=== PATIENT | female | born 1955 | race Caucasian/White ===

== ENCOUNTER → 2018-07-26 10:21 | Outpatient (CLI) | payer BC, SELFPAY ==
--- NOTE | 2018-07-26 10:30 | RAD_ITS ---
STUDY: X-RAY - ABDOMEN/PELVIS REASON FOR EXAM: Female, 63 years old. Left-sided renal stones. TECHNIQUE: Single AP view of the abdomen / pelvis. COMPARISON: CT scan 11/25/2015. FINDINGS: Normal visualized lung bases. 9 mm calcification overlying the lower pole of the left kidney consistent with renal stone. There is an unremarkable bowel gas pattern. There is no demonstrated free abdominal air. The visualized liver, spleen and kidneys are grossly normal in size and morphology. Normal soft tissue structures. Normal visualized osseous structures. RAD/Abdomen Single View IMPRESSION: 9 mm left lower pole renal stone. No other significant findings. Electronically Signed: Emory Johnson MD at 22:09 EST , Service support ,
== END ==
PROVIDERS: Family Provider Family Medicine; PCP Family Medicine; Referring Provider Urology; Visit Provider Urology
DX: N20.0 Calculus of kidney (principal)
CPT/HCPCS: 74018

== ENCOUNTER 2018-08-19 08:04 | Day surgery (SDC) | payer BC, SELFPAY ==
[2018-08-19] VITALS (8 sets, daily range): BP systolic 102–153; BP diastolic 69–87; PULSE 73–85; RESP 16; TEMP 36.2–36.9; O2SAT 93–98; BMI 30.8
[2018-08-19] MEDS: Ciprofloxacin 400 MG/200 ML BAG 200 MG IV (08:52)
--- NOTE | 2018-08-19 10:32 | PCM.DC.URO ---
Discharge Diet: No Restrictions Discharge Activity: Return to Normal Activity, May not drive while taking narcotic pain medications. Call your doctor if you observe: Fever of 101 or Higher, Shortness of breath, Calf discomfort, Uncontrolled pain Allergies/Adverse Reactions: Allergies clindamycin Allergy (Verified 08/13/18 10:15) Rash Penicillins Allergy (Verified 08/13/18 10:15) Rash Sulfa (Sulfonamide Antibiotics) Allergy (Verified 08/13/18 10:15) Rash Medications to take at Discharge Acebutolol HCl [Sectral] 200 mg PO DAILY 07/26/15 Albuterol Sulfate [Proventil Hfa] 90 mcg IH 4X/DAY 07/26/15 Fluticasone/Salmeterol [Advair 250/50 Mcg Diskus] 1 puff INHALATION BID 07/26/15 Loratadine [Claritin] 10 mg PO DAILY 07/26/15 Montelukast [Singulair] 10 mg PO DAILY 07/26/15 Diclofenac Sodium [Pennsaid] 2 gm TP DAILY PRN 08/13/18 Primary Care Physician: Puneet Santos MD [Primary Care Provider] - Test Results: Test results from this visit will be discussed in further detail at your follow-up appointment, if applicable. Please Follow Up With: Angelica Mosher MD When: 3 weeks with [facility] Proposed Discharge Date: 08/19/18
--- NOTE | 2018-08-19 10:35 | DCINST_ITS ---
Discharge Diet: No Restrictions Discharge Activity: Return to Normal Activity, May not drive while taking narcotic pain medications. Call your doctor if you observe: Fever of 101 or Higher, Shortness of breath, Calf discomfort, Uncontrolled pain Allergies/Adverse Reactions: Allergies clindamycin Allergy (Verified 08/13/18 10:15) Rash Penicillins Allergy (Verified 08/13/18 10:15) Rash Sulfa (Sulfonamide Antibiotics) Allergy (Verified 08/13/18 10:15) Rash Medications to take at Discharge Acebutolol HCl [Sectral] 200 mg PO DAILY 07/26/15 Albuterol Sulfate [Proventil Hfa] 90 mcg IH 4X/DAY 07/26/15 Fluticasone/Salmeterol [Advair 250/50 Mcg Diskus] 1 puff INHALATION BID 07/26/15 Loratadine [Claritin] 10 mg PO DAILY 07/26/15 Montelukast [Singulair] 10 mg PO DAILY 07/26/15 Diclofenac Sodium [Pennsaid] 2 gm TP DAILY PRN 08/13/18 Primary Care Physician: Puneet Santos MD [Primary Care Provider] - Test Results: Test results from this visit will be discussed in further detail at your follow- up appointment, if applicable. Please Follow Up With: Angelica Mosher MD When: 3 weeks with [facility] Proposed Discharge Date: 08/19/18
--- NOTE | 2018-08-19 11:04 | PCM.IMDPSTOP ---
Immediate Post-Op Note Date of Procedure: 08/19/18 Primary Surgeon/Physician: Angelica Mosher MD hydroelectric systems technician: Angelica Mosher Pre-Operative Diagnosis: left renal calculus Post-Operative Diagnosis: same Surgery/Procedure Performed:: left renal extracorporeal shockwave lithotripsy Description of Surgical Findings:: left lower pole renal stone about 1cm in stone burden, 2000 shocks and no longer seen. Estimated Blood Loss: 1cc Specimen's removed: none Type of Anesthesia:: General - Admit VTE Documentation VTE Present on Admission: Yes VTE Mechan Device Prophylaxis: SCD's VTE Pharm Prophylaxis ordered?: No Reason prophylaxis not ordered:: Treatment Not Indicated
--- NOTE | 2018-08-19 11:06 | PCM.OPRPT ---
Problem List (1) Renal calculus, left Status: Acute Report of Operation Date of Procedure: 08/19/18 Pre-Operative Diagnosis: left renal calculus Post-Operative Diagnosis: same Surgery/Procedure Performed:: left renal extracorporeal shockwave lithotripsy Description of Surgical Findings:: left lower pole renal stone about 1cm in stone burden, 2000 shocks and no longer seen. human capital consultant: Angelica Mosher Type of Anesthesia:: General Specimen's removed: none Estimated Blood Loss (mL): 1cc Description of Procedure: The patient is a 63-year-old female who has had multiple issues with kidney stones in the past. Her last several KUBs reveal a 1 cm left lower pole stone. After discussing all the risks benefits and alternatives, she agreed to proceed with shockwave lithotripsy under general anesthesia. Patient was taken to the operating room and placed on the operating room table. Anesthesia monitored the head, neck, airway, IV access, vital signs throughout the case. Once anesthesia was appropriately administered the patient was aligned with a lithotripter using fluoroscopy. The stone was easily identified using fluoroscopic visualization. 2000 shocks were applied to the stone. It was fragmented to the point of nonvisualization and the decision was made to stop the procedure. The case was terminated and the patient was awakened and taken to the recovery room in good condition. There were no complications. Grafts/Implants Used: none - Complications none - Admit VTE Documentation VTE Present on Admission: Yes VTE Mechan Device Prophylaxis: SCD's VTE Pharm Prophylaxis ordered?: No Reason prophylaxis not ordered:: Treatment Not Indicated
--- NOTE | 2018-08-19 11:09 | OP.PCM_ITS ---
Problem List (1) Renal calculus, left Status: Acute Report of Operation Date of Procedure: 08/19/18 Pre-Operative Diagnosis: left renal calculus Post-Operative Diagnosis: same Surgery/Procedure Performed:: left renal extracorporeal shockwave lithotripsy Description of Surgical Findings:: left lower pole renal stone about 1cm in stone burden, 2000 shocks and no longer seen. clam shucking machine tender: Angelica Mosher Type of Anesthesia:: General Specimen's removed: none Estimated Blood Loss (mL): 1cc Description of Procedure: The patient is a 63-year-old female who has had multiple issues with kidney stones in the past. Her last several KUBs reveal a 1 cm left lower pole stone. After discussing all the risks benefits and alternatives, she agreed to proceed with shockwave lithotripsy under general anesthesia. Patient was taken to the operating room and placed on the operating room table. Anesthesia monitored the head, neck, airway, IV access, vital signs throughout the case. Once anesthesia was appropriately administered the patient was aligned with a lithotripter using fluoroscopy. The stone was easily identified using fluoroscopic visualization. 2000 shocks were applied to the stone. It was fragmented to the point of nonvisualization and the decision was made to stop the procedure. The case was terminated and the patient was awakened and taken to the recovery room in good condition. There were no complications. Grafts/Implants Used: none - Complications none - Admit VTE Documentation VTE Present on Admission: Yes VTE Mechan Device Prophylaxis: SCD's VTE Pharm Prophylaxis ordered?: No Reason prophylaxis not ordered:: Treatment Not Indicated
--- OUTSIDE RECORDS SUMMARY | 2018-10-14 07:56 | XMS RPT_ITS ---
:1955 Author Organization OHIP Care Team Providers Name Role Phone CORRINA MARCOS Attending Unavailable CORRINA MARCOS Referring Unavailable DIANA SEBASTIAN Referring Unavailable CORRINA MARCOS Attending Unavailable DIANA SEBASTIAN Referring Unavailable Angelica Mosher Attending Unavailable Angelica Mosher Referring Unavailable Diana Sebastian Primary Care Unavailable Angelica Mosher Attending Unavailable Angelica Mosher Referring Unavailable Diana Sebastian Primary Care Unavailable PROBLEMS PROBLEMS DATE TYPE CONDITION / CODE ATTENDING STATUS SOURCE 08/19/2018 Unknown N20.0 - Calculus Angelica Mosher Active [facility] N20.0(ICD-10) Hospital Repository 02/04/2018 Active Encounter for NA Active [facility] screening for [facility] malignant Repository neoplasm of colon / Z12.11(ICD-10) PROCEDURES PROCEDURES No Procedure Records FoundRESULTS RESULTS OPERATIVE REPORT Observed: 08/19/2018 Status: F Source: [place] 11:09 AM [facility] REPOSITORY [facility] Medical Records Department [address] [place] [address] Operative Report 08/19/18 1106 MR#: [id number] Acct: [id number] Name: EVELIO MEYERS Rep #: [id number] : 1955 63 From: Angelica oMsher MD PCP: Diana Sebastian MD Status: REG [facility] Location: [place] [address] Problem List (1) Renal calculus, left Status: Acute Report of Operation Date of Procedure: 08/19/18 Pre-Operative Diagnosis: left renal calculus Post-Operative Diagnosis: same Surgery/Procedure Performed:: left renal extracorporeal shockwave lithotripsy Description of Surgical Findings:: left lower pole renal stone about 1cm in stone burden, 2000 shocks and no longer seen. export clerk: Angelica Mosher Type of Anesthesia:: General Specimen's removed: none Estimated Blood Loss (mL): 1cc Description of Procedure: The patient is a 63-year-old female who has had multiple issues with kidney stones in the past. Her last several KUBs reveal a 1 cm left lower pole stone. After discussing all the risks benefits and alternatives, she agreed to proceed with shockwave lithotripsy under general anesthesia. Patient was taken to the operating room and placed on the operating room table. Anesthesia monitored the head, neck, airway, IV access, vital signs throughout the case. Once anesthesia was appropriately administered the patient was aligned with a lithotripter using fluoroscopy. The stone was easily identified using fluoroscopic visualization. 2000 shocks were applied to the stone. It was fragmented to the point of nonvisualization and the decision was made to stop the procedure. The case was terminated and the patient was awakened and taken to the recovery room in good condition. There were no complications. Grafts/Implants Used: none - Complications none - Admit VTE Documentation VTE Present on Admission: Yes VTE Mechan Device Prophylaxis: SCD's VTE Pharm Prophylaxis ordered?: No Reason prophylaxis not ordered:: Treatment Not Indicated 08/19/18 1109 <Electronically signed by Angelica Mosher MD> Date Angelica Mosher MD CC: Angelica Mosher MD; Diana Sebastian MD Signed DISCHARGE INSTRUCTION Observed: 08/19/2018 Status: F Source: [place] 10:35 AM [facility] REPOSITORY [facility] Medical Records Department [address] [place] [address] Instructions for Home/Discharge Instructions 08/19/18 1032 MR#: [id number] Acct: [id number] Name: EVELIO MEYERS Rep #: [id number] : 1955 63 From: Angelica Mosher MD PCP: Diana Sebastian MD Status: REG PRC Discharge Diet: No Restrictions Discharge Activity: Return to Normal Activity, May not drive while taking narcotic pain medications. Call your doctor if you observe: Fever of 101 or Higher, Shortness of breath, Calf discomfort, Uncontrolled pain Allergies/Adverse Reactions: Allergies clindamycin Allergy (Verified 08/13/18 10:15) Rash Penicillins Allergy (Verified 08/13/18 10:15) Rash Sulfa (Sulfonamide Antibiotics) Allergy (Verified 08/13/18 10:15) Rash Medications to take at Discharge Acebutolol HCl [Sectral] 200 mg PO DAILY 07/26/15 Albuterol Sulfate [Proventil Hfa] 90 mcg IH 4X/DAY 07/26/15 Fluticasone/Salmeterol [Advair 250/50 Mcg Diskus] 1 puff INHALATION BID 07/26/15 Loratadine [Claritin] 10 mg PO DAILY 07/26/15 Montelukast [Singulair] 10 mg PO DAILY 07/26/15 Diclofenac Sodium [Pennsaid] 2 gm TP DAILY PRN 08/13/18 Primary Care Physician: Diana Sebastian MD [Primary Care Provider] - Test Results: Test results from this visit will be discussed in further detail at your follow-up appointment, if applicable. Please Follow Up With: Angelica Mosher MD When: 3 weeks with KUB Proposed Discharge Date: 08/19/18 08/19/18 1035 <Electronically signed by Angelica Mosher MD> Date Angelica Mosher MD CC: Diana Sebastian MD ABDOMEN SINGLE VIEW Observed: 07/26/2018 Status: F Source: [place] 10:30 AM [facility] REPOSITORY [facility] Imaging Services [address] [place] [id number] Abdomen Single View MR#: [id number] Acct: [id number] Name: EVELIO MEYERS Rep #: [id number] : 1955 F 63 From: Emory Johnson MD PCP: Diana Sebastian MD Status: REG CLI Study: Abdomen Single View Date of Exam: 07/26/18 Exam# [id number] Ordering Dr: Angelica Mosher MD STUDY: X-RAY - ABDOMEN/PELVIS REASON FOR EXAM: Female, 63 years old. Left-sided renal stones. TECHNIQUE: Single AP view of the abdomen / pelvis. COMPARISON: CT scan 11/25/2015. FINDINGS: Normal visualized lung bases. 9 mm calcification overlying the lower pole of the left kidney consistent with renal stone. There is an unremarkable bowel gas pattern. There is no demonstrated free abdominal air. The visualized liver, spleen and kidneys are grossly normal in size and morphology. Normal soft tissue structures. Normal visualized osseous structures. RAD/Abdomen Single View IMPRESSION: 9 mm left lower pole renal stone. No other significant findings. Electronically Signed: Emory Johnson MD at 22:09 EST , Service support , CC: Angelica Mosher MD; Diana Sebastian MD Laborer Pole Crew: Signed EMELI Observed: 07/06/2018 Status: COMPLETED Source: [place] 12:00 AM [facility] REPOSITORY Telephone (RENE) EVELIO MEYERS ([id number]) 1955 F Date Time Provider Department 07/06/18 CORRINA MARCOS During your visit today, we recorded the following information about you: Alejandra Barrett Ma 07/06/2018 12:01 PM Signed Patient called in with questions about using Pennsaid. She received the medication in the mail and has been using as directed (1 pump BID), she was not getting much relief with just one pump. She read the pamphlet that came with the medication and in their directions, it states 2 pumps BID. She reached out to pharmacist and they advised with an area as large as the knee, she should be using 2 pumps BID, but to notify the physician's office and make sure this is ok Also, asking if she can take ibuprofen while using this medication? Tylenol does nothing for her and she gets headaches frequently. Belgica Valverde PA-C 07/06/2018 1:54 PM Signed 2 pumps BID is fine. Yes, she can take ibuprofen for headaches. Alejandra Barrett Ma 07/06/2018 2:30 PM Signed Patient has been notified of message from Belgica and she verbalized understanding. Allergies As of Date: 07/06/2018 Noted Allergy Reaction AMOXICILLIN 05/03/2008 Comments: hives CLINDAMYCIN 01/11/2018 2 - Rash PENICILLINS 05/03/2008 Comments: jeremy SULFA (SULFONAMIDE ANTIBIOTICS) 05/03/2008 Date Reviewed: 06/28/2018 Reviewed by: Corrina Marcos - Fully Assessed Reason for Visit: Medication Question [4028] Prescriptions as of 07/06/2018 Sig: DICLOFENAC 20 MG/GRAM/ACTUATI* Apply 1 Pump to affected area* ACEBUTOLOL 200 MG CAPSULE Take 1 capsule by mouth twice* MILK THISTLE 175 MG TABLET Take 1 tablet by mouth once d* CHOLECALCIFEROL (VITAMIN D3) * Take 1 tablet by mouth twice * FLAXSEED OIL 1,000 MG CAPSULE Take 1 capsule by mouth once * FLUTICASONE 250 MCG-SALMETERO* Inhale 1 Puff as instructed t* ALBUTEROL SULFATE HFA 90 MCG/* Inhale 2 Puffs as instructed * MONTELUKAST 10 MG TABLET Take 1 tablet by mouth daily * LORATADINE 10 MG TABLET Take 1 tablet by mouth once d* CALCIUM CARBONATE 500 MG CALC* Take 1 tablet by mouth twice * OMEGA-3 FATTY ACIDS 1,000 MG * Take 2 capsules by mouth twic* CINNAMON BARK 500 MG CAPSULE Take 1 capsule by mouth twice* GARLIC 1,000 MG CAPSULE Take 1 capsule by mouth once * COENZYME Q10 200 MG CAPSULE Take 1 capsule by mouth once * Problem List As Of Date 07/06/2018 Noted Resolved Moderate persistent asthma without complication*INVALID FOR* MVP (mitral valve prolapse) [I34.1] INVALID FOR* Kidney stone [N20.0] INVALID FOR* Prediabetes [R73.03] INVALID FOR* Encounter Status:Closed by ALEJANDRA BARRETT MA on 07/06/18 EMELI Observed: 07/01/2018 Status: COMPLETED Source: [place] 12:00 AM [facility] REPOSITORY Telephone (ORTHWS) EVELIO MEYERS ([id number]) 1955 F Date Time Provider Department 07/01/18 CORRINA MARCOS During your visit today, we recorded the following information about you: Alejandra Barrett Ma 07/01/2018 2:26 PM Signed Patient called in stating she was started on etodolac on Thursday. She is not able to tolerate the medication after 2 days. She is asking if medication can be changed? Wanted me to remind you, meloxicam does not hold her pain and that is why you changed the medication on Thursday. Confirmed [facility] in [place] as pharmacy. Belgica Valverde PA-C 07/01/2018 4:11 PM Signed Patient is having GI upset after taking the etodolac, advised her to discontinue the medication. We discussed having her try a topical antiinflammatory, Pennsaid called into pharmacy. She was getting some relief from meloxicam but it stopped helping pen[facility]entiary through the day. Will consider pairing the meloxicam with the pennsaid if needed. Allergies As of Date: 07/01/2018 Noted Allergy Reaction AMOXICILLIN 05/03/2008 Comments: hives CLINDAMYCIN 01/11/2018 2 - Rash PENICILLINS 05/03/2008 Comments: hives SULFA (SULFONAMIDE ANTIBIOTICS) 05/03/2008 Date Reviewed: 06/28/2018 Reviewed by: Corrina Marcos - Fully Assessed Reason for Visit: Medication Problem [65] Order(s):diclofenac sodium (PENNSAID) 20 mg/gram /actuation(2 %) sopmApply 1 Pump to affected area twice daily.Disp: 1 BottleRfl: 2 Prescriptions as of 07/01/2018 Sig: DICLOFENAC 20 MG/GRAM/ACTUATI* Apply 1 Pump to affected area* ACEBUTOLOL 200 MG CAPSULE Take 1 capsule by mouth twice* MILK THISTLE 175 MG TABLET Take 1 tablet by mouth once d* CHOLECALCIFEROL (VITAMIN D3) * Take 1 tablet by mouth twice * FLAXSEED OIL 1,000 MG CAPSULE Take 1 capsule by mouth once * FLUTICASONE 250 MCG-SALMETERO* Inhale 1 Puff as instructed t* ALBUTEROL SULFATE HFA 90 MCG/* Inhale 2 Puffs as instructed * MONTELUKAST 10 MG TABLET Take 1 tablet by mouth daily * LORATADINE 10 MG TABLET Take 1 tablet by mouth once d* CALCIUM CARBONATE 500 MG CALC* Take 1 tablet by mouth twice * OMEGA-3 FATTY ACIDS 1,000 MG * Take 2 capsules by mouth twic* CINNAMON BARK 500 MG CAPSULE Take 1 capsule by mouth twice* GARLIC 1,000 MG CAPSULE Take 1 capsule by mouth once * COENZYME Q10 200 MG CAPSULE Take 1 capsule by mouth once * Problem List As Of Date 07/01/2018 Noted Resolved Moderate persistent asthma without complication*INVALID FOR* MVP (mitral valve prolapse) [I34.1] INVALID FOR* Kidney stone [N20.0] INVALID FOR* Prediabetes [R73.03] INVALID FOR* Prescriptions ordered this encounter Disp Refills Start End DICLOFENAC 20 MG/GRAM/ACTUATION (2 %* 1 Driss* 2 07/01/2018 Route: TOPICAL Sig: Apply 1 Pump to affected area twice daily. Medications Discontinued During This Encounter etodolac (LODINE) 300 mg capsule 90 c* 1 06/28/2018 07/01/2018 Route: ORAL Sig: Take 1 capsule by mouth every 8 hours. Disc: Clinical Decision Encounter Status:Closed by BELGICA VALVERDE PA-C on 07/01/18 PROGRESS Observed: 06/28/2018 Status: COMPLETED Source: [place] 12:16 PM [facility] REPOSITORY O ID: [id number] Author: Corrina Marcos Service: (none) Author Type: Physician Type: Progress Notes Filed: 07/19/2018 5:36 PM Note Text: Corrina Marcos MD Department of Orthopaedics Orthopaedics [address] [facility] [address] Dept: [phone] Dept June 28, 2018 CHIEF COMPLAINT: Established Patient (5 months post visit right knee pain with injection given - see telephone encounter ( Euflexxa denied by insurance)) Ms. Evelio Meyers is a 63 year old female patient returns 5 months after being seen for continued problems with her knee. She had a cortisone injection at that time which only lasted a few weeks if that. She was also apparently denied by insurance for Euflexxa. ASSESSMENT: M25.561, G89.29 Chronic pain of right knee (primary encounter diagnosis) M17.11 Primary osteoarthritis of right knee PLAN: we will change her anti-inflammatory to see if a different type of Visco supplementation might be approved through her own insurance. We also had a lengthy discussion about her different options including possible knee scope versus delayed arthroplasty. She would like to try a new NSAID first. she has also lost some weight which is great and highly encouraged. Ms. Evelio Meyers was advised as to contrast therapies and/or to take analgesics/anti-inflammatories as needed and all contraindications were reviewed. OBJECTIVE: Ms. Evelio Meyers is a pleasant 63 year old in no apparent distress. Gen:There were no vitals taken for this visit. nl development, non obese, no deformities ENT: Normocephalic, normal hearing, moist mucosa CV: Pulses:DP/PT= 2+ and symmetric, capillary refill < 2 secs, no peripheral edema/varicosities Skin: no rash, bruising or lesions. Good turgor. Psych: cooperative and appropriate, alert and oriented x 3, good mood and affect. Musculoskeletal: Range of motion 0?130 degrees. Positive medial, without lateral joint line pain on palpation. Ligamentous exam stable on varus and valgus stress testing at 0 and 30 degrees. Ruddy's examination is negative. Posterior drawer is negative. Painful medial McMurrays, without palpable click. Extremity is warm and well perfused. Sensation is grossly intact to light touch, subjectively Imaging: Deferred today. Supporting Subjective Information Below: Past Surgical History: PAST SURGICAL HISTORY Procedure Laterality Date - BREAST BIOPSY Right - PAST SURGICAL HISTORY OF Right 07/10/2012 vein ablation-right leg Medications: Current Outpatient Prescriptions: acebutolol (SECTRAL) 200 mg capsule Take 1 capsule by mouth twice daily. Milk Thistle 175 mg tab Take 1 tablet by mouth once daily. Cholecalciferol, Vitamin D3, 2,000 unit cap Take 1 tablet by mouth twice daily. Flaxseed Oil 1,000 mg cap Take 1 capsule by mouth once daily. fluticasone-salmeterol (ADVAIR DISKUS) 250-50 mcg/dose dsdv Inhale 1 Puff as instructed twice daily. Rinse and gargle mouth after use with water. albuterol HFA (PROAIR HFA) 90 mcg/actuation inhaler Inhale 2 Puffs as instructed every 4 hours as needed. montelukast (SINGULAIR) 10 mg tablet Take 1 tablet by mouth daily at bedtime. loratadine (CLARITIN) 10 mg tablet Take 1 tablet by mouth once daily. calcium carbonate (CALCIUM 500) 500 mg calcium (1,250 mg) chewable tablet Take 1 tablet by mouth twice daily. omega-3 fatty acids 1,000 mg cap Take 2 capsules by mouth twice daily. Cinnamon Bark (CINNAMON) 500 mg cap Take 1 capsule by mouth twice daily. Garlic 1,000 mg cap Take 1 capsule by mouth once daily. Coenzyme Q10 (CO Q-10) 200 mg cap Take 1 capsule by mouth once daily. etodolac (LODINE) 300 mg capsule Take 1 capsule by mouth every 8 hours. No current facility-administered medications for this visit. Allergies: Amoxicillin; Clindamycin; Penicillins; Sulfa (Sulfonamide Antibiotics) ROS: General (negative for fatigue, malaise, weight loss/gain) HEENT (negative for headache, earache, recent vision changes, sinus pain, sore throat) Respiratory (no recent shortness of breath, hemoptysis) CV (negative for chest tightness, palpitations) Musculoskeletal (see HPI) Psych (no depression, anxiety) This note was partially generated using PAYMILL voice recognition system, and there may be some incorrect words, spellings, and punctuation that were not noted in checking the note before saving. Corrina Marcos MD PROGRESS Observed: 06/28/2018 Status: COMPLETED Source: [place] 11:08 AM [facility] REPOSITORY HNO ID: [id number] Author: Sari Brown Ma Service: (none) Author Type: (none) Type: Progress Notes Filed: 07/19/2018 5:36 PM Note Text: Patient presents with: Established Patient: 5 months post visit right knee pain with injection given - see telephone encounter ( Euflexxa denied by insurance) AMB ROOMING INTAKE FLOWSHEET DATA Risk Screening Do you have concerns about personal safety or safety in the home?: No Pain Pain Score: 4/10 Pain Location: Knee-Right Description: Dull, Aching Duration Amount of Time: (Ongoing) Frequency: Intermittent Intervention: Medication Patient states cortisone injection helped for about 5 - 6 days. Continuing to have pain her in right knee. Finished taking Meloxicam yesterday. States it only helped for about 6-8 hours a day. CNOV Observed: 06/28/2018 Status: COMPLETED Source: [place] 11:00 AM [facility] REPOSITORY Office Visit (ORTHWS) EVELIO MEYERS ([id number]) 1955 F Date Time Provider Department 06/28/18 11:00 AM CORRINA MARCOS During your visit today, we recorded the following information about you: Sari Kevin Rodriguez 07/19/2018 5:36 PM Signed Patient presents with: Established Patient: 5 months post visit right knee pain with injection given - see telephone encounter ( Euflexxa denied by insurance) AMB ROOMING INTAKE FLOWSHEET DATA Risk Screening Do you have concerns about personal safety or safety in the home?: No Pain Pain Score: 4/10 Pain Location: Knee-Right Description: Dull, Aching Duration Amount of Time: (Ongoing) Frequency: Intermittent Intervention: Medication Patient states cortisone injection helped for about 5 - 6 days. Continuing to have pain her in right knee. Finished taking Meloxicam yesterday. States it only helped for about 6-8 hours a day. Corrina Marcos MD 07/19/2018 5:36 PM Signed Corrina Marcos MD Department of Orthopaedics Orthopaedics [address] [facility] [address] Dept: [phone] Dept June 28, 2018 CHIEF COMPLAINT: Established Patient (5 months post visit right knee pain with injection given - see telephone encounter ( Euflexxa denied by insurance)) Ms. Evelio Meyers is a 63 year old female patient returns 5 months after being seen for continued problems with her knee. She had a cortisone injection at that time which only lasted a few weeks if that. She was also apparently denied by insurance for Euflexxa. ASSESSMENT: M25.561, G89.29 Chronic pain of right knee (primary encounter diagnosis) M17.11 Primary osteoarthritis of right knee PLAN: we will change her anti-inflammatory to see if a different type of Visco supplementation might be approved through her own insurance. We also had a lengthy discussion about her different options including possible knee scope versus delayed arthroplasty. She would like to try a new NSAID first. she has also lost some weight which is great and highly encouraged. Ms. Evelio Meyers was advised as to contrast therapies and/or to take analgesics/anti-inflammatories as needed and all contraindications were reviewed. OBJECTIVE: Ms. Evelio Meyers is a pleasant 63 year old in no apparent distress. Gen:There were no vitals taken for this visit. nl development, non obese, no deformities ENT: Normocephalic, normal hearing, moist mucosa CV: Pulses:DP/PT= 2+ and symmetric, capillary refill < 2 secs, no peripheral edema/varicosities Skin: no rash, bruising or lesions. Good turgor. Psych: cooperative and appropriate, alert and oriented x 3, good mood and affect. Musculoskeletal: Range of motion 0?130 degrees. Positive medial, without lateral joint line pain on palpation. Ligamentous exam stable on varus and valgus stress testing at 0 and 30 degrees. Ruddy's examination is negative. Posterior drawer is negative. Painful medial McMurrays, without palpable click. Extremity is warm and well perfused. Sensation is grossly intact to light touch, subjectively Imaging: Deferred today. Supporting Subjective Information Below: Past Surgical History: PAST SURGICAL HISTORY Procedure Laterality Date - BREAST BIOPSY Right - PAST SURGICAL HISTORY OF Right 07/10/2012 vein ablation-right leg Medications: Current Outpatient Prescriptions: acebutolol (SECTRAL) 200 mg capsule Take 1 capsule by mouth twice daily. Milk Thistle 175 mg tab Take 1 tablet by mouth once daily. Cholecalciferol, Vitamin D3, 2,000 unit cap Take 1 tablet by mouth twice daily. Flaxseed Oil 1,000 mg cap Take 1 capsule by mouth once daily. fluticasone-salmeterol (ADVAIR DISKUS) 250-50 mcg/dose dsdv Inhale 1 Puff as instructed twice daily. Rinse and gargle mouth after use with water. albuterol HFA (PROAIR HFA) 90 mcg/actuation inhaler Inhale 2 Puffs as instructed every 4 hours as needed. montelukast (SINGULAIR) 10 mg tablet Take 1 tablet by mouth daily at bedtime. loratadine (CLARITIN) 10 mg tablet Take 1 tablet by mouth once daily. calcium carbonate (CALCIUM 500) 500 mg calcium (1,250 mg) chewable tablet Take 1 tablet by mouth twice daily. omega-3 fatty acids 1,000 mg cap Take 2 capsules by mouth twice daily. Cinnamon Bark (CINNAMON) 500 mg cap Take 1 capsule by mouth twice daily. Garlic 1,000 mg cap Take 1 capsule by mouth once daily. Coenzyme Q10 (CO Q-10) 200 mg cap Take 1 capsule by mouth once daily. etodolac (LODINE) 300 mg capsule Take 1 capsule by mouth every 8 hours. No current facility-administered medications for this visit. Allergies: Amoxicillin; Clindamycin; Penicillins; Sulfa (Sulfonamide Antibiotics) ROS: General (negative for fatigue, malaise, weight loss/gain) HEENT (negative for headache, earache, recent vision changes, sinus pain, sore throat) Respiratory (no recent shortness of breath, hemoptysis) CV (negative for chest tightness, palpitations) Musculoskeletal (see HPI) Psych (no depression, anxiety) This note was partially generated using PAYMILL voice recognition system, and there may be some incorrect words, spellings, and punctuation that were not noted in checking the note before saving. Corrina Marcos MD Referring Provider: CORRINA MARCOS [[id number]] Allergies As of Date: 06/28/2018 Noted Allergy Reaction AMOXICILLIN 05/03/2008 Comments: hives CLINDAMYCIN 01/11/2018 2 - Rash PENICILLINS 05/03/2008 Comments: hives SULFA (SULFONAMIDE ANTIBIOTICS) 05/03/2008 Date Reviewed: 06/28/2018 Reviewed by: Corrina Marcos - Fully Assessed Reason for Visit: Established Patient [175] Cmt: 5 months post visit right knee pain with injection given - see telephone encounter ( Euflexxa denied by insurance) Reason For Visit History Recorded Primary Visit Diagnosis:Chronic pain of right knee [M25.561, G89.29] Other Visit Diagnosis:Primary osteoarthritis of right knee [M17.11] Prescriptions as of 06/28/2018 Sig: ACEBUTOLOL 200 MG CAPSULE Take 1 capsule by mouth twice* MILK THISTLE 175 MG TABLET Take 1 tablet by mouth once d* CHOLECALCIFEROL (VITAMIN D3) * Take 1 tablet by mouth twice * FLAXSEED OIL 1,000 MG CAPSULE Take 1 capsule by mouth once * FLUTICASONE 250 MCG-SALMETERO* Inhale 1 Puff as instructed t* ALBUTEROL SULFATE HFA 90 MCG/* Inhale 2 Puffs as instructed * MONTELUKAST 10 MG TABLET Take 1 tablet by mouth daily * LORATADINE 10 MG TABLET Take 1 tablet by mouth once d* CALCIUM CARBONATE 500 MG CALC* Take 1 tablet by mouth twice * OMEGA-3 FATTY ACIDS 1,000 MG * Take 2 capsules by mouth twic* CINNAMON BARK 500 MG CAPSULE Take 1 capsule by mouth twice* GARLIC 1,000 MG CAPSULE Take 1 capsule by mouth once * COENZYME Q10 200 MG CAPSULE Take 1 capsule by mouth once * X ETODOLAC 300 MG CAPSULE Take 1 capsule by mouth every* Problem List As Of Date 06/28/2018 Noted Resolved Moderate persistent asthma without complication*INVALID FOR* MVP (mitral valve prolapse) [I34.1] INVALID FOR* Kidney stone [N20.0] INVALID FOR* Prediabetes [R73.03] INVALID FOR* Prescriptions ordered this encounter Disp Refills Start End ETODOLAC 300 MG CAPSULE 90 c* 1 06/28/2018 07/01/2018 Route: ORAL Sig: Take 1 capsule by mouth every 8 hours. Disc: Clinical Decision Medications Discontinued During This Encounter meloxicam (MOBIC) 15 mg tablet 30 t* 2 01/11/2018 06/28/2018 Route: ORAL Sig: Take 1 tablet by mouth once daily. Patient not taking: Reported on 06/28/2018 Disc: Course of therapy completed Encounter Status:Closed by CORRINA MARCOS MD on 07/19/18 FECAL OCCULT BLD Collected: 02/04/2018 Status: F Source: [place] 2:06 PM [facility] REPOSITORY TYPE CODE TESTS RESULT OUT OF REFERENCE UNITS RANGE LAB IFO Negative Immuno Negative FOB Result Comment: This test was developed and its performance characteristics determined by [facility] ([facility] It has not been cleared or approved by the FDA. [facility] is regulated under CLIA as qualified to perform high-complexity testing. This test is used for clinical purposes. It should not be regarded as investigational or for research. Performed By: #### IFOBT #### [facility] [address] [place], [place] [address] PROGRESS Observed: 01/11/2018 Status: COMPLETED Source: [place] 2:00 PM [facility] REPOSITORY HNO ID: [id number] Author: Corrina Marcos Service: (none) Author Type: Physician Type: Progress Notes Filed: 01/12/2018 6:12 PM Note Text: Corrina Marcos MD Department of Orthopaedics Orthopaedics [address] [facility] [address] Dept: [phone] Dept January 11, 2018 CHIEF COMPLAINT: New Patient (Right knee pain REF: [facility] X-ray: 07/21/2017) HPI: Ms. Evelio Meyers is a 62 year old female who presents with 7 out of 10 pain in the right knee with throbbing and aching and a dull discomfort for the past 4 months now. She fell and injured her foot always back in last October and thinks it may have altered her gait a bit when it all started. She was taking meloxicam for a month but has been off of it. Her knee pain is now letting him get sleep. ASSESSMENT: M25.561, G89.29 Chronic pain of right knee (primary encounter diagnosis) M17.11 Primary osteoarthritis of right knee PLAN: We talked about multiple treatment plans for knee pain and osteoarthritis. She is going to start some strengthening, and oral anti-inflammatory, as well as a cortisone injection today. FOLLOW UP INSTRUCTIONS: As needed Ms. Evelio Meyers was advised as to contrast therapies and/or to take analgesics/anti-inflammatories as needed and all contraindications were reviewed. OBJECTIVE: Ms. Evelio J Meyers is a pleasant 62 year old in no apparent distress. Gen:BP 143/77 Pulse 95 Ht 5' 5 (1.65m) Wt 192 lb 9.6 oz (87.4kg) BMI 32.05 kg/(m2). nl development, obese, no deformities ENT: Normocephalic, normal hearing, moist mucosa CV: Pulses:DP/PT= 2+ and symmetric, capillary refill < 2 secs, no peripheral edema/varicosities Skin: no rash, bruising or lesions. Good turgor. Psych: cooperative and appropriate, alert and oriented x 3, good mood and affect. Musculoskeletal: Patient walks with antalgia, normal station. Hip motion without pain. Knee with mild effusion. Patella tracks normally. There is no patellar crepitance. No pain along the medial or lateral facets. Range of motion 0?130 degrees. Positive medial, without lateral joint line pain on palpation. Ligamentous exam stable on varus and valgus stress testing at 0 and 30 degrees. Ruddy's examination is negative. Posterior drawer is negative. Painful medial McMurrays, without palpable click. Extremity is warm and well perfused. Sensation is grossly intact to light touch, subjectively. Procedure Note: The risk, benefits and alternatives of injection and no injection therapy were discussed. The patient consented for an injection. Time out was conducted. The injection site was prepped with a Chlorhexadine swab. The right Superolateral joint was injected with a 25 gauge needle with 1 cc (6 mg) Celestone, 5 cc Marcaine 0.5% . The injection site was then dressed with a bandaid. The patient tolerated the injection well. The patient was instructed to call the office if any adverse local effects occurred or any if any questions or concerns arise. Corrina Marcos MD IMAGING: IMPRESSION: Degenerative changes as discussed. 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 Transcribe Date/Time: Jul 21 2017 ?4:50P Dictated by : ALTA WARREN, DO This examination was interpreted and the report reviewed and electronically signed by: ALTA WARREN, on Jul 21 2017 ?4:51PM ?EST Results-Findings * * *Final Report* * * DATE OF EXAM: Jul 21 2017 ?8:37AM ? WOX ? 5207 ?- ?XR KNEE 2V AP/LAT RT ?/ PROCEDURE REASON: Pain in right knee ?? ? * * * * Physician Interpretation * * * * ?RIGHT knee HISTORY: ?62 years old HISTORY: Pain in right knee pt states [facility] back [facility], knee improved but then started hurting again couple of months ago pain is medial side with swelling TECHNIQUE: Images: ?XR KNEE 2V AP/LAT RT Comparison: ?None. RESULT: Findings: Right side: ?No fractures or dislocations are seen. Severe narrowing of the medial compartment. ?Marked narrowing patellofemoral compartment Left side: ?No fractures or dislocations are seen. Moderate narrowing medial compartment Supporting Subjective Information Below: Past Medical History: PAST MEDICAL HISTORY Diagnosis Date - Pre-diabetes Past Surgical History: PAST SURGICAL HISTORY Procedure Laterality Date - BREAST BIOPSY Right - PAST SURGICAL HISTORY OF Right 07/10/2012 vein ablation-right leg Family History: FAMILY HISTORY Problem Relation Age of Onset - Carotid Disease Father - Colon Cancer Other Social History:Social History Marital status: Spouse name: Years of education: Number of children: 3 Social History Main Topics Smoking status: Never Smoker Smokeless status: Never Used Alcohol use: No Comment: Rarely social Drug use: No Medications: Current Outpatient Prescriptions: Milk Thistle 175 mg tab Take 1 tablet by mouth once daily. Cholecalciferol, Vitamin D3, 2,000 unit cap Take 1 tablet by mouth twice daily. Flaxseed Oil 1,000 mg cap Take 1 capsule by mouth once daily. fluticasone-salmeterol (ADVAIR DISKUS) 250-50 mcg/dose dsdv Inhale 1 Puff as instructed twice daily. Rinse and gargle mouth after use with water. albuterol HFA (PROAIR HFA) 90 mcg/actuation inhaler Inhale 2 Puffs as instructed every 4 hours as needed. montelukast (SINGULAIR) 10 mg tablet Take 1 tablet by mouth daily at bedtime. acebutolol (SECTRAL) 200 mg capsule Take 1 capsule by mouth twice daily. loratadine (CLARITIN) 10 mg tablet Take 1 tablet by mouth once daily. calcium carbonate (CALCIUM 500) 500 mg calcium (1,250 mg) chewable tablet Take 1 tablet by mouth twice daily. omega-3 fatty acids 1,000 mg cap Take 2 capsules by mouth twice daily. Cinnamon Bark (CINNAMON) 500 mg cap Take 1 capsule by mouth twice daily. Garlic 1,000 mg cap Take 1 capsule by mouth once daily. Coenzyme Q10 (CO Q-10) 200 mg cap Take 1 capsule by mouth once daily. meloxicam (MOBIC) 15 mg tablet Take 1 tablet by mouth once daily. With food. No current facility-administered medications for this visit. Allergies: Amoxicillin; Clindamycin; Penicillins; Sulfa (Sulfonamide Antibiotics) ROS: General (negative for fatigue, malaise, weight loss/gain) HEENT (negative for headache, earache, recent vision changes, sinus pain, sore throat) Respiratory (no recent shortness of breath, hemoptysis) CV (negative for chest tightness, palpitations) Musculoskeletal (see HPI) Psych (no depression, anxiety) REFERRING PHYSICIAN: Ms. Evelio Meyers was referred to me for consultation by the following physician. This consultation note will be sent to the following physician by either mail or electronic medical record. Diana Sebastian MD [address] [facility] [address] This note was partially generated using [employer] voice recognition system, and there may be some incorrect words, spellings, and punctuation that were not noted in checking the note before saving. Corrina Marcos MD PROGRESS Observed: 01/11/2018 Status: COMPLETED Source: [place] 1:33 PM [facility] REPOSITORY HNO ID: [id number] Author: Alejandra Barrett Ma Service: (none) Author Type: (none) Type: Progress Notes Filed: 01/12/2018 6:12 PM Note Text: AMB ROOMING INTAKE FLOWSHEET DATA Risk Screening Do you have concerns about personal safety or safety in the home?: No Pain Pain Score: 7/10 Pain Location: Knee-Right Description: Throbbing, Aching, Dull Duration Amount of Time: 4 Duration Units: Months Frequency: Continuous Intervention: Other: See comment (none) Patient here today for evaluation of right knee pain x 4 months. States that she fell in 10/2016 and broke her foot and she thinks this all started when she fell. Was on Meloxicam by PCP 06/2017 for 1 month and it helped while she was taking, but pain gradually came back once she stopped taking medication. Pain prevents her from falling asleep and if she does not take ibuprofen before bed, pain wakes her in the night. She does not work outside the home. 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 X-ray at [facility] on 07/21/2017. CNOV Observed: 01/11/2018 Status: COMPLETED Source: [place] 12:55 PM [facility] REPOSITORY Office Visit (RENE) EVELIO MEYERS ([id number]) 1955 F Date Time Provider Department 01/11/18 12:55 PM CORRINA MARCOS During your visit today, we recorded the following information about you: Pulse Blood pressure Weight Height 95/minute 143/77 87.4 kg 1.651 m Alejandra Barrett Ma 01/12/2018 6:12 PM Signed AMB ROOMING INTAKE FLOWSHEET DATA Risk Screening Do you have concerns about personal safety or safety in the home?: No Pain Pain Score: 7/10 Pain Location: Knee-Right Description: Throbbing, Aching, Dull Duration Amount of Time: 4 Duration Units: Months Frequency: Continuous Intervention: Other: See comment (none) Patient here today for evaluation of right knee pain x 4 months. States that she fell in 10/2016 and broke her foot and she thinks this all started when she fell. Was on Meloxicam by PCP 06/2017 for 1 month and it helped while she was taking, but pain gradually came back once she stopped taking medication. Pain prevents her from falling asleep and if she does not take ibuprofen before bed, pain wakes her in the night. She does not work outside the home. 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 X-ray at [facility] on 07/21/2017. Corrina Marcos MD 01/12/2018 6:12 PM Signed Corrina Marcos MD Department of Orthopaedics Orthopaedics [address] [facility] [address] Dept: [phone] Dept January 11, 2018 CHIEF COMPLAINT: New Patient (Right knee pain REF: [facility] X-ray: 07/21/2017) HPI: Ms. Evelio Meyers is a 62 year old female who presents with 7 out of 10 pain in the right knee with throbbing and aching and a dull discomfort for the past 4 months now. She fell and injured her foot always back in last October and thinks it may have altered her gait a bit when it all started. She was taking meloxicam for a month but has been off of it. Her knee pain is now letting him get sleep. ASSESSMENT: M25.561, G89.29 Chronic pain of right knee (primary encounter diagnosis) M17.11 Primary osteoarthritis of right knee PLAN: We talked about multiple treatment plans for knee pain and osteoarthritis. She is going to start some strengthening, and oral anti-inflammatory, as well as a cortisone injection today. FOLLOW UP INSTRUCTIONS: As needed Ms. Evelio Meyers was advised as to contrast therapies and/or to take analgesics/anti-inflammatories as needed and all contraindications were reviewed. OBJECTIVE: Ms. Evelio Meyers is a pleasant 62 year old in no apparent distress. Gen:BP 143/77 Pulse 95 Ht 5' 5ANDquot; (1.65m) Wt 192 lb 9.6 oz (87.4kg) BMI 32.05 kg/(m2). nl development, obese, no deformities ENT: Normocephalic, normal hearing, moist mucosa CV: Pulses:DP/PT= 2+ and symmetric, capillary refill ANDlt; 2 secs, no peripheral edema/varicosities Skin: no rash, bruising or lesions. Good turgor. Psych: cooperative and appropriate, alert and oriented x 3, good mood and affect. Musculoskeletal: Patient walks with antalgia, normal station. Hip motion without pain. Knee with mild effusion. Patella tracks normally. There is no patellar crepitance. No pain along the medial or lateral facets. Range of motion 0?130 degrees. Positive medial, without lateral joint line pain on palpation. Ligamentous exam stable on varus and valgus stress testing at 0 and 30 degrees. Ruddy's examination is negative. Posterior drawer is negative. Painful medial McMurrays, without palpable click. Extremity is warm and well perfused. Sensation is grossly intact to light touch, subjectively. Procedure Note: The risk, benefits and alternatives of injection and no injection therapy were discussed. The patient consented for an injection. Time out was conducted. The injection site was prepped with a Chlorhexadine swab. The right Superolateral joint was injected with a 25 gauge needle with 1 cc (6 mg) Celestone, 5 cc Marcaine 0.5% . The injection site was then dressed with a bandaid. The patient tolerated the injection well. The patient was instructed to call the office if any adverse local effects occurred or any if any questions or concerns arise. Corrina Marcos MD IMAGING: IMPRESSION: Degenerative changes as discussed. 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 Transcribe Date/Time: Jul 21 2017 ?4:50P Dictated by : ALTA WARREN DO This examination was interpreted and the report reviewed and electronically signed by: ALTA WARREN DO on Jul 21 2017 ?4:51PM ?EST Results-Findings * * *Final Report* * * DATE OF EXAM: Jul 21 2017 ?8:37AM ? WOX ? 5207 ?- ?XR KNEE 2V AP/LAT RT ?/ PROCEDURE REASON: Pain in right knee ?? ? * * * * Physician Interpretation * * * * ?RIGHT knee HISTORY: ?62 years old HISTORY: Pain in right knee pt states fell back in [facility], knee improved but then started hurting again couple of months ago pain is medial side with swelling TECHNIQUE: Images: ?XR KNEE 2V AP/LAT RT Comparison: ?None. RESULT: Findings: Right side: ?No fractures or dislocations are seen. Severe narrowing of the medial compartment. ?Marked narrowing patellofemoral compartment Left side: ?No fractures or dislocations are seen. Moderate narrowing medial compartment Supporting Subjective Information Below: Past Medical History: PAST MEDICAL HISTORY Diagnosis Date - Pre-diabetes Past Surgical History: PAST SURGICAL HISTORY Procedure Laterality Date - BREAST BIOPSY Right - PAST SURGICAL HISTORY OF Right 07/10/2012 vein ablation-right leg Family History: FAMILY HISTORY Problem Relation Age of Onset - Carotid Disease Father - Colon Cancer Other Social History:Social History Marital status: Spouse name: Years of education: Number of children: 3 Social History Main Topics Smoking status: Never Smoker Smokeless status: Never Used Alcohol use: No Comment: Rarely social Drug use: No Medications: Current Outpatient Prescriptions: Milk Thistle 175 mg tab Take 1 tablet by mouth once daily. Cholecalciferol, Vitamin D3, 2,000 unit cap Take 1 tablet by mouth twice daily. Flaxseed Oil 1,000 mg cap Take 1 capsule by mouth once daily. fluticasone-salmeterol (ADVAIR DISKUS) 250-50 mcg/dose dsdv Inhale 1 Puff as instructed twice daily. Rinse and gargle mouth after use with water. albuterol HFA (PROAIR HFA) 90 mcg/actuation inhaler Inhale 2 Puffs as instructed every 4 hours as needed. montelukast (SINGULAIR) 10 mg tablet Take 1 tablet by mouth daily at bedtime. acebutolol (SECTRAL) 200 mg capsule Take 1 capsule by mouth twice daily. loratadine (CLARITIN) 10 mg tablet Take 1 tablet by mouth once daily. calcium carbonate (CALCIUM 500) 500 mg calcium (1,250 mg) chewable tablet Take 1 tablet by mouth twice daily. omega-3 fatty acids 1,000 mg cap Take 2 capsules by mouth twice daily. Cinnamon Bark (CINNAMON) 500 mg cap Take 1 capsule by mouth twice daily. Garlic 1,000 mg cap Take 1 capsule by mouth once daily. Coenzyme Q10 (CO Q-10) 200 mg cap Take 1 capsule by mouth once daily. meloxicam (MOBIC) 15 mg tablet Take 1 tablet by mouth once daily. With food. No current facility-administered medications for this visit. Allergies: Amoxicillin; Clindamycin; Penicillins; Sulfa (Sulfonamide Antibiotics) ROS: General (negative for fatigue, malaise, weight loss/gain) HEENT (negative for headache, earache, recent vision changes, sinus pain, sore throat) Respiratory (no recent shortness of breath, hemoptysis) CV (negative for chest tightness, palpitations) Musculoskeletal (see HPI) Psych (no depression, anxiety) REFERRING PHYSICIAN: Ms. Evelio Meyers was referred to me for consultation by the following physician. This consultation note will be sent to the following physician by either mail or electronic medical record. Diana Sebastian MD [address] [facility] [address] This note was partially generated using [employer] voice recognition system, and there may be some incorrect words, spellings, and punctuation that were not noted in checking the note before saving. Corrina Marcos MD Referring Provider: DIANA SEBASTIAN [[id number]] Allergies As of Date: 01/11/2018 Noted Allergy Reaction AMOXICILLIN 05/03/2008 Comments: hives CLINDAMYCIN 01/11/2018 2 - Rash PENICILLINS 05/03/2008 Comments: hives SULFA (SULFONAMIDE ANTIBIOTICS) 05/03/2008 Date Reviewed: 01/11/2018 Reviewed by: Alejandra Barrett Ma - Fully Assessed Reason for Visit: New Patient [172] Cmt: Right knee pain REF: [facility] X-ray: 07/21/2017 Primary Visit Diagnosis:Chronic pain of right knee [M25.561, G89.29] Other Visit Diagnosis:Primary osteoarthritis of right knee [M17.11] Order(s):meloxicam (MOBIC) 15 mg tabletTake 1 tablet by mouth once daily.Disp: 30 tabletRfl: 2 Prescriptions as of 01/11/2018 Sig: MILK THISTLE 175 MG TABLET Take 1 tablet by mouth once d* CHOLECALCIFEROL (VITAMIN D3) * Take 1 tablet by mouth twice * FLAXSEED OIL 1,000 MG CAPSULE Take 1 capsule by mouth once * FLUTICASONE 250 MCG-SALMETERO* Inhale 1 Puff as instructed t* ALBUTEROL SULFATE HFA 90 MCG/* Inhale 2 Puffs as instructed * MONTELUKAST 10 MG TABLET Take 1 tablet by mouth daily * ACEBUTOLOL 200 MG CAPSULE Take 1 capsule by mouth twice* LORATADINE 10 MG TABLET Take 1 tablet by mouth once d* CALCIUM CARBONATE 500 MG CALC* Take 1 tablet by mouth twice * OMEGA-3 FATTY ACIDS 1,000 MG * Take 2 capsules by mouth twic* CINNAMON BARK 500 MG CAPSULE Take 1 capsule by mouth twice* GARLIC 1,000 MG CAPSULE Take 1 capsule by mouth once * COENZYME Q10 200 MG CAPSULE Take 1 capsule by mouth once * MELOXICAM 15 MG TABLET Take 1 tablet by mouth once d* Medication notes this encounter MELOXICAM 15 MG TABLET >> Alejandra Barrett Ma 01/11/2018 1:30 PM >> ALEJANDRA BARRETT MA ThuJan 11, 2018 1:30 PM Course completed. Problem List As Of Date 01/11/2018 Noted Resolved Moderate persistent asthma without complication*INVALID FOR* MVP (mitral valve prolapse) [I34.1] INVALID FOR* Kidney stone [N20.0] INVALID FOR* Prediabetes [R73.03] INVALID FOR* Prescriptions ordered this encounter Disp Refills Start End MELOXICAM 15 MG TABLET 30 t* 2 01/11/2018 Route: ORAL Sig: Take 1 tablet by mouth once daily. Medications Discontinued During This Encounter meloxicam (MOBIC) 15 mg tablet 30 t* 1 07/21/2017 01/11/2018 Route: ORAL Sig: Take 1 tablet by mouth once daily. With food. Disc: Changing Therapy/Dosage Form Encounter Status:Closed by CORRINA MARCOS MD on 01/12/18 ALLERGIES ALLERGIES DATE TYPE / CODE NAME / CODE REACTION SEVERITY SOURCE 08/13/2018 Drug Penicillins/[id number] Rash Unknown [place] Allergy/416 0476(RXNORM) Community 199172([facility] ED CT) Repository 08/13/2018 Drug Sulfa (Sulfonamide Rash Unknown [place] Allergy/416 Antibiotics)/F0010 Community 842204([facility] [address] 08/13/2018 Drug clindamycin/F00433 Rash Unknown [place] Allergy/416 2794(RXNORM) Community 418833([facility] ED CT) Repository 01/11/2018 DRUG CLINDAMYCIN RASH [facility] INGREDI/419 [address] [place] 007579(SNOM Repository ED CT) 05/03/2008 DRUG AMOXICILLIN [facility] INGREDI/419 [address] [place] 002076(SNOM Repository ED CT) 05/03/2008 Drug PENICILLINS [facility] Class/01412 Main [place] 1003(SNOMED Repository CT) 05/03/2008 Drug SULFA (SULFONAMIDE [facility] Class/00691 ANTIBIOTICS) Main [place] 1003(SNOMED Repository CT) ENCOUNTERS ENCOUNTERS ADMIT/DISCHARGE ACCOUNT ADMITTING ENCOUNTER LOCATION SOURCE NUMBER CLASS 08/19/2018/08/19/[id number] ing:SDCRoom: Repository AC12 07/26/2018 [id number] Ambulatory [facility] ing:MTRAD Repository 06/28/2018/07/20/20 [id number] Ambulatory [address] Main [place] Repository 02/04/2018/02/05/20 [id number] Ambulatory [address] Repository 01/11/2018/01/15/[id number] Repository PAYERS PAYERS ENCOUNTER GUARANTOR PAYER SUBSCRIBER SOURCE 08/19/2018 ALESSANDRO Donis Primary ALESSANDRO Carrillo [id number] CR Insurance:ANTHEMPolic ROGERSDOB: [address] y Number: [id number] [address]Ksd: 419 [id number] Repository [phone] () Date:[id number] [place] [id number]: 08/19/2018 Secondary NOT GIVENUNK [place] Insurance:SELF PAY [facility] Number: Effective Repository Date:2018-08-02 07/26/2018 ALESSANDRO Donis Primary ALESSANDRO Carrillo [id number] CR Insurance:ANTHEMPolic ROGERSDOB: [address] y Number: [id number] [facility] [address]Ktx: [phone] [id number] Repository [phone] () Date:1233-20-06QK [id number] [place] [address] 75079LN: 07/26/2018 Secondary NOT GIVENUNK [place] Insurance:SELF PAY [facility] Number: Effective Repository Date:2018-07-26
== END 2018-08-19 13:26 | disposition home or self-care (01) ==
LOC: SDC 08:06 → AC 08:08
PROVIDERS: Family Provider Family Medicine; PCP Family Medicine; Referring Provider Urology; Visit Provider Urology
PROC: (CPT 50590; principal; 2018-08-19 09:30)
DX: N20.0 Calculus of kidney (principal); N39.3 Stress incontinence (female) (male); N39.41 Urge incontinence; N94.11 Superficial (introital) dyspareunia; I34.8 Other nonrheumatic mitral valve disorders; M19.90 Unspecified osteoarthritis, unspecified site; J45.909 Unspecified asthma, uncomplicated; K21.9 Gastro-esophageal reflux disease without esophagitis; Z78.0 Asymptomatic menopausal state; Z88.0 Allergy status to penicillin; Z88.2 Allergy status to sulfonamides; Z79.899 Other long term (current) drug therapy
CPT/HCPCS: 50590; J7120; J0744; J2405

== ENCOUNTER → 2018-09-10 09:30 | Outpatient (CLI) | payer SELFPAY ==
[2018-08-19 08:33] VITALS: BMI 30.8
--- NOTE | 2018-09-10 09:41 | RAD_ITS ---
STUDY: X-RAY - ABDOMEN/PELVIS REASON FOR EXAM: Female, 63 years old. Renal calcification. TECHNIQUE: Two AP supine views of the abdomen and pelvis. COMPARISON: Comparison is made with prior study dated July 26, 2018. FINDINGS: Elevation of the right hemidiaphragm. The lungs are clear. There is a moderate amount of colonic fecal material. The previously seen calculus in the lower pole calyx of the left kidney is not seen at this time. There are calcified phleboliths in the pelvis. Stable 1.7 cm x 1.6 cm rounded ossification in the superior aspect of the right acetabulum. RAD/Abdomen Single View IMPRESSION: The previously seen calculus in the lower pole calyx of the left kidney is not seen at this time. Electronically Signed: Mitchel Michaels MD at 10:47 EST Tel [phone], Service support ,
== END ==
PROVIDERS: Family Provider Family Medicine; PCP Family Medicine; Referring Provider Urology; Visit Provider Urology
DX: N20.0 Calculus of kidney (principal)
CPT/HCPCS: 74018

== ENCOUNTER → 2018-10-08 11:06 | Outpatient (CLI) | payer BC, SELFPAY ==
[2018-08-19 08:33] VITALS: BMI 30.8
[2018-10-08 12:59] LABS: PTHIN 26.8 pg/mL (18.4-80.1)
--- OUTSIDE RECORDS SUMMARY | 2018-12-12 21:01 | XMS RPT_ITS ---
:1955 Author Organization OHIP Care Team Providers Name Role Phone CORRINA MARCOS Attending Unavailable DIANA SEBASTIAN Referring Unavailable DIANA SEBASTIAN Referring Unavailable CORRINA MARCOS Attending Unavailable CORRINA MARCOS Referring Unavailable Angelica Mosher Attending Unavailable Angelica Mosher Referring Unavailable Elderbrock, Diana Primary Care Unavailable Angelica Mosher Attending Unavailable Angelica Mosher Referring Unavailable Elderbrock, Diana Primary Care Unavailable Angelica Mosher Attending Unavailable Angelica Mosher Referring Unavailable Elderbrock, Diana Primary Care Unavailable Angelica Mosher Attending Unavailable Angelica Mosher Referring Unavailable Elderbrock, Diana Primary Care Unavailable PROBLEMS PROBLEMS DATE TYPE CONDITION / CODE ATTENDING STATUS SOURCE 09/10/2018 Unknown N20.0 - Calculus Angelica Mosher Active [place] of kidney / Community N20.0(ICD-10) Hospital Repository 02/04/2018 Active Encounter for NA Active [facility] screening for Main [place] malignant Repository neoplasm of colon / Z12.11(ICD-10) PROCEDURES PROCEDURES No Procedure Records FoundRESULTS RESULTS CALCIUM,TOTAL Collected: 10/08/2018 Status: F Source: [place] 11:11 AM [facility] REPOSITORY TYPE CODE TESTS RESULT OUT OF RANGE REFERENCE UNITS LAB L501.2200 8.5-10.1 mg/dL Normal CA 9.0 Performed By: #### L501.2200 #### [facility] [address] [place], [address] PTHIN Collected: 10/08/2018 Status: F Source: [place] 11:11 AM [facility] REPOSITORY TYPE CODE TESTS RESULT OUT OF RANGE REFERENCE UNITS LAB L509.1000 18.4-80.1 pg/mL Normal PTHIN 26.8 Performed By: #### L509.1000 #### [facility] [address] [place], [address] ABDOMEN SINGLE VIEW Observed: 09/10/2018 Status: F Source: [place] 9:42 AM [facility] REPOSITORY [facility] Imaging Services [address] [address] Abdomen Single View MR#: [id number] Acct: [id number] Name: EVELIO MEYERS Rep #: [id number] : 1955 F 63 From: Mitchel Michaels MD PCP: Tom [place],Diana Status: REG CLI Study: Abdomen Single View Date of Exam: 09/10/18 Exam# [id number] Ordering Dr: Angelica Mosher MD STUDY: X-RAY - ABDOMEN/PELVIS REASON FOR EXAM: Female, 63 years old. Renal calcification. TECHNIQUE: Two AP supine views of the abdomen and pelvis. COMPARISON: Comparison is made with prior study dated July 26, 2018. FINDINGS: Elevation of the right hemidiaphragm. The lungs are clear. There is a moderate amount of colonic fecal material. The previously seen calculus in the lower pole calyx of the left kidney is not seen at this time. There are calcified phleboliths in the pelvis. Stable 1.7 cm x 1.6 cm rounded ossification in the superior aspect of the right acetabulum. RAD/Abdomen Single View IMPRESSION: The previously seen calculus in the lower pole calyx of the left kidney is not seen at this time. Electronically Signed: Mitchel Michaels MD at 10:47 EST Tel [phone], Service support , CC: Angelica Mosher MD; Diana Sebastian MD Etymology Professor: Signed OPERATIVE REPORT Observed: 08/19/2018 Status: F Source: [place] 11:09 AM [facility] REPOSITORY [facility] Medical Records Department [address] [facility] [place] [address] Operative Report 08/19/18 1106 MR#: [id number] Acct: [id number] Name: EVELIO MEYERS Rep #: [id number] : 1955 63 From: Angelica Mosher MD PCP: Diana Sebastian MD Status: REG [facility] Y Location: [place] [address] Problem List (1) Renal calculus, left Status: Acute Report of Operation Date of Procedure: 08/19/18 Pre-Operative Diagnosis: left renal calculus Post-Operative Diagnosis: same Surgery/Procedure Performed:: left renal extracorporeal shockwave lithotripsy Description of Surgical Findings:: left lower pole renal stone about 1cm in stone burden, 2000 shocks and no longer seen. forestry and wildlife manager: Angelica Mosher Type of Anesthesia:: General Specimen's [...] 08/19/2018 Status: F Source: [place] 10:35 AM [facility] REPOSITORY [facility] Medical Records Department [address] [place] [address] Instructions for Home/Discharge Instructions 08/19/18 1032 MR#: [id number] Acct: [id number] Name: EVELIO MEYERS Rep #: [id number] : 1955 63 From: Angelica Mosher MD PCP: Diana Sebastian MD Status: REG SDC Discharge Diet: No Restrictions Discharge Activity: Return [...] signed by Angelica Mosher MD> Date Angelica oMsher MD CC: Diana Sebastian MD ABDOMEN SINGLE VIEW Observed: 07/26/2018 Status: F Source: [place] 10:30 AM [facility] REPOSITORY [facility] Imaging Services [address] [place] [address] Abdomen Single View MR#: [id number] Acct: [id number] Name: EVELIO MEYERS Rep #: [id number] : 1955 F 63 From: Emory Johnson MD PCP: Diana Sebastian MD Status: REG CLI Study: Abdomen Single View Date of Exam: 07/26/18 Exam# [id number] Ordering Dr: Angelcia Mosher MD STUDY: X-RAY - ABDOMEN/PELVIS REASON [...] CC: Angelica Mosher MD; Diana Sebastian MD Etymology Professor: Signed CNPN Observed: 07/06/2018 Status: COMPLETED Source: [place] 12:00 AM [facility] REPOSITORY Telephone (ORTHWS) EVELIO MEYERS ([id number]) 1955 F Date Time Provider Department 07/06/18 [...] Fully Assessed Reason for Visit: Medication Question [5038] Prescriptions as of 07/06/2018 Sig: DICLOFENAC 20 [...] 07/06/18 EMELI Observed: 07/01/2018 Status: COMPLETED Source: [place] 12:00 AM [facility] REPOSITORY Telephone (RENE) EVELIO MEYERS ([id number]) 1955 F Date Time Provider Department 07/01/18 [...] medication on Thursday. Confirmed Jim Sauceda in [place] as pharmacy. Belgica Valverde PA-C 07/01/2018 4:11 PM Signed Patient is having GI upset after taking the etodolac, advised her to discontinue the medication. We discussed having her try a topical antiinflammatory, Pennsaid called into pharmacy. She was getting some relief from meloxicam but it stopped helping longterm through the day. Will consider pairing the [...] 07/01/18 PROGRESS Observed: 06/28/2018 Status: COMPLETED Source: [place] 12:16 PM [facility] REPOSITORY O ID: [id number] Author: Corrina Marcos Service: (none) Author Type: Physician Type: Progress Notes Filed: 07/19/2018 5:36 PM Note Text: Corrina Marcos MD Department of Orthopaedics Orthopaedics [address] [facility] [address] Dept: [phone] Dept June 28, 2018 CHIEF COMPLAINT: Established [...] anxiety) This note was partially generated using KonaWare voice recognition system, and there may be some incorrect words, spellings, and punctuation that were not noted in checking the note before saving. Corrina Marcos MD PROGRESS Observed: 06/28/2018 Status: COMPLETED Source: [place] 11:08 AM [facility] REPOSITORY HNO ID: [id number] Author: Sari Brown Ma Service: (none) Author [...] day. CNOV Observed: 06/28/2018 Status: COMPLETED Source: [place] 11:00 AM [facility] REPOSITORY Office Visit (ORTHWS) EVELIO MEYERS ([id number]) 1955 F Date Time Provider Department 10/8/18 11:00 AM CORRINA MARCOS During your visit today, we recorded the following information about you: Sari Brown Michael 07/19/2018 5:36 PM Signed Patient presents with: [...] Corrina Marcos MD 07/19/2018 5:36 PM Signed Corrian Marcos MD Department of Orthopaedics Orthopaedics [address] [place] [address] Dept: [phone] Dept June 28, 2018 CHIEF COMPLAINT: Established [...] anxiety) This note was partially generated using KonaWare voice recognition system, and there may be some incorrect words, spellings, and punctuation that were not noted in checking the note before saving. Corrina Marcos MD Referring Provider: CORRINA MARCOS [[id number]] Allergies As of Date: 06/28/2018 Noted Allergy [...] OCCULT BLD Collected: 02/04/2018 Status: F Source: [facility] 2:06 PM [facility] REPOSITORY TYPE CODE TESTS RESULT OUT OF REFERENCE UNITS RANGE LAB IFO Negative Immuno Negative FOB Result Comment: This test was developed and its performance characteristics determined by [facility]'s Keyur Betancur [facility] Pathology and Laboratory Medicine [place] ([facility]). It has not been cleared or approved by the FDA. [facility] is regulated under CLIA as qualified to perform high-complexity testing. This test is used for clinical purposes. It should not be regarded as investigational or for research. Performed By: #### IFOBT #### [facility] [address] [place], [place] [address] PROGRESS Observed: 01/11/2018 Status: COMPLETED Source: [place] 2:00 PM [facility] REPOSITORY HNO ID: [id number] Author: Corrina Marcos Service: (none) Author Type: Physician Type: Progress Notes Filed: 01/12/2018 6:12 PM Note Text: Corrina Marcos MD Department of Orthopaedics Orthopaedics [address] [facility] [address] Dept: [phone] Dept January 11, 2018 CHIEF COMPLAINT: New Patient (Right knee pain REF: [facility] X-ray: 07/21/2017) HPI: Ms. Evelio Meyers is [...] MD IMAGING: IMPRESSION: Degenerative changes as discussed. Etymology Professor: TIN ? Transcribe Date/Time: Jul 21 2017 [...] right knee pt states fell back in [facility], knee improved but then started hurting again [...] or electronic medical record. Diana Sebastian MD [address] [facility] [address] This note was partially generated using KonaWare voice recognition system, and there may be some incorrect words, spellings, and punctuation that were not noted in checking the note before saving. 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 X-ray at [facility] on 07/21/2017. 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 X-ray at [facility] on 07/21/2017. Corrina Marcos MD 01/12/2018 6:12 PM Signed Corrina Marcos MD Department of Orthopaedics Orthopaedics [address] [place] [address] Dept: [phone] Dept January 11, 2018 CHIEF COMPLAINT: New Patient (Right knee pain REF: [facility] X-ray: 07/21/2017) HPI: Ms. Evelio Meyers is [...] MD IMAGING: IMPRESSION: Degenerative changes as discussed. Etymology Professor: TIN ? Transcribe Date/Time: Jul 21 2017 ?4:50P Dictated by : ALTA WARREN, DO This examination was interpreted and the report reviewed and electronically signed by: ALTA WARREN, DO on Jul 21 2017 ?4:51PM ?EST [...] right knee pt states fell back in [facility], knee improved but then started hurting again [...] or electronic medical record. Diana Sebastian MD [facility] [address] This note was partially generated using KonaWare voice recognition system, and there may be some incorrect words, spellings, and punctuation that were not noted in checking the note before saving. Corrina Marcos MD Referring Provider: DIANA SEBASTIAN [[id number]] Allergies As of Date: 01/11/2018 Noted Allergy Reaction AMOXICILLIN 05/03/2008 Comments: hives CLINDAMYCIN 01/11/2018 2 - Rash PENICILLINS 05/03/2008 Comments: hives SULFA (SULFONAMIDE ANTIBIOTICS) 05/03/2008 Date Reviewed: 01/11/2018 Reviewed by: Alejandra Barrett Ma - Fully Assessed Reason for Visit: New Patient [172] Cmt: Right knee pain REF: Tom X-ray: 07/21/2017 Primary Visit Diagnosis:Chronic pain of [...] / CODE REACTION SEVERITY SOURCE 08/13/2018 Drug Penicillins/M37006 Rash Unknown [place] Allergy/416 0476(RXNORM) [facility] 564036([facility] ED CT) Repository 08/13/2018 Drug Sulfa (Sulfonamide Rash Unknown [place] Allergy/416 Antibiotics)/F0010 [facility] 875101([facility] [address] Repository 08/13/2018 Drug clindamycin/X48108 Rash Unknown [place] Allergy/416 2794(RXNORM) Community 280262([facility] ED CT) Repository 01/11/2018 DRUG CLINDAMYCIN RASH [facility] INGREDI/[address] [place] 262566(SNOM Repository ED CT) 05/03/2008 DRUG AMOXICILLIN [facility] INGREDI/[address] [place] 894081(SNOM Repository ED CT) 05/03/2008 Drug PENICILLINS [facility] Class/12981 [place] 1003(SNOMED Repository CT) 05/03/2008 Drug SULFA (SULFONAMIDE [facility] Class/41436 ANTIBIOTICS) [place] 1003(SNOMED Repository CT) ENCOUNTERS ENCOUNTERS ADMIT/DISCHARGE ACCOUNT ADMITTING ENCOUNTER LOCATION SOURCE NUMBER CLASS 10/08/2018 [id number] [facility] ing:MTLAB Repository 09/10/2018 [id number] [facility] ing:MTRAD Repository 08/19/2018/08/19/[id number] ing:SDCRoom: Repository AC12 07/26/2018 [id number] [facility] ing:MTRAD Repository 06/28/2018/07/20/20 [id number]ulatory [address] Repository 02/04/2018/02/05/[id number] Repository 01/11/2018/01/15/[id number] Repository PAYERS PAYERS ENCOUNTER GUARANTOR PAYER SUBSCRIBER SOURCE 10/08/2018 ALESSANDRO Donis Primary ALESSANDRO MEYERS1960 CR Insurance:ANTHEMPolic ROGERSDOB: [address] y Number: [id number] [facility] [address]Lie: (909) [id number] Repository [phone] () Date:9043-94-09PS [id number] [place] [address]PM: 10/08/2018 Secondary NOT GIVENUNK [place] Insurance:SELF PAY [facility] Number: Effective Repository Date:2018-10-08 09/10/2018 ALESSANDRO Donis Primary Insurance:[facility] [address] [id number] CR PACKAGE PL[facility]Poly [facility] [address] Number: [id number] Hospital [address]Ley: [phone] [id number] Repository [phone] () Date:2018-09-10 09/10/2018 Secondary NOT GIVENUNK [place] Insurance:SELF PAY [facility] Number: Effective Repository Date:2018-09-10 08/19/2018 ALESSANDRO Donis Primary ALESSANDRO Donis [place] [id number] CR Insurance:ANTHEMPolic ROGERSDOB: [address] y Number: [id number] Hospital [address]Oxb: [phone]) [id number] Repository [phone] () Date:4183-06-12XR [id number] [place] [address] 70[address]XK: 08/19/2018 Secondary NOT GIVENUNK [place] Insurance:SELF PAY [facility] Number: Effective Repository Date:2018-08-02 07/26/2018 ALESSANDRO Don[place] Primary ALESSANDRO [address] [place] [id number] CR Insurance:ANTHEMPolic ROGERSDOB: [address] y Number: [id number] Hospital [address]Tvj: ([phone]) [id number] Repository [phone] () Date:6742-11-58VH [id number] [place] [address]YO: 07/26/2018 Secondary NOT GIVENUNK [place] Insurance:SELF PAY [facility] Number: Effective Repository Date:2018-07-26
== END ==
PROVIDERS: Family Provider Family Medicine; PCP Family Medicine; Referring Provider Urology; Visit Provider Urology
DX: N20.0 Calculus of kidney (principal); R82.994 Hypercalciuria
CPT/HCPCS: 36415; 82310; 83970

== ENCOUNTER → 2019-10-31 12:17 | Outpatient (CLI) | payer MEDICARE, BC, SELFPAY ==
[2018-08-19 08:33] VITALS: BMI 30.8
--- NOTE | 2019-10-31 12:24 | RAD_ITS ---
STUDY: X-RAY - ABDOMEN/PELVIS REASON FOR EXAM: Female, 64 years old. HX KIDNEY STONES, NO CURRENT PAIN OR ABDOMEN COMPLAINTS TECHNIQUE: Single AP view of the abdomen / pelvis. COMPARISON: 09/10/2018 FINDINGS: Normal visualized lung bases. There is an unremarkable bowel gas pattern. The visualized liver, spleen and kidneys are grossly normal in size and morphology. Normal soft tissue structures. Normal visualized osseous structures. RAD/Abdomen Single View IMPRESSION: Normal x-ray examination of the abdomen and pelvis. No obvious renal or ureteral stone. Electronically Signed: Fritz Huertas MD at 7:40 EST Tel , Service support ,
== END ==
PROVIDERS: PCP Family Medicine; Referring Provider Urology; Visit Provider Urology
DX: N20.0 Calculus of kidney (principal)
CPT/HCPCS: 74018

== ENCOUNTER 2019-11-14 17:42 | Observation (INO) | payer MEDICARE, BC, SELFPAY ==
[2018-08-19 08:33] VITALS: BMI 30.8
[2019-11-14 16:49] VITALS: BMI 30.4
[2019-11-14 16:50] VITALS: BP 117/61; PULSE 85; RESP 16; TEMP 36.4; O2SAT 95
[2019-11-14 17:11] VITALS: BMI 30.4
[2019-11-14 17:17] VITALS: RESP 16
[2019-11-14] MEDS: Dext 5%-0.45% NS 1,000 ML 125 ML IV (18:02)
[2019-11-14] MEDS: 0.9% Saline Lock 10 ML Syringe IV (18:03)
[2019-11-14 19:01] VITALS: PULSE 87; RESP 16; O2SAT 98
[2019-11-14] MEDS: Budesonide Respules 0.5 MG/2 ML AMPUL.NEB. INHALATION (19:01)
[2019-11-14] MEDS: Albuterol 2.5 MG/3 ML VIAL.NEB. INHALATION (19:01)
[2019-11-14 20:22] VITALS: BP 107/53; PULSE 83; RESP 16; TEMP 36.9; O2SAT 97
[2019-11-14] MEDS: Cefazolin 1 GM/50 ML BAG IV (21:51)
[2019-11-14] MEDS: Montelukast 10 MG Tablet PO (21:52)
[2019-11-15] VITALS (16 sets, daily range): BP systolic 90–153; BP diastolic 44–85; PULSE 67–86; RESP 16–18; TEMP 36.1–36.7; O2SAT 92–99; BMI 30.4
[2019-11-15] MEDS: Dext 5%-0.45% NS 1,000 ML 125 ML IV (02:30)
[2019-11-15] MEDS: Morphine 4 MG/ML Syringe IV (04:08)
--- NOTE | 2019-11-15 05:00 | EKG12_ITS ---
Test Reason : PRE-OP Blood Pressure : / mmHG Vent. Rate : 077 BPM Atrial Rate : 077 BPM P-R Int : 156 ms QRS Dur : 080 ms QT Int : 400 ms P-R-T Axes : 055 -12 000 degrees QTc Int : 452 ms Sinus rhythm with occasional Premature ventricular complexes Otherwise normal ECG When compared with ECG of 28-MAY-2012 11:37, Premature ventricular complexes are now Present Aberrant conduction is no longer Present Confirmed by NIKI LESTER ([id number]), editor house organ MARC IPTT ([id number]) on 11/16/2019 3:14:00 PM Referred By: Angelica Mosher Confirmed By:NIKI LESTER
[2019-11-15] MEDS: Ketorolac 30 MG/ML Syringe IV (05:42)
[2019-11-15 06:11] LABS: Anion Gap 6 (5-15); BUN 18 mg/dL (7-18); BUN/Creat Ratio 25.8 RATIO (10-20); Calcium,Total 8.1 mg/dL (8.5-10.1); Chloride 110 mmol/L (98-107); EST Glomerular Filtration Rate 89 mL/min (>60); Est Glom Filt Rate - Afr Amer 108 mL/min (>60); Estimated Creatinine Clearance 47.79 ml/min; Glucose 139 mg/dL (74-106); Potassium 3.8 mmol/L (3.5-5.1); Sodium Level 141 mmol/L (136-145)
[2019-11-15] MEDS: Lactated Ringers 1,000 ML 100 ML IV ×2 (06:40→09:49)
[2019-11-15] MEDS: Budesonide Respules 0.5 MG/2 ML AMPUL.NEB. INHALATION (07:10)
[2019-11-15] MEDS: Albuterol 2.5 MG/3 ML VIAL.NEB. INHALATION (07:10)
--- NOTE | 2019-11-15 07:32 | HP.PCM_ITS ---
Problem List (1) Left ureteral calculus Status: Acute (2) Hydronephrosis due to obstruction of ureter Status: Acute History of Present Illness Date of Admission: 11/13/19 Chief Complaint: uncontrolled left flank pain The patient is a 64 year old F with a known history of stones who presented to the emergency room at another facility over the weekend for excruciating left flank pain. A CT was done that revealed a proximal left ureteral calculus with hydronephrosis. She was discharged with pain medications and Zofran. I saw her in the office yesterday and scheduled her for surgical intervention today. She did not have her pain adequately controlled with oral medications and was admitted to the hospital yesterday for pain control. No fevers or chills. She has had some nausea and vomiting. No hematuria. Feels like the stone moved overnight but is still in the ureter. Past Medical History Allergies clindamycin Allergy (Verified 11/14/19 16:52) Rash/itching/anxiety Penicillins Allergy (Verified 11/14/19 16:52) Rash/itching/anxiety Sulfa (Sulfonamide Antibiotics) Allergy (Verified 11/14/19 16:52) Rash/itching/anxiety Home Medications: Ambulatory Orders Medication Instructions Recorded Acebutolol HCl [Sectral (Beta 200 mg PO QHS 07/26/15 Phil)] Albuterol Sulfate [Proventil Hfa] 2 puff IH 4X/DAY PRN 07/26/15 Fluticasone/Salmeterol [Advair 1 puff INHALATION BID 07/26/15 250/50 Mcg Diskus] Loratadine [Claritin] 10 mg PO DAILY 07/26/15 Montelukast [Singulair] 10 mg PO QHS 07/26/15 Diclofenac Sodium [Pennsaid] 2 gm TP DAILY PRN 08/13/18 Ascorbic Acid [Vitamin C] 500 mg PO DAILY 11/14/19 Calcium Carbonate [Calcium] 1,000 mg PO DAILY 11/14/19 Cholecalciferol (VIT D3) [Vitamin 2,000 unit PO DAILY 11/14/19 D] Cinnamon Bark [Cinnamon] 1,000 mg PO BID 11/14/19 Flaxseed Oil 1,000 mg PO DAILY 11/14/19 Garlic 1,000 mg PO DAILY 11/14/19 Ibuprofen [Motrin] 600 mg PO Q8H PRN PRN 11/14/19 Milk Thistle Seed Extract [Milk 175 mg PO QODAY 11/14/19 Thistle] Samson-3/Dha/Epa/Fish Oil [Fish Oil 1 ea PO BID 11/14/19 1,000 mg Softgel] Ondansetron [Ondansetron Odt] 4 mg PO Q4H PRN 11/14/19 Oxycodone HCl/Acetaminophen 1 ea PO Q4H PRN 11/14/19 [Percocet 5-325 mg Tablet] Tamsulosin HCl 0.4 mg PO DAILY 11/14/19 Ubidecarenone [Coq-10] 200 mg PO DAILY 11/14/19 Vitamin B Complex 1 ea PO DAILY 11/14/19 Smoking Status: Former smoker Tobacco Use: Cigarettes Review of Systems Constitutional: Denies: Chills, Fever Eyes: Denies: Vision Change HEENT: Denies: Visual Changes Cardiovascular: Denies: Chest Pain Respiratory: Denies: Shortness of Breath Gastrointestinal: Reports: Abdominal Pain, Nausea Genitourinary: Reports: Urgency. Denies: Dysuria, Frequency Gynecological: Denies: Breast symptoms Musculoskeletal: Denies: Muscle pain Skin: Denies: Skin Changes Neurological: Denies: Confusion VTE Information - Inpt Only VTE Present on Admission: Yes VTE Mechan Device Prophylaxis: SCD's VTE Pharm Prophylaxis ordered?: No Reason prophylaxis not ordered:: Treatment Not Indicated Patient Problems: Active and Suspected Problems Left ureteral calculus (Acute) Hydronephrosis due to obstruction of ureter (Acute) - Physical Exam Vitals/I&O's: Vital Signs Temp Pulse Resp BP Pulse Ox 98.1 F 77 18 153/76 H 99 11/15/19 06:05 11/15/19 06:05 11/15/19 06:05 11/15/19 06:05 11/15/19 06:05 Oxygen Delivery Method Room Air Weight: 81.7 kg Body Mass Index (BMI) 30.4 Intake and Output for Last 24 Hours 11/13/19 11/14/19 11/15/19 23:59 23:59 23:59 Intake Total 527.08 / 527.08 1018.75 / 1018.75 Output Total 400 / 400 1125 / 1125 Balance 127.08 / 127.08 -106.25 / -106.25 General: Alert, Oriented x3, Cooperative, No apparent distress HEENT: Atraumatic, Normocephalic Oral: Moist Mucosa Neck: Supple, Trachea Midline Lungs: Clear to auscultation, Normal air movement Cardiovascular: Regular rate, Regular Rhythm Abdomen: Soft, - - left CVA tenderness Extremities: No cyanosis Skin: No rashes Musculoskeletal: No Tenderness to Palpation of Joints or Extremities, No Muscle Wasting Neurological: Cranial nerves II-XII grossly intact Psych/Mental Status: Normal Affect Laboratory Results 11/15/19 05:30: Sodium 141, Potassium 3.8, Chloride 110 H, Carbon Dioxide 25.0, Anion Gap 6, BUN 18, Creatinine 0.70, Estim Creat Clear Calc 47.79, Est GFR (MDRD) Af Amer 108, Est GFR (MDRD) Non-Af 89, BUN/Creatinine Ratio 25.8 H, Glucose 139 H, Calcium 8.1 L Current Medications Acebutolol HCl (Sectral) 200 mg PO QHS [facility] Last Admin: 11/14/19 21:51 Dose: 200 mg Documented by: Albuterol Sulfate (Ventolin Aerosols) 2.5 mg INHALATION 4X/DAY PRN PRN PRN Reason: Asthma Symptoms Albuterol Sulfate (Ventolin Aerosols) 2.5 mg INHALATION Q6HWA.RT [facility] Last Admin: 11/14/19 19:01 Dose: 2.5 mg Documented by: Budesonide (Pulmicort Aerosol) 0.5 mg INHALATION Q12H.RT [facility] Last Admin: 11/14/19 19:01 Dose: 0.5 mg Documented by: Cefazolin Sodium 2 gm/ Sodium (Chloride) 110 mls @ 150 mls/hr IV PREOP ONE Stop: 11/15/19 07:43 Dextrose/Sodium Chloride () 1,000 mls @ 125 mls/hr IV .Q8H [facility] Last Infusion: 11/15/19 06:40 Dose: Infused Documented by: Cefazolin Sodium () 1 gm in 50 mls @ 100 mls/hr IV Q8 [facility] Last Admin: 11/15/19 06:17 Dose: Not Given Documented by: Lactated Ringer's () 1,000 mls @ 100 mls/hr IV .Q10H [facility] Last Admin: 11/15/19 06:40 Dose: 100 mls/hr Documented by: Ketorolac Tromethamine (Toradol (Bkc)) 30 mg IV Q8H PRN PRN PRN Reason: Pain Score 1-10/10 Stop: 11/19/19 17:50 Last Admin: 11/15/19 05:42 Dose: 30 mg Documented by: Loratadine (Claritin) 10 mg PO DAILY [facility] Montelukast Sodium (Singulair) 10 mg PO QHS MATHEW Last Admin: 11/14/19 21:52 Dose: 10 mg Documented by: Morphine Sulfate () 2 mg IV Q3H PRN PRN PRN Reason: pain scale 4-7/10 Morphine Sulfate () 4 mg IV Q3H PRN PRN PRN Reason: pain score 8-10/10 Last Admin: 11/15/19 04:08 Dose: 4 mg Documented by: Ondansetron HCl (Zofran) 4 mg IV Q8H PRN PRN PRN Reason: NAUSEA/VOMITING Oxycodone HCl (Oxyir) 5 mg PO Q4H PRN PRN PRN Reason: Pain Score 1-3/10 Sodium Chloride () 10 - 40 ml IV UD PRN PRN Reason: SALINE FLUSH Last Admin: 11/14/19 18:03 Dose: 20 ml Documented by: Tamsulosin HCl (Flomax) 0.4 mg PO DAILY [facility] Assessment/Plan All Active Problems Renal calculus, left (Acute) Left ureteral calculus (Acute) Hydronephrosis due to obstruction of ureter (Acute) pain control and supportive care to the OR for ureteroscopy laser lithotripsy and stent hopefully home later today
[2019-11-15] MEDS: Cefazolin 2 GM in 0.9% Normal Saline 100 ML IV (07:35)
--- NOTE | 2019-11-15 07:38 | PCM.OPRPT ---
Problem List (1) Left ureteral calculus Status: Acute (2) Hydronephrosis due to obstruction of ureter Status: Acute Report of Operation Date of Procedure: 11/15/19 Pre-Operative Diagnosis: Left ureteral calculus with obstruction and hydronephrosis Post-Operative Diagnosis: Same Surgery/Procedure Performed:: Cystoscopy left ureteroscopy, left retrograde pyelogram, left ureteral stent insertion Type of Anesthesia:: General Special Medications: Ancef Description of Procedure: The patient is a 64-year-old female who presented to the office with excruciating left-sided flank pain. She had been seen in the emergency room the day before and diagnosed with a left ureteral calculus with hydronephrosis. The pain control was not adequate and she was admitted to the hospital. She now presents for definitive surgical intervention with cystoscopy, ureteroscopy laser lithotripsy and stent insertion. Informed consent was obtained. Patient was taken to the operating room and placed on the operating room table. Anesthesia monitored the head, neck, airway, IV access and vital signs throughout the case. Once anesthesia was appropriately administered the patient was placed into dorsal lithotomy position was prepped and draped in usual sterile fashion. Care was taken and placement of bilateral lower extremities secondary to her knee replacement. At this time, a cystourethroscopy was performed revealing no mucosal abnormalities. A 0.035 Glidewire was used to intubate the left ureter. Semirigid ureteroscope was used with the assistance of a 0.025 Glidewire. Access was obtained all the way to the ureteropelvic junction. At this time several small fragments of stone were seen clumped together in the proximal ureter. Unfortunately, these fragments were moved with the saline from the scope. A flexible ureteroscope uroscopy was then performed and all calyces were evaluated and a retrograde pyelogram was also performed. The stone fragments were not seen. The ureter and the renal pelvis were flushed with saline. The cystoscope was then used to insert a 6 Tamazight 24 cm double-J stent with good curling in the renal pelvis as well as the urinary bladder. The patient's bladder was emptied and the case was terminated the patient tolerated the procedure well and was awakened and taken to the recovery room in good condition. There were no complications during this procedure. Grafts/Implants Used: 6 x 24 JJ stent - Complications None - Admit VTE Documentation VTE Present on Admission: Yes VTE Mechan Device Prophylaxis: SCD's VTE Pharm Prophylaxis ordered?: No Reason prophylaxis not ordered:: Treatment Not Indicated
--- NOTE | 2019-11-15 10:22 | DCINST_ITS ---
Discharge Diet: No Restrictions Discharge Activity: May not drive while taking narcotic pain medications. Call your doctor if you observe: Fever of 101 or Higher, Inability to urinate, Inability to have a bowel movement, Calf discomfort, Uncontrolled pain Allergies/Adverse Reactions: Allergies clindamycin Allergy (Verified 11/14/19 16:52) Rash/itching/anxiety Penicillins Allergy (Verified 11/14/19 16:52) Rash/itching/anxiety Sulfa (Sulfonamide Antibiotics) Allergy (Verified 11/14/19 16:52) Rash/itching/anxiety Medications to take at Discharge Acebutolol HCl [Sectral (Beta Hpil)] 200 mg PO QHS 07/26/15 Albuterol Sulfate [Proventil Hfa] 2 puff IH 4X/DAY PRN 07/26/15 Fluticasone/Salmeterol [Advair 250/50 Mcg Diskus] 1 puff INHALATION BID 07/26/15 Loratadine [Claritin] 10 mg PO DAILY 07/26/15 Montelukast [Singulair] 10 mg PO QHS 07/26/15 Diclofenac Sodium [Pennsaid] 2 gm TP DAILY PRN 08/13/18 Ascorbic Acid [Vitamin C] 500 mg PO DAILY 11/14/19 Calcium Carbonate [Calcium] 1,000 mg PO DAILY 11/14/19 Cholecalciferol (VIT D3) [Vitamin D] 2,000 unit PO DAILY 11/14/19 Cinnamon Bark [Cinnamon] 1,000 mg PO BID 11/14/19 Flaxseed Oil 1,000 mg PO DAILY 11/14/19 Garlic 1,000 mg PO DAILY 11/14/19 Ibuprofen [Motrin] 600 mg PO Q8H PRN PRN 11/14/19 Milk Thistle Seed Extract [Milk Thistle] 175 mg PO QODAY 11/14/19 [place]-3/Dha/Epa/Fish Oil [Fish Oil 1,000 mg Softgel] 1 ea PO BID 11/14/19 Ondansetron [Ondansetron Odt] 4 mg PO Q4H PRN 11/14/19 Oxycodone HCl/Acetaminophen [Percocet 5-325 mg Tablet] 1 ea PO Q4H PRN 11/14/19 Tamsulosin HCl 0.4 mg PO DAILY 11/14/19 Ubidecarenone [Coq-10] 200 mg PO DAILY 11/14/19 Vitamin B Complex 1 ea PO DAILY 11/14/19 Primary Care Physician: Puneet Santos MD [Primary Care Provider] - Test Results: Test results from this visit will be discussed in further detail at your follow- up appointment, if applicable. Please Follow Up With: Angelica Mosher MD When: call office for appt to remove stent on Proposed Discharge Date: 11/15/19
[2019-11-15] MEDS: Loratadine 10 MG Tablet PO (11:51)
[2019-11-15] MEDS: Acetaminophen 325 MG Tablet 650 MG PO (12:14)
== END 2019-11-15 13:43 | disposition home or self-care (01) ==
LOC: MS3 18:03 → SDC 11-15 12:50
PROVIDERS: Anesthesiology; Admitting Provider Urology; PCP Family Medicine; Referring Provider Urology; Visit Provider Urology
PROC: 0TJ98ZZ Inspection of Ureter, Via Natural or Artificial Opening Endoscopic (ICD-10-PCS; CPT 52352; principal; 2019-11-15 07:20)
DX: N13.2 Hydronephrosis with renal and ureteral calculous obstruction (principal); Z87.891 Personal history of nicotine dependence; K21.9 Gastro-esophageal reflux disease without esophagitis; Z79.899 Other long term (current) drug therapy; I10 Essential (primary) hypertension; I49.3 Ventricular premature depolarization; J45.909 Unspecified asthma, uncomplicated
CPT/HCPCS: 00910; 52332; 36415; 76000; 80048; 87086; 87088; 93005; 94640; 96361; 96365; 96375; 99218; J7120; A4216; C1769; C2617; G0378; G0379; J2405; J7799

== ENCOUNTER 2019-11-18 07:42 | Observation (INO) | payer MEDICARE, BC, SELFPAY ==
[2019-11-15 06:05] VITALS: BMI 30.4
[2019-11-18 07:44] VITALS: BP 131/83; PULSE 90; RESP 17; TEMP 36.8; O2SAT 98; BMI 31.7
--- NOTE | 2019-11-18 07:45 | CT_ITS ---
STUDY: CT ABDOMEN AND PELVIS WITHOUT CONTRAST REASON FOR EXAM: Female, 64 years old. [place], L FLANK PAIN RADIATION DOSAGE (If Supplied By Facility): CTDIvol = ( 13.46 ) mGy, DLP = ( 619.98 ) mGycm Previous CT scan of the abdomen and pelvis obtained on 11/25/2015 COMPARISON: None TECHNIQUE: A CT scan of the abdomen and pelvis was performed initially withoutIV contrast contrast administration. Coronal and sagittal reconstruction images were reviewed. This exam was performed according to our departmental dose-optimization program, which includes automated exposure control, adjustment of the mA and/or kV according to patient size and/or use of iterative reconstruction technique. FINDINGS: The lung bases and the base of the heart are normal. A small paraesophageal hiatal hernia is identified. Mild diffuse fatty infiltration of liver is identified..The spleen is normal.The adrenal glands are normal.The head, body, and tail of the pancreas are normal. Bilateral nonobstructive nephrocalcinosis is identified the largest of these calculi measures about 3 mm in size in the inferior pole calyces of the left kidney. Mild left renal hydronephrosis and hydroureter is also identified. A tiny amount of gas is noted within the bladder. Since no Abdi catheter is present and since there is left hydronephrosis and hydroureter and no calculi are seen, these findings are most consistent with a urinary tract infection with left vesicoureteral reflux. These findings were not identified on the prior CT scan of the abdomen and pelvis obtained on 11/25/2015. The abdominal aortal is normal along its course and distribution. No paraortic lymphadenopathy is seen. No abdominal masses or lesions are seen. The CT scan of the pelvis was then reviewed. The common iliac vessels, external iliac vessels, and common femoral vessels are normal along their course and distribution multiple diverticula along the sigmoid portion colon but no evidence of diverticulitis is seen. The appendix is normal. No pericecal inflammatory reaction is seen. Bone scanning windows of the lumbar spine and pelvis were reviewed in the coronal and sagittal planes and appear to be normal. CT/Abdomen/Pelvis without Cont IMPRESSION: 1. Small paraesophageal hiatal hernia. 2. Diffuse fatty infiltration of liver. 3. Bilateral nonobstructive nephrocalcinosis. 4. Left renal hydronephrosis and hydroureter with a small amount of gas noted within the urinary bladder. This constellation of findings is most suggestive a urinary tract infection with left vesicoureteral reflux. Electronically Signed: Aureliano Campos, at 9:20 EST Tel , Service support ,
--- NOTE | 2019-11-18 07:53 | ED.DCSUM_ITS ---
History of Present Illness Chief Complaint: Flank Pain Detail of Chief Complaint: Flank and left abdominal pain Informant: Patient, Significant Other Onset: Today, Yesterday Context: Sudden Onset Timing: Continuous Quality: Colicky severe pain Location: Left flank/left abdomen Current Severity: Severe Maximum Severity: Severe Worsened by: Nothing Relieved by: Nothing Associated Symptoms: Nausea and chills and inability to urinate Narrative: Patient is a 64-year-old woman who has history of right renal calculus who was seen earlier this month for left flank pain and diagnosed with obstructing proximal left ureteral stone with hydronephrosis. Patient failed outpatient management for pain control. She underwent operative procedure. She had a cystoscopy left ureteroscopy, left retrograde pyelogram, left ureteral stent insertion on November 15. She had ureteral spasm necessitating removal of stent yesterday. She presents because of episode of abrupt pain last evening at 2300. Pain subsided. She had another episode of severe pain that has been unrelenting and colicky with a waxing and waning intensity since 0200. Patient did take Flomax, ibuprofen and oxycodone with no improvement. She does report nausea without vomiting. She states she is unable to urinate. She denies history of urinary retention. Her urologist called prior to presentation and requested CAT scan to evaluate etiology of patient's recurrent pain. Prior similar symptoms: Yes Recent Illness/Hospitalization: Yes - Past Medical History (1) Hydronephrosis due to obstruction of ureter Status: Acute (2) Renal calculus, left Status: Acute Past Medical History - Allergies and Home Meds Allergies/Adverse Reactions: Allergies clindamycin Allergy (Verified 11/18/19 07:43) Rash/itching/anxiety Penicillins Allergy (Verified 11/18/19 07:43) Rash/itching/anxiety Sulfa (Sulfonamide Antibiotics) Allergy (Verified 11/18/19 07:43) Rash/itching/anxiety Primary Care Physician: Puneet Santos MD [Primary Care Provider] - Prior records reviewed: Yes Surgical History: - - Cystoscopy left ureteroscopy, left retrograde pyelogram, left ureteral stent insertion Lives: Spouse/ Significant Other Smoking Status: Former smoker Alcohol: None Drugs: None Review of Systems General: Reports: Chills, Malaise. Denies: Fever, Subjective, Sweats Eyes: Denies: Visual changes - bilaterally, Blurred Vision - bilaterally ENT: Denies: Rhinorrhea, Sore throat Cardiovascular: Denies: Chest pain, Palpitations Respiratory: Denies: Dyspnea, Cough, Sputum Gastrointestinal: Reports: Abdominal pain, Nausea. Denies: Vomiting, Diarrhea, Constipation, Melena, Hematochezia, -, - Genitourinary: Reports: - - Unable to urinate. Denies: Dysuria, Hematuria, Frequency Musculoskeletal: Reports: Back pain. Denies: Myalgias, Arthralgias, Neck pain, Swelling, Extremity Pain Skin: Denies: Rash, Wounds Neurological: Denies: Headache, Weakness Hematologic: Denies: Easy bruising, Easy bleeding Physical Exam Vital Signs/Narrative: Vital Signs Temp Pulse Resp BP Pulse Ox 11/18/19 07:44 98.2 F 90 17 131/83 H 98 Inital Vital Signs reviewed: Yes General: Well nourished, Well developed, Obese, Acute Distress Head: Normocephalic, Atraumatic Eyes: Perrl, EOMI. Negative for: Pale conjunctiva, Scleral icterus ENT: Moist mucous membranes, No rhinorrhea Neck: Supple, Nontender, No lymphadenopathy, No JVD Cardiovascular: Regular rate, Regular rhythm, No murmurs, Normal S1, Normal S2 Respiratory: No distress, CTA bilaterally, Chest nontender Abdomen: Soft, Nontender, Nondistended, Normal bowel sounds, No masses Rectal: Deferred Back: Nontender, Normal Inspection, CVA tenderness. Negative for: Spinal tenderness Extremities: Nontender, No edema, - - Recent surgery, right total knee arthroplasty with a well-healing scar without evidence of infection Skin: Normal color, No rash, No Trauma. Negative for: Cyanosis, Diaphoresis, Jaundice Neurological: Alert, Oriented x3, Cranial nerves II-XII grossly intact, Normal Strength, Normal Sensation, Normal Gait Psychological: Normal affect Diagnostic/Tx/Re-eval 11/18/19 07:45 Abdomen/Pelvis without Cont [CT] Stat Laboratory Results 11/18/19 11/18/19 11/18/19 07:55 07:55 08:10 WBC 13.0 H RBC 3.89 L Hgb 11.9 L Hct 36.6 L MCV 94.1 MCH 30.6 MCHC 32.5 RDW Std Deviation 45.6 H RDW Coeff of Valentina 13.3 Plt Count 246 MPV 11.3 Immature Gran % (Auto) 0.400 Neut % (Auto) 70.6 H Lymph % (Auto) 16.2 L [place] % (Auto) 11.4 H Eos % (Auto) 1.1 Baso % (Auto) 0.3 Absolute Neuts (auto) 9.2 H Absolute Lymphs (auto) 2.11 Nucleated RBC % 0 Sodium 138 Potassium 4.2 Chloride 106 Carbon Dioxide 26.0 Anion Gap 6 BUN 28 H Creatinine 0.97 Estim Creat Clear Calc 49.26 Est GFR (MDRD) Af Amer 74 Est GFR (MDRD) Non-Af 61 BUN/Creatinine Ratio 29.0 H Glucose 162 H Calcium 9.2 Urine Color Yellow Urine Clarity Sl. Cloudy Urine pH 6.0 Ur Specific Loiza 1.020 Urine Protein Negative Urine Glucose (UA) Normal Urine Ketones Negative Urine Occult Blood 150 H Urine Nitrite Negative Urine Bilirubin Negative Urine Urobilinogen Normal Ur Leukocyte Esterase Negative Urine RBC 5-10 SEEN Urine WBC 0 SEEN Ur Squamous Epith Cells 0 SEEN Urine Bacteria 1+ Urine Mucus 0 SEEN UA reveals bacteria without pyuria. Renal function is normal. White count is elevated. CT has not been read by radiologist. There is evidence of hydroureter and hydronephrosis on the left. There appears to be small calcified speculums distal ureter. Awaiting formal read. Dr. Angelica Mosher was contacted. She requested patient be admitted to her service. - Medical Decision Making Patient presents with acute onset of left flank pain. Has history of proximal obstructing left ureteral stone. Underwent lithotripsy. She developed obstruction and stent placement. She now presents with severe left-sided flank pain and inability urinate associated with nausea and chills. Will obtain BMP to assess renal function since she is unable to urinate. CBC to assess white count differential since she complains of chills. CT of the abdomen pelvis without contrast to determine etiology of her severe unrelenting left flank pain. She was medicated with Zofran for nausea and morphine for pain. ED Disposition - Plan for ED Patient: Disposition: Acute Care [facility] Diagnosis: Acute left flank pain, Hydronephrosis concurrent with and due to calculi of kidney and ureter Referrals: Puneet Santos MD [Primary Care Provider] - Angelica Mosher MD [STAFF PHYSICIAN] -
[2019-11-18] MEDS: 0.9% Normal Saline 1,000 ML 250 ML IV ×2 (07:56→10:13)
[2019-11-18] MEDS: Ondansetron 4 MG/2 ML Vial IV (07:58)
[2019-11-18] MEDS: Morphine 4 MG/ML Syringe IV (07:58)
[2019-11-18 08:15] LABS: Mucous, Urine 0 SEEN /hpf (<or=2+); Squamous Epithelial Cells - UA 0 SEEN /hpf (5-10); White Blood Cells 0 SEEN /hpf (0-5)
[2019-11-18 08:15] LABS: Anion Gap 6 (5-15); BUN 28 mg/dL (7-18); Calcium,Total 9.2 mg/dL (8.5-10.1); Chloride 106 mmol/L (98-107); Creatinine, Serum 0.97 mg/dL (0.55-1.02); EST Glomerular Filtration Rate 61 mL/min (>60); Est Glom Filt Rate - Afr Amer 74 mL/min (>60); Estimated Creatinine Clearance 49.26 ml/min; Glucose 162 mg/dL (74-106); Potassium 4.2 mmol/L (3.5-5.1); Sodium Level 138 mmol/L (136-145)
[2019-11-18 08:16] LABS: Color, Urine Yellow (Yellow); Glucose, Dipstick Normal (Normal); Ketone-Dipstick Negative (Negative); Leukocyte Esterase-Dipstick Negative /ul (Negative); Nitrite-Dipstick Negative (Negative); Occult Blood-Urine 150 /ul (Negative); Protein-Dipstick Negative (Negative); Urine Bilirubin Dipstick Negative (Negative); Urine Clarity Sl. Cloudy (Clear); Urine Urobilinogen Normal (Normal)
[2019-11-18 08:23] LABS: Bacteria 1+ /hpf (None Seen); Red Blood Cells-Urine 5-10 SEEN /hpf (0-5)
[2019-11-18 08:44] LABS: Absolute Lymphocyte Count 2.11 X10^3/uL (0.83-4.51); Absolute Neutrophil Count 9.2 X10^3/uL (2.0-7.7); Basophil# 0.04 X10^3/uL; Basophil% 0.3 % (0-1); Eosinophil# 0.14 X10^3/uL; Eosinophils% 1.1 % (0-5); Hematocrit 36.6 % (37-47); Hemoglobin 11.9 g/dL (12.0-15.0); Lymphocyte # 2.11 X10^3/ul (4.0); Lymphocyte % 16.2 % (19-41); Mean Corp Hgb Conc 32.5 g/dL (32-36); Mean Corpuscular Hgb 30.6 pg (27.0-32.0); Mean Corpuscular Volume 94.1 fL (81-99); Mean Platelet Vol. 11.3 fl (6.2-12.0); Monocyte# 1.48 X10^3/uL; Monocyte% 11.4 % (0-10); NRBC Flagged by Analyzer 0 % (0-5); Neutrophil % 70.6 % (47-70); Platelet Count 246 K/mm3 (150-450); RBC Distribution Width CV 13.3 % (11.6-14.6); RBC Distribution Width SD 45.6 fl (35.1-43.9); Red Blood Count 3.89 M/mm3 (4.2-5.4)
[2019-11-18] MEDS: Ketorolac 15 MG/ML Vial IV (08:51)
[2019-11-18] MEDS: HYDROmorphone 1 MG/ML Syringe IV (08:51)
[2019-11-18 09:59] VITALS: BMI 31.7
[2019-11-18 10:15] VITALS: BP 147/60; PULSE 80; RESP 16; TEMP 36.9; O2SAT 96
[2019-11-18] MEDS: Dext 5%-0.45% NS 1,000 ML 125 ML IV ×2 (10:55→19:21)
[2019-11-18] MEDS: Cefazolin 1 GM/50 ML BAG IV ×2 (11:11→21:07)
[2019-11-18] MEDS: Tamsulosin HCl 0.4 MG Capsule PO (11:12)
[2019-11-18 15:13] VITALS: BP 113/80; PULSE 74; RESP 16; TEMP 36.6; O2SAT 98
[2019-11-18] MEDS: Ketorolac 30 MG/ML Syringe IV (16:55)
--- NOTE | 2019-11-18 17:24 | PCM.HP.STD ---
Problem List (1) Hydronephrosis due to obstruction of ureter Status: Acute (2) Acute left flank pain Status: Acute History of Present Illness Date of Admission: 11/18/19 Chief Complaint: left flank pain The patient is a 64 year old F who underwent ureteroscopy for a proximal left ureteral stone 3 days ago. The stent was removed yesterday in the office. She now presents with acute onset left flank pain that did not resolve with medication and hydration overnight. No fever or chills. He does have a headache she reports likely related to the pain medication. Past Medical History Allergies clindamycin Allergy (Verified 11/18/19 07:43) Rash/itching/anxiety Penicillins Allergy (Verified 11/18/19 07:43) Rash/itching/anxiety Sulfa (Sulfonamide Antibiotics) Allergy (Verified 11/18/19 07:43) Rash/itching/anxiety Home Medications: Ambulatory Orders Medication Instructions Recorded Acebutolol HCl [Sectral (Beta 200 mg PO QHS 07/26/15 Phil)] Albuterol Sulfate [Proventil Hfa] 2 puff IH 4X/DAY PRN 07/26/15 Fluticasone/Salmeterol [Advair 1 puff INHALATION BID 07/26/15 250/50 Mcg Diskus] Loratadine [Claritin] 10 mg PO DAILY 07/26/15 Montelukast [Singulair] 10 mg PO QHS 07/26/15 Ascorbic Acid [Vitamin C] 500 mg PO DAILY 11/14/19 Calcium Carbonate [Calcium] 1,000 mg PO DAILY 11/14/19 Cholecalciferol (VIT D3) [Vitamin 2,000 unit PO DAILY 11/14/19 D3] Cinnamon Bark [Cinnamon] 1,000 mg PO BID 11/14/19 Flaxseed Oil 1,000 mg PO DAILY 11/14/19 Garlic 1,000 mg PO DAILY 11/14/19 Ibuprofen [Motrin] 600 mg PO Q8H PRN PRN 11/14/19 Milk Thistle Seed Extract [Milk 175 mg PO QODAY 11/14/19 Thistle] [place]-3/Dha/Epa/Fish Oil [Fish Oil 1 ea PO BID 11/14/19 1,000 mg Softgel] Ondansetron [Ondansetron Odt] 4 mg PO Q4H PRN 11/14/19 Oxycodone HCl/Acetaminophen 1 ea PO Q4H PRN 11/14/19 [Percocet 5-325 mg Tablet] Ubidecarenone [Coq-10] 200 mg PO DAILY 11/14/19 Cephalexin 1 tab PO DAILY 11/18/19 Surgical History: - - Cystoscopy left ureteroscopy, left retrograde pyelogram, left ureteral stent insertion Lives: Spouse/ Significant Other Smoking Status: Former smoker Alcohol: None Drugs: None Review of Systems Constitutional: Denies: Chills, Fever Eyes: Denies: Blurred vision HEENT: Denies: Difficulty Hearing Cardiovascular: Denies: Chest Pain Respiratory: Denies: Shortness of Breath Gastrointestinal: Reports: Abdominal Pain, Nausea, - - the pain is from the pelvis all the way into the left kidney Genitourinary: Reports: Hematuria, Urgency. Denies: Dysuria Gynecological: Denies: Breast symptoms Musculoskeletal: Denies: Joint Tenderness Skin: Denies: Wounds Neurological: Denies: Balance problems Endocrine: Denies: Change in Body Habitus VTE Information - Inpt Only VTE Present on Admission: Yes VTE Mechan Device Prophylaxis: SCD's VTE Pharm Prophylaxis ordered?: No Reason prophylaxis not ordered:: Treatment Not Indicated Patient Problems: Active and Suspected Problems Acute left flank pain (Acute) Hydronephrosis concurrent with and due to calculi of kidney and ureter (Acute) - Physical Exam Vitals/I&O's: Vital Signs Temp Pulse Resp BP Pulse Ox 98 F 74 16 113/80 98 11/18/19 15:13 11/18/19 15:13 11/18/19 15:13 11/18/19 15:13 11/18/19 15:13 Oxygen Flow Rate (L/min) 2 Oxygen Delivery Method Room Air Weight: 83.8 kg Body Mass Index (BMI) 31.7 Intake and Output for Last 24 Hours 11/16/19 11/17/19 11/18/19 23:59 23:59 23:59 Intake Total 831.25 / 831.25 Output Total 900 / 900 Balance -68.75 / -68.75 General: Alert, Oriented x3, Cooperative, No apparent distress HEENT: Atraumatic, Normocephalic Oral: Moist Mucosa Neck: Trachea Midline Lungs: Normal air movement Cardiovascular: Regular rate, Regular Rhythm Abdomen: Soft, Non Tender, - - left CVA tenderness Skin: No rashes Musculoskeletal: No Muscle Wasting Neurological: Cranial nerves II-XII grossly intact Psych/Mental Status: Normal Affect, Alert and oriented to time, place, person, mood and affect Laboratory Results 11/18/19 07:55: Sodium 138, Potassium 4.2, Chloride 106, Carbon Dioxide 26.0, Anion Gap 6, BUN 28 H, Creatinine 0.97, Estim Creat Clear Calc 49.26, Est GFR (MDRD) Af Amer 74, Est GFR (MDRD) Non-Af 61, BUN/Creatinine Ratio 29.0 H, Glucose 162 H, Calcium 9.2 11/18/19 07:55: WBC 13.0 H, RBC 3.89 L, Hgb 11.9 L, Hct 36.6 L, MCV 94.1, MCH 30.6, MCHC 32.5, RDW Std Deviation 45.6 H, RDW Coeff of Valentina 13.3, Plt Count 246, MPV 11.3, Immature Gran % (Auto) 0.400, Neut % (Auto) 70.6 H, Lymph % (Auto) 16.2 L, [place] % (Auto) 11.4 H, Eos % (Auto) 1.1, Baso % (Auto) 0.3, Absolute Neuts (auto) 9.2 H, Absolute Lymphs (auto) 2.11, Nucleated RBC % 0 11/18/19 08:10: Urine Color Yellow, Urine Clarity Sl. Cloudy, Urine pH 6.0, Ur Specific [place] 1.020, Urine Protein Negative, Urine Glucose (UA) Normal, Urine Ketones Negative, Urine Occult Blood 150 H, Urine Nitrite Negative, Urine Bilirubin Negative, Urine Urobilinogen Normal, Ur Leukocyte Esterase Negative, Urine RBC 5-10 SEEN, Urine WBC 0 SEEN, Ur Squamous Epith Cells 0 SEEN, Urine Bacteria 1+, Urine Mucus 0 SEEN Current Medications Dextrose/Sodium Chloride () 1,000 mls @ 125 mls/hr IV .Q8H [facility] Last Infusion: 11/18/19 11:46 Dose: 125 mls/hr Documented by: Cefazolin Sodium () 1 gm in 50 mls @ 100 mls/hr IV Q8 [facility] Last Infusion: 11/18/19 11:46 Dose: Infused Documented by: Ketorolac Tromethamine (Toradol (Bkc)) 30 mg IV Q8H PRN PRN PRN Reason: Pain Score 1-10/10 Stop: 11/23/19 10:39 Last Admin: 11/18/19 16:55 Dose: 30 mg Documented by: Morphine Sulfate () 4 mg IV Q3H PRN PRN PRN Reason: Pain Score 4-10/10 Ondansetron HCl (Zofran) 4 mg IV Q8H PRN PRN PRN Reason: NAUSEA Oxycodone HCl (Oxyir) 5 mg PO Q4H PRN PRN PRN Reason: Pain Score 6-10/10 Sodium Chloride () 10 - 40 ml IV UD PRN PRN Reason: SALINE FLUSH Tamsulosin HCl (Flomax) 0.4 mg PO DAILY@1730 MATHEW Last Admin: 11/18/19 11:12 Dose: 0.4 mg Documented by: Assessment/Plan All Active Problems Renal calculus, left (Acute) Left ureteral calculus (Acute) Hydronephrosis due to obstruction of ureter (Acute) Acute left flank pain (Acute) Hydronephrosis concurrent with and due to calculi of kidney and ureter (Acute) hydration pain control if feeling better, plan is home in the morning repeat renal ultrasound imaging as an outpatient
[2019-11-18 20:59] VITALS: BP 138/78; PULSE 77; RESP 14; TEMP 36.7; O2SAT 97
[2019-11-18] MEDS: Montelukast 10 MG Tablet PO (21:11)
[2019-11-18] MEDS: Albuterol 2.5 MG/3 ML VIAL.NEB. INHALATION (21:24)
[2019-11-18 21:25] VITALS: PULSE 83; RESP 16; O2SAT 97
[2019-11-18] MEDS: Budesonide Respules 0.5 MG/2 ML AMPUL.NEB. INHALATION (21:25)
[2019-11-19] MEDS: Dext 5%-0.45% NS 1,000 ML 125 ML IV (03:32)
[2019-11-19 03:33] VITALS: BP 139/74; PULSE 88; RESP 16; TEMP 37; O2SAT 93
[2019-11-19] MEDS: Ketorolac 30 MG/ML Syringe IV (05:22)
[2019-11-19] MEDS: Cefazolin 1 GM/50 ML BAG IV (05:24)
[2019-11-19 08:40] VITALS: BP 142/68; PULSE 83; RESP 18; TEMP 36.8; O2SAT 97
[2019-11-19] MEDS: Loratadine 10 MG Tablet PO (08:44)
--- NOTE | 2019-11-19 09:56 | DCINST_ITS ---
Discharge Diet: No Restrictions Discharge Activity: Return to Normal Activity, May not drive while taking narcotic pain medications. May resume sexual activity in: No Restrictions Call your doctor if you observe: Fever of 101 or Higher, Inability to urinate, Calf discomfort, Uncontrolled pain Allergies/Adverse Reactions: Allergies clindamycin Allergy (Verified 11/18/19 07:43) Rash/itching/anxiety Penicillins Allergy (Verified 11/18/19 07:43) Rash/itching/anxiety Sulfa (Sulfonamide Antibiotics) Allergy (Verified 11/18/19 07:43) Rash/itching/anxiety Medications to take at Discharge Acebutolol HCl [Sectral (Beta Phil)] 200 mg PO QHS 07/26/15 Albuterol Sulfate [Proventil Hfa] 2 puff IH 4X/DAY PRN 07/26/15 Fluticasone/Salmeterol [Advair 250/50 Mcg Diskus] 1 puff INHALATION BID 07/26/15 Loratadine [Claritin] 10 mg PO DAILY 07/26/15 Montelukast [Singulair] 10 mg PO QHS 07/26/15 Ascorbic Acid [Vitamin C] 500 mg PO DAILY 11/14/19 Calcium Carbonate [Calcium] 1,000 mg PO DAILY 11/14/19 Cholecalciferol (VIT D3) [Vitamin D3] 2,000 unit PO DAILY 11/14/19 Cinnamon Bark [Cinnamon] 1,000 mg PO BID 11/14/19 Flaxseed Oil 1,000 mg PO DAILY 11/14/19 Garlic 1,000 mg PO DAILY 11/14/19 Ibuprofen [Motrin] 600 mg PO Q8H PRN PRN 11/14/19 Milk Thistle Seed Extract [Milk Thistle] 175 mg PO QODAY 11/14/19 [place]-3/Dha/Epa/Fish Oil [Fish Oil 1,000 mg Softgel] 1 ea PO BID 11/14/19 Ondansetron [Ondansetron Odt] 4 mg PO Q4H PRN 11/14/19 Oxycodone HCl/Acetaminophen [Percocet 5-325 mg Tablet] 1 ea PO Q4H PRN 11/14/19 Ubidecarenone [Coq-10] 200 mg PO DAILY 11/14/19 Cephalexin 1 tab PO DAILY 11/18/19 Primary Care Physician: Angelica Mosher MD [STAFF PHYSICIAN] - Puneet Santos MD [Primary Care Provider] - Test Results: Test results from this visit will be discussed in further detail at your follow- up appointment, if applicable. Please Follow Up With: Angelica Mosher MD When: in 3-4 weeks, as scheduled Proposed Discharge Date: 11/19/19
--- NOTE | 2019-11-19 09:57 | PCM.PN.GU ---
Physical Exam Subjective: Feeling well except for headache from the pain medications. No flank pain. Wants to go home. - Physical Exam Vital Signs Temp 98.2 F 11/19/19 08:40 Pulse 83 11/19/19 08:40 Resp 18 11/19/19 08:40 BP 142/68 H 11/19/19 08:40 Pulse Ox 97 11/19/19 08:40 Intake & Output 11/17/19 11/18/19 11/19/19 23:59 23:59 23:59 Intake Total 2950.00 / 2950.00 1022.91 / 1022.91 Output Total 2300 / 2300 1000 / 1000 Balance 650.00 / 650.00 22.91 / 22.91 Weight: 83.8 kg Intake: Oral 900 / 900 Intake, IV Amount 2050.00 / 2050.00 1022.91 / 1022.91 0.9% Normal Saline 1,000 ML @ 745.83 / 745.83 250 mls/hr IV .Q4H [facility] Rx#: [id number] Cefazolin 1 GM/50 ML1 gm In 50 100 / 100 50 / 50 ml @ 100 mls/hr IV Q8 [facility] Rx#: [id number] Dext 5%-0.45% NS 1,000 ML @ 125 1204.17 / 1204.17 972.91 / 972.91 mls/hr IV .Q8H [facility] Rx#: [id number] Output: Urine 2300 / 2300 1000 / 1000 General: Alert, Oriented x3 HEENT: Atraumatic, Normocephalic Oral: Moist Mucosa Neck: Supple, Trachea Midline Lungs: Normal air movement Cardiovascular: Regular rate Abdomen: Soft, Non Tender Rectal: Exam deferred Musculoskeletal: No Muscle Wasting Neurological: Cranial nerves II-XII grossly intact Psych/Mental Status: Normal Affect Medical Necessity - Tobacco Use Smoking Status: Former smoker Assessment/Plan All Active Problems Renal calculus, left (Acute) Left ureteral calculus (Acute) Hydronephrosis due to obstruction of ureter (Acute) Acute left flank pain (Acute) Hydronephrosis concurrent with and due to calculi of kidney and ureter (Acute) Home today follow up in the office as scheduled will check renal ultrasound in few weeks
== END 2019-11-19 12:33 | disposition home or self-care (01) ==
LOC: ED 09:04 → MS3 10:57
PROVIDERS: Admitting Provider Urology; Emergency Provider Emergency Medicine; PCP Family Medicine; Visit Provider Urology
DX: N13.2 Hydronephrosis with renal and ureteral calculous obstruction (principal); Z87.891 Personal history of nicotine dependence
CPT/HCPCS: 74176; 80048; 81001; 85025; 87086; 94640; 96361; 96365; 96366; 96375; 96376; 99218; 99285; J7030; P9612; A4216; G0378; J2405; J7799

== ENCOUNTER 2022-07-22 14:38 | Inpatient (IN) | payer MEDICARE, BC, SELFPAY ==
[2022-07-22 14:42] VITALS: BP 117/67; PULSE 96; RESP 18; TEMP 36.9; O2SAT 99; BMI 29.2
--- NOTE | 2022-07-22 15:01 | EX.ED.DYSGE1 ---
HPI History of Present Illness Chief Complaint: Flank Pain Narrative Narrative: 67-year-old female here with right-sided flank pain in the setting history of kidney stones, hydronephrosis referred by her urologist. Patient notes she had intense flank pain that started just prior to arrival. It is nonradiating. She notes she has not urinated as much. States he feels like prior kidney stones. His pain is constant, severe without alleviating factors. She notes associated nausea and vomiting states he took an oxycodone prior to arrival no relief. States she called her urologist. He told her to come to the emergency department for further evaluation. Denies any chest pain, denies any leg pain. Denies any history of connective tissue diseases or aortic pathology. Denies fever but notes he had a low-grade temp at home. PFSH PFSH Home Medications acebutolol 200 mg capsule 200 mg PO QHS heart 07/26/15 [History Last Taken 11/18/19] albuterol sulfate 90 mcg/actuation aerosol inhaler (Proventil HFA) 2 puff IH 4X/DAY PRN Asthma 07/26/15 [History Last Taken Unknown] fluticasone 250 mcg-salmeterol 50 mcg/dose blistr powdr for inhalation (Advair Diskus) 1 puff inhalation BID asthma 07/26/15 [History Last Taken 11/17/19] loratadine 10 mg tablet (Allergy Relief (loratadine)) 10 mg PO DAILY asthma 07/26/15 [History Last Taken 11/17/19] montelukast 10 mg tablet 10 mg PO QHS asthma 07/26/15 [History Last Taken 11/17/19] ascorbic acid (vitamin C) 500 mg capsule 500 mg PO DAILY supplement 11/14/19 [History Last Taken 11/16/19] calcium carbonate 500 mg calcium (1,250 mg) tablet 1,000 mg PO DAILY supplement 11/14/19 [History Last Taken 11/16/19] cholecalciferol (vitamin D3) 25 mcg (1,000 unit) tablet 2,000 unit PO DAILY supplement 11/14/19 [History Last Taken 11/16/19] cinnamon bark 500 mg capsule 1,000 mg PO BID supplement 11/14/19 [History Last Taken 11/18/19] coenzyme Q10 100 mg capsule 200 mg PO DAILY supplement 11/14/19 [History Last Taken 11/15/19] flaxseed oil 1,000 mg capsule 1,000 mg PO DAILY supplement 11/14/19 [History Last Taken 11/16/19] garlic 1,000 mg capsule 1,000 mg PO DAILY supplement 11/14/19 [History Last Taken 11/16/19] ibuprofen 600 mg tablet 600 mg PO Q8H PRN PRN Pain Score 1-06/3011/14/19 [History Last Taken 11/14/19 15:00] milk thistle seed extract 175 mg capsule 175 mg PO QODAY supplement 11/14/19 [History Last Taken 11/15/19] omega 6-wcr-nro-fish oil 300 mg-1,000 mg capsule 1 ea PO BID supplement 11/14/19 [History Last Taken 11/18/19] ondansetron 4 mg disintegrating tablet 4 mg PO Q4H PRN Nausea 11/14/19 [History Last Taken 11/14/19 09:30] oxycodone-acetaminophen 5 mg-325 mg tablet 1 ea PO Q4H PRN Pain Score 1-06/3011/14/19 [History Last Taken 11/18/19 04:30] Cephalexin 1 tab PO DAILY antibiotic 11/18/19 [History Last Taken 11/17/19] Allergy/AdvReac Type Severity Reaction Status Date / Time clindamycin Allergy Rash/itchin Verified 07/22/22 14:41 g/anxiety Penicillins Allergy Rash/itchin Verified 07/22/22 14:41 g/anxiety Sulfa (Sulfonamide Allergy Rash/itchin Verified 07/22/22 14:41 Antibiotics) g/anxiety Social History Smoking Status: Former smoker ROS ROS ED ROS Narrative Constitutional: Denies fever HEENT: Denies sore throat Neck: Denies neck pain Cardiovascular: Denies chest pain, syncope Respiratory: Denies shortness of breath GI: Denies nausea vomiting or abdominal pain : Endorses right-sided flank pain Musculoskeletal: Denies muscle or joint pain Neurologic: Denies numbness weakness or loss of sensation Skin denies rash EXAM Physical Exam Narrative Exam Narrative: Nursing triage notes reviewed, Vital signs reviewed Constitutional: please see mdm HENT: MMM Eyes: Pupils equal round and reactive to light, Extraocular muscles intact Neck: No stridor, no JVD, full neck ROM Lungs: Clear to auscultation, No wheezing or rales. No increased work of breathing, no conversational dyspnea, no accessory muscle use, no nasal flaring. No respiratory distress noted Heart: Regular rate and rhythm, No murmurs, No rubs and No gallops, 2+ distal pulses (radial, femoral, posterior tibial) in all extremities Abdomen: Soft, there is no tenderness, rigidity, rebound or guarding, no obvious peritoneal signs, no palpable pulsatile abdominal masses, no auscultated abdominal bruit : No CVAT Extremities: No edema Neuro: No focal neurological deficits, cranial nerves II through XII intact, 5/5 strength in all extremities. Intact sensation to light touch in all extremities, 2+ reflexes bilateral patella dens. Normal gait. No ataxia. Skin: No rash or lesions noted Const Vital Signs: 07/22/22 14:42 Temperature 98.4 F Temperature Source Temporal Pulse Rate 96 Respiratory Rate 18 Blood Pressure 117/67 Blood Pressure Mean 83 Pulse Ox 99 Oxygen Delivery Method Room Air MDM MDM MDM Narrative Medical decision making narrative: 67-year-old female here right-sided flank pain in setting of nephrolithiasis hydronephrosis in the past. Exam without CVA tenderness. Abdomen soft nontender she had symmetric pulses. For aortic pathology. Obtained CT scan without contrast to further elucidate etiology patient complains. Also obtain labs to rule out kidney dysfunction, anemia, signs of dehydration. Gave fluids, nausea medicine, morphine. CT scan shows 3 mm calculus at ureteropelvic junction, mild hydronephrosis. Labs with elevation in lactic acid suggestive of endorgan hypoperfusion. We will give a liter to liter bolus and repeat lactate level. No evidence of pancreatitis, LAUREL, anion gap. Lab Data Attestation: I reviewed the patient's lab results. Lab results narrative: CBC without leukocytosis, severe anemia, no thrombocytopenia. BMP without evidence of significant electrolyte abnormalities, no anion gap, no acute kidney injury. Lactate elevated indicative end-organ hypoperfusion LFTs show no evidence of hepatobiliary pathology. Lipase is wnl indicating no pancreatic inflammation. Labs: Laboratory Results - last 24 hr 07/22/22 07/22/22 07/22/22 15:12 15:12 15:12 WBC 7.3 RBC 4.12 L Hgb 13.4 Hct 38.8 MCV 94.2 MCH 32.5 H MCHC 34.5 RDW Std Deviation 44.4 H RDW Coeff of Valentina 12.9 Plt Count 170 MPV 9.8 Immature Gran % (Auto) 0.400 Neut % (Auto) 93.2 H Lymph % (Auto) 4.6 L [place] % (Auto) 1.2 Eos % (Auto) 0.3 Baso % (Auto) 0.3 Absolute Neuts (auto) 6.8 Absolute Lymphs (auto) 0.34 L Nucleated RBC % 0 Differential Comment SEE COMMENT Platelet Estimate ADEQUATE RBC Morphology N CHROM Anisocytosis RARE Macrocytosis RARE Sodium 140 Potassium 4.0 Chloride 108 H Carbon Dioxide 27.0 Anion Gap 5 BUN 30 H Creatinine 0.86 Estim Creat Clear Calc 53.31 Est GFR (MDRD) Af Amer 84 Est GFR (MDRD) Non-Af 70 BUN/Creatinine Ratio 34.9 H Glucose 138 H Lactic Acid 2.3 H* Calcium 8.8 Total Bilirubin 1.30 H AST 16 ALT 27 Alkaline Phosphatase 52 Total Protein 6.5 Albumin 3.3 Globulin 3.2 Albumin/Globulin Ratio 1.0 Lipase 163 Radiography Diagnostic Testing: Clinical Impression(s) from Imaging Studies Abdomen/Pelvis CT 07/22/22 15:11 IMPRESSION: 1. Right UPJ calculus with mild obstructive uropathy. 2. Resolution of the hydronephrosis seen on the left on the previous study. The left renal calculi, present on the previous exam are no longer present. 3. Otherwise grossly stable findings. Electronically Signed: Corey CastanedaDO at 16:08 EDT Reading Location ID and State: [address] [place] [address] Tel [phone], Service support , Treatment and Re-Evaluation Narrative: Patient continued to have nausea and vomiting here in the emergency department. Given her elevated lactate, severe pain ongoing nausea vomiting I do not think she is appropriate for home-going. Did communicate with the patient's urologist Dr. Mosher who accepted the patient to her service for further inpatient care, hydration, pain control and possible operative intervention. Discharge Plan Triage Chief Complaint: Flank Pain ED Provider: Tashi Anaya Dx/Rx/DC Orders Prescriptions: No Action fluticasone propion-salmeterol [Advair Diskus] 1 PUFF inhaler 1 puff inhalation BID montelukast 10 MG tablet 10 mg PO QHS acebutolol 200 MG capsule 200 mg PO QHS albuterol sulfate [Proventil HFA] 6.7 GM HFA aerosol inhaler 2 puff IH 4X/DAY PRN (Reason: Asthma) loratadine [Allergy Relief (loratadine)] 10 MG tablet 10 mg PO DAILY garlic 1,000 MG capsule 1,000 mg PO DAILY flaxseed oil 1,000 MG capsule 1,000 mg PO DAILY calcium carbonate 500 MG tablet 1,000 mg PO DAILY coenzyme Q10 100 MG capsule 200 mg PO DAILY cinnamon bark 500 MG capsule 1,000 mg PO BID cholecalciferol (vitamin D3) 1,000 UNIT tablet 2,000 unit PO DAILY omega 3-iwx-qxk-fish oil 1 EACH capsule 1 ea PO BID milk thistle seed extract 175 MG capsule 175 mg PO QODAY ascorbic acid (vitamin C) 500 MG capsule 500 mg PO DAILY oxycodone-acetaminophen 1 EACH tablet 1 ea PO Q4H PRN (Reason: Pain Score 1-10/10) ibuprofen 600 MG tablet 600 mg PO Q8H PRN PRN (Reason: Pain Score 1-10/10) ondansetron 4 mg tablet,disintegrating 4 mg PO Q4H PRN (Reason: Nausea) Cephalexin 1 TAB 1 tab PO DAILY Primary Care Provider: Puneet Santos Referrals: Puneet Santos MD [Primary Care Provider] -
--- NOTE | 2022-07-22 15:11 | CT_ITS ---
INDICATION: Right flank pain. EXAMINATION: CT ABDOMEN AND PELVIS WITHOUT CONTRAST - CT Abdomen And Pelvis W/O Contrast Injection TECHNIQUE: Helically acquired images were obtained of the abdomen and pelvis without oral or IV contrast. A radiation dose optimization technique was used for this scan. IV Contrast dosage and agent: None. Oral contrast: None. COMPARISON: November 18, 2019. FINDINGS: LOWER CHEST: There is a 3 mm soft tissue nodule in the lateral aspects right middle lobe seen on image 1 using lung windows. Lung bases are otherwise clear. No cardiomegaly or pericardial effusion. LIVER: Mild fatty infiltration liver with focal fatty sparing at gallbladder fossa. No focal mass. GALLBLADDER AND BILIARY TREE: No calcified gallstones. No gallbladder distension or wall edema. No intra- or extrahepatic biliary ductal dilation. PANCREAS: No focal cystic or solid mass. SPLEEN: Normal size without focal cystic or solid mass. ADRENAL GLANDS: No nodules. KIDNEYS AND URETERS: The right kidney is of normal size and cortical thickness. There is no mass or renal calculi. There is mild hydronephrosis with a 3 mm obstructing calculus at the UPJ (image 58, series 2) the distal right ureter appears grossly normal. Normal left kidney. Normal left ureter. PERITONEUM: No ascites or free air. No other fluid collection. BOWEL: No evidence of acute appendicitis. Hiatal hernia. No bowel distension. There are scattered colonic diverticuli without focal inflammatory change. LYMPH NODES: No enlarged mesenteric or retroperitoneal lymph nodes. VESSELS: Aorta is non-dilated. URINARY BLADDER: Unremarkable. REPRODUCTIVE ORGANS: There calcifications in the uterine fundus which may represent a small fibroid. The uterus is otherwise unremarkable. No adnexal mass. ABDOMINAL WALL: No discrete abdominal or pelvic wall hernia. BONES: There are mild degenerative changes lumbar spine and this is most marked at L3-4 where there appears to be minimal anterolisthesis. CT/Abdomen/Pelvis without Cont IMPRESSION: 1. Right UPJ calculus with mild obstructive uropathy. 2. Resolution of the hydronephrosis seen on the left on the previous study. The left renal calculi, present on the previous exam are no longer present. 3. Otherwise grossly stable findings. Electronically Signed: Corye Castaneda DO at 16:08 EDT ,
[2022-07-22] MEDS: Ondansetron 4 MG/2 ML Vial IV (15:18)
[2022-07-22] MEDS: Ketorolac 15 MG/ML Vial IV (15:18)
[2022-07-22] MEDS: 0.9% Normal Saline 1,000 ML 1000 ML IV (15:20)
[2022-07-22] MEDS: Morphine 4 MG/ML Syringe IV (15:20)
[2022-07-22 15:22] LABS: Absolute Lymphocyte Count 0.34 X10^3/uL (0.83-4.51); Absolute Neutrophil Count 6.8 X10^3/uL (2.0-7.7); Basophil# 0.02 X10^3/uL; Basophil% 0.3 % (0-1); Eosinophil# 0.02 X10^3/uL; Eosinophils% 0.3 % (0-5); Hematocrit 38.8 % (37-47); Hemoglobin 13.4 g/dL (12.0-15.0); Lymphocyte # 0.34 X10^3/ul (0.83-4.51); Lymphocyte % 4.6 % (19-41); Mean Corp Hgb Conc 34.5 g/dL (32-36); Mean Corpuscular Hgb 32.5 pg (27.0-32.0); Mean Corpuscular Volume 94.2 fL (81-99); Mean Platelet Vol. 9.8 fl (6.2-12.0); Monocyte# 0.09 X10^3/uL; Monocyte% 1.2 % (0-10); NRBC Flagged by Analyzer 0 % (0-5); Neutrophil # 6.84 X10^3/uL (2.7-7.7); Neutrophil % 93.2 % (47-70); POSITIVE DIFFERENTIAL YES; Platelet Count 170 K/mm3 (150-450); RBC Distribution Width CV 12.9 % (11.6-14.6); RBC Distribution Width SD 44.4 fl (35.1-43.9); Red Blood Count 4.12 M/mm3 (4.2-5.4); White Blood Count 7.3 K/mm3 (4.4-11.0)
[2022-07-22 15:41] LABS: AST(SGOT) 16 U/L (15-37); Alanine Aminotransfer ALT/SGPT 27 U/L (13-56); Albumin, Serum 3.3 g/dL (3.2-5.0); Alkaline Phosphatase 52 U/L (45-117); Anion Gap 5 (5-15); BUN 30 mg/dL (7-18); BUN/Creat Ratio 34.9 RATIO (10-20); Calcium,Total 8.8 mg/dL (8.5-10.1); Chloride 108 mmol/L (98-107); Creatinine, Serum 0.86 mg/dL (0.55-1.02); EST Glomerular Filtration Rate 70 mL/min (>60); Est Glom Filt Rate - Afr Amer 84 mL/min (>60); Estimated Creatinine Clearance 53.31 ml/min; Globulin 3.2 g/dL (2.2-4.2); Glucose 138 mg/dL (74-106); Lipase 163 U/L (73-393); Protein, Total 6.5 g/dL (6.4-8.2); Sodium Level 140 mmol/L (136-145)
[2022-07-22 16:17] LABS: Lactic Acid 2.3 mmol/L (0.4-1.9)
[2022-07-22 16:26] LABS: Differential Indicated SCAN CRITERIA MET
[2022-07-22] MEDS: 0.9% Normal Saline 1,000 ML 999 ML IV (16:31)
[2022-07-22 16:33] LABS: Anisocytosis RARE; Macrocytosis RARE; Platelet Estimate ADEQUATE (ADEQ); Red Cell Morphology N CHROM NORMAL (NORM C&C)
[2022-07-22 16:40] VITALS: RESP 18
--- NOTE | 2022-07-22 16:47 | NURSING ---
DR TUBBS PAGED
[2022-07-22 17:10] VITALS: BP 94/69; PULSE 72; RESP 18; TEMP 37; O2SAT 94
[2022-07-22 17:19] LABS: Lactic Acid 1.7 mmol/L (0.4-1.9)
--- NOTE | 2022-07-22 17:25 | NURSING ---
MED SURG WYNESKI NEPHROLITHIASIS
[2022-07-22 17:59] VITALS: BMI 29.9
[2022-07-22 18:01] LABS: Color, Urine Yellow (Yellow); Glucose, Dipstick Normal (Normal); Ketone-Dipstick Negative (Negative); Leukocyte Esterase-Dipstick 100 /ul (Negative); Nitrite-Dipstick Positive (Negative); Occult Blood-Urine 10 /ul (Negative); Protein-Dipstick 15 mg/dl (Negative); Urine Bilirubin Dipstick Negative (Negative); Urine Clarity Sl. Cloudy (Clear); Urine Urobilinogen Normal (Normal)
[2022-07-22 18:41] VITALS: BP 94/69; PULSE 72; RESP 18; TEMP 37; O2SAT 94
[2022-07-22 19:16] LABS: Reflex Lactate? Y
[2022-07-22] MEDS: Dext 5%-0.45% NS 1,000 ML 125 ML IV (20:10)
[2022-07-22] MEDS: Ketorolac 30 MG/ML Syringe IV (20:27)
[2022-07-22 20:30] VITALS: BP 97/59; PULSE 96; RESP 18; TEMP 37.1; O2SAT 95
[2022-07-22 22:23] VITALS: PULSE 82; RESP 16; O2SAT 96
[2022-07-22] MEDS: Albuterol 2.5 MG/3 ML VIAL.NEB. INHALATION (22:23)
[2022-07-22] MEDS: Budesonide Respules 0.5 MG/2 ML AMPUL.NEB. INHALATION (22:23)
[2022-07-22] MEDS: Montelukast 10 MG Tablet PO (22:40)
[2022-07-22] MEDS: Cefazolin 1 GM/50 ML BAG IV (22:40)
[2022-07-22] MEDS: Tamsulosin HCl 0.4 MG Capsule PO (22:40)
[2022-07-23] VITALS (14 sets, daily range): BP systolic 107–132; BP diastolic 50–79; PULSE 73–103; RESP 16–20; TEMP 36.6–39.3; O2SAT 93–100; BMI 29.9
[2022-07-23] MEDS: Morphine 2 MG/ML Syringe 3 MG IV (03:39)
[2022-07-23] MEDS: Dext 5%-0.45% NS 1,000 ML 125 ML IV ×3 (04:43→22:54)
[2022-07-23] MEDS: Cefazolin 1 GM/50 ML BAG IV ×3 (05:53→22:09)
[2022-07-23] MEDS: Ketorolac 30 MG/ML Syringe IV ×3 (06:14→22:49)
--- NOTE | 2022-07-23 12:10 | NURSING ---
pt to surgery
[2022-07-23] MEDS: Lactated Ringers 1,000 ML 15 ML IV (12:15)
--- NOTE | 2022-07-23 12:50 | PCM.HP.STD ---
HPI - General General Date of Admission: 07/22/22 Chief Complaint: flank pain HPI Narrative EVELIO MEYERS, is a 67 F who presented to the emergency room with uncontrolled right-sided flank pain with nausea and vomiting. She has a history of stones in the past. She reports that at home she felt like she was going into shock she was shaking so much. Overnight she developed a fever up to 102 ?F. We discussed the risks and benefits of proceeding with a ureteral stent insertion. [facility] Medical History (Updated 07/23/22 @ 12:[address] Angelica Mosher MD) Asthma History of steroid therapy History of stress test Irregular heartbeat Irritable bowel Post-menopausal Restless legs Urinary tract infection Home Medications acebutolol 200 mg capsule 200 mg PO QHS heart 07/26/15 [History Last Taken 11/18/19] albuterol sulfate 90 mcg/actuation aerosol inhaler (Proventil HFA) 2 puff IH 4X/DAY PRN Asthma 07/26/15 [History Last Taken Unknown] loratadine 10 mg tablet (Allergy Relief (loratadine)) 10 mg PO DAILY asthma 07/26/15 [History Last Taken 11/17/19] montelukast 10 mg tablet 10 mg PO QHS asthma 07/26/15 [History Last Taken 11/17/19] ascorbic acid (vitamin C) 500 mg capsule 500 mg PO DAILY supplement 11/14/19 [History Last Taken 11/16/19] calcium carbonate 500 mg calcium (1,250 mg) tablet 1,000 mg PO DAILY supplement 11/14/19 [History Last Taken 11/16/19] cholecalciferol (vitamin D3) 25 mcg (1,000 unit) tablet 2,000 unit PO DAILY supplement 11/14/19 [History Last Taken 11/16/19] cinnamon bark 500 mg capsule 1,000 mg PO BID supplement 11/14/19 [History Last Taken 11/18/19] coenzyme Q10 100 mg capsule 200 mg PO DAILY supplement 11/14/19 [History Last Taken 11/15/19] flaxseed oil 1,000 mg capsule 1,000 mg PO DAILY supplement 11/14/19 [History Last Taken 11/16/19] garlic 1,000 mg capsule 1,000 mg PO DAILY supplement 11/14/19 [History Last Taken 11/16/19] ibuprofen 600 mg tablet 600 mg PO Q8H PRN PRN Pain Score 1-06/3011/14/19 [History Last Taken 11/14/19 15:00] milk thistle seed extract 175 mg capsule 175 mg PO QODAY supplement 11/14/19 [History Last Taken 11/15/19] omega 4-urc-bvu-fish oil 300 mg-1,000 mg capsule 1 ea PO BID supplement 11/14/19 [History Last Taken 11/18/19] ondansetron 4 mg disintegrating tablet 4 mg PO Q4H PRN Nausea 11/14/19 [History Last Taken 11/14/19 09:30] oxycodone-acetaminophen 5 mg-325 mg tablet 1 ea PO Q4H PRN Pain Score 1-06/3011/14/19 [History Last Taken 11/18/19 04:30] fluticasone furoate 200 mcg-vilanterol 25 mcg/dose inhalation powder (Breo Ellipta) 1 ea inhalation QHS breathing 07/22/22 [History Last Taken Unknown] Allergy/AdvReac Type Severity Reaction Status Date / Time clindamycin Allergy Rash/itchin Verified 07/22/22 14:41 g/anxiety Penicillins Allergy Rash/itchin Verified 07/22/22 14:41 g/anxiety Sulfa (Sulfonamide Allergy Rash/itchin Verified 07/22/22 14:41 Antibiotics) g/anxiety Surgical History S/P tubal ligation Social History Smoking Status: Former smoker ROS Constitutional Constitutional: Reports body ache(s), chills, fatigue and fever(s) Eyes Eyes: Reports systems reviewed and no addt'l complaints, except as documented ENT HEENT: Reports systems reviewed and no addt'l complaints, except as documented Cardiovascular Cardiovascular: Reports nausea; Denies chest pain, diaphoresis or dyspnea Respiratory/Chest Respiratory/Chest: Denies change in mental status, chest congestion, cough, dyspnea or inability to speak Gastrointestinal Gastrointestinal: Reports abdominal pain, cramping, nausea and vomiting Genitourinary Genitourinary: Reports flank pain, urinary frequency and urinary urgency Musculoskeletal Musculoskeletal: Reports systems reviewed and no addt'l complaints, except as documented Integumentary Integumentary: Reports systems reviewed and no addt'l complaints, except as documented Neurologic Neurologic: Reports systems reviewed and no addt'l complaints, except as documented Psychiatric Psychiatric: Reports systems reviewed and no addt'l complaints, except as documented Endocrine Endocrinology: Reports systems reviewed and no addt'l complaints, except as documented Hematologic/Lymphatic Hematologic/Lymphatic: Reports systems reviewed and no addt'l complaints, except as documented Allergic/Immunologic Allergic/Immunologic: Reports systems reviewed and no addt'l complaints, except as documented Vital Signs Vital Signs Vital Signs: 07/22/22 14:42 07/22/22 16:40 07/22/22 17:10 Temperature 98.4 F 98.6 F Temperature Source Temporal Oral Pulse Rate 96 72 Pulse Strength Respiratory Rate 18 18 18 Respiratory Effort Respiratory Depth Respiratory Pattern Blood Pressure 117/67 94/69 Blood Pressure Mean 83 77 Blood Pressure Source Blood Pressure Position Blood Pressure Location Pulse Ox 99 94 Oxygen Delivery Method Room Air Room Air 07/22/22 18:41 07/22/22 22:23 07/22/22 22:23 Temperature 98.6 F Temperature Source Oral Pulse Rate 72 82 Pulse Strength Respiratory Rate 18 16 Respiratory Effort Respiratory Depth Respiratory Pattern Normal Blood Pressure 94/69 Blood Pressure Mean 77 Blood Pressure Source Blood Pressure Position Blood Pressure Location Pulse Ox 94 96 Oxygen Delivery Method Room Air Room Air 07/22/22 20:30 07/22/22 22:00 07/22/22 23:59 Temperature 98.7 F Temperature Source Oral Pulse Rate 96 Pulse Strength Normal (2+) Respiratory Rate 18 Respiratory Effort Normal Non-Labored Respiratory Depth Normal Respiratory Pattern Normal Blood Pressure 97/59 L Blood Pressure Mean 71 Blood Pressure Source Blood Pressure Position Blood Pressure Location Pulse Ox 95 Oxygen Delivery Method Room Air Room Air 07/23/22 02:30 07/23/22 06:55 07/23/22 06:10 Temperature 99.1 F 102.8 F H Temperature Source Oral Oral Pulse Rate 92 98 Pulse Strength Respiratory Rate 20 H 16 Respiratory Effort Respiratory Depth Respiratory Pattern Blood Pressure 132/79 H 131/74 H Blood Pressure Mean 96 93 Blood Pressure Source Blood Pressure Position Blood Pressure Location Pulse Ox 100 98 95 Oxygen Delivery Method Room Air Room Air Room Air 07/23/22 08:00 07/23/22 08:00 07/23/22 08:00 Temperature 99.1 F Temperature Source Oral Pulse Rate 103 H Pulse Strength Normal (2+) Respiratory Rate 16 Respiratory Effort Normal Respiratory Depth Normal Respiratory Pattern Normal Blood Pressure 117/59 L Blood Pressure Mean 78 Blood Pressure Source Monitor Blood Pressure Position Semi-Fowlers Blood Pressure Location Left Arm Pulse Ox 93 Oxygen Delivery Method Room Air Room Air 07/23/22 11:25 07/23/22 11:25 Temperature 97.9 F 97.9 F Temperature Source Oral Oral Pulse Rate 73 73 Pulse Strength Respiratory Rate 16 16 Respiratory Effort Respiratory Depth Respiratory Pattern Blood Pressure 107/50 L 107/50 L Blood Pressure Mean 69 69 Blood Pressure Source Monitor Blood Pressure Position Semi-Fowlers Blood Pressure Location Right Arm Pulse Ox 95 Oxygen Delivery Method Room Air Room Air Weight Weight: 79.107 kg Body Mass Index (BMI) 29.9 Physical Exam Const alert, oriented x3 and no apparent distress General Appearance: well kempt and well developed HEENT normocephalic, head/scalp atraumatic, hearing grossly normal bilaterally, external ears normal and external nose normal Eyes General Eye: normal appearance of both eyes Neck supple General: normal visual inspection Lymph Lymphatic: no lymphedema noted Chest inspection of chest normal Chest: symmetrical chest wall rise Resp normal respiratory effort, normal air movement, no retractions and no use of accessory muscles Cardio regular rhythm Rate: tachycardic GI soft to palpation, non-tender and non-distended Back/Spine General Back: CVA tenderness right Extremity normal to inspection Skin no rashes or lesions noted and no wounds Neuro oriented x3, CN's II-XII intact bilaterally and moves all extremities Psych mental status grossly normal and thought process normal Results Lab / Micro Data Result Diagrams: 07/22/22 15:12 07/22/22 15:12 Labs: Laboratory Results - last 24 hr 07/22/22 15:12: WBC 7.3, RBC 4.12 L, Hgb 13.4, Hct 38.8, MCV 94.2, MCH 32.5 H, MCHC 34.5, RDW Std Deviation 44.4 H, RDW Coeff of Valentina 12.9, Plt Count 170, MPV 9.8, Immature Gran % (Auto) 0.400, Neut % (Auto) 93.2 H, Lymph % (Auto) 4.6 L, [place] % (Auto) 1.2, Eos % (Auto) 0.3, Baso % (Auto) 0.3, Absolute Neuts (auto) 6.8, Absolute Lymphs (auto) 0.34 L, Nucleated RBC % 0, Differential Comment SEE COMMENT, Platelet Estimate ADEQUATE, RBC Morphology N CHROM, Anisocytosis RARE, Macrocytosis RARE 07/22/22 15:12: Sodium 140, Potassium 4.0, Chloride 108 H, Carbon Dioxide 27.0, Anion Gap 5, BUN 30 H, Creatinine 0.86, Estim Creat Clear Calc 53.31, Est GFR (MDRD) Af Amer 84, Est GFR (MDRD) Non-Af 70, BUN/Creatinine Ratio 34.9 H, Glucose 138 H, Calcium 8.8, Total Bilirubin 1.30 H, AST 16, ALT 27, Alkaline Phosphatase 52, Total Protein 6.5, Albumin 3.3, Globulin 3.2, Albumin/Globulin Ratio 1.0, Lipase 163 07/22/22 15:12: Lactic Acid 2.3 H* 07/22/22 16:52: Lactic Acid 1.7 07/22/22 17:31: Urine Color Yellow, Urine Clarity Sl. Cloudy, Urine pH 7.0, Ur Specific [place] 1.010, Urine Protein 15 H, Urine Glucose (UA) Normal, Urine Ketones Negative, Urine Occult Blood 10 H, Urine Nitrite Positive H, Urine Bilirubin Negative, Urine Urobilinogen Normal, Ur Leukocyte Esterase 100 H Micro: Microbiology 07/22/22 17:30 Urine, Clean Catch Urine Culture - Preliminary Presumptive E. coli Radiology Impression Abdomen/Pelvis CT 07/22/22 15:11 IMPRESSION: 1. Right UPJ calculus with mild obstructive uropathy. 2. Resolution of the hydronephrosis seen on the left on the previous study. The left renal calculi, present on the previous exam are no longer present. 3. Otherwise grossly stable findings. Electronically Signed: Corey Castaneda DO at 16:08 EDT Reading Location ID and State: [address] [place] [address] Tel [phone], Service support , Assessment & Plan Assessment/Plan (1) Renal calculus, left: (2) Hydronephrosis due to obstruction of ureter: (3) Urinary tract infection: PLAN: Plan Proceed with cystoscopy and right ureteral stent insertion Continue supportive care and antibiotics Await urine culture results We will plan to treat stone definitively in 2 to 3 weeks once infection has cleared
--- NOTE | 2022-07-23 12:55 | PCM.OPRPT ---
Report of Operation Date of Procedure: 07/23/22 Pre-Operative Diagnosis: Right ureteral calculus with hydronephrosis and urinary tract infection Post-Operative Diagnosis: Same Surgery/Procedure Performed:: Cystoscopy with right ureteral stent insertion Surgeon: Angelica Mosher Type of Anesthesia: MAC Description of Procedure: The patient is a 67-year-old female admitted with uncontrolled nausea vomiting, pain and urinary tract infection with an obstructing stone. Informed consent has been obtained. The patient was taken to the operating room and placed on the operating room table. Anesthesia monitored the head, neck, airway, IV access and vital signs throughout the case. Once anesthesia was appropriately administered, the patient was placed into dorsolithotomy position was prepped and draped in usual sterile fashion. At this time the cystoscope was inserted through the urethra under direct visualization into the urinary bladder. The right ureteral orifice was identified and gently intubated with a 0.035 Glidewire. Under fluoroscopic visualization, a 6 x 24 JJ stent was inserted over the wire with good positioning in the renal pelvis as well as the urinary bladder. The patient's bladder was then emptied and the cystoscope was removed. She tolerated the procedure without complication. She was awakened and taken to the recovery room in good condition. Grafts/Implants Used: 6 x 24 JJ stent Complications None Admit VTE Documentation VTE Present on Admission: Yes VTE Mechan Device Prophylaxis: SCD's VTE Pharm Prophylaxis ordered?: No Reason prophylaxis not ordered:: Treatment Not Indicated
--- NOTE | 2022-07-23 14:05 | RAD_ITS ---
STUDY: X-RAY - ABDOMEN/PELVIS REASON FOR EXAM: Female, 67 years old. RIGHT URETERAL CALCULUS TECHNIQUE: Single AP view of the abdomen / pelvis. COMPARISON: Comparison is made with prior study dated 10/31/[address] scan dated 07/22/2022. FINDINGS: There is elevation of the right hemidiaphragm. There is a moderate amount of colonic fecal material. A right-sided double-J stent catheter has been placed with the proximal tip in the right renal pelvis and distal tip in the right urinary bladder. Questionable 3.2 mm calculus in the proximal right ureter. Normal soft tissue structures. Normal visualized osseous structures. RAD/Abdomen Single View IMPRESSION: Double J stent catheter placed in the right ureteral system. Impression multiple 3.2 mm calculus in the proximal portion of the right ureter. Electronically Signed: Mitchel Michaels MD at 14:46 EDT ,
[2022-07-23] MEDS: Ondansetron 4 MG/2 ML Vial IV (15:35)
[2022-07-23] MEDS: Ascorbic Acid 500 MG Tablet PO (16:53)
[2022-07-23] MEDS: Loratadine 10 MG Tablet PO (16:53)
[2022-07-23] MEDS: Calcium (Elemental) 500 MG Tablet 1000 MG PO (16:56)
[2022-07-23] MEDS: Albuterol 2.5 MG/3 ML VIAL.NEB. INHALATION (19:37)
[2022-07-23] MEDS: Budesonide Respules 0.5 MG/2 ML AMPUL.NEB. INHALATION (19:37)
[2022-07-23] MEDS: Montelukast 10 MG Tablet PO (22:09)
[2022-07-24 02:00] VITALS: BP 105/47; PULSE 69; RESP 16; TEMP 36.4; O2SAT 99
[2022-07-24 04:21] VITALS: BP 105/47; PULSE 69; RESP 16; TEMP 36.4; O2SAT 99
[2022-07-24] MEDS: Cefazolin 1 GM/50 ML BAG IV (06:40)
[2022-07-24] MEDS: Budesonide Respules 0.5 MG/2 ML AMPUL.NEB. INHALATION (07:01)
[2022-07-24] MEDS: Albuterol 2.5 MG/3 ML VIAL.NEB. INHALATION (07:02)
[2022-07-24 07:07] VITALS: PULSE 76; RESP 17
--- NOTE | 2022-07-24 07:22 | NURSING ---
Pt. passed very tiny granular particle in strained urine.
[2022-07-24] MEDS: Dext 5%-0.45% NS 1,000 ML 125 ML IV (07:45)
--- NOTE | 2022-07-24 10:11 | DCINST_ITS ---
Discharge Instructions Diet Discharge Diet: No restrictions Activity Discharge Activity: Return to Normal Activity and May Not Drive (if taking narcotics) May resume sexual activity in: 1-2 weeks Dressing / Incision Call your doctor if you observe: Fever of 101 or Higher, Inability to urinate and Inability to have a bowel movement Follow Up Care Please Follow Up With: Angelica Mosher MD When: call office for instructions Test Results: Test results from this visit will be discussed in further detail at your follow- up appointment, if applicable. Discharge Plan Admission Admit Date/Time: 07/23/22 15:57 Attending Provider: Angelica Mosher Primary Care Provider: Puneet Santos Discharge Orders/Prescriptions Prescriptions: New ondansetron HCl [ondansetron HCl] 8 mg tablet 8 mg PO Q8H PRN PRN (Reason: Nausea) 7 Days Qty: 20 0RF oxycodone-acetaminophen [Percocet] 5-325 mg tablet 1 tab PO Q8H PRN (Reason: pain) 5 Days Qty: 15 0RF cephalexin [cephalexin] 500 mg capsule 500 mg PO 3XD 5 Days Qty: 15 0RF phenazopyridine [Pyridium] 200 mg tablet 200 mg PO TID PRN PRN (Reason: Bladder Spasms) 7 Days Qty: 30 0RF Continued montelukast 10 MG tablet 10 mg PO QHS acebutolol 200 MG capsule 200 mg PO QHS albuterol sulfate [Proventil HFA] 6.7 GM HFA aerosol inhaler 2 puff IH 4X/DAY PRN (Reason: Asthma) loratadine [Allergy Relief (loratadine)] 10 MG tablet 10 mg PO DAILY garlic 1,000 MG capsule 1,000 mg PO DAILY flaxseed oil 1,000 MG capsule 1,000 mg PO DAILY calcium carbonate 500 MG tablet 1,000 mg PO DAILY coenzyme Q10 100 MG capsule 200 mg PO DAILY cinnamon bark 500 MG capsule 1,000 mg PO BID cholecalciferol (vitamin D3) 1,000 UNIT tablet 2,000 unit PO DAILY omega 1-eog-ljh-fish oil 1 EACH capsule 1 ea PO BID milk thistle seed extract 175 MG capsule 175 mg PO QODAY ascorbic acid (vitamin C) 500 MG capsule 500 mg PO DAILY oxycodone-acetaminophen 1 EACH tablet 1 ea PO Q4H PRN (Reason: Pain Score 1-10/10) ibuprofen 600 MG tablet 600 mg PO Q8H PRN PRN (Reason: Pain Score 1-10/10) ondansetron 4 mg tablet,disintegrating 4 mg PO Q4H PRN (Reason: Nausea) fluticasone furoate-vilanterol [Breo Ellipta] 200-25 mcg/dose blister with device 1 ea INHALATION QHS Label Comments: inhale 1 (ONE) puff daily Referrals / Follow Up: Puneet Santos MD [Primary Care Provider] - Disposition Disposition (needs filled in before D/C Order can be placed): Home, Self Care
--- NOTE | 2022-07-24 10:40 | CASEMGMT ---
LUISA PADRON Assessment: Face to Face with pt for initial transition planning/care coordination assessment. LUISA PADRON introduced self and role at [facility], pt voices understanding and consents to assessment. Pt is A/O x4 and answers all questions appropriately at this time. Pt in bed. Pt appeared to be in no distress. Care providers, pharmacy, and demographics verified/updated. Admitting Dx: Right Ureteral Calculus. PCP: Tom. Specialists: Camila, Pulmonary. [facility]erred [facility]acy[facility]. Insurance: Medicare Part A B, [place]. Prescription Benefit: yes. LW/HPOA: Pt has a LW/HPOA. Pt's is POA. LNOK: Donnell King, . Living Arrangements: Pt lives with her in a one story home. There are three steps to get into the home with a railing in place. Pt denied any issues with steps. Pt reports being I in ADL's. Transportation: Pt drives self and denies concerns with transportation. Pt's can assist if needed. DME/HHC/SNF: Pt has a walker at home but doesn't currently use it. Pt advised she had SN and PT in the home after a knee replacement. [facility] in [place] was the provider. Pt denied any SNF stays. Pt states no concerns with going home at time of dc. Pt states no further concerns/needs. CM to follow. Advised pt to ask CM if any further question/concerns/needs arise, voices understanding. Pt Goal: Home. Plan: Home. ?
[2022-07-24 11:00] VITALS: BP 111/57; PULSE 66; RESP 15; TEMP 37.1; O2SAT 97
== END 2022-07-24 11:53 | disposition home or self-care (01) | DRG 661 ==
LOC: ED 15:30 → MS3 18:45
PROVIDERS: Admitting Provider Urology; Emergency Provider Emergency Medicine; PCP Family Medicine; Visit Provider Urology
PROC: 0TJ98ZZ Inspection of Ureter, Via Natural or Artificial Opening Endoscopic (ICD-10-PCS; CPT 52352; principal; 2022-07-23 07:50)
DX: N13.6 Pyonephrosis (principal); Z87.442 Personal history of urinary calculi; Z87.891 Personal history of nicotine dependence
CPT/HCPCS: 74018; 74176; 76000; 80053; 81002; 83605; 83690; 85025; 87086; 87088; 87186; 93005; 94640; 99285; J7030; J7120; A4216; C2617; J2405; J7799

== ENCOUNTER 2022-08-11 09:53 | Day surgery (SDC) | payer MEDICARE, BC, SELFPAY ==
[2022-08-11] VITALS (20 sets, daily range): BP systolic 98–133; BP diastolic 47–83; PULSE 77–99; RESP 16–18; TEMP 36.1–37; O2SAT 85–100; BMI 29.2
[2022-08-11] MEDS: Lactated Ringers 1,000 ML 15 ML IV ×2 (10:45→13:24)
[2022-08-11 11:01] LABS: Bacteria 0 SEEN /hpf (None Seen); Mucous, Urine 0 SEEN /hpf (<or=2+)
[2022-08-11 11:04] LABS: Color, Urine Yellow (Yellow); Glucose, Dipstick Normal (Normal); Ketone-Dipstick Negative (Negative); Leukocyte Esterase-Dipstick 100 /ul (Negative); Nitrite-Dipstick Negative (Negative); Occult Blood-Urine 250 /ul (Negative); Protein-Dipstick 100 mg/dl (Negative); Urine Bilirubin Dipstick Negative (Negative); Urine Clarity Cloudy (Clear); Urine Urobilinogen Normal (Normal)
[2022-08-11 11:22] LABS: Red Blood Cells-Urine > 100 SEEN /hpf (0-5); Squamous Epithelial Cells - UA 0-5 SEEN /hpf (5-10); White Blood Cells 5-10 SEEN /hpf (0-5)
--- NOTE | 2022-08-11 11:30 | CALC_PTH ---
PATIENT: EVELIO MEYERS [place] [facility] [place][id number] AGE/SX: 67/F ROOM: RE08/11/[address]: Dr. Angelica Mosher MD : [id number] BED: DIS: 08/11/2022 SPEC #: [id number] RECD: 08/11/22 13:58 STATUS: ESTRELLA NATALIE #: [id number] RADHA: 08/11/22 11:[address]: Angelica Mosher DEPT: SURGICAL PATHOLOGY RECD BY: Yoli Pollock ENTERED: 08/12/22 09:32 SP TYPE: Calculi OTHR DR: Dr. Puneet Santos MD Tissues: CALCULI Procedures: Surgery Specimen Level I HEADER OPERATION: Cystoscopy, ureteroscopy, laser lithotripsy, right ureteral PRE-OP DIAGNOSIS: Right renal calculus, hydronephrosis due to obstruction of ureter, UTI TISSUE SUBMITTED: Right ureteral stone for analysis GROSS DIAGNOSIS Fragment of stone, clinically right renal calculus. BORA:daniel 08/13/2022 COMMENT The specimen is submitted in its entirety for chemical stone analysis. The results from this study will be reported separately. GROSS DESCRIPTION Received without fixative labeled with the patient's name and designated right renal calculi. The specimen consists of a fragment of black stone covered with blood measuring 0.5 x 0.4 x 0.2 cm. The entire specimen is submitted for stone analysis. / BORA:daniel 08/12/2022 CPT: 63543
[2022-08-11] MEDS: Lubricating Jelly 60 GM Tube 30 GM (12:18)
--- NOTE | 2022-08-11 12:55 | DCINST_ITS ---
Discharge Instructions Diet Discharge Diet: No restrictions Activity Discharge Activity: Return to Normal Activity May resume sexual activity in: 1 week Dressing / Incision Call your doctor if you observe: Fever of 101 or Higher, Inability to urinate and Inability to have a bowel movement Follow Up Care Please Follow Up With: Angelica Mosher MD When: Call for appointment for stent removal next week Test Results: Test results from this visit will be discussed in further detail at your follow- up appointment, if applicable. Discharge Plan Admission Attending Provider: Angelica Mosher Primary Care Provider: Puneet Santos Discharge Orders/Prescriptions Prescriptions: New nitrofurantoin monohyd/m-cryst [Macrobid] 100 mg capsule 100 mg PO BID Qty: 6 0RF Rx Instructions: must administer with a meal/food Continued montelukast 10 MG tablet 10 mg PO QHS acebutolol 200 MG capsule 200 mg PO QHS albuterol sulfate [Proventil HFA] 6.7 GM HFA aerosol inhaler 2 puff IH 4X/DAY PRN (Reason: Asthma) loratadine [Allergy Relief (loratadine)] 10 MG tablet 10 mg PO DAILY garlic 1,000 MG capsule 1,000 mg PO DAILY flaxseed oil 1,000 MG capsule 1,000 mg PO DAILY calcium carbonate 500 MG tablet 1,000 mg PO DAILY coenzyme Q10 100 MG capsule 200 mg PO DAILY cinnamon bark 500 MG capsule 1,000 mg PO BID cholecalciferol (vitamin D3) 1,000 UNIT tablet 2,000 unit PO DAILY omega 1-fte-woz-fish oil 1 EACH capsule 1 ea PO BID milk thistle seed extract 175 MG capsule 175 mg PO QODAY ascorbic acid (vitamin C) 500 MG capsule 500 mg PO DAILY ibuprofen 600 MG tablet 600 mg PO Q8H PRN PRN (Reason: Pain Score 1-10/10) ondansetron 4 mg tablet,disintegrating 4 mg PO Q4H PRN (Reason: Nausea) fluticasone furoate-vilanterol [Breo Ellipta] 200-25 mcg/dose blister with device 1 ea INHALATION QHS Label Comments: inhale 1 (ONE) puff daily phenazopyridine [Pyridium] 200 mg tablet 200 mg PO TID PRN PRN (Reason: Bladder Spasms) 7 Days Qty: 30 0RF Changed oxycodone-acetaminophen 1 EACH tablet 1 tab PO Q6H PRN (Reason: pain) 3 Days Qty: 12 0RF Referrals / Follow Up: Puneet Santos MD [Primary Care Provider] - Disposition Disposition (needs filled in before D/C Order can be placed): Home, Self Care
--- NOTE | 2022-08-11 12:59 | PCM.OPRPT ---
Report of Operation Date of Procedure: 08/11/22 Pre-Operative Diagnosis: Right ureteral calculus Post-Operative Diagnosis: Same Surgery/Procedure Performed:: Cystoscopy, right ureteroscopy, holmium laser lithotripsy, stone basket extraction, right ureteral stent change Surgeon: Angelica Mosher Type of Anesthesia: General Specimen's removed: Right ureteral calculus Description of Procedure: The patient is a 67-year-old female who previously underwent a cystoscopy with right ureteral stent insertion for an obstructing proximal right ureteral calculus. She now presents for definitive management of her stone. Informed consent was obtained. The patient was taken to the operating room and placed on the operating room table. Anesthesia monitored the head, neck, airway, IV access and vital signs throughout the case. Once anesthesia was appropriately ministered, the patient was placed into dorsolithotomy position was prepped and draped in usual sterile fashion. The cystoscope was inserted through the urethra under direct visualization into the urinary bladder. There were no bladder abnormalities identified. The ureteral stent was grasped with a grasping forcep and pulled to the urethral meatus. A 0.035 Glidewire was then inserted through the stent with curling in the renal pelvis as seen on fluoroscopy. The cystoscope was then used to place a second wire alongside the first into the renal pelvis as well. The flexible ureteroscope was placed over one of the wires leaving 1 as a safety wire. Access was easily gained to the proximal ureter and all the way into the renal pelvis. There was a small stone fragment and a larger stone fragment identified. The holmium laser was used to break the stone into smaller pieces which were removed with a stone basket. In total 3 fragments were removed. There were no further stone fragments identified within the renal pelvis or the entire length of the ureter which was visualized directly with the ureteroscope. Using the safety Glidewire, a new 6 x 24 JJ stent was placed with good curling in the renal pelvis as well as the urinary bladder. At this time the patient's bladder was emptied and the case was terminated. She was awakened and taken to the recovery room in good condition. There were no complications during this procedure. Grafts/Implants Used: 6 x 24 JJ stent Complications None Admit VTE Documentation VTE Present on Admission: Yes VTE Mechan Device Prophylaxis: SCD's VTE Pharm Prophylaxis ordered?: No Reason prophylaxis not ordered:: Treatment Not Indicated
[2022-08-11] MEDS: Ketorolac 15 MG/ML Vial IV (13:24)
--- NOTE | 2022-08-11 15:08 | NURSING ---
O2 sat dropping to 88% on room air, 2lnc applied.
--- NOTE | 2022-08-11 15:25 | NURSING ---
Pulse ox down to 85% on rm air while pt sleeping, 2lnc applied.
[2022-08-22 15:46] LABS: Source RIGHT KIDNEY
== END 2022-08-11 17:06 | disposition home or self-care (01) ==
LOC: SDC 09:56 → AC 09:57
PROVIDERS: PCP Family Medicine; Referring Provider Urology; Visit Provider Urology
PROC: 0TJ98ZZ Inspection of Ureter, Via Natural or Artificial Opening Endoscopic (ICD-10-PCS; CPT 52352; principal; 2022-08-11 11:20)
DX: N20.1 Calculus of ureter (principal); J45.909 Unspecified asthma, uncomplicated; Z78.0 Asymptomatic menopausal state; Z79.899 Other long term (current) drug therapy; Z87.442 Personal history of urinary calculi; Z87.891 Personal history of nicotine dependence
CPT/HCPCS: 52356; 76000; 81001; 82360; 87077; 87086; 87088; 87186; 88300; J7120; C2617; J2405

== ENCOUNTER → 2023-08-12 | Outpatient (CLI) | payer MEDICARE, BC, SELFPAY ==
--- NOTE | 2023-08-12 13:43 | CT_ITS ---
EXAM: CT MAXILLOFACIAL SINUSES WITHOUT INTRAVENOUS CONTRAST CLINICAL INDICATION: SINUSITIS TECHNIQUE: Helically acquired images were obtained of the maxillofacial sinuses without intravenous contrast. This CT exam was performed using one or more of the following dose reduction techniques: automated exposure control, adjustment of the mA and/or kV according to patient size, and/or use of iterative reconstruction technique. COMPARISON: No relevant prior studies available. FINDINGS: MAXILLARY SINUSES: Mild mucosal thickening in the left maxillary sinus mostly at the alveolar recess. The bilateral ostiomeatal units are patent. SPHENOID SINUSES: Clear. FRONTAL SINUSES: Clear frontal sinuses and frontal recesses. ETHMOID AIR CELLS: Clear. Sphenoethmoidal recesses are patent bilaterally. NASAL CAVITY/SEPTUM: Leftward predominant nasal septal deviation and spurring. The nasal cavity is otherwise clear. BONES/JOINTS: Mild bilateral TMJ arthrosis. Degenerative changes partially visualized in the cervical pine. ORBITS: No acute findings. DENTAL: Normal as visualized. No periodontal osseous erosion. CT/Sinus/Facial Bone IMPRESSION: 1. Mild mucosal thickening in the left maxillary sinus. No additional significant sinonasal opacity and no signs of obstruction. 2. Leftward predominant nasal septal deviation and spurring. 3. Mild bilateral TMJ arthrosis. Electronically Signed: Dirk Kilgore DO at 20:43 EST ,
== END | disposition home or self-care (01) ==
LOC: CT 13:43
PROVIDERS: PCP Family Medicine; Referring Provider Otolaryngology; Visit Provider Otolaryngology
DX: J32.9 Chronic sinusitis, unspecified (principal)
CPT/HCPCS: 70486

== ENCOUNTER → 2024-02-05 | Outpatient (CLI) | payer MEDICARE, BC, SELFPAY ==
--- NOTE | 2024-02-05 14:13 | RAD_ITS ---
INDICATION: KUB- KIDNEY STONE EXAMINATION/TECHNIQUE: X-RAY - XR Abdomen 1 View COMPARISON: None FINDINGS: BOWEL GAS PATTERN: Non-obstructive. No bowel or stomach distention. FREE AIR: Not assessed on a single supine view. ORGANOMEGALY: Not seen. CALCIFICATIONS: No abnormal calcifications observed. Phleboliths in the pelvis. LOWER CHEST: No acute pathology. BONES AND SOFT TISSUES: No acute pathology. RAD/Abdomen Single View IMPRESSION: No obvious renal/ureteral stones. Electronically Signed: Rosales Mcmullen MD at 20:40 EDT ,
== END | disposition home or self-care (01) ==
LOC: MTRAD 14:11
PROVIDERS: PCP Family Medicine; Referring Provider Urology; Visit Provider Urology
DX: N20.0 Calculus of kidney (principal)
CPT/HCPCS: 74018

== ENCOUNTER → 2024-06-24 | Outpatient (CLI) | payer MEDICARE, BC, SELFPAY ==
--- NOTE | 2024-06-24 13:13 | CT_ITS ---
STUDY: CT ABDOMEN AND PELVIS WITHOUT CONTRAST REASON FOR EXAM: Female, 69 years old. LEFT FLANK PAIN HX OF STONES RADIATION DOSAGE (If Supplied By Facility): CTDIvol = ( 21.17 ) mGy, DLP = ( 942.42 ) mGycm TECHNIQUE: Transaxial images were obtained from the dome of the diaphragm to the symphysis pubis without oral contrast, and without intravenous contrast. Sagittal and coronal images were reconstructed. Individualized dose optimization techniques were used for this CT. COMPARISON: Comparison is made with prior study dated July 22, 2022. FINDINGS: The visualized lung bases are unremarkable. The visualized portions of the heart are within normal limits. There is decreased attenuation of the liver consistent with steatosis. Focal fatty sparing seen in the region of the gallbladder fossa. Normal gallbladder and extrahepatic biliary system. Normal spleen. Normal pancreas. Normal bilateral adrenal glands. Normal right kidney. Minimal left hydronephrosis due to a punctate calculus in the proximal portion of the left ureter. Punctate nonobstructive calculus in the lower pole calyx of the left kidney. There is a moderate-sized hiatal hernia. Normal small intestine. There are multiple colonic diverticula consistent with diverticulosis. The appendix is visualized and appears normal. There is scattered atherosclerotic calcification of the abdominal aorta, without a demonstrated aneurysm. Normal inferior vena cava. There is a small retroperitoneal lymphadenopathy with enlarged nodes no greater than 10mm in the short axis diameter. Normal urinary bladder. Calcified fibroid uterus. Small bilateral inguinal hernias containing fat. There are degenerative changes of the visualized lumbar spine. CT/Abdomen/Pelvis without Cont IMPRESSION: Punctate calculus in the proximal portion of the left ureter causing minimal left hydronephrosis. Nonobstructive left renal calculus. Fatty infiltration of the liver with focal fatty sparing in the region of the gallbladder fossa. Sigmoid diverticulosis. Electronically Signed: Mitchel Michaels MD at 14:26 EDT ,
== END | disposition home or self-care (01) ==
PROVIDERS: PCP Family Medicine; Referring Provider Urology; Visit Provider Urology
DX: R10.9 Unspecified abdominal pain (principal); Z87.442 Personal history of urinary calculi
CPT/HCPCS: 74176

== ENCOUNTER 2024-07-01 10:56 | Inpatient (IN) | payer MEDICARE, BC, SELFPAY ==
[2024-07-01] VITALS (9 sets, daily range): BP systolic 106–131; BP diastolic 57–98; PULSE 71–112; RESP 16–22; TEMP 36.6–38.6; O2SAT 94–98; BMI 29.2; BMI 29.5
--- NOTE | 2024-07-01 11:21 | EDS_ITS ---
HPI History of Present Illness Chief Complaint: General Illness Narrative Narrative: Patient is a 69-year-old female with past medical history of arthritis, UTI, ureteral calculus, asthma who presented to the emergency department with a chief complaint of headache, dizziness, chills and not feeling well. Patient states that she does have a known kidney stone and feels that this may be causing her problems. She states that she was post to have a kidney stone blasted however she had an infection and therefore cannot be done at that point time. Patient states that her symptoms were off and on throughout the day shortly after waking up this morning. Patient denies any recent sick contacts. [facility] Medical History Wears contact lenses Wears glasses Arthritis Easy bruising Blackout Heartburn Leg cramps History of pain when walking History of echocardiogram Mitral valve prolapse Ureteral calculus Urinary tract infection Post-menopausal Irritable bowel Restless legs Asthma Irregular heartbeat Home Medications ?Medication ?Instructions ?Recorded ?Last Taken ?Type loratadine 10 mg tablet (Allergy 10 mg PO DAILY asthma 07/26/15 11/17/19 History Relief (loratadine)) montelukast 10 mg tablet 10 mg PO QHS asthma 07/26/15 11/17/19 History cholecalciferol (vitamin D3) 25 2,000 unit PO DAILY supplement 11/14/19 11/16/19 History mcg (1,000 unit) tablet cinnamon bark 500 mg capsule 1,000 mg PO BID supplement 11/14/19 11/18/19 History coenzyme Q10 100 mg capsule 200 mg PO DAILY supplement 11/14/19 11/15/19 History garlic 1,000 mg capsule 1,000 mg PO DAILY supplement 11/14/19 07/31/22 History omega 2-wth-uil-fish oil 300 1 ea PO BID supplement 11/14/19 07/31/22 History mg-1,000 mg capsule fluticasone furoate 200 1 ea inhalation QHS breathing 07/22/22 Unknown History mcg-vilanterol 25 mcg/dose inhalation powder (Breo Ellipta) albuterol sulfate 90 mcg/actuation 2 inh inhalation Q6H PRN shortness 07/01/24 Unknown History aerosol inhaler of breath or wheezing carvedilol 3.125 mg tablet 3.125 mg PO BID 07/01/24 07/01/24 History omeprazole 40 mg capsule,delayed 40 mg PO DAILY PRN heartburn 07/01/24 06/30/24 History release Allergy/AdvReac Type Severity Reaction Status Date / Time clindamycin Allergy Rash/itchin Verified 08/11/22 10:37 g/anxiety Penicillins Allergy Rash/itchin Verified 08/11/22 10:37 g/anxiety Sulfa (Sulfonamide Allergy Rash/itchin Verified 08/11/22 10:37 Antibiotics) g/anxiety Surgical History Hx of colonoscopy Hx of tonsillectomy History of Hx of total knee arthroplasty Hx of vein stripping Hx of appendectomy Hx of cystoscopy S/P tubal ligation Social History Smoking Status: Former smoker ROS ROS ED ROS Narrative Constitutional: Complains of chills as noted above and headache is dizziness as well Eyes: Denies change in vision double vision blurry vision Cardiovascular: Denies chest pain or palpitation Respiratory: Denies coughing wheezing shortness of breath Abdomen: Denies abdominal pain nausea vomit diarrhea : Denies painful urination, hematuria or polyuria Neurological: Denies numbness, weakness, tingling Musculoskeletal: Denies back pain Skin: Denies rashes lesions EXAM Physical Exam Narrative Exam Narrative: General: Patient was lying in bed rest comfortably did not appear to be in acute distress Head: Atraumatic, normocephalic Eyes: PERRL bilateral, EOMI buttock no conjunctival injection noted Neck: Soft, supple, trachea midline Cardiovascular: Patient was tachycardic with a regular rhythm no murmurs gallops rubs noted Respiratory: Clear to auscultation bilateral Abdomen: Soft, nondistended, nontender to palpation, bowel sounds present Extremities: +5/5 strength noted in the bilateral upper and lower extremities, no pedal edema no exam, radial pulses +2/4 in bilateral extremity Neurological: Patient is following commands knew that she was at [facility] years 2023. Patient completed finger-nose test and [id number] test bilaterally no difficulty NIH is 0 GCS 15 Skin: Warm, dry, intact Const Vital Signs: 07/01/24 10:57 07/01/24 11:13 07/01/24 12:00 Temperature 101.5 F H 98.2 F Temperature Source Oral Oral Pulse Rate 112 H 78 Respiratory Rate 18 18 Respiratory Pattern Normal Blood Pressure 106/73 112/72 Blood Pressure Mean 84 85 Pulse Ox 98 Oxygen Delivery Method Room Air 07/01/24 12:47 07/01/24 14:00 Temperature 98.5 F 98.4 F Temperature Source Oral Oral Pulse Rate 82 97 Respiratory Rate 20 H 22 H Respiratory Pattern Blood Pressure 127/91 H 128/72 H Blood Pressure Mean 103 90 Pulse Ox 95 97 Oxygen Delivery Method Room Air Room Air MDM MDM MDM Narrative Medical decision making narrative: Patient is a 69-year-old female who presented to the emergency department chief complaint of generalized not feeling well. Patient will have a workup formed here on the differential diagnose includes but limited to ACS, pneumonia, upper respiratory infection second of ideology, pneumonia, UTI. Once workup is obtained reviewed she will be reevaluated. Patient's CBC reviewed which showed evidence of leukocytosis of 17,000, hemoglobin stable 13.5, platelet count normal at 240. Patient sodium was normal at 136, potassium normal at 3.5, creatinine was normal at 0.81. Patient's glucose was noted be 223. Patient's lactic acid was elevated at 3, total bilirubin was elevated 1.10 AST and ALT were 15 and 26 respectively. Patient's troponin was normal at 8. Patient's EKG was reviewed and independently interpreted by myself which showed sinus tachycardia with rate of 103 bpm. Patient lipase normal at 19, urinalysis showed 25 leukocyte esterase 0-5 white cells and no bacteria seen. Patient CT head and brain without contrast was reviewed and showed no acute intracranial hemorrhage mild degree of mucosal thickening in the left maxillary sinus. Given the patient's leukocytosis and her lactic acidosis and no source of infection will add on IV fluids for hydration give her 30 cc/kg bolus which was ordered at 1325. I did order vancomycin and Rocephin as well at 1324. At this point in time do believe the patient will require admission for her fever, elevated lactic acidosis and leukocytosis in setting of unknown etiology. I did add on a CT abdomen pelvis with IV contrast with her known history of urolithiasis which showed diffuse fatty infiltration of the liver hepatomegaly. Findings suggestive of varices in the region of the splenic hilum. Sigmoid diverticulosis with a moderate size hiatal hernia. In the body the it does note that the calculus in her kidney is in the lower pole of the calyx of the left kidney. I did add on a chest x-ray as well and showed no acute cardiopulmonary processes this was reviewed by myself as well as radiology. Patient's case will be discussed with the hospitalist for admission. I discussed patient's case with Dr. Nieves who accept patient for admission. Patient was notified is agreeable with this plan all question concerns answered. Lab Data Labs: Laboratory Results - last 24 hr 07/01/24 07/01/24 07/01/24 11:23 11:45 12:45 WBC 17.8 H RBC 4.35 Hgb 13.5 Hct 41.3 MCV 94.9 MCH 31.0 MCHC 32.7 RDW Std Deviation 46.4 H RDW Coeff of Valentina 13.2 Plt Count 240 MPV 10.5 Immature Gran % (Auto) 0.500 Neut % (Auto) 90.5 H Lymph % (Auto) 4.6 L [place] % (Auto) 4.2 Eos % (Auto) 0.0 Baso % (Auto) 0.2 Absolute Neuts (auto) 16.1 H Absolute Lymphs (auto) 0.81 L Nucleated RBC % 0 Sodium 136 Potassium 3.5 Chloride 104 Carbon Dioxide 23.0 Anion Gap 9 BUN 15 Creatinine 0.81 Estim Creat Clear Calc 64.07 Est GFR (MDRD) Af Amer 89 Est GFR (MDRD) Non-Af 74 BUN/Creatinine Ratio 18.4 Glucose 223 H Lactic Acid 3.0 H* Calcium 9.1 Total Bilirubin 1.10 H AST 15 ALT 26 Alkaline Phosphatase 65 Troponin I High Sens 8 Total Protein 7.6 Albumin 3.6 Globulin 4.0 Albumin/Globulin Ratio 0.9 Lipase 19 Urine Color Yellow Urine Clarity Clear Urine pH 6.5 Ur Specific [place] 1.020 Urine Protein 15 H Urine Glucose (UA) 1000 H Urine Ketones Negative Urine Occult Blood 25 H Urine Nitrite Negative Urine Bilirubin Negative Urine Urobilinogen Normal Ur Leukocyte Esterase 25 H Urine RBC 0 SEEN Urine WBC 0-5 SEEN Ur Squamous Epith Cells 0-5 SEEN Urine Bacteria 0 SEEN Urine Mucus 0 SEEN Radiography Diagnostic Testing: Clinical Impression(s) from Imaging Studies Brain CT 07/01/24 11:43 IMPRESSION: Normal unenhanced CT scan of the brain. Mild degree of mucosal thickening of the left maxillary sinus. Electronically Signed: Mitchel Michaels MD at 13:35 EDT , Abdomen/Pelvis CT 07/01/24 13:26 IMPRESSION: Diffuse fatty infiltration of the liver. Hepatomegaly. Findings suggestive of a varices in the region of the splenic hilum. Sigmoid diverticulosis. Moderate-sized hiatal hernia. Electronically Signed: Mitchel Michaels MD at 15:29 EDT , Chest X-Ray 07/01/24 15:01 IMPRESSION: Lungs are clear. Hiatal hernia. Electronically Signed: Mitchel Michaels MD at 15:30 EDT , Discharge Plan Triage Chief Complaint: General Illness ED Provider: Aneesh Christian Dx/Rx/DC Orders Clinical Impression: Acidosis, lactic, Leukocytosis, Fever of unknown origin (FUO) Prescriptions: No Action montelukast 10 MG tablet 10 mg PO QHS loratadine [Allergy Relief (loratadine)] 10 MG tablet 10 mg PO DAILY garlic 1,000 MG capsule 1,000 mg PO DAILY coenzyme Q10 100 MG capsule 100 mg PO DAILY cinnamon bark 500 MG capsule 1,000 mg PO BID cholecalciferol (vitamin D3) 1,000 UNIT tablet 2,000 unit PO DAILY omega 9-cpb-opf-fish oil 1 EACH capsule 1 ea PO BID fluticasone furoate-vilanterol [Breo Ellipta] 200-25 mcg/dose blister with device 1 ea INHALATION QHS carvedilol 3.125 mg tablet 3.125 mg PO BID albuterol sulfate 90 mcg/actuation HFA aerosol inhaler 2 inh inhalation Q6H PRN (Reason: shortness of breath or wheezing) omeprazole 40 mg capsule,delayed release(DR/EC) 40 mg PO DAILY PRN (Reason: heartburn) Patient Comments: PT STATES SHE DOESNT TAKE REGULARLY, ONLY NEEDED Primary Care Provider: GABY BERGMAN Referrals: GABY BERGMAN MD [Primary Care Provider] - Print Language: Mohawk
--- NOTE | 2024-07-01 11:43 | CT_ITS ---
STUDY: CT BRAIN WITHOUT CONTRAST REASON FOR EXAM: Female, 69 years old. Headache and dizziness. RADIATION DOSAGE (If Supplied By Facility): CTDIvol = ( 44.99 ) mGy, DLP = ( 779.24 ) mGycm TECHNIQUE: Transaxial CT imaging of the brain was performed without administration of intravenous contrast material. Individualized dose optimization techniques were used for this CT. COMPARISON: No relevant priors. FINDINGS: Normal soft tissue structures. Normal calvarium. Normal size ventricles and extra-axial spaces for the patient''s age. Normal white matter tracts of the cerebral hemispheres. Normal basal ganglia and thalami. Normal brainstem. Normal cerebellum. There is no intracranial hemorrhage. There are no findings of an acute ischemic infarction. Mild degree of mucosal thickening at the base of the left maxillary sinus. CT/Brain/Head without Contrast IMPRESSION: Normal unenhanced CT scan of the brain. Mild degree of mucosal thickening of the left maxillary sinus. Electronically Signed: Mitchel Michaels MD at 13:35 EDT ,
[2024-07-01 11:58] LABS: Absolute Lymphocyte Count 0.81 X10^3/uL (0.83-4.51); Absolute Neutrophil Count 16.1 X10^3/uL (2.0-7.7); Basophil# 0.03 X10^3/uL; Basophil% 0.2 % (0-1); Hematocrit 41.3 % (37-47); Hemoglobin 13.5 g/dL (12.0-15.0); Lymphocyte # 0.81 X10^3/ul (0.83-4.51); Lymphocyte % 4.6 % (19-41); Mean Corp Hgb Conc 32.7 g/dL (32-36); Mean Corpuscular Volume 94.9 fL (81-99); Mean Platelet Vol. 10.5 fl (6.2-12.0); Monocyte# 0.74 X10^3/uL; Monocyte% 4.2 % (0-10); NRBC Flagged by Analyzer 0 % (0-5); Neutrophil # 16.11 X10^3/uL (2.7-7.7); Neutrophil % 90.5 % (47-70); Platelet Count 240 K/mm3 (150-450); RBC Distribution Width CV 13.2 % (11.6-14.6); RBC Distribution Width SD 46.4 fl (35.1-43.9); Red Blood Count 4.35 M/mm3 (4.2-5.4); White Blood Count 17.8 K/mm3 (4.4-11.0)
[2024-07-01] MEDS: Metoclopramide 10 MG/2 ML Vial IV (12:05)
[2024-07-01] MEDS: Acetaminophen 500 MG Tablet 1000 MG PO (12:05)
[2024-07-01 12:20] LABS: ALB/GLOB Ratio 0.9 RATIO (0.9-2.4); AST(SGOT) 15 U/L (15-37); Alanine Aminotransfer ALT/SGPT 26 U/L (13-56); Albumin, Serum 3.6 g/dL (3.2-5.0); Alkaline Phosphatase 65 U/L (45-117); Anion Gap 9 (5-15); BUN 15 mg/dL (7-18); BUN/Creat Ratio 18.4 RATIO (10-20); Calcium,Total 9.1 mg/dL (8.5-10.1); Chloride 104 mmol/L (98-107); Creatinine, Serum 0.81 mg/dL (0.55-1.02); EST Glomerular Filtration Rate 74 mL/min (>60); Est Glom Filt Rate - Afr Amer 89 mL/min (>60); Estimated Creatinine Clearance 64.07 ml/min; Glucose 223 mg/dL (74-106); Lipase 19 U/L (13-75); Potassium 3.5 mmol/L (3.5-5.1); Protein, Total 7.6 g/dL (6.4-8.2); Sodium Level 136 mmol/L (136-145); Troponin-I HS 8 pg/mL (3.0-54.0)
[2024-07-01 12:54] LABS: Bacteria 0 SEEN /hpf (None Seen); Mucous, Urine 0 SEEN /hpf (<or=2+); Red Blood Cells-Urine 0 SEEN /hpf (0-5)
[2024-07-01 13:07] LABS: Color, Urine Yellow (Yellow); Glucose, Dipstick 1000 mg/dl (Normal); Ketone-Dipstick Negative (Negative); Leukocyte Esterase-Dipstick 25 /ul (Negative); Nitrite-Dipstick Negative (Negative); Occult Blood-Urine 25 /ul (Negative); Protein-Dipstick 15 mg/dl (Negative); Urine Bilirubin Dipstick Negative (Negative); Urine Clarity Clear (Clear); Urine Urobilinogen Normal (Normal); Urine pH 6.5 (5.0 - 8.0)
[2024-07-01 13:14] LABS: Squamous Epithelial Cells - UA 0-5 SEEN /hpf (5-10); White Blood Cells 0-5 SEEN /hpf (0-5)
--- NOTE | 2024-07-01 13:26 | CT_ITS ---
STUDY: CT ABDOMEN AND PELVIS WITH CONTRAST REASON FOR EXAM: Female, 69 years old. Abd pain diffuse RADIATION DOSAGE (If Supplied By Facility): CTDIvol = ( 13.09 ) mGy, DLP = ( 981.69 ) mGycm TECHNIQUE: Transaxial images were obtained from the dome of the diaphragm to the symphysis pubis without oral contrast. IV 100mL Isovue-[id number] was administered. Sagittal and coronal images were reconstructed. Individualized dose optimization techniques were used for this CT. COMPARISON: Comparison is made with prior study June 24, 2024. FINDINGS: The visualized lung bases are unremarkable. Mild coronary artery calcification. There is decreased attenuation of the liver consistent with steatosis. Hepatomegaly. Normal gallbladder and extrahepatic biliary system. Findings suggestive of varices in the region of the splenic hilum. Normal spleen. Normal pancreas. Normal bilateral adrenal glands. Normal right kidney. 2 cm cyst in the lower pole of the left kidney. The calculus in the lower pole calyx of the left kidney. Moderate sized hiatal hernia. Normal small intestine. There are multiple colonic diverticula consistent with diverticulosis. The appendix is visualized and appears normal. There is scattered atherosclerotic calcification of the abdominal aorta, without a demonstrated aneurysm. Normal inferior vena cava. There is a small retroperitoneal lymphadenopathy with enlarged nodes no greater than 10mm in the short axis diameter. Normal urinary bladder. Fibroid uterus. Normal abdominal wall. There are degenerative changes of the visualized lumbar spine. CT/Abdomen/Pelvis W IV Cont ONLY IMPRESSION: Diffuse fatty infiltration of the liver. Hepatomegaly. Findings suggestive of a varices in the region of the splenic hilum. Sigmoid diverticulosis. Moderate-sized hiatal hernia. Electronically Signed: Mitchel Michaels MD at 15:29 EDT ,
[2024-07-01] MEDS: 0.9% Normal Saline (1000mL) 1,000 ML 999 ML IV ×2 (13:37→15:16)
[2024-07-01] MEDS: Ceftriaxone 1 GM/50 ML BAG IV (13:38)
[2024-07-01] MEDS: Vancomycin HCl 1,250 MG in 0.9% Normal Saline (250mL Bag) 250 ML 167 MG IV (14:42)
--- NOTE | 2024-07-01 15:01 | RAD_ITS ---
STUDY: X-RAY CHEST REASON FOR EXAM: Female, 69 years old. Cough TECHNIQUE: Single AP portable view of the chest. COMPARISON: Comparison is made with prior study dated August 22, 2015. FINDINGS: EKG electrodes are seen. The lungs are clear and expanded. There is no demonstrated pleural abnormality. Normal size heart. Normal mediastinum and tali. Normal visualized pulmonary arteries. Normal visualized aortic arch and descending thoracic aorta. Normal visualized thoracic spine. There is degenerative osteoarthritis of the bilateral shoulders. Hiatal hernia. RAD/Chest 1 View (Portable) IMPRESSION: Lungs are clear. Hiatal hernia. Electronically Signed: Mitchel Michaels MD at 15:30 EDT ,
[2024-07-01 15:53] LABS: Reflex Lactate? Y
[2024-07-01 16:52] LABS: Lactic Acid 1.3 mmol/L (0.4-1.9)
--- NOTE | 2024-07-01 17:31 | HP.PCM.HOS_ITS ---
HPI - General General Date of Admission: 07/01/24 Date of Service: 07/01/24 Chief Complaint: Feeling generally unwell HPI Narrative EVELIO MEYERS, is a 69 F with history of renal calculi, asthma, GERD presented [facility] ED 07/01/2024 with 1 day of fevers, chills, headache, dizziness and feeling generally unwell. She presented to the ED and had a white blood cell count of 17.8, febrile with a temperature of 101.5 with heart rate in the low 100s. CT abdomen showed calculus in lower pole calyx of left kidney but did not comment on any hydroureter or hydronephrosis and no other acute abnormalities appreciated. Given her temperature and elevated white blood cell count she was given antibiotics and hospitalist contacted for admission. Patient reports she has been having some left-sided flank pain over the past week and had an abdominal CT through Dr. Mosher's office which showed punctate calculus in proximal portion of the left ureter causing minimal left hydronephrosis and she was currently straining her urine waiting for it to pass. She had no additional symptoms until last night she is feeling unwell and then this morning she had the fevers and chills and is feeling somewhat dizzy and had a headache. She is feeling somewhat better since being in the emergency department but still feels generally unwell. Denies any burning when she pees but still does have some of the left-sided back pain, had a slight cough last night without significant production of sputum, no chest pain, no abdominal pain, no diarrhea. No wounds or other identifiable source of infection. [facility] Medical History Wears contact lenses Wears glasses Arthritis Easy bruising Blackout Heartburn Leg cramps History of pain when walking History of echocardiogram Mitral valve prolapse Ureteral calculus Urinary tract infection Post-menopausal Irritable bowel Restless legs Asthma Irregular heartbeat Home Medications ?Medication ?Instructions ?Recorded ?Last Taken ?Type loratadine 10 mg tablet (Allergy 10 mg PO DAILY asthma 07/26/15 06/30/24 History Relief (loratadine)) montelukast 10 mg tablet 10 mg PO QHS asthma 07/26/15 06/30/24 History cholecalciferol (vitamin D3) 25 2,000 unit PO DAILY supplement 11/14/19 06/30/24 History mcg (1,000 unit) tablet cinnamon bark 500 mg capsule 1,000 mg PO BID supplement 11/14/19 06/30/24 History coenzyme Q10 100 mg capsule 100 mg PO DAILY supplement 11/14/19 06/30/24 History garlic 1,000 mg capsule 1,000 mg PO DAILY supplement 11/14/19 06/30/24 History omega 2-hbt-rka-fish oil 300 1 ea PO BID supplement 11/14/19 06/30/24 History mg-1,000 mg capsule fluticasone furoate 200 1 ea inhalation QHS breathing 07/22/22 06/30/24 History mcg-vilanterol 25 mcg/dose inhalation powder (Breo Ellipta) albuterol sulfate 90 mcg/actuation 2 inh inhalation Q6H PRN shortness 07/01/24 Unknown History aerosol inhaler of breath or wheezing carvedilol 3.125 mg tablet 3.125 mg PO BID 07/01/24 07/01/24 History omeprazole 40 mg capsule,delayed 40 mg PO DAILY PRN heartburn 07/01/24 06/30/24 History release Allergy/AdvReac Type Severity Reaction Status Date / Time clindamycin Allergy Rash/itchin Verified 08/11/22 10:37 g/anxiety Penicillins Allergy Rash/itchin Verified 08/11/22 10:37 g/anxiety Sulfa (Sulfonamide Allergy Rash/itchin Verified 08/11/22 10:37 Antibiotics) g/anxiety Surgical History Hx of colonoscopy Hx of tonsillectomy History of Hx of total knee arthroplasty Hx of vein stripping Hx of appendectomy Hx of cystoscopy S/P tubal ligation Social History Smoking Status: Former smoker ROS ROS Narrative General: Fevers and chills earlier HENT: Has been getting some intermittent headaches, denies stuffy nose, denies sore throat EYES: Denies changes in vision Resp: Did have a little bit of a cough last night Cardiac: Denies chest pain GI: Denies abdominal pain, denies changes in bowel, not presently feeling nauseous : Denies changes in urination but does have some left-sided flank pain Extremity: Denies swelling MSK: Denies weakness Neuro: Denies any numbness/tingling Heme: Denies any bleeding or bruising Skin: Denies rashes Psychiatric: No complaints voiced Vital Signs Vital Signs Vital Signs: 07/01/24 10:57 07/01/24 11:13 07/01/24 12:00 Temperature 101.5 F H 98.2 F Temperature Source Oral Oral Pulse Rate 112 H 78 Respiratory Rate 18 18 Respiratory Pattern Normal Blood Pressure 106/73 112/72 Blood Pressure Mean 84 85 Pulse Ox 98 Oxygen Delivery Method Room Air 07/01/24 12:47 07/01/24 14:00 07/01/24 16:40 Temperature 98.5 F 98.4 F 98 F Temperature Source Oral Oral Pulse Rate 82 97 71 Respiratory Rate 20 H 22 H 19 H Respiratory Pattern Blood Pressure 127/91 H 128/72 H 123/57 H Blood Pressure Mean 103 90 79 Pulse Ox 95 97 97 Oxygen Delivery Method Room Air Room Air 07/01/24 17:00 Temperature 98.1 F Temperature Source Oral Pulse Rate 89 Respiratory Rate 18 Respiratory Pattern Blood Pressure 130/73 H Blood Pressure Mean 92 Pulse Ox Oxygen Delivery Method Weight Weight: 77.224 kg Body Mass Index (BMI) 29.2 Physical Exam Narrative General: Alert, oriented, no apparent distress HEENT: Atraumatic, normocephalic Eyes: Anicteric, normal conjunctiva, extraocular movements grossly intact Neck: Supple Respiratory: Clear to auscultation bilaterally, normal respiratory effort Cardiovascular: Regular rate and rhythm GI: Soft, nontender, nondistended, no CVA tenderness on exam Extremities: No edema Musculoskeletal: Moving all extremities Neuro: No overt focal neurological deficits Skin: No rashes appreciated Psych: Cooperative Results Lab / Micro Data 07/01/24 11:23 07/01/24 11:23 Labs: Laboratory Results - last 24 hr 07/01/24 11:23: WBC 17.8 H, RBC 4.35, Hgb 13.5, Hct 41.3, MCV 94.9, MCH 31.0, MCHC 32.7, RDW Std Deviation 46.4 H, RDW Coeff of Valentina 13.2, Plt Count 240, MPV 10.5, Immature Gran % (Auto) 0.500, Neut % (Auto) 90.5 H, Lymph % (Auto) 4.6 L, [place] % (Auto) 4.2, Eos % (Auto) 0.0, Baso % (Auto) 0.2, Absolute Neuts (auto) 16.1 H, Absolute Lymphs (auto) 0.81 L, Nucleated RBC % 0, Sodium 136, Potassium 3.5, Chloride 104, Carbon Dioxide 23.0, Anion Gap 9, BUN 15, Creatinine 0.81, Estim Creat Clear Calc 64.07, Est GFR (MDRD) Af Amer 89, Est GFR (MDRD) Non-Af 74, BUN/Creatinine Ratio 18.4, Glucose 223 H, Calcium 9.1, Total Bilirubin 1.10 H, AST 15, ALT 26, Alkaline Phosphatase 65, Troponin I High Sens 8, Total Protein 7.6, Albumin 3.6, Globulin 4.0, Albumin/Globulin Ratio 0.9, Lipase 19 07/01/24 11:45: Lactic Acid 3.0 H* 07/01/24 12:45: Urine Color Yellow, Urine Clarity Clear, Urine pH 6.5, Ur Specific [place] 1.020, Urine Protein 15 H, Urine Glucose (UA) 1000 H, Urine Ketones Negative, Urine Occult Blood 25 H, Urine Nitrite Negative, Urine Bilirubin Negative, Urine Urobilinogen Normal, Ur Leukocyte Esterase 25 H, Urine RBC 0 SEEN, Urine WBC 0-5 SEEN, Ur Squamous Epith Cells 0-5 SEEN, Urine Bacteria 0 SEEN, Urine Mucus 0 SEEN 07/01/24 16:04: Lactic Acid 1.3 Imaging Radiology Impression Brain CT 07/01/24 11:43 IMPRESSION: Normal unenhanced CT scan of the brain. Mild degree of mucosal thickening of the left maxillary sinus. Electronically Signed: Mitchel Michaels MD at 13:35 EDT , Abdomen/Pelvis CT 07/01/24 13:26 IMPRESSION: Diffuse fatty infiltration of the liver. Hepatomegaly. Findings suggestive of a varices in the region of the splenic hilum. Sigmoid diverticulosis. Moderate-sized hiatal hernia. Electronically Signed: Mitchel Michaels MD at 15:29 EDT , Chest X-Ray 07/01/24 15:01 IMPRESSION: Lungs are clear. Hiatal hernia. Electronically Signed: Mitchel Michaels MD at 15:30 EDT , Assessment & Plan Assessment/Plan (1) Fever of unknown origin (FUO): PLAN: Plan # Fever of unknown origin -Patient with fevers and chills with a temperature of 101.5 on presentation, white blood cell count of 17.5, low-grade tachycardia -UA not suggestive of UTI -Chest x-ray no acute abnormality -CT abdomen showed a left-sided calculus in the lower pole calyx and some small retroperitoneal lymphadenopathy no greater than 10 mm in short axis diameter with no other acute abnormalities -CT head only with mild degree mucosal thickening of left maxillary sinus but patient did not report any particular nasal symptoms -Patient denies any wounds, no neck stiffness, no other focal nidus of infection -Urine culture and blood cultures obtained -COVID respiratory panel was ordered -Broad-spectrum antibiotics (Vanc and rocephin changed to cefepime given previous urine culture sensitivities) -IVF -It is possible that there is infected stone, may need to consult or discuss with patient's urologist prior to discharge if able especially if no other nidus or source of infection is found #Renal calculi -Follows with Dr. Mosher -Was noted to have a left-sided stone on June 24 and has been straining her urine -See above # Asthma -Continue home inhalers -Continue Singulair #GERD -Continue PPI prn #DVT ppx: Lovenox subcu Brook Nieves MD Time spent in the patient's overall evaluation,decision-making process, review of diagnostic data, adjustment of management, discussion with other providers, nursing nursing and ancillary staff involved in patient's care documentation, 55 Minutes Charges/Coding Visit Charges Inpatient E&M: 24513 Init Hosp L2
[2024-07-01] MEDS: 0.9% Normal Saline (1000mL) 1,000 ML 100 ML IV (19:15)
[2024-07-01] MEDS: Cefepime HCl 2 GM in 0.9% Normal Saline (100mL MB+) 100 ML IV (19:15)
[2024-07-01] MEDS: Acetaminophen 325 MG Tablet 650 MG PO (19:55)
--- NOTE | 2024-07-01 20:14 | CPS ---
Patient refused respiratory panel swab and COVID PCR swab.
--- NOTE | 2024-07-01 20:18 | PCM.RX.CS ---
Consult Antibiotic Management Pharmacy has been consulted to manage selected antibiotic: Vancomycin Type of Intervention Type of Consult: New Suspected Infection Suspected Infection: Other Labs Labs: Sodium 136 mmol/L (136-145) 07/01/24 11:23 Potassium 3.5 mmol/L (3.5-5.1) 07/01/24 11:23 Chloride 104 mmol/L (98-107) 07/01/24 11:23 Carbon Dioxide 23.0 mmol/L (21.0-32.0) 07/01/24 11:23 Anion Gap 9 (5-15) 07/01/24 11:23 BUN 15 mg/dL (7-18) 07/01/24 11:23 Creatinine 0.81 mg/dL (0.55-1.02) 07/01/24 11:23 Est GFR (MDRD) Af Amer 89 mL/min (>60) 07/01/24 11:23 Est GFR (MDRD) Non-Af 74 mL/min (>60) 07/01/24 11:23 BUN/Creatinine Ratio 18.4 RATIO (10-20) 07/01/24 11:23 Glucose 223 mg/dL (74-106) H 07/01/24 11:23 Goal Trough Goal Trough: 15-20 mcg/mL Pharmacy Plan for Drug Dosing Pharmacy Plan for Drug Dosing: IV VANCOMYCIN Consulting Physician: Dr. Nieves Indication: infection of unknown source Goal Trough: 15-20 SrCr: 0.81 CrCl: 64 mL/min Comments: Patient had ED dose of 1250mg IV x1 administered 07/01/24 @1442 Vancomycin Dose: 1000mg IV Q12hr to start 07/02/24 @0300 Pending Level: 07/03/24 @0230, prior to 4th total dose per protocol Pharmacy Service will continue to monitor and adjust dosing as required.
[2024-07-01] MEDS: Carvedilol 3.125 MG TABLET PO (22:19)
[2024-07-01] MEDS: Montelukast 10 MG Tablet PO (22:20)
[2024-07-02] MEDS: Vancomycin IV 1,000 MG/200 ML BAG 200 MG IV (02:41)
[2024-07-02] MEDS: Acetaminophen 325 MG Tablet 650 MG PO (02:44)
[2024-07-02 02:59] VITALS: BP 167/93; PULSE 103; RESP 18; TEMP 37.4; O2SAT 92
[2024-07-02] MEDS: Cefepime HCl 2 GM in 0.9% Normal Saline (100mL MB+) 100 ML IV (05:12)
[2024-07-02] MEDS: 0.9% Normal Saline (1000mL) 1,000 ML 100 ML IV (06:59)
[2024-07-02 07:08] LABS: Absolute Neutrophil Count 7.6 X10^3/uL (2.0-7.7); Basophil# 0.02 X10^3/uL; Basophil% 0.2 % (0-1); Eosinophil# 0.07 X10^3/uL; Eosinophils% 0.7 % (0-5); Hematocrit 32.4 % (37-47); Hemoglobin 10.6 g/dL (12.0-15.0); Lymphocyte % 15.1 % (19-41); Mean Corp Hgb Conc 32.7 g/dL (32-36); Mean Corpuscular Hgb 31.9 pg (27.0-32.0); Mean Corpuscular Volume 97.6 fL (81-99); Mean Platelet Vol. 10.4 fl (6.2-12.0); Monocyte% 7.1 % (0-10); NRBC Flagged by Analyzer 0 % (0-5); Neutrophil # 7.58 X10^3/uL (2.7-7.7); Neutrophil % 76.4 % (47-70); Platelet Count 173 K/mm3 (150-450); RBC Distribution Width CV 13.7 % (11.6-14.6); RBC Distribution Width SD 49.5 fl (35.1-43.9); Red Blood Count 3.32 M/mm3 (4.2-5.4); White Blood Count 9.9 K/mm3 (4.4-11.0)
[2024-07-02] MEDS: Budesonide Respules 0.5 MG/2 ML AMPUL.NEB. INHALATION (07:29)
[2024-07-02] MEDS: Albuterol 2.5 MG/3 ML VIAL.NEB. INHALATION (07:29)
[2024-07-02 07:31] VITALS: PULSE 71; RESP 16; O2SAT 97
[2024-07-02 08:04] LABS: Anion Gap 7 (5-15); BUN 11 mg/dL (7-18); BUN/Creat Ratio 22.5 RATIO (10-20); Calcium,Total 8.1 mg/dL (8.5-10.1); Chloride 116 mmol/L (98-107); Creatinine, Serum 0.49 mg/dL (0.55-1.02); EST Glomerular Filtration Rate 133 mL/min (>60); Est Glom Filt Rate - Afr Amer 161 mL/min (>60); Estimated Creatinine Clearance 65.15 ml/min; Glucose 127 mg/dL (74-106); Potassium 3.2 mmol/L (3.5-5.1); Sodium Level 142 mmol/L (136-145)
--- NOTE | 2024-07-02 08:25 | PCM.PN.HOSP ---
Reason for Visit Reason for Visit: Diagnoses Fever, unspecified (07/01/24) Subjective Subjective Feels better. Wants to go home. Declining respiratory panel given her history of prior sinus surgeries and patient is concerned about rupturing the membrane with a nasal swab. Objective Data Objective Data Vital Signs: Vital Signs Temp Pulse Resp BP Pulse Ox O2 Del Method 37.4 C H 71 16 167/93 H 97 Room Air 07/02/24 02:59 07/02/24 07:31 07/02/24 07:31 07/02/24 02:59 07/02/24 07:31 07/02/24 07:31 Oxygen Delivery Method Room Air Weight: 77.9 kg Body Mass Index (BMI) 29.5 Intake & Output: Intake and Output for Last 24 Hours 06/30/24 07/01/24 07/02/24 23:59 23:59 23:59 Intake Total 2425 / 2425 1256.67 / 1256.67 Balance 2425 / 2425 1256.67 / 1256.67 Lab / Micro Data 07/02/24 06:45 07/02/24 06:45 Labs: Laboratory Results - last 24 hr 07/01/24 11:23: WBC 17.8 H, RBC 4.35, Hgb 13.5, Hct 41.3, MCV 94.9, MCH 31.0, MCHC 32.7, RDW Std Deviation 46.4 H, RDW Coeff of Valentina 13.2, Plt Count 240, MPV 10.5, Immature Gran % (Auto) 0.500, Neut % (Auto) 90.5 H, Lymph % (Auto) 4.6 L, [place] % (Auto) 4.2, Eos % (Auto) 0.0, Baso % (Auto) 0.2, Absolute Neuts (auto) 16.1 H, Absolute Lymphs (auto) 0.81 L, Nucleated RBC % 0, Sodium 136, Potassium 3.5, Chloride 104, Carbon Dioxide 23.0, Anion Gap 9, BUN 15, Creatinine 0.81, Estim Creat Clear Calc 64.07, Est GFR (MDRD) Af Amer 89, Est GFR (MDRD) Non-Af 74, BUN/Creatinine Ratio 18.4, Glucose 223 H, Calcium 9.1, Total Bilirubin 1.10 H, AST 15, ALT 26, Alkaline Phosphatase 65, Troponin I High Sens 8, Total Protein 7.6, Albumin 3.6, Globulin 4.0, Albumin/Globulin Ratio 0.9, Lipase 19 07/01/24 11:45: Lactic Acid 3.0 H* 07/01/24 12:45: Urine Color Yellow, Urine Clarity Clear, Urine pH 6.5, Ur Specific [place] 1.020, Urine Protein 15 H, Urine Glucose (UA) 1000 H, Urine Ketones Negative, Urine Occult Blood 25 H, Urine Nitrite Negative, Urine Bilirubin Negative, Urine Urobilinogen Normal, Ur Leukocyte Esterase 25 H, Urine RBC 0 SEEN, Urine WBC 0-5 SEEN, Ur Squamous Epith Cells 0-5 SEEN, Urine Bacteria 0 SEEN, Urine Mucus 0 SEEN 07/01/24 16:04: Lactic Acid 1.3 07/02/24 06:45: WBC 9.9, RBC 3.32 L, Hgb 10.6 L, Hct 32.4 L, MCV 97.6, MCH 31.9, MCHC 32.7, RDW Std Deviation 49.5 H, RDW Coeff of Valentina 13.7, Plt Count 173, MPV 10.4, Immature Gran % (Auto) 0.500, Neut % (Auto) 76.4 H, Lymph % (Auto) 15.1 L, [place] % (Auto) 7.1, Eos % (Auto) 0.7, Baso % (Auto) 0.2, Absolute Neuts (auto) 7.6, Absolute Lymphs (auto) 1.50, Nucleated RBC % 0, Sodium 142, Potassium 3.2 L, Chloride 116 H, Carbon Dioxide 20.0 L, Anion Gap 7, BUN 11, Creatinine 0.49 L, Estim Creat Clear Calc 65.15, Est GFR (MDRD) Af Amer 161, Est GFR (MDRD) Non-Af 133, BUN/Creatinine Ratio 22.5 H, Glucose 127 H, Calcium 8.1 L Micro: Microbiology 07/01/24 19:00 Nasal Secretion SARS-CoV-2 Antigen (Rapid) - Final Radiography Diagnostic Testing: Radiology Impression Brain CT 07/01/24 11:43 IMPRESSION: Normal unenhanced CT scan of the brain. Mild degree of mucosal thickening of the left maxillary sinus. Electronically Signed: Mitchel Michaels MD at 13:35 EDT , Abdomen/Pelvis CT 07/01/24 13:26 IMPRESSION: Diffuse fatty infiltration of the liver. Hepatomegaly. Findings suggestive of a varices in the region of the splenic hilum. Sigmoid diverticulosis. Moderate-sized hiatal hernia. Electronically Signed: Mitchel Michaels MD at 15:29 EDT , Chest X-Ray 07/01/24 15:01 IMPRESSION: Lungs are clear. Hiatal hernia. Electronically Signed: Mitchel Michaels MD at 15:30 EDT , Physical Exam Const alert and no apparent distress HEENT HEENT Narrative: No maxillary sinus tenderness. No submandibular lymphadenopathy. Resp normal respiratory effort, no retractions, no use of accessory muscles and clear to auscultation bilaterally Cardio regular rate, regular rhythm, S1 normal heart sound and S2 normal heart sound GI normal to inspection, nondistended, normoactive bowel sounds, soft to palpation, non-tender and non-distended Assessment & Plan Assessment/Plan (1) Fever of unknown origin (FUO): PLAN: Plan Fever of unknown origin Patient with fevers and chills with a temperature of 101.5 on presentation, white blood cell count of 17.5, low-grade tachycardia UA unremarkable, CXR reviewed and was unremarkable, CT showed 2cm cyst in lower pole of left kidney. Calculus in lower pole of left kidney. COVID-19 negative. BCx, UCx pending. Check resp panel. Started on empiric cefepime. Patient declining respiratory panel because she is worried about this swab compromising her prior sinus surgery. She and I had a long discussion, I recommended that the swab is not going to be invasive and would not compromise her prior surgery but it would not change her overall management other than me discontinuing antibiotics. I feel that her symptoms are more likely viral rather than bacterial given the absence of any other source of infection. So I told the patient I would discharge her today without antibiotics though I expressed concern because I do not have a full slate of culture results back. She feels comfortable about going home and understands that she is feeling worse to notify her physician or return to the emergency room. Chronic conditions: Asthma-Continue home inhalers-Continue Singulair GERD-Continue PPI prn VTE prophylaxis: enoxaparin.
--- NOTE | 2024-07-02 10:43 | DS.PCM_ITS ---
Providers Date of Admission: 07/01/24 Primary Care Physician: GABY BERGMAN MD Reason For Visit: INFECTION UNCLEAR SOURCE Diagnosis Discharge Diagnosis (1) Fever of unknown origin (FUO): Status: Acute Code(s): R50.9 - Fever, unspecified Plan Fever of unknown origin * Patient with fevers and chills with a temperature of 101.5 on presentation, white blood cell count of 17.5, low-grade tachycardia * UA unremarkable, CXR reviewed and was unremarkable, CT showed 2cm cyst in lower pole of left kidney. Calculus in lower pole of left kidney. COVID-19 negative. BCx, UCx pending. Check resp panel. * Started on empiric cefepime. * Patient declining respiratory panel because she is worried about this swab compromising her prior sinus surgery. She and I had a long discussion, I recommended that the swab is not going to be invasive and would not compromise her prior surgery but it would not change her overall management other than me discontinuing antibiotics. I feel that her symptoms are more likely viral rather than bacterial given the absence of any other source of infection. So I told the patient I would discharge her today without antibiotics though I expressed concern because I do not have a full slate of culture results back. She feels comfortable about going home and understands that she is feeling worse to notify her physician or return to the emergency room. Chronic conditions: * Asthma-Continue home inhalers-Continue Singulair * GERD-Continue PPI prn VTE prophylaxis: enoxaparin. Medications at Discharge Home Medications loratadine 10 mg tablet (Allergy Relief (loratadine)) 10 mg PO DAILY asthma 07/26/15 montelukast 10 mg tablet 10 mg PO QHS asthma 07/26/15 cholecalciferol (vitamin D3) 25 mcg (1,000 unit) tablet 2,000 unit PO DAILY supplement 11/14/19 cinnamon bark 500 mg capsule 1,000 mg PO BID supplement 11/14/19 coenzyme Q10 100 mg capsule 100 mg PO DAILY supplement 11/14/19 garlic 1,000 mg capsule 1,000 mg PO DAILY supplement 11/14/19 omega 7-fen-pus-fish oil 300 mg-1,000 mg capsule 1 ea PO BID supplement 11/14/19 fluticasone furoate 200 mcg-vilanterol 25 mcg/dose inhalation powder (Breo Ellipta) 1 ea inhalation QHS breathing 07/22/22 albuterol sulfate 90 mcg/actuation aerosol inhaler 2 inh inhalation Q6H PRN shortness of breath or wheezing 07/01/24 carvedilol 3.125 mg tablet 3.125 mg PO BID 07/01/24 omeprazole 40 mg capsule,delayed release 40 mg PO DAILY PRN heartburn 07/01/24 Hospital Course Operations None Procedures None Summary of Care Provided Minutes Spent on Discharge: 35 Hospital Course: Patient presents with fever from home. She had COVID-19, influenza and RSV swab that was negative. CT of the abdomen pelvis showed a left kidney stone but not causing obstruction. Her urinalysis was benign in appearance so does not appear that she has a urinary tract infection and seems less likely that she has a chronically infected left kidney stone. Her symptoms began abruptly and have improved. Though the patient did receive antibiotics while she was here I do not feel that she actually has a bacterial infection but more likely a viral infection. She declined a respiratory panel because of the swab and her history of sinus surgery despite reassurances of its safety. So she prefers to go home which I think is reasonable though I did express concern being that I will have full array of tests but she is aware that she is feeling worse to notify your physician or return to the emergency room. Weight / BMI Weight Weight: 77.9 kg Body Mass Index (BMI) 29.5 ABG / Lab / Microbiology Data 07/02/24 06:45 07/02/24 06:45 Laboratory: Laboratory Results - last 24 hr 07/01/24 11:23: WBC 17.8 H, RBC 4.35, Hgb 13.5, Hct 41.3, MCV 94.9, MCH 31.0, MCHC 32.7, RDW Std Deviation 46.4 H, RDW Coeff of Valentina 13.2, Plt Count 240, MPV 10.5, Immature Gran % (Auto) 0.500, Neut % (Auto) 90.5 H, Lymph % (Auto) 4.6 L, [place] % (Auto) 4.2, Eos % (Auto) 0.0, Baso % (Auto) 0.2, Absolute Neuts (auto) 16.1 H, Absolute Lymphs (auto) 0.81 L, Nucleated RBC % 0, Sodium 136, Potassium 3.5, Chloride 104, Carbon Dioxide 23.0, Anion Gap 9, BUN 15, Creatinine 0.81, Estim Creat Clear Calc 64.07, Est GFR (MDRD) Af Amer 89, Est GFR (MDRD) Non-Af 74, BUN/Creatinine Ratio 18.4, Glucose 223 H, Calcium 9.1, Total Bilirubin 1.10 H, AST 15, ALT 26, Alkaline Phosphatase 65, Troponin I High Sens 8, Total Protein 7.6, Albumin 3.6, Globulin 4.0, Albumin/Globulin Ratio 0.9, Lipase 19 07/01/24 11:45: Lactic Acid 3.0 H* 07/01/24 12:45: Urine Color Yellow, Urine Clarity Clear, Urine pH 6.5, Ur Specific [place] 1.020, Urine Protein 15 H, Urine Glucose (UA) 1000 H, Urine Ketones Negative, Urine Occult Blood 25 H, Urine Nitrite Negative, Urine Bilirubin Negative, Urine Urobilinogen Normal, Ur Leukocyte Esterase 25 H, Urine RBC 0 SEEN, Urine WBC 0-5 SEEN, Ur Squamous Epith Cells 0-5 SEEN, Urine Bacteria 0 SEEN, Urine Mucus 0 SEEN 07/01/24 16:04: Lactic Acid 1.3 07/02/24 06:45: WBC 9.9, RBC 3.32 L, Hgb 10.6 L, Hct 32.4 L, MCV 97.6, MCH 31.9, MCHC 32.7, RDW Std Deviation 49.5 H, RDW Coeff of Valentina 13.7, Plt Count 173, MPV 10.4, Immature Gran % (Auto) 0.500, Neut % (Auto) 76.4 H, Lymph % (Auto) 15.1 L, [place] % (Auto) 7.1, Eos % (Auto) 0.7, Baso % (Auto) 0.2, Absolute Neuts (auto) 7.6, Absolute Lymphs (auto) 1.50, Nucleated RBC % 0, Sodium 142, Potassium 3.2 L , Chloride 116 H, Carbon Dioxide 20.0 L, Anion Gap 7, BUN 11, Creatinine 0.49 L, Estim Creat Clear Calc 65.15, Est GFR (MDRD) Af Amer 161, Est GFR (MDRD) Non-Af 133, BUN/Creatinine Ratio 22.5 H, Glucose 127 H, Calcium 8.1 L Microbiology: Microbiology 07/01/24 19:00 Nasal Secretion SARS-CoV-2 Antigen (Rapid) - Final Radiography Diagnostic Testing: Radiology Impression Brain CT 07/01/24 11:43 IMPRESSION: Normal unenhanced CT scan of the brain. Mild degree of mucosal thickening of the left maxillary sinus. Electronically Signed: Mitchel Michaels MD at 13:35 EDT , Abdomen/Pelvis CT 07/01/24 13:26 IMPRESSION: Diffuse fatty infiltration of the liver. Hepatomegaly. Findings suggestive of a varices in the region of the splenic hilum. Sigmoid diverticulosis. Moderate-sized hiatal hernia. Electronically Signed: Mitchel Michaels MD at 15:29 EDT , Chest X-Ray 07/01/24 15:01 IMPRESSION: Lungs are clear. Hiatal hernia. Electronically Signed: Mitchel Michaels MD at 15:30 EDT , D/C Instructions Discharge Diet: No restrictions Meaningful Use Info Meaningful Use Meaningful Use Diagnoses (Choose all that apply): None applicable Ischemic Stroke Statin Dosing Therapy Reference: STATIN DOSE THERAPY REFERENCE: * Patients > 75 years receive moderate or high dose statin therapy. * Patients 75 years or YOUNGER should receive HIGH intensity statin dose unless contraindicated. You will be required to document reason for non-treatment if statin daily dose does not meet guidelines. HIGH DOSE STATIN THERAPY DAILY Atorvastatin > than or = to 40 mg Rosuvastatin > than or = to 20 mg Amlodipine + Atorvastatin > than or = to 2.5/40 mg Ezetimibe + Simvastatin 10/80 mg Simvastatin 80mg Discharge Plan Admission Admit Date/Time: 07/01/24 17:31 Primary Reason for Your Visit: Fever Attending Provider: Marino Campbell Primary Care Provider: GABY BERGMAN Consulting Providers: Brook Nieves Instructions Additional Instructions / Restrictions: As we discussed, I feel that your infection is more likely viral though I do not have information to confirm that. I think it is reasonable to discontinue her antibiotics and not have any additional antibiotics at this time though I do not have all the culture results back. If you are feeling worse you notify your physician or return to the emergency room. Discharge Orders/Prescriptions Prescriptions: Continued montelukast 10 MG tablet 10 mg PO QHS loratadine [Allergy Relief (loratadine)] 10 MG tablet 10 mg PO DAILY garlic 1,000 MG capsule 1,000 mg PO DAILY coenzyme Q10 100 MG capsule 100 mg PO DAILY cinnamon bark 500 MG capsule 1,000 mg PO BID cholecalciferol (vitamin D3) 1,000 UNIT tablet 2,000 unit PO DAILY omega 6-gra-ezk-fish oil 1 EACH capsule 1 ea PO BID fluticasone furoate-vilanterol [Breo Ellipta] 200-25 mcg/dose blister with device 1 ea INHALATION QHS carvedilol 3.125 mg tablet 3.125 mg PO BID albuterol sulfate 90 mcg/actuation HFA aerosol inhaler 2 inh inhalation Q6H PRN (Reason: shortness of breath or wheezing) omeprazole 40 mg capsule,delayed release(DR/EC) 40 mg PO DAILY PRN (Reason: heartburn) Patient Comments: PT STATES SHE DOESNT TAKE REGULARLY, ONLY NEEDED Referrals / Follow Up: GABY BERGMAN MD [Primary Care Provider] - Within 2 Weeks Disposition Disposition (needs filled in before D/C Order can be placed): Home, Self Care Charges/Coding Visit Charges Inpatient E&M: 22944 Disch Hosp >30min
[2024-07-02 10:48] VITALS: BP 145/67; PULSE 89; RESP 16; TEMP 37; O2SAT 96
[2024-07-02] MEDS: Carvedilol 3.125 MG TABLET PO (10:52)
--- NOTE | 2024-07-02 12:10 | CASEMGMT ---
RN CM Face to Face with patient for initial transition planning/care coordination assessment. RN CM introduced self and role at [facility]. Patient lying in bed, alert and oriented. Patient willing to participate in assessment and is able to answer all questions appropriately. Care providers, pharmacy, and demographics verified. Strata: 1 PCP: [facility] Specialists: Camila, cabinet finisher; Vihdi, urologist; [facility] Pres[facility] Benefit: yes Living Will/HPOA: yes, Donnell King LNOK: Living Arrangements: Patient lives with in a single story home with 2 steps and railing to enter the home. Patient is independent at home. Transportation: self, DME/HHC: Patient denies DME in the home. Patient wishes to discharge home, denies need for home health at this time. Patient states she has no further needs or concerns at this time. CM to follow for discharge planning needs that may arise. Disposition Plan: Patient to discharge home with family support and follow-up plans in place. Pati TRACY, RN, CM
== END 2024-07-02 12:30 | disposition home or self-care (01) | DRG 866 ==
LOC: ED 17:34 → PCU 17:57
PROVIDERS: Admitting Provider Internal Medicine; Emergency Provider Emergency Medicine; PCP Family Medicine; Referring Provider Emergency Medicine
DX: B34.9 Viral infection, unspecified (principal); E87.20 Acidosis, unspecified; K76.0 Fatty (change of) liver, not elsewhere classified; J45.909 Unspecified asthma, uncomplicated; K57.30 Diverticulosis of large intestine without perforation or abscess without bleeding; K21.9 Gastro-esophageal reflux disease without esophagitis; K44.9 Diaphragmatic hernia without obstruction or gangrene; D72.829 Elevated white blood cell count, unspecified; N28.1 Cyst of kidney, acquired; N20.0 Calculus of kidney; Z11.52 Encounter for screening for COVID-19; Z79.51 Long term (current) use of inhaled steroids; Z87.891 Personal history of nicotine dependence
CPT/HCPCS: 36415; 70450; 71045; 74177; 80048; 80053; 81001; 83605; 83690; 84484; 85025; 87040; 87086; 87088; 87811; 93005; 94640; 99283; J7030; J7050; Q9967; A4216

== ENCOUNTER → 2024-07-26 | Outpatient (CLI) | payer MEDICARE, BC, SELFPAY ==
--- NOTE | 2024-07-26 14:36 | CT_ITS ---
STUDY: CT ABDOMEN AND PELVIS WITHOUT CONTRAST REASON FOR EXAM: Female, 69 years old. KIDNEY STONE. Left flank pain. History of kidney stones. RADIATION DOSAGE (If Supplied By Facility): CTDIvol = ( 8.82 ) mGy, DLP = ( 416.3 ) mGycm TECHNIQUE: Transaxial images were obtained from the dome of the diaphragm to the symphysis pubis without oral contrast, and without intravenous contrast. Sagittal and coronal images were reconstructed. Individualized dose optimization techniques were used for this CT. COMPARISON: Comparison is made with prior study July 01, 2024. FINDINGS: The visualized lung bases are unremarkable. The visualized portions of the heart are within normal limits. There is decreased attenuation of the liver consistent with steatosis. Normal gallbladder and extrahepatic biliary system. Normal spleen. Findings suggestive of a varices in the splenic hilum. Normal pancreas. Normal bilateral adrenal glands. Normal right kidney. Normal left kidney. Moderate-sized hiatal hernia. Normal small intestine. Scattered diverticula in the right hemicolon. Diverticulosis of the sigmoid colon. The patient is status post appendectomy. There is scattered atherosclerotic calcification of the abdominal aorta, without a demonstrated aneurysm. Normal inferior vena cava. Normal retroperitoneum. Normal urinary bladder. Calcified fibroid uterus. Normal abdominal wall. Normal osseous structures. CT/Abdomen/Pelvis without Cont IMPRESSION: Sigmoid diverticulosis as well as diverticula in the right hemicolon. Fatty infiltration of the liver. Findings suggestive of varices in the region of the splenic hilum. Electronically Signed: Mitchel Michaels MD at 15:11 EST ,
== END | disposition home or self-care (01) ==
LOC: CT 14:31
PROVIDERS: PCP Family Medicine; Referring Provider Urology; Visit Provider Urology
DX: N20.0 Calculus of kidney (principal)
CPT/HCPCS: 74176

== ENCOUNTER 2024-07-28 11:23 | Emergency (ER) | payer MEDICARE, BC, SELFPAY ==
[2024-07-28 11:23] VITALS: BP 135/59; PULSE 89; RESP 18; TEMP 37.3; O2SAT 97; BMI 29.0
--- NOTE | 2024-07-28 11:50 | RAD_ITS ---
STUDY: X-RAY CHEST REASON FOR EXAM: Female, 69 years old. Cough TECHNIQUE: Single AP portable view of the chest. COMPARISON: Comparison is made with prior study July 01, 2024. FINDINGS: EKG electrodes are seen. The lungs are clear and expanded. There is no demonstrated pleural abnormality. Normal size heart. Normal mediastinum and tali. Normal visualized pulmonary arteries. There is atherosclerotic calcification of the aortic arch with tortuosity. Normal visualized thoracic spine. Normal visualized ribs, clavicles, and shoulders. Hiatal hernia. RAD/Chest 1 View (Portable) IMPRESSION: No acute abnormality is seen. Hiatal hernia. Electronically Signed: Mitchel Michaels MD at 12:37 EST ,
--- NOTE | 2024-07-28 11:50 | EKG12_ITS ---
Test Reason : Blood Pressure : */* mmHG Vent. Rate : 84 BPM Atrial Rate : 84 BPM P-R Int : 146 ms QRS Dur : 82 ms QT Int : 390 ms P-R-T Axes : 2 -24 -23 degrees QTcB Int : 460 ms Normal sinus rhythm Minimal voltage criteria for LVH, may be normal variant ( R in aVL ) Nonspecific T wave abnormality Abnormal ECG Confirmed by ANNIE [place], JEANIE ([id number]), purchase request editor RUBEN FARIAS ([id number]) on 08/01/2024 9:47:38 AM Referred By: Confirmed By: JEANIE VALENCIA MD
--- NOTE | 2024-07-28 11:59 | EX.ED.DYSGE1 ---
HPI History of Present Illness Chief Complaint: Flank Pain Informant: patient and spouse/S.O. Narrative Narrative: 69-year-old female presenting to the emergency room stating she does not feel well. She states that last night she felt fatigued body aches. She has developed a slight cough and sore throat. No diarrhea no vomiting. She notes that she was told that she has a kidney stone in the left kidney. She has been having some discomfort on the lower left flank mid axillary rib area. She talked to a nurse on the phone who said that she could have an infected kidney stone. She notes that since last night her heart rate has been elevated. She states that she felt this way about a month ago and they were unable to find anything but felt that it was possibly viral nature. does not have symptomology at this time. [facility] Medical History Leukocytosis Wears contact lenses Wears glasses Arthritis Easy bruising Blackout Heartburn Leg cramps History of pain when walking History of echocardiogram Mitral valve prolapse Ureteral calculus Urinary tract infection Post-menopausal Irritable bowel Restless legs Asthma Irregular heartbeat Left ureteral calculus Renal calculus, left Home Medications ?Medication ?Instructions ?Recorded ?Last Taken ?Type loratadine 10 mg tablet (Allergy 10 mg PO DAILY asthma 07/26/15 06/30/24 History Relief (loratadine)) montelukast 10 mg tablet 10 mg PO QHS asthma 07/26/15 06/30/24 History cholecalciferol (vitamin D3) 25 2,000 unit PO DAILY supplement 11/14/19 06/30/24 History mcg (1,000 unit) tablet cinnamon bark 500 mg capsule 1,000 mg PO BID supplement 11/14/19 06/30/24 History coenzyme Q10 100 mg capsule 100 mg PO DAILY supplement 11/14/19 06/30/24 History garlic 1,000 mg capsule 1,000 mg PO DAILY supplement 11/14/19 06/30/24 History omega 9-atv-[id number]-fish oil 300 1 ea PO BID supplement 11/14/19 06/30/24 History mg-1,000 mg capsule fluticasone furoate 200 1 ea inhalation QHS breathing 07/22/22 06/30/24 History mcg-vilanterol 25 mcg/dose inhalation powder (Breo Ellipta) albuterol sulfate 90 mcg/actuation 2 inh inhalation Q6H PRN shortness 07/01/24 Unknown History aerosol inhaler of breath or wheezing carvedilol 3.125 mg tablet 3.125 mg PO BID 07/01/24 07/01/24 History omeprazole 40 mg capsule,delayed 40 mg PO DAILY PRN heartburn 07/01/24 06/30/24 History release azithromycin 250 mg tablet See Rx Instructions PO .COMPLEX #6 07/28/24 Unknown Rx (Zithromax Z-Celio) tabs Allergy/AdvReac Type Severity Reaction Status Date / Time clindamycin Allergy Rash/itchin Verified 07/28/24 11:24 g/anxiety Penicillins Allergy Rash/itchin Verified 07/28/24 11:24 g/anxiety Sulfa (Sulfonamide Allergy Rash/itchin Verified 07/28/24 11:24 Antibiotics) g/anxiety Surgical History Hx of colonoscopy Hx of tonsillectomy History of Hx of total knee arthroplasty Hx of vein stripping Hx of appendectomy Hx of cystoscopy S/P tubal ligation Social History Smoking Status: Former smoker ROS ROS ED Constitutional Constitutional ED: Reports chills; Denies weight loss Eyes Eyes: Denies change in vision or diplopia ENT ENT ED: Reports sore throat; Denies ear pain or rhinorrhea Cardiovascular Cardiovascular: Denies chest pain, orthopnea, palpitations or racing heartbeat Respiratory/Chest Respiratory/Chest: Reports cough; Denies dyspnea or orthopnea Gastrointestinal Gastrointestinal: Denies abdominal pain, diarrhea, nausea or vomiting Genitourinary Genitourinary ED: Denies dysuria, hematuria or urinary frequency Musculoskeletal Musculoskeletal: Reports myalgias; Denies arthralgias Integumentary Denies abscess or rash Neurologic Neurologic: Denies headache(s) or weakness Psychiatric Psychiatric: Denies anxiety, depression, suicidal ideation or suicidal thoughts Endocrine Endocrinology: Denies polydipsia, polyphagia or polyuria Allergic/Immunologic Allergic/Immunologic ED: Denies mouth swelling, tongue swelling or urticaria EXAM Physical Exam Const Vital Signs: 07/28/24 11:23 07/28/24 13:23 07/28/24 15:00 Temperature 99.2 F H Temperature Source Temporal Pulse Rate 89 89 76 Respiratory Rate 18 27 H 18 Blood Pressure 135/59 H 126/75 H 126/86 H Blood Pressure Mean 84 92 99 Pulse Ox 97 90 99 Oxygen Delivery Method Room Air 07/28/24 15:03 Temperature 98.3 F Temperature Source Pulse Rate 76 Respiratory Rate 18 Blood Pressure 126/86 H Blood Pressure Mean 99 Pulse Ox 99 Oxygen Delivery Method Positive well nourished and well developed General Appearance ED: well developed and NAD HEENT Reports normocephalic, head/scalp atraumatic and moist mucous membranes Eyes PERRL and EOMs intact bilaterally Neck no lymphadenopathy, supple and no JVD Resp normal respiratory effort and clear to auscultation bilaterally Cardio regular rate, regular rhythm and no murmurs GI normal to inspection, nondistended, normoactive bowel sounds and non-tender Palpation: soft Back/Spine no CVA tenderness and normal ROM Extremity normal to inspection General Extremety ED: Negative for edema General Extremity: Negative for edema Neuro oriented x3 and CN's II-XII intact bilaterally Sensorium / Orientation: alert Motor Exam: strength 5/5 throughout Psych mental status grossly normal Mood & Affect: Negative for depressed or tearful Skin no rashes or lesions noted and no wounds MDM MDM MDM Narrative Medical decision making narrative: Differential diagnosis includes but not limited to viral syndrome UTI/pyelonephritis pneumonia acute bronchitis Patient's white count is 15.2 with 83 neutrophils. Hemoglobin 13.3 plate count of 231 BMP is within normal limits except for glucose of 154. LFTs are within normal limits urinalysis is negative my independent interpretation of the chest x-ray is no acute process. Patient's EKG is nonischemic in nature. COVID influenza RSV swabs were negative. Patient's had no tachycardia here. Current blood pressure 126/86 with a heart rate of 76. Temperature is 98.3. Clinically I think the patient may have had fever which would explain the tachycardia last night. She does have a bit of a cough so this could easily be viral. This could be an early pneumonia that is just not seen on chest x-ray yet. I do not feel strongly that we need advanced imaging. I do wonder could she be developing an atypical pneumonia as this has been very frequently diagnosed recently. We can cover her for some azithromycin. Family wonders if this could be related to her carvedilol which I do not feel strongly that that is a likely diagnosis. Patient will return if worsening or concerns History & Record Review Discussion w/independent historian: Patient and Significant other Lab Data Attestation: I reviewed the patient's lab results. Labs: Laboratory Results - last 24 hr 07/28/24 07/28/24 12:10 14:17 WBC 15.2 H RBC 4.21 Hgb 13.3 Hct 40.8 MCV 96.9 MCH 31.6 MCHC 32.6 RDW Std Deviation 45.1 H RDW Coeff of Valentina 12.7 Plt Count 231 MPV 10.1 Immature Gran % (Auto) 0.300 Neut % (Auto) 83.0 H Lymph % (Auto) 9.5 L Toole % (Auto) 6.3 Eos % (Auto) 0.5 Baso % (Auto) 0.4 Absolute Neuts (auto) 12.6 H Absolute Lymphs (auto) 1.44 Nucleated RBC % 0 Sodium 138 Potassium 3.8 Chloride 107 Carbon Dioxide 26.0 Anion Gap 6 BUN 14 Creatinine 0.70 Estim Creat Clear Calc 64.66 Est GFR (MDRD) Af Amer 107 Est GFR (MDRD) Non-Af 88 BUN/Creatinine Ratio 20.1 H Glucose 154 H Calcium 8.7 Total Bilirubin 0.80 Direct Bilirubin 0.16 AST 20 ALT 26 Alkaline Phosphatase 67 Total Protein 7.4 Albumin 3.5 Globulin 3.9 Urine Color Yellow Urine Clarity Clear Urine pH 6.0 Ur Specific Dennis 1.015 Urine Protein 15 H Urine Glucose (UA) Normal Urine Ketones Negative Urine Occult Blood Negative Urine Nitrite Negative Urine Bilirubin Negative Urine Urobilinogen Normal Ur Leukocyte Esterase Negative Urine RBC 0 SEEN Urine WBC 0-5 SEEN Ur Squamous Epith Cells 0-5 SEEN Urine Bacteria 0 SEEN Urine Mucus 0 SEEN Radiography Diagnostic Testing: Clinical Impression(s) from Imaging Studies Chest X-Ray 07/28/24 11:50 IMPRESSION: No acute abnormality is seen. Hiatal hernia. Electronically Signed: Mitchel Michaels MD at 12:37 EST , EKG Initial EKG: Attestation: I personally reviewed and interpreted this EKG as follows: Comments: Normal sinus rhythm ventricular rate of 84 bpm Discharge Plan Triage Chief Complaint: Flank Pain ED Provider: Adithya Viera Dx/Rx/DC Orders Clinical Impression: Cough, Acute flank pain Prescriptions: New azithromycin [Zithromax Z-Celio] 250 mg tablet See Rx Instructions .ROUTE .COMPLEX Qty: 6 0RF Rx Instructions: For 250 mg dose pack: take 500 mg today (day 1), then 250 mg for 4 days (days 2-5) No Action montelukast 10 MG tablet 10 mg PO QHS loratadine [Allergy Relief (loratadine)] 10 MG tablet 10 mg PO DAILY garlic 1,000 MG capsule 1,000 mg PO DAILY coenzyme Q10 100 MG capsule 100 mg PO DAILY cinnamon bark 500 MG capsule 1,000 mg PO BID cholecalciferol (vitamin D3) 1,000 UNIT tablet 2,000 unit PO DAILY omega 2-ila-gaz-fish oil 1 EACH capsule 1 ea PO BID fluticasone furoate-vilanterol [Breo Ellipta] 200-25 mcg/dose blister with device 1 ea INHALATION QHS carvedilol 3.125 mg tablet 3.125 mg PO BID albuterol sulfate 90 mcg/actuation HFA aerosol inhaler 2 inh inhalation Q6H PRN (Reason: shortness of breath or wheezing) omeprazole 40 mg capsule,delayed release(DR/EC) 40 mg PO DAILY PRN (Reason: heartburn) Patient Comments: PT STATES SHE DOESNT TAKE REGULARLY, ONLY NEEDED Primary Care Provider: GABY BERGMAN Referrals: GABY BERGMAN MD [Primary Care Provider] - 1 Week Print Language: Luxembourgish Disposition Disposition: Home, Self Care Discharge Date/Time: 07/28/24 15:04
[2024-07-28 12:17] LABS: Absolute Lymphocyte Count 1.44 X10^3/uL (0.83-4.51); Absolute Neutrophil Count 12.6 X10^3/uL (2.0-7.7); Basophil# 0.06 X10^3/uL; Basophil% 0.4 % (0-1); Eosinophil# 0.07 X10^3/uL; Eosinophils% 0.5 % (0-5); Hematocrit 40.8 % (37-47); Hemoglobin 13.3 g/dL (12.0-15.0); Lymphocyte # 1.44 X10^3/ul (0.83-4.51); Lymphocyte % 9.5 % (19-41); Mean Corp Hgb Conc 32.6 g/dL (32-36); Mean Corpuscular Hgb 31.6 pg (27.0-32.0); Mean Corpuscular Volume 96.9 fL (81-99); Mean Platelet Vol. 10.1 fl (6.2-12.0); Monocyte# 0.95 X10^3/uL; Monocyte% 6.3 % (0-10); NRBC Flagged by Analyzer 0 % (0-5); Neutrophil # 12.59 X10^3/uL (2.7-7.7); Platelet Count 231 K/mm3 (150-450); RBC Distribution Width CV 12.7 % (11.6-14.6); RBC Distribution Width SD 45.1 fl (35.1-43.9); Red Blood Count 4.21 M/mm3 (4.2-5.4); White Blood Count 15.2 K/mm3 (4.4-11.0)
[2024-07-28 12:39] LABS: AST(SGOT) 20 U/L (15-37); Alanine Aminotransfer ALT/SGPT 26 U/L (13-56); Albumin, Serum 3.5 g/dL (3.2-5.0); Alkaline Phosphatase 67 U/L (45-117); Anion Gap 6 (5-15); BUN 14 mg/dL (7-18); BUN/Creat Ratio 20.1 RATIO (10-20); Bilirubin, Direct 0.16 mg/dL (0.00-0.30); Calcium,Total 8.7 mg/dL (8.5-10.1); Chloride 107 mmol/L (98-107); EST Glomerular Filtration Rate 88 mL/min (>60); Est Glom Filt Rate - Afr Amer 107 mL/min (>60); Estimated Creatinine Clearance 64.66 ml/min; Globulin 3.9 g/dL (2.2-4.2); Glucose 154 mg/dL (74-106); Potassium 3.8 mmol/L (3.5-5.1); Protein, Total 7.4 g/dL (6.4-8.2); Sodium Level 138 mmol/L (136-145)
[2024-07-28 13:23] VITALS: BP 126/75; PULSE 89; RESP 27; O2SAT 90
[2024-07-28 14:24] LABS: Bacteria 0 SEEN /hpf (None Seen); Mucous, Urine 0 SEEN /hpf (<or=2+); Red Blood Cells-Urine 0 SEEN /hpf (0-5)
[2024-07-28 14:26] LABS: Color, Urine Yellow (Yellow); Glucose, Dipstick Normal (Normal); Ketone-Dipstick Negative (Negative); Leukocyte Esterase-Dipstick Negative /ul (Negative); Nitrite-Dipstick Negative (Negative); Occult Blood-Urine Negative /ul (Negative); Protein-Dipstick 15 mg/dl (Negative); Specific Gravity, Urine 1.015 (1.002-1.030); Urine Bilirubin Dipstick Negative (Negative); Urine Clarity Clear (Clear); Urine Urobilinogen Normal (Normal)
[2024-07-28 14:37] LABS: Squamous Epithelial Cells - UA 0-5 SEEN /hpf (5-10); White Blood Cells 0-5 SEEN /hpf (0-5)
[2024-07-28 15:00] VITALS: BP 126/86; PULSE 76; RESP 18; O2SAT 99
[2024-07-28 15:03] VITALS: BP 126/86; PULSE 76; RESP 18; TEMP 36.8; O2SAT 99
--- OUTSIDE RECORDS SUMMARY | 2024-07-28 19:39 | XMS RPT_ITS | CCD ---
Author Organization [facility] Care Team Providers Care Supplemental Manager Name Role Phone Harpal Donnell Unavailable Unavailable Aureliano Shearer Unavailable Unavailable Zoraida Velásquez Unavailable Unavailable Mahogany Delgado Unavailable Unavailable Lalitha Welch Unavailable Unavailable Mary Huizar Unavailable Unavailable Diana Santos Unavailable Poly Anders Unavailable Unavailable Diana Santos MD Primary Care Provider Tone Hooks Unavailable Diana Bose MD Primary Care Provider Diana Santos MD Primary Care Provider NAZARIO MAYORGA Attending Unavailable NAZARIO MAYORGA Referring Unavailable DIANA SANTOS Primary Care Unavailable NAZARIO MAYORGA Attending Unavailable SELF, SELF Referring Unavailable DIANA SANTOS Primary Care Unavailable Diana Sanots MD Primary Care Provider Jessee, Mr. Tone Lange Attending Un available Dr. Diana Santos Primary Care Unav ailjohnson Santos, Dr. Diana Haji Primary Care Unav ailable Cintia Bonner Attending Unav ailDIANA Lopez Attending Unavailable DIANA SANTOS Primary Care Unavailable DIANA SANTOS Primary Care Unavailable DIANA SANTOS Primary Care Unavailable NEIL GUILLERMOE Referring Unavailable HUONG MAHAN Attending Unavailable DIANA SANTOS Referring Unavailable DIANA SANTOS Primary Care Unavailable MADALYN, GABY STALIN MOUNIR Referring Sandra vailable MADALYN, GABY STALIN MOUNIR Primary Care Sandra vailable MADALYN, GABY STALIN MOUNIR Primary Care Sandra vailable VICK JOSUE Attending Unava ilable MADALYN, GABY STALIN MOUNIR Referring Sandra vailable MADALYN, GABY STALIN MOUNIR Attending Sandra vailable MADALYN, GABY STALIN MOUNIR Primary Care Sandra vailable MADALYN, GABY STALIN MOUNIR Primary Care Sandra vailable MADALYN, GABY STALIN MOUNIR Attending Sandra vailable MADALYN, GABY STALIN MOUNIR Attending Sandra vailable MADALYN, GABY STAILN MOUNIR Primary Care Sandra vailable MADALYN, GABY STALIN MOUNIR Attending Sandra vailable MADALYN, GABY STALIN MOUNIR Primary Care Sandra vailable MADALYN, GABY STALIN MOUNIR Primary Care Sandra vailable MADALYN, GABY STALIN MOUNIR Attending Sandra vailable MADALYN, GABY STALIN MOUNIR Attending Sandra vailable MADALYN, GABY STALIN MOUNIR Primary Care Sandra vailable MADALYN, GABY STALIN MOUNIR Primary Care Sandra vailable MADALYN, GABY STALIN MOUNIR Attending Sandra vailable MADALYN, GABY STALIN MOUNIR Primary Care Sandra vailable MADALYN, GABY STALIN MOUNIR Attending Sandra vailable MADALYN, GABY STLAIN MOUNIR Primary Care Sandra vailable MADALYN, GABY STALIN MOUNIR Attending Sandra vailable Allergies Allergy Classification Reported Allergen(s) Allergy Type Date of Onset Reaction(s) Facility Lincosamides (antibiotic) (1 source) Clindamycin Drug Allergy Unknown [facility] Penicillins (antibiotic) (1 source) Penicillins Drug Allergy Unknown [facility] Sulfonamides (antibiotic) (1 source) Sulfonamides (Antibiotic) Drug Allergy Unknown [facility] (15 sources) Amoxicillin; Translations: [AMOXICILLIN] Drug Allergy 8 [facility] (20 sources) Clindamycin; Translations: [CLINDAMYCIN] Drug Allergy 8 [facility] (10 sources) Penicillins; Translations: [PENICILLINS] Propensity to adverse reactions 8 [facility] (19 sources) Sulfonamides (Antibiotic); Translations: [SULFA (SULFONAMIDE ANTIBIOTICS)] Propensity to adverse reactions 8 [facility] (1 source) Sulfonamides (Antibiotic) Unknown [facility] (12 sources) Penicillins Propensity to adverse reactions 8 [facility] (2 sources) Sulfonamides (Antibiotic) Propensity to adverse reactions to drug [address] [facility] Medications Current Medications Medication Drug Class(es) Dates Sig (Normalized) Sig (Original) acetaminophen 325 mg oral tablet (2 sources) Start: 08-15-2019 take 2 tablets by mouth every four hours as needed acetaminophen 325 MG tablet Take 2 tablets by mouth every 4 hours as needed for Mild Pain. 50 tablet 1 08/15/2019 Active acetaminophen 325 mg / oxyCODONE hydrochloride 5 mg oral tablet (1 source) Opioid Agonist Start: 11-13-2019 take 1 tablet by mouth every four hours as needed for pain oxyCODONE-acetamino phen 5-325 MG per tablet Indications: Calculus of proximal left ureter Take 1 tablet by mouth every 4 hours as needed for Moderate Pain or Severe Pain for up to 3 days. 18 tablet 0 11/13/2019 Active [id number] 200 actuat albuterol 0.09 mg/actuat metered dose inhaler (18 sources) beta2-Adrenergic Agonist Start: 05-16-2019 take 2 puff(s) by mouth four times daily as needed VENTOLIN HFA 108 (90 Base) MCG/ACT Aero Soln inhaler INHALE 2 PUFFS BY MOUTH UP TO 4 TIMES A DAY NEEDED 6 05/16/2019 Active Start: 10-17-2016 take 2 puff(s) by in halation every four hours as needed albuterol HFA (PROAIR HFA) 90 mcg/actuation inhaler Indications: Moderate persistent asthma without complication Inhale 2 Puffs as instructed every 4 hours as needed. 0 10/17/2016 Active take 3 mL by inhalat ion three times daily albuterol 0.63 mg/3 mL (0.021%) inhalation solution ; 3 milliliter(s) inhaled 3 times a day Quantity: 0 Refills: 0 Ordered: 07-Dec-2019 Tia Mane Generic Substitution Allowed Comment on above: Inhale 2 Puffs as in structed every 4 hours as needed. ascorbic acid 500 mg chewable tablet (2 sources) Vitamin C take 1 tablet by mouth once daily ascorbic acid 500 MG Tab Take 500 mg by mouth daily. 0 Active aspirin 81 mg delayed release oral tablet (2 sources) Platelet Aggregation Inhibitor, Nonsteroidal Anti-inflammatory Drug Start: aspirin EC [address] Take 1 table twice a day for 30days. This medication is for blood clot prevention. 60 tablet 0 08/15/2019 Active benzonatate 200 mg oral capsule (1 source) Non-narcotic Antitussive Start: take 1 capsule by mouth three times daily benzonatate 200 mg oral capsule ; 1 cap(s) orally 3 times a day Quantity: 30 Refills: 0 Ordered: 27-Apr-2021 Poly Anders Start: 27-Apr-2021 Generic Substitution Allowed Comments: May cause drowsiness. Alcohol may intensify this effect. Use care when operating dangerous machinery.Swallow whole. Do not crush. Comment on above: May cause drowsiness . Alcohol may intensify this effect. Use care when operating dangerous machinery.Swallow whole. Do not crush. codeine phosphate 2 mg/ml / guaiFENesin 20 mg/ml oral solution (2 sources) Opioid Agonist Start: End: take 5 mL by mouth three times daily as needed for cough codeine-guaiFENesin (GUAIFENESIN AC) 10-100 mg/5 mL syrup Indications: Other chronic sinusitis Take 5 mL by mouth three times a day as needed for cough for up to 8 days. 118 mL 0 07/10/2023 07/18/2023 Active Comment on above: Take 5 mL by mouth t hree times a day as needed for cough for up to 8 days. 1 ml dexamethasone phosphate 4 mg/ml injection (2 sources) Corticosteroid Start: dexAMETHasone 4 MG/ML Solution injection 1 mL by Other route As directed for 18 doses. (1 cc 3 x a week at physical therapy via iontophoresis) for up to 18 doses. 30 mL 0 07/03/2022 Active docosahexaenoic acid 120 mg / eicosapentaenoic acid 180 mg oral capsule (2 sources) Start: take 1 capsule by mouth once daily [place]-3 1000 MG Cap Take 2,000 mg by mouth daily. 0 10/17/2016 Active docusate sodium 100 mg oral capsule (2 sources) Start: take 1 capsule by mouth twice daily docusate 100 MG Cap capsule Take 1 capsule by mouth 2 times daily. 60 capsule 0 08/15/2019 Active doxycycline hyclate 100 mg oral tablet (3 sources) Tetracycline-class Drug Start: End: 023 take 1 tablet by mouth twice daily doxycycline (VIBRA-TABS) 100 mg tablet Indications: Other chronic sinusitis , Moderate persistent asthma without complication Take 1 tablet by mouth two times a day for 10 days. 20 tablet 0 07/03/2023 07/13/2023 Active Comment on above: Take 1 tablet by [facility] two times a day for 10 days. 60 actuat fluticasone propionate 0.25 mg/actuat / salmeterol 0.05 mg/actuat dry powder inhaler (6 sources) Corticosteroid, beta2-Adrenergic Agonist Start: take 1 dose by mouth twice daily ADVAIR DISKUS 250-50 MCG/DOSE Aerosol Powder, breath activated inhaler INHALE 1 DOSE BY MOUTH TWICE DAILY. RINSE MOUTH AFTER USE 06/03/2019 Active Start: 10-17-2016 take 1 puff(s) by mo [facility] twice daily fluticasone-salmeterol (ADVAIR DISKUS) 250-50 mcg/dose dsdv Indications: Moderate persistent asthma without complication Inhale 1 Puff as instructed twice daily. Rinse and gargle mouth after use with water. 0 10/17/2016 Active Comment on above: Inhale 1 Puff as ins tructed twice daily. Rinse and gargle mouth after use with water. 30 actuat fluticasone furoate 0.2 mg/actuat / vilanterol 0.025 mg/actuat dry powder inhaler (14 sources) Corticosteroid, beta2-Adrenergic Agonist Start: take 1 puff(s) by inhalation once daily Breo Ellipta 200-25 MCG/INH Aerosol Powder, breath activated inhale 1 (ONE) puff daily 0 06/27/2022 Active Start: 02-24-2022 fluticasone-vi lanterol (BREO ELLIPTA) 200-25 mcg/dose inhaler Inhale 1 Inhalation as instructed once daily. 0 02/24/2022 Active Comment on above: Inhale 1 Inhalation as instructed once daily. ibuprofen 600 mg oral tablet (1 source) Nonsteroidal Anti-inflammatory Drug Start: 2019 take 1 tablet by mouth three times daily as needed for pain ibuprofen 600 MG tablet Take 1 tablet by mouth 3 times daily as needed for Mild Pain (Take with food.) for up to 5 days. 15 tablet 0 11/13/2019 Active meloxicam 7.5 mg oral tablet (4 sources) Nonsteroidal Anti-inflammatory Drug Start: 2018 take 1 tablet by mouth once daily meloxicam 7.5 MG tablet Take 1 tablet by mouth daily. 30 tablet 0 08/02/2020 Active methylPREDNISolone 4 mg oral tablet (2 sources) Corticosteroid Start: 2018 METHYLPREDNISOLONE 4 MG Tab Therapy Pack tablet Take 1 tablet by mouth As directed. follow package directions 21 tablet 0 09/08/2019 Active omeprazole 20 mg delayed release oral capsule (2 sources) Proton Pump Inhibitor Start: 2018 take 1 capsule by mouth once daily omeprazole [address] capsule Take 1 capsule by mouth daily. 30 capsule 0 08/15/2019 Active ondansetron 4 mg disintegrating oral tablet (2 sources) Serotonin-3 Receptor Antagonist Start: 2019 take 1 tablet by mouth every four hours as needed ondansetron 4 MG Tab Dispersible tablet Take 1 tablet by mouth every 4 hours as needed for Nausea. Place on tongue 10 tablet 0 11/13/2019 Active predniSONE 10 mg oral tablet (4 sources) Start: 2022 End: 2022 take 5 tablets by mouth once daily, then take 4 tablets by mouth once daily, then take 3 tablets by mouth once daily, then take 2 tablets by mouth once daily, then take 1 tablet by mouth once daily predniSONE (DELTASONE) 10 mg tablet Indications: Moderate persistent asthma without complication Take 5 tablets by mouth once daily for 1 day, THEN 4 tablets once daily for 1 day, THEN 3 tablets once daily for 1 day, THEN 2 tablets once daily for 1 day, THEN 1 tablet once daily for 1 day. 15 tablet 0 07/02/2023 07/07/2023 Active Start: 04-25-2021 End: 04-29-2021 take 2 tablets by mouth once daily at mealtime predniSONE 20 mg oral tablet ; 2 tab(s) orally once a day Quantity: 10 Refills: 0 Ordered: 25-Apr-2021 Poly Anders Start: 25-Apr-2021 End: 29-Apr-2021 Generic Substitution Allowed Comments: It is very important that you take or use this exactly as directed. Do not skip doses or discontinue unless directed by your doctor.Obtain medical advice before taking any non-prescription drugs as some may affect the action of this medication.Take with food or milk. Comment on above: It is very important that you take or use this exactly as directed. Do not skip doses or discontinue unless directed by your doctor.Obtain medical advice before taking any non-prescription drugs as some may affect the action of this medication.Take with food or milk. Take 5 tablets by mo uth once daily for 1 day, THEN 4 tablets once daily for 1 day, THEN 3 tablets once daily for 1 day, THEN 2 tablets once daily for 1 day, THEN 1 tablet once daily for 1 day. therapeutic multivitamin-minera ls Tab (2 sources) Start: 08-15-20 19 take 1 tablet by mouth at bedtime therapeutic multivitamin-minera ls Tab Take 1 tablet by mouth at bedtime. 30 tablet 0 08/15/2019 Active Completed/Discontinued Medications Medication Drug Class(es) Dates Sig (Normalized) Sig (Original) acebutolol 200 mg oral capsule (20 sources) beta-Adrenergic Phil Start: 07-01-2022 End: 08-27-2023 take 1 capsule by mouth twice daily acebutolol (SECTRAL) 200 mg capsule Indications: MVP (mitral valve prolapse) Take 1 capsule by mouth two times a day. 180 capsule 3 08/27/2023 Active Start: 09-21-2001 End: 06-27-2022 take 1 capsule by mouth twice daily acebutolol (SECTRAL) 200 mg capsule Indications: MVP (mitral valve prolapse) Take 1 capsule by mouth twice daily. 180 capsule 3 02/24/2022 06/27/2022 Discontinued take 1 capsule by mo uth once daily acebutolol 200 mg oral capsule ; 1 cap(s) orally once a day Quantity: 0 Refills: 0 Ordered: 25-Apr-2021 Tia Mane Generic Substitution Allowed Comment on above: Take 1 capsule by mo uth twice daily. Take 1 capsule by mo uth two times a day. azithromycin 500 mg oral tablet (4 sources) Macrolide Antimicrobial Start: 09-23-2022 End: 09-23-2022 azithromycin (ZITHROMAX) 500 mg tablet Indications: History of right knee joint replacement Take 1 tablet by mouth one time only for 1 dose. Take 30-60 minutes prior to dental work 1 tablet 2 09/23/2022 09/23/2022 Start: 04-27-2021 Azithromycin 5 Day Dose Pack 250 mg oral tablet ; Take two tablets on day 1take one tablet on days 2-5 Quantity: 6 Refills: 0 Ordered: 27-Apr-2021 Poly Anders Start: 27-Apr-2021 Generic Substitution Allowed Comments: Do not take dairy products, antacids, or iron preparations within one hour of this medication.Finish all this medication unless otherwise directed by prescriber. Start: 12-07-2019 Zithromax Z-Pa k 250 mg oral tablet ; as directed on package Quantity: 1 Refills: 0 Ordered: 07-Dec-2019 Micah Andrew Start: 07-Dec-2019 Status: Other Generic Substitution Allowed Comments: Do not take dairy products, antacids, or iron preparations within one hour of this medication.Finish all this medication unless otherwise directed by prescriber. Comment on above: Do not take dairy pr oducts, antacids, or iron preparations within one hour of this medication.Finish all this medication unless otherwise directed by prescriber. Take 1 tablet by caitlin th one time only for 1 dose. Take 30-60 minutes prior to dental work calcium carbonate 1250 mg chewable tablet (16 sources) Start: 7 take 1 tablet by mouth twice daily calcium carbonate (CALCIUM 500) 500 mg calcium (1,250 mg) chewable tablet Take 1 tablet by mouth twice daily. 0 10/17/2016 Active Start: 10-17-2016 calcium carbon ate 1250 (500 Ca) MG Chew Tab Chew 1,250 mg daily. 0 10/17/2016 Active Comment on above: Take 1 tablet by caitlin th twice daily. cholecalciferol 0.05 mg oral capsule (16 sources) Vitamin D Start: 07-21-2017 take 1 tablet by mouth twice daily Cholecalciferol, Vitamin D3, 2,000 unit cap Take 1 tablet by mouth twice daily. 0 07/21/2017 Active Start: 07-21-2017 take 1 tablet by caitlin th once daily Vitamin D3 50 MCG (2000 UT) Cap Take 1 tablet by mouth daily. 0 07/21/2017 Active Comment on above: Take 1 tablet by caitlin th twice daily. cinnamon bark 500 mg oral capsule (16 sources) Start: 10-17-2016 take 1 capsule by mouth twice daily Cinnamon Bark (CINNAMON) 500 mg cap Take 1 capsule by mouth twice daily. 0 10/17/2016 Active Start: 10-17-2016 take 1 capsule by mo uth once daily Cinnamon 500 MG Cap Take 1 capsule by mouth daily. 0 10/17/2016 Active Comment on above: Take 1 capsule by mo uth twice daily. garlic preparation 1000 mg oral capsule (16 sources) Non-Standardized Food Allergenic Extract Start: 10-17-2016 take 1 capsule by mouth once daily Garlic 1000 MG Cap Take 1 capsule by mouth daily. 0 10/17/2016 Active Start: 10-17-2016 take 1 capsule by mo uth once daily Garlic 1,000 mg cap Take 1 capsule by mouth once daily. 0 10/17/2016 Active Comment on above: Take 1 capsule by mo uth once daily. 10 ml lidocaine hydrochloride 10 mg/ml injection (2 sources) Antiarrhythmic, Amide Local Anesthetic Start: 2 End: 2 lidocaine 1% (PF) (XYLOCAINE MPF) 1 % injection 5 mL linseed oil 1000 mg oral capsule (16 sources) Start: 7 take 1 capsule by mouth once daily Flaxseed Oil 1,000 mg cap Take 1 capsule by mouth once daily. 0 07/21/2017 Active Comment on above: Take 1 capsule by mo uth once daily. loratadine 10 mg oral tablet (18 sources) Start: 7 take 1 tablet by mouth once daily loratadine (CLARITIN) 10 mg tablet Indications: Moderate persistent asthma without complication Take 1 tablet by mouth once daily. 0 10/17/2016 Active Comment on above: Take 1 tablet by caitlin once daily. milk thistle extract 175 mg oral capsule (16 sources) Start: 8 Milk Thistle 175 mg tab Take 1 tablet by mouth once daily. Takes just twice a week 0 01/11/2018 Active Start: 01-11-2018 take 1 tablet by caitlin once daily Milk Thistle Extract 175 MG Tab Take 175 mg by mouth daily. 0 01/11/2018 Active Start: 01-11-2018 take 1 tablet by caitlin once daily Milk Thistle 175 mg tab Take 1 tablet by mouth once daily. 0 01/11/2018 Active Comment on above: Take 1 tablet by caitlin once daily. Take 1 tablet by caitlin once daily. Takes just twice a week montelukast 10 mg oral tablet (18 sources) Leukotriene Receptor Antagonist Start: take 1 tablet by mouth once daily at bedtime montelukast (SINGULAIR) 10 mg tablet Indications: Moderate persistent asthma without complication Take 1 tablet by mouth daily at bedtime. 0 10/17/2016 Active Comment on above: Take 1 tablet by caitlin daily at bedtime. omega-3 fatty acids 1,000 mg cap (14 sources) Start: take 2 capsules by mouth twice daily omega-3 fatty acids 1,000 mg cap Take 2 capsules by mouth twice daily. 0 10/17/2016 Active Comment on above: Take 2 capsules by [facility] twice daily. 1 ml triamcinolone acetonide 40 mg/ml prefilled syringe (2 sources) Corticosteroid Start: End: triamcinolone (KENALOG-40) injection 1 mL turmeric/turmeric ext/pepr ext (TURMERIC-TURMERIC EXT-PEPPER) 500-3 mg cap (14 sources) Start: take 1 capsule by mouth twice daily turmeric/turmeric ext/pepr ext (TURMERIC-TURMERIC EXT-PEPPER) 500-3 mg cap Take 1 capsule by mouth twice daily. 0 01/18/2021 Active Comment on above: Take 1 capsule by mo [facility] twice daily. ubidecarenone 200 mg oral capsule (16 sources) Start: take 1 capsule by mouth once daily Coenzyme Q10 (CO Q-10) 200 mg cap Take 1 capsule by mouth once daily. 0 10/17/2016 Active Comment on above: Take 1 capsule by mo ut once daily. Problems Active Problems Problem Classification Problem Date Documented Date Episodic/Chronic Asthma (20 sources) Exacerbation of asthma; Translations: [Asthma, unspecified type, with (acute) exacerbation] Onset: 10-17-2016 04-25-2021 Chronic Asthma (2 sources) Asthma 04-25-2021 Comment on above: COUGH CHEST CONGESTI ON ASTHMA HEAD COLD Calculus of urinary tract (16 sources) Kidney stone; Translations: [Calculus of kidney] Onset: 10-17-2016 10-17-2016 Episodic Esophageal disorders (2 sources) Gastroesophageal reflux disease; Translations: [Gastro-esophageal reflux disease without esophagitis] 08-15-2019 Chronic Essential hypertension (6 sources) Essential (primary) hypertension; Translations: [Essential (primary) hypertension] Onset: 04-09-2024 Chronic Genitourinary symptoms and ill-defined conditions (2 sources) Unspecified urinary incontinence; Translations: [Unspecified urinary incontinence] Onset: 03-22-2024 Chronic Heart valve disorders (20 sources) Mitral valve prolapse; Translations: [Nonrheumatic mitral (valve) prolapse] Onset: 10-17-2016 10-17-2016 Chronic Osteoarthritis (2 sources) Osteoarthritis of right knee joint; Translations: [Unilateral primary osteoarthritis, right knee] Onset: 08-15-2019 08-15-2019 Chronic Other connective tissue disease (2 sources) History of total knee arthroplasty; Translations: [Presence of right artificial knee joint] Onset: 08-15-2019 08-15-2019 Chronic Other connective tissue disease (1 source) History of right total knee replacement; Translations: [Presence of right artificial knee joint] Chronic Other connective tissue disease (2 sources) Presence of right artificial knee joint; Translations: [Presence of right artificial knee joint] Onset: 07-03-2022 Chronic Other connective tissue disease (1 source) Trochanteric bursitis of right hip; Translations: [Trochanteric bursitis, right hip] Episodic Other connective tissue disease (1 source) Iliotibial band friction syndrome of right knee; Translations: [Iliotibial band syndrome, right leg] Episodic Other non-traumatic joint disorders (1 source) Pain in right hip joint; Translations: [Pain in right hip] Episodic Other non-traumatic joint disorders (2 sources) Pain in right hip; Translations: [Pain in right hip] Onset: 07-03-2022 Episodic Other nutritional; endocrine; and metabolic disorders (2 sources) Obese class I; Translations: [Obesity, unspecified] Onset: 08-15-2019 08-15-2019 Chronic Other screening for suspected conditions (not mental disorders or infectious disease) (5 sources) Patient encounter status; Translations: [Encounter for screening for lipoid disorders] Onset: 08-25-2022 Episodic Other upper respiratory infections (7 sources) Chronic sinusitis; Translations: [Other chronic sinusitis] Onset: 07-14-2023 07-03-2023 Chronic Other upper respiratory infections (1 source) Sore throat symptom; Translations: [Acute pharyngitis, unspecified] 07-02-2023 Episodic Residual codes; unclassified (4 sources) Insomnia, unspecified; Translations: [Insomnia, unspecified] Onset: 03-22-2024 Episodic Unclassified (2 sources) PINK EYES 03-21-2022 Comment on above: PINK EYES Unclassified (1 source) [place] eye 03-21-2022 Unclassified (2 sources) 05/26/2023 HM PAP SMEAR Onset: 06-17-2024 Past or Other Problems Problem Classification Problem Date Documented Da te Episodic/Chronic Diabetes mellitus without complication (15 sources) Prediabetes; Translations: [Prediabetes] Onset: 07-22-2017 Episodic Inflammation; infection of eye (except that caused by tuberculosis or sexually transmitteddisease) (2 sources) Conjunctivitis; Translations: [Other mucopurulent conjunctivitis] Onset: 03-21-2022 03-21-2022 Episodic Other circulatory disease (2 sources) Elevated blood-pressure reading, without diagnosis of hypertension; Translations: [Elevated blood-pressure reading, without diagnosis of hypertension] Onset: 04-18-2024 Episodic Other eye disorders (1 source) Ocular pain, bilateral; Translations: [Ocular pain, bilateral] Onset: 03-21-2022 Episodic Other non-traumatic joint disorders (11 sources) Knee pain; Translations: [Pain in right knee] Episodic Other non-traumatic joint disorders (11 sources) Knee stiff; Translations: [Stiffness of right knee, not elsewhere classified] Episodic NEGATED: Highlighted row has not occurred!Residual codes; unclassified (20 sources) Disease Episodic Results Test Name Value Interpretation Reference Range Facility ECHOCARDIOGRAM COMPLETEon ECHOCARDIOGRAM COMPLETE Patient Info Name: EVELIO KING Age: 69 years : 1955 Gender: Female Ht: 163 cm Wt: 74 kg BSA: 1.85 m2 HR: 86 bpm BP: 139 / 93 mmHg Heart Rhythm: Sinus Rhythm Technical Quality: Fair Exam Date: 05/03/2024 12:27 PM Patient Status: Outpatient Cane Pusher: Marycruz Epperson, RADHA, RVT Exam Type: ECHOCARDIOGRAM COMPLETE Study Info Indications I34.1 - Nonrheumatic mitral (valve) prolapse I10 - Essential (primary) hypertension Referring Physician: GABY BERGMAN ; [id number] BMI: 28.15 kg/m2 Summary 1. Normal LV chamber size. Normal wall thickness. Systolic function is normal with no regional wall motion abnormalities. Estimated ejection fraction of 55 to 60%. 2. The left ventricular diastolic function is normal. 3. Right ventricular size and systolic function are normal. 4. No hemodynamically significant valvular disease. 5. RV systolic pressure could not be accurately estimated. History/Risk Factors Hypertension: Yes Chronic Lung Disease: Yes Tobacco Use: Former Procedure(s): Complete two-dimensional, color flow and Doppler transthoracic echocardiogram is performed. Left Ventricle Normal LV chamber size. Normal wall thickness. Systolic function is normal with no regional wall motion abnormalities. Estimated ejection fraction of 55 to 60%. The left ventricular diastolic function is normal. Right Ventricle Right ventricular size and systolic function are normal. Left Atria Left atrial chamber is normal with a left atrial volume index of 18 ml/m2 by BP MOD. Right Atria Right atrial chamber dimension is normal. Aortic Valve The aortic valve is trileaflet. There is no aortic valve sclerosis. Aortic valve appears unrestricted. There is no aortic valve regurgitation. Pulmonic Valve The pulmonic valve is not well visualized. There is no pulmonic valve stenosis. There is trace pulmonic regurgitation. Mitral Valve The mitral valve has normal leaflets. There is no mitral valve stenosis. There is no mitral valve regurgitation. Tricuspid Valve The tricuspid valve leaflets are normal. There is no significant tricuspid valve stenosis. There is trace tricuspid valve regurgitation. RV systolic pressure could not be accurately estimated. Pericardium/Pleural There is no pericardial effusion. Inferior Vena Cava Normal inferior vena cava with >50% collapse upon inspiration consistent with normal right atrial pressure. Aorta The aortic measurements are indexed to age and body surface area. The aortic root is normal measuring 2.5 cm with an index of 1.3 cm/m2. The proximal ascending aorta is normal measuring 3.2 cm with an index of 1.7 cm/m2. Wall Motion Scoring Wall Motion Scoring Index: 1.00 Left Ventricular Outflow Tract Name Value Normal LVOT 2D LVOT Diameter 2.0 cm LVOT Ejection Time 285 ms LVOT Doppler LVOT Peak Velocity 0.8 m/s LVOT Peak Gradient 3 mmHg LVOT Mean Gradient 2 mmHg LVOT VTI 14 cm LVOT VTI/AV VTI Ratio 0.4 LVOT Stroke Volume 45 ml LVOT Stroke Index 24.50 ml/m2 Pulmonic Valve Name Value Normal RVOT Doppler RVOT Peak Velocity 79 cm/s RVOT Peak Gradient 2 mmHg RVOT Mean Gradient 1 mmHg RVOT VTI 17 cm PV Doppler PV Peak Velocity 1.02 m/s PV Peak Gradient 4 mmHg PV Mean Gradient 2 mmHg PV VTI 22 cm Mitral Valve Name Value Normal MV Doppler MV Peak Velocity 1.05 m/s MV Peak Gradient 4 mmHg MV Mean Gradient 2 mmHg MV VTI [address] [facility] 378 cm/s2 MV PHT 63 ms MV Area (PHT) 3.5 cm2 4.0-5.0 MV Area (Cont Eq VTI) 2.0 cm2 MV Area Index (Cont Eq VTI) 1.07 cm2/m2 MV DVI 1.58 MV Diastolic Function MV E Peak Velocity 0.82 m/s MV A Peak Velocity 1.09 m/s MV E/A 0.8 MV Decel Time 216 ms MV Annular TDI MV Septal e' Velocity 8.7 cm/s >=8.0 MV E/e' (Septal) 9.3 <=8.0 MV Lateral e' Velocity 8.2 cm/s >=9.5 MV E/e' (Lateral) 9.9 <=8.0 MV e' Average 8.48 cm/s MV E/e' (Average) 9. (more content not included)... Normal [facility] CT HEAD OR BRAIN WITHOUT CON TRASTon 04-09-2024 CT HEAD OR BRAIN WITHOUT CONTRAST EXAMINATION: CT HEAD OR BRAIN WITHOUT CONTRAST HISTORY: Presyncope Injury/Trauma or Illness?:Illness/Other How long have you had these symptoms (acute/chronic)?:Acute Reason for exam?:Pt states has been having headaches and feeling light-headed. Took her bp and was 167/88 and just wanted to come check. Type of Exam?:Initial Additional signs and symptoms?:Pt states has been having headaches and feeling light-headed. Took her bp and was 167/88 and just wanted to come check. I10 Hypertension, unspecified typeInjury/Trauma or Illness?:Illness/Other How long have you had these symptoms (acute/chronic)?:AcutePr esyncope COMPARISON: None available at time of dictation. CONTRAST: None. TECHNIQUE CT Head with axial, coronal and sagittal reformats. Dose reduction techniques were achieved by using automated exposure control and/or adjustment of mA and/or kV according to patient size and/or use of iterative reconstruction technique. FINDINGS: FINDINGS: POSTOPERATIVE CHANGES: None. BRAIN PARENCHYMA: No intraparenchymal or extra-axial hemorrhage. No mass effect. No midline shift or herniation. Normal novak/white differentiation. VENTRICLES/EXTRA-AXIAL SPACES: Normal for patient's age. VESSELS: No hyperdense intraluminal thrombus. Vascular calcifications are present. SINUSES/MASTOIDS: Mucoperiosteal thickening is present in the maxillary sinuses. No fluid levels. Mastoids and middle ears are clear. MSK: No displaced or depressed calvarial fracture. OTHER: IMPRESSION: 1. No acute intracranial abnormality. No hemorrhage or mass effect. 2. Vascular calcifications. Workstation ID: [id number] Dictated by: MICAH SPIVEY on [place] Apr 10, 2024 12:39:03 AM EDT Transcribed by: MICAH SPIVEY on [place] Apr 10, 2024 12:39:03 AM EDT Finalized by: MICAH SPIVEY on [place] Apr 10, 2024 12:39:03 AM EDT [facility] Comment on above: Order Comment: Injur y/Trauma or Illness?:Illness/Other How long have you had these symptoms (acute/chronic)?:Acute Reason for exam?:Pt states has been having headaches and feeling light-headed. Took her bp and was 167/88 and just wanted to come check. Type of Exam?:Initial Additional signs and symptoms?:Pt states has been having headaches and feeling light-headed. Took her bp and was 167/88 and just wanted to come check. ED Prov Noteon 04-09-2024 ED Prov Note ED PROVIDER NOTE [facility] EMERGENCY DEPARTMENT NAME: Evelio King AGE: 69 y.o. : 1955 VISIT DATE: 04/09/2024 CSN: [id number] PCP: Gaby Bergman MD Chief Complaint Patient presents with Hypertension Patient is a 69-year-old female with past medical history of mitral valve prolapse and asthma who presents today for concern of hypertension. Patient states the last week she has noticed that she has been developing hypertension. Patient had blood pressure readings with systolics of 130-150s and even 170 shortly prior to arrival. Patient states she had headaches over the last few days which is since resolved. Patient states she has a episode of presyncope shortly prior to arrival. Patient denies any dysarthria, dysphagia, ataxia, vertigo, hearing loss, visual changes, chest pain, shortness of breath, abdominal pain, back pain, nausea, vomiting, lightness, dizziness or syncope. Patient denies additional constitutional symptoms. Patient denies previous history of high blood pressure. Past Medical History: Diagnosis Date Asthma Mitral valve prolapse Past Surgical History: Procedure Laterality Date ADENOIDECTOMY APPENDECTOMY SECTION, CLASSIC HAND SURGERY TONSILLECTOMY TOTAL KNEE REPLACEMENT ( ROYER TRIATHALON) Family History Problem Relation Age of Onset Aneurysm Father Social History Socioeconomic History Marital status: Tobacco Use Smoking status: Former Types: Cigarettes Smokeless tobacco: Never Substance and Sexual Activity Alcohol use: Never Drug use: Never Social Determinants of Health Financial Resource Strain: Low Risk (03/03/2023) Received from [facility] Overall Financial Resource Strain (CARDIA) Difficulty of Paying Living Expenses: Not very hard Food Insecurity: No Food Insecurity (03/03/2023) Received from [facility] Hunger Vital Sign Worried About Running Out of Food in the Last Year: Never true Ran Out of Food in the Last Year: Never true Transportation Needs: No Transportation Needs (03/03/2023) Received from [facility] PRAPARE - Transportation Lack of Transportation (Medical): No Lack of Transportation (Non-Medical): No Physical Activity: Insufficiently Active (03/03/2023) Received from [facility] Exercise Vital Sign Days of Exercise per Week: 4 days Minutes of Exercise per Session: 20 min Stress: No Stress Concern Present (03/03/2023) Received from [facility] of Occupational Health - Occupational Stress Questionnaire Feeling of Stress : Only a little Social Connections: Unknown (03/03/2023) Received from [facility] Social Connection and Isolation Panel [NHANES] Frequency of Communication with Friends and Family: More than three times a week Frequency of Social Gatherings with Friends and Family: More than three times a week Attends Uatsdin Services: Patient declined Active Member of Clubs or Organizations: No Attends Club or Organization Meetings: Patient declined Marital Status: Housing Stability: Low Risk (03/03/2023) Received from [facility] Housing Stability Vital Sign Unable to Pay for Housing in the Last Year: No Number of Places Lived in the Last Year: 1 In the last 12 months, was there a time when you did not have a steady place to sleep or slept in a mcc (including now)?: No Previous Medications Medication Sig acebutoloL (SECTRAL) 200 MG capsule Take 1 (one) capsule (200 mg total) by mouth 2 (two) times a day . Breo Ellipta 200-25 mcg/dose DsDv Inhale 1 (one) puff daily . loratadine (CLARITIN) 10 mg tablet Take 1 (one) tablet (10 mg total) by mouth . montelukast (SINGULAIR) 10 mg tablet Take 1 (one) tablet (10 mg total) by mouth nightly . vibegron (Gemtesa) 75 mg Tab Take by mouth . Allergies Allergen Reactions Penicillins Hives, Other (See Comments) and Unknown hives Rash, anxiety Clindamycin Rash, Other (See Comments) and Unknown Sulfa (Sulfonamide Antibiotics) Rash Review of Systems Constitutional: Negative for chills and fever. Eyes: Negative for pain. Respiratory: Negative for cough, chest tightness and shortness of breath. Cardiovascular: Negative for chest pain and palpitations. Gastrointestinal: Negative for abdominal pain, nausea and vomiting. Genitourinary: Negative for flank pain. Musculoskeletal: Negative for arthralgias and myalgias. Skin: Negative for rash. Neurological: Positive for light-headedness. Negative for dizziness, syncope and headaches. Psychiatric/Behavioral: Negative for agitation. All other systems reviewed and are negative. No data found. Physical Exam Vitals and nursing note reviewed. Constitutional: Appearance: Normal appearance. HENT: Head: Normocephalic. Ey (more content not included)... Normal [facility] COMPREHENSIVE METABOLIC PANE Donis 03-22-2024 Albumin [Mass/Vol] 4.2 g/dL Normal 3.2-5.2 [facility] Comment on above: Order Comment: [facility] has implemented the eGFR calculation approach that does not have a coefficient for race that conforms to the NKF-ASN Task Force Recommendations. Performed By: #### [id number] #### [facility] [address] [place], [place] [address] Robson Lopez M.D. [id number] ALP [Catalytic activity/Vol] 59 U/L Normal 40-[address] [facility] Comment on above: Order Comment: [facility] has implemented the eGFR calculation approach that does not have a coefficient for race that conforms to the NKF-ASN Task Force Recommendations. Performed By: #### 4 [id number] #### LAB [address] [place] [address] Robson Lopez M.D. [id number] ALT [Catalytic activity/Vol] 17 U/L Normal 0-35 U/L [facility] Comment on above: Order Comment: [facility] has implemented the eGFR calculation approach that does not have a coefficient for race that conforms to the NKF-ASN Task Force Recommendations. Performed By: #### 4 [id number] #### LAB [address] [place] [address] Robson Lopez M.D. [id number] Anion gap [Moles/Vol] 14 mmol/L Normal 10-[address] [facility] Comment on above: Order Comment: [facility] has implemented the eGFR calculation approach that does not have a coefficient for race that conforms to the NKF-ASN Task Force Recommendations. Performed By: #### 4 [id number] #### LAB [address] [place] [address] Robson Lopez M.D. [id number] AST [Catalytic activity/Vol] 18 U/L Normal 0-35 U/L [facility] Comment on above: Order Comment: [facility] has implemented the eGFR calculation approach that does not have a coefficient for race that conforms to the NKF-ASN Task Force Recommendations. Performed By: #### 4 [id number] #### LAB [address] [place] [address] Robson Lopez M.D. [id number] Bilirubin [Mass/Vol] 0.6 mg/dL Normal 0.0-1.[address] [facility] Comment on above: Order Comment: [facility] has implemented the eGFR calculation approach that does not have a coefficient for race that conforms to the NKF-ASN Task Force Recommendations. Performed By: #### 4 6126 #### LAB [address] [id number] Robson Lopez M.D. [id number] Calcium [Mass/Vol] 9.4 mg/dL Normal 8.4-10.2 [facility] Comment on above: Order Comment: [facility] has implemented the eGFR calculation approach that does not have a coefficient for race that conforms to the NKF-ASN Task Force Recommendations. Performed By: #### 4 6126 #### LAB [address] [place] [address] Robson Lopez M.D. [id number] Chloride [Moles/Vol] 108 mmol/L Normal 98-[address] [facility] Comment on above: Order Comment: [facility] has implemented the eGFR calculation approach that does not have a coefficient for race that conforms to the NKF-ASN Task Force Recommendations. Performed By: #### 4 6126 #### LAB [address] [place] [address] Robson Lopez M.D. [id number] Creatinine [Mass/Vol] 0.68 mg/dL Normal 0.60-1.[address] [facility] Comment on above: Order Comment: [facility] has implemented the eGFR calculation approach that does not have a coefficient for race that conforms to the NKF-ASN Task Force Recommendations. Performed By: #### 4 6126 #### LAB [address] [place] [address] Robson Lopez M.D. [id number] EGFR 93 mL/min/1.73 m2 Normal >=60 [facility] [place] [facility] Comment on above: Order Comment: [facility] has implemented the eGFR calculation approach that does not have a coefficient for race that conforms to the NKF-ASN Task Force Recommendations. Result Comment: Palak mated GFR was calculated using the 2020 CKD-EPI creatinine equation. Performed By: #### 4 [id number] #### LAB [address] [place] [address] Robson Lopez M.D. [id number] Glucose [Mass/Vol] 106 mg/dL High 65-99 [facility] Comment on above: Order Comment: [facility] has implemented the eGFR calculation approach that does not have a coefficient for race that conforms to the NKF-ASN Task Force Recommendations. Performed By: #### 4 6126 #### LAB [address] [place] [address] Robson Lopez M.D. [id number] HCO3 (Bld) [Moles/Vol] 25 mmol/L Normal 21-[address] [facility] Comment on above: Order Comment: [facility] has implemented the eGFR calculation approach that does not have a coefficient for race that conforms to the NKF-ASN Task Force Recommendations. Performed By: #### 4 6126 #### LAB [address] [place] [address] Robson Lopez M.D. [id number] Potassium [Moles/Vol] 4.0 mmol/L Normal 3.5-5.[address] [facility] Comment on above: Order Comment: [facility] has implemented the eGFR calculation approach that does not have a coefficient for race that conforms to the NKF-ASN Task Force Recommendations. Performed By: #### 4 6126 #### LAB [address] [place] [address] Robson Lopez M.D. [id number] Protein [Mass/Vol] 6.7 g/dL Normal 6.0-8.0 [facility] Comment on above: Order Comment: [facility] has implemented the eGFR calculation approach that does not have a coefficient for race that conforms to the NKF-ASN Task Force Recommendations. Performed By: #### 4 6126 #### LAB [address] [place] [address] Robson Lopez M.D. [id number] Sodium [Moles/Vol] 143 mmol/L Normal 135-145 [facility] Comment on above: Order Comment: [facility] has implemented the eGFR calculation approach that does not have a coefficient for race that conforms to the NKF-ASN Task Force Recommendations. Performed By: #### 4 6126 #### LAB [address] [id number] Robson Lopez M.D. [id number] Urea nitrogen [Mass/Vol] 21 mg/dL Normal 8-[address] [facility] Comment on above: Order Comment: [facility] has implemented the eGFR calculation approach that does not have a coefficient for race that conforms to the NKF-ASN Task Force Recommendations. Performed By: #### 4 6126 #### LAB [address] [place] [address] Robson Lopez M.D. [id number] Urea nitrogen/Creatinine [Mass ratio] 30.9 mg/mg High 10.0-20.[address] [facility] Comment on above: Order Comment: [facility] has implemented the eGFR calculation approach that does not have a coefficient for race that conforms to the NKF-ASN Task Force Recommendations. Performed By: #### 4 6126 #### LAB [address] [place] [address] Robson Lopez M.D. [id number] LIPID PANELon 03-22-2024 Cholesterol [Mass/Vol] 201 mg/dL High 100-[address] [facility] Comment on above: Performed By: #### 4 6087 #### LAB [address] [place] [address] Robson Lopez M.D. [id number] Cholesterol in HDL [Mass/Vol] 67 mg/dL Normal 40-[address] [facility] Comment on above: Performed By: #### 4 6087 #### LAB [address] [place] [address] Robson Lopez M.D. [id number] Cholesterol.total/C holesterol in HDL [Mass ratio] 3.0 {ratio} Normal [facility] Comment on above: Result Comment: Fema le Cholesterol/HDL Ratio: Average risk: 4.4 1/2 average risk: 3.3 2 x average risk: 7.1 Performed By: #### 4 6087 #### LAB [address] [place] [address] Robson Lopez M.D. [id number] LDL CHOLESTEROL CALCULATED 115 mg/dL Normal 10-[address] [facility] Comment on above: Result Comment: [facility] onal Cholesterol Education Program Guidelines: LDL Cholesterol Optimal: <100 mg/dL Near Optimal/above Optimal: 100-129 mg/dL Borderline High: 130-159 mg/dL High: 160-189 mg/dL Very High: greater than or equal to 190 mg/dL Performed By: #### 4 6087 #### LAB [address] [place] [address] Robson Lopez M.D. [id number] NON HDL CHOL 134 mg/dL Normal [facility] Comment on above: Result Comment: [facility] onal Cholesterol Education Program Guidelines: NON HDL Cholesterol Desirable: <130 mg/dL Borderline High: 130-159 mg/dL High: 160-189 mg/dL Very High: > or = 190 mg/dL Performed By: #### 4 6087 #### LAB [address] [place] [address] Robson Lopez M.D. [id number] Triglyceride [Mass/Vol] 94 mg/dL Normal 30-[address] [facility] Comment on above: Performed By: #### 4 6087 #### LAB [address] [place] [address] Robson Lopez M.D. [id number] MICROALBUMIN/CREATININE RATI O, UR RANDOMon 03-22-2024 Albumin DL <= 20 mg/L (U) [Mass/Vol] 0.6 mg/dL Normal 0.0-1.[address] [facility] Comment on above: Performed By: #### 4 6143 #### LAB [address] [place] [address] Robson Lopez M.D. [id number] CREATININE, URINE, RANDOM 115.0 mg/dL Normal [facility] Comment on above: Performed By: #### 4 61 #### [facility] [address] [place] [address] Robson Lopez M.D. [id number] MICROALBUMIN/CREATI NINE RATIO 5 mg/g crea Normal 0-[address] [facility] Comment on above: Performed By: #### 4 6199 #### LAB [address] [place] [address] Robson Lopez M.D. [id number] TSH WITH REFLEX FREE T4on TSH Qn 0.91 m[IU]/L Normal 0.27-4.[address] [facility] Comment on above: Performed By: #### 4 6612 #### [facility] [address] [place], [place] [address] Robson Lopez M.D. [id number] [facility] EVELIO KING ([id number]) 1955 F Date Time Provider Department 07/16/23 [facility] During your visit today, we recorded the following information about you: Marysol Olmos Ma 07/16/2023 11:27 AM Signed Pt had blood work done at [facility], results attached below. View External Labs - Chemistry [ID [id number]] Diana Lawson Ma, MD 07/16/2023 4:56 PM Signed Please notify patient that her blood count is normal, so labs aer OK. MD Nickolas Alford Ma, Kathryn 07/16/2023 4:57 PM Signed Pt notified. Marysol Olmos Ma Allergies As of Date: 07/16/2023 Noted Allergy Reaction AMOXICILLIN 05/03/2008 Comments: hives CLINDAMYCIN 01/11/2018 2 - Rash PENICILLINS 05/03/2008 Comments: hives SULFA (SULFONAMIDE ANTIBIOTICS) 05/03/2008 Date Reviewed: 07/03/2023 Reviewed by: Diana Aquino Ma - Fully Assessed Reason for Visit: Results [95] Prescriptions as of 07/16/2023 - codeine-guaiFENesin (GUAIFENESIN AC) 10-100 mg/5 mL syrup Take 5 mL by mouth three times a day as needed for cough for up to 8 days. - acebutolol (SECTRAL) 200 mg capsule Take 1 capsule by mouth twice daily. - fluticasone-vilanterol (BREO ELLIPTA) 200-25 mcg/dose inhaler Inhale 1 Inhalation as instructed once daily. - turmeric/turmeric ext/pepr ext (TURMERIC-TURMERIC EXT-PEPPER) 500-3 mg cap Take 1 capsule by mouth twice daily. - Milk Thistle 175 mg tab Take 1 tablet by mouth once daily. Takes just twice a week - Cholecalciferol, Vitamin D3, 2,000 unit cap Take 1 tablet by mouth twice daily. - Flaxseed Oil 1,000 mg cap Take 1 capsule by mouth once daily. - albuterol HFA (PROAIR HFA) 90 mcg/actuation inhaler Inhale 2 Puffs as instructed every 4 hours as needed. - montelukast (SINGULAIR) 10 mg tablet Take 1 tablet by mouth daily at bedtime. - loratadine (CLARITIN) 10 mg tablet Take 1 tablet by mouth once daily. - calcium carbonate (CALCIUM 500) 500 mg calcium (1,250 mg) chewable tablet Take 1 tablet by mouth twice daily. - omega-3 fatty acids 1,000 mg cap Take 2 capsules by mouth twice daily. - Cinnamon Bark (CINNAMON) 500 mg cap Take 1 capsule by mouth twice daily. - Garlic 1,000 mg cap Take 1 capsule by mouth once daily. - Coenzyme Q10 (CO Q-10) 200 mg cap Take 1 capsule by mouth once daily. Problem List As Of Date 07/16/2023 Noted Resolved Moderate persistent asthma without complication*10/17/2016 MVP (mitral valve prolapse) [I34.1] 10/17/2016 Kidney stone [N20.0] 10/17/2016 Prediabetes [R73.03] 07/22/2017 Encounter Status:Closed by MARYSOL OLMOS MA on 07/16/23 [facility] 07-14-2023 [facility] Telephone (FAMPWS) -------- EVELIO KING ([id number]) 1955 F Date Time Provider Department 07/14/23 DIANA SANTOS During your visit today, we recorded the following information about you: Martha Travis, LUISA 07/14/2023 3:24 PM Signed Pt called in and reports she had labs done today 07/14/23 at 1300. She is asking if provider can watch form the results and call her as soon as they come in. Sh states she isn't feeling any better after the Doxycycline and Prednisone. She reports her sinuses are still draining, but only clear snot. She also reports a cough and states it is going down into her lungs. She states she takes Claritin during the day and Singular at night and neither of them help. Pt was asking if there was any type of nasal spray she could use to help with the sinus drainage. I let Pt know she ,would probably need to come in and be seen again since her last visit was 07/03/23. Please call and advise. Diana Santos MD 07/14/2023 5:09 PM Signed She may try OTC Flonase nasal spray to help with the sinus issues and drainage MD Nickolas Alford Ma, Kathryn 07/14/2023 5:10 PM Signed Pt notified. Marysol Olmos Ma Allergies As of Date: 07/14/2023 Noted Allergy Reaction AMOXICILLIN 05/03/2008 Comments: hives CLINDAMYCIN 01/11/2018 2 - Rash PENICILLINS 05/03/2008 Comments: hives SULFA (SULFONAMIDE ANTIBIOTICS) 05/03/2008 Date Reviewed: 07/03/2023 Reviewed by: Diana Aquino Ma - Fully Assessed Reason for Visit: Patient Update [6154] Patient Question [8787] Prescriptions as of 07/14/2023 - codeine-guaiFENesin (GUAIFENESIN AC) 10-100 mg/5 mL syrup Take 5 mL by mouth three times a day as needed for cough for up to 8 days. - acebutolol (SECTRAL) 200 mg capsule Take 1 capsule by mouth twice daily. - fluticasone-vilanterol (BREO ELLIPTA) 200-25 mcg/dose inhaler Inhale 1 Inhalation as instructed once daily. - turmeric/turmeric ext/pepr ext (TURMERIC-TURMERIC EXT-PEPPER) 500-3 mg cap Take 1 capsule by mouth twice daily. - Milk Thistle 175 mg tab Take 1 tablet by mouth once daily. Takes just twice a week - Cholecalciferol, Vitamin D3, 2,000 unit cap Take 1 tablet by mouth twice daily. - Flaxseed Oil 1,000 mg cap Take 1 capsule by mouth once daily. - albuterol HFA (PROAIR HFA) 90 mcg/actuation inhaler Inhale 2 Puffs as instructed every 4 hours as needed. - montelukast (SINGULAIR) 10 mg tablet Take 1 tablet by mouth daily at bedtime. - loratadine (CLARITIN) 10 mg tablet Take 1 tablet by mouth once daily. - calcium carbonate (CALCIUM 500) 500 mg calcium (1,250 mg) chewable tablet Take 1 tablet by mouth twice daily. - omega-3 fatty acids 1,000 mg cap Take 2 capsules by mouth twice daily. - Cinnamon Bark (CINNAMON) 500 mg cap Take 1 capsule by mouth twice daily. - Garlic 1,000 mg cap Take 1 capsule by mouth once daily. - Coenzyme Q10 (CO Q-10) 200 mg cap Take 1 capsule by mouth once daily. Problem List As Of Date 07/14/2023 Noted Resolved Moderate persistent asthma without complication*10/17/2016 MVP (mitral valve prolapse) [I34.1] 10/17/2016 Kidney stone [N20.0] 10/17/2016 Prediabetes [R73.03] 07/22/2017 Encounter Status:Closed by MARYSOL OLMOS MA on 07/14/23 [facility] 07-13-2023 SH[facility] Telephone (FAMPWS) -------- EVELIO KING ([id number]) 1955 F Date Time Provider Department 07/13/23 DIANA SANTOSWS During your visit today, we recorded the following information about you: Mariana Flanagan LPN 07/13/2023 10:20 AM Signed Patient calling said she is not feeling any better, she has one doxycyline left and 3 Prednisone tablets left. Patient said she had to stop taking the cough syrup with codeine was affecting her blood pressure, she is taking delsym. Patient is asking to have lab work done? She wants orders faxed to [facility] phone number is [phone], she did not have the fax number. Please advise Diana Santos MD 07/13/2023 7:47 PM Signed OK for CBC and CMP as ordered MD Nickolas Alford Ma, Kathryn 07/14/2023 8:37 AM Signed Called number listed below which is for [facility] outpatient laboratory. . Orders faxed, pt notified. Marysol Olmos Ma Allergies As of Date: 07/13/2023 Noted Allergy Reaction AMOXICILLIN 05/03/2008 Comments: hives CLINDAMYCIN 01/11/2018 2 - Rash PENICILLINS 05/03/2008 Comments: hives SULFA (SULFONAMIDE ANTIBIOTICS) 05/03/2008 Date Reviewed: 07/03/2023 Reviewed by: Diana Aquino Ma - Fully Assessed Reason for Visit: Patient Question [1477] Primary Visit Diagnosis:Chronic sinusitis, unspecified location [J32.9] Order(s):COMP METABOLIC PANEL [SQCMP] Order #: [id number] FUTURE CBC [SQCBC] Order #: [id number] FUTURE Prescriptions as of 07/14/2023 - codeine-guaiFENesin (GUAIFENESIN AC) 10-100 mg/5 mL syrup Take 5 mL by mouth three times a day as needed for cough for up to 8 days. - acebutolol (SECTRAL) 200 mg capsule Take 1 capsule by mouth twice daily. - fluticasone-vilanterol (BREO ELLIPTA) 200-25 mcg/dose inhaler Inhale 1 Inhalation as instructed once daily. - turmeric/turmeric ext/pepr ext (TURMERIC-TURMERIC EXT-PEPPER) 500-3 mg cap Take 1 capsule by mouth twice daily. - Milk Thistle 175 mg tab Take 1 tablet by mouth once daily. Takes just twice a week - Cholecalciferol, Vitamin D3, 2,000 unit cap Take 1 tablet by mouth twice daily. - Flaxseed Oil 1,000 mg cap Take 1 capsule by mouth once daily. - albuterol HFA (PROAIR HFA) 90 mcg/actuation inhaler Inhale 2 Puffs as instructed every 4 hours as needed. - montelukast (SINGULAIR) 10 mg tablet Take 1 tablet by mouth daily at bedtime. - loratadine (CLARITIN) 10 mg tablet Take 1 tablet by mouth once daily. - calcium carbonate (CALCIUM 500) 500 mg calcium (1,250 mg) chewable tablet Take 1 tablet by mouth twice daily. - omega-3 fatty acids 1,000 mg cap Take 2 capsules by mouth twice daily. - Cinnamon Bark (CINNAMON) 500 mg cap Take 1 capsule by mouth twice daily. - Garlic 1,000 mg cap Take 1 capsule by mouth once daily. - Coenzyme Q10 (CO Q-10) 200 mg cap Take 1 capsule by mouth once daily. Problem List As Of Date 07/13/2023 Noted Resolved Moderate persistent asthma without complication*10/17/2016 MVP (mitral valve prolapse) [I34.1] 10/17/2016 Kidney stone [N20.0] 10/17/2016 Prediabetes [R73.03] 07/22/2017 Encounter Status:[facility] Tele[facility] (FAMPWS) -------- EVELIO KING ([id number]) 1955 F Date Time Provider Department 07/10/23 DIANA SATNOS FAMPWS During your visit today, we recorded the following information about you: Kaylie Bowman JACQUI 07/10/2023 4:44 PM Signed Patient calling, states her cough is really bad. She has been taking Tussionex DM but that does not seem to be helping. Asking if there is anything stronger she can take. She has had Tessalon Perles before and they did not help. Please advise. Diana Santos MD 07/10/2023 5:08 PM Signed OK for codeine cough syrup as ordered MD Nickolas Alford Ma, Kathryn 07/10/2023 5:10 PM Signed Pt notified. Marysol Olmos Ma Allergies As of Date: 07/10/2023 Noted Allergy Reaction AMOXICILLIN 05/03/2008 Comments: hives CLINDAMYCIN 01/11/2018 2 - Rash PENICILLINS 05/03/2008 Comments: hives SULFA (SULFONAMIDE ANTIBIOTICS) 05/03/2008 Date Reviewed: 07/03/2023 Reviewed by: Diana Aquino Ma - Fully Assessed Reason for Visit: Cough [28] Primary Visit Diagnosis:Other chronic sinusitis [J32.8] Order(s):codeine-guaiFEN esin (GUAIFENESIN AC) 10-100 mg/5 mL syrupTake 5 mL by mouth three times a day as needed for cough for up to 8 days.Disp: 118 mLRfl: 0 Prescriptions as of 07/10/2023 - codeine-guaiFENesin (GUAIFENESIN AC) 10-100 mg/5 mL syrup Take 5 mL by mouth three times a day as needed for cough for up to 8 days. - doxycycline (VIBRA-TABS) 100 mg tablet Take 1 tablet by mouth two times a day for 10 days. - acebutolol (SECTRAL) 200 mg capsule Take 1 capsule by mouth twice daily. - fluticasone-vilanterol (BREO ELLIPTA) 200-25 mcg/dose inhaler Inhale 1 Inhalation as instructed once daily. - turmeric/turmeric ext/pepr ext (TURMERIC-TURMERIC EXT-PEPPER) 500-3 mg cap Take 1 capsule by mouth twice daily. - Milk Thistle 175 mg tab Take 1 tablet by mouth once daily. Takes just twice a week - Cholecalciferol, Vitamin D3, 2,000 unit cap Take 1 tablet by mouth twice daily. - Flaxseed Oil 1,000 mg cap Take 1 capsule by mouth once daily. - albuterol HFA (PROAIR HFA) 90 mcg/actuation inhaler Inhale 2 Puffs as instructed every 4 hours as needed. - montelukast (SINGULAIR) 10 mg tablet Take 1 tablet by mouth daily at bedtime. - loratadine (CLARITIN) 10 mg tablet Take 1 tablet by mouth once daily. - calcium carbonate (CALCIUM 500) 500 mg calcium (1,250 mg) chewable tablet Take 1 tablet by mouth twice daily. - omega-3 fatty acids 1,000 mg cap Take 2 capsules by mouth twice daily. - Cinnamon Bark (CINNAMON) 500 mg cap Take 1 capsule by mouth twice daily. - Garlic 1,000 mg cap Take 1 capsule by mouth once daily. - Coenzyme Q10 (CO Q-10) 200 mg cap Take 1 capsule by mouth once daily. Problem List As Of Date 07/10/2023 Noted Resolved Moderate persistent asthma without complication*10/17/2016 MVP (mitral valve prolapse) [I34.1] 10/17/2016 Kidney stone [N20.0] 10/17/2016 Prediabetes [R73.03] 07/22/2017 Prescriptions ordered this encounter Disp Refills Start End CODEINE 10 MG-GUAIFENESIN 100 MG/5 M* 118 * 0 07/10/2023 07/18/2023 Route: ORAL Sig: Take 5 mL by mouth three times a day as needed for cough for up to 8 days. Encounter Status:Closed by MARYSOL OLMOS MA on 07/10/23 [facility] EVELIO KING ([id number]) 1955 F Date Time Provider Department 07/08/23 DIANA SANTOSWS During your visit today, we recorded the following information about you: Talisha Berry RN 07/08/2023 2:41 PM Signed Patient asking for 's advise. Reports she had head cold and was prescribed Z-kirill by an earlier this month. Then pt was seen in [facility] on 07/02 for sore throat. Was prescribed prednisone to fill if asthma flares. Pt reports she never took the prednisone. Pt then was ordered doxycycline by Dr. Santos on 07/03 for sinusitis. Patient calling today to report that her sinuses are running like crazy and everything is all up in her head'. Denies any heaviness in her chest or asthma flare-up. Reports has taken 9 total doses of her doxycycline and continues as ordered. Pt asking: If she should take the prednisone that was ordered for her on 07/02 or not? Asking if this would help her sinuses? Asking if there is anything else she should take to help all the sinus drainage that she has currently. Thank you. Diana Santos MD 07/09/2023 8:37 AM Signed I would suggest that she go ahead and take the prednisone, as this should help her sinuses clear up. MD Jayce Alford Ma, Rilee 07/09/2023 10:00 AM Signed Call to pt and notified her of Providers message below, verbalized understanding. iDana Aquino Ma Allergies As of Date: 07/08/2023 Noted Allergy Reaction AMOXICILLIN 05/03/2008 Comments: hives CLINDAMYCIN 01/11/2018 2 - Rash PENICILLINS 05/03/2008 Comments: hives SULFA (SULFONAMIDE ANTIBIOTICS) 05/03/2008 Date Reviewed: 07/03/2023 Reviewed by: Diana Aquino Ma - Fully Assessed Reason for Visit: Patient Update [1234] Prescriptions as of 07/09/2023 - doxycycline (VIBRA-TABS) 100 mg tablet Take 1 tablet by mouth two times a day for 10 days. - acebutolol (SECTRAL) 200 mg capsule Take 1 capsule by mouth twice daily. - fluticasone-vilanterol (BREO ELLIPTA) 200-25 mcg/dose inhaler Inhale 1 Inhalation as instructed once daily. - turmeric/turmeric ext/pepr ext (TURMERIC-TURMERIC EXT-PEPPER) 500-3 mg cap Take 1 capsule by mouth twice daily. - Milk Thistle 175 mg tab Take 1 tablet by mouth once daily. Takes just twice a week - Cholecalciferol, Vitamin D3, 2,000 unit cap Take 1 tablet by mouth twice daily. - Flaxseed Oil 1,000 mg cap Take 1 capsule by mouth once daily. - albuterol HFA (PROAIR HFA) 90 mcg/actuation inhaler Inhale 2 Puffs as instructed every 4 hours as needed. - montelukast (SINGULAIR) 10 mg tablet Take 1 tablet by mouth daily at bedtime. - loratadine (CLARITIN) 10 mg tablet Take 1 tablet by mouth once daily. - calcium carbonate (CALCIUM 500) 500 mg calcium (1,250 mg) chewable tablet Take 1 tablet by mouth twice daily. - omega-3 fatty acids 1,000 mg cap Take 2 capsules by mouth twice daily. - Cinnamon Bark (CINNAMON) 500 mg cap Take 1 capsule by mouth twice daily. - Garlic 1,000 mg cap Take 1 capsule by mouth once daily. - Coenzyme Q10 (CO Q-10) 200 mg cap Take 1 capsule by mouth once daily. Problem List As Of Date 07/08/2023 Noted Resolved Moderate persistent asthma without complication*10/17/2016 MVP (mitral valve prolapse) [I34.1] 10/17/2016 Kidney stone [N20.0] 10/17/2016 Prediabetes [R73.03] 07/22/2017 Encounter Status:Closed by DIANA AQUINO MA on 07/09/23 [facility] 07-03-2023 CNOV Office Visit (FAMPWS ) -------- EVELIO KING ([id number]) 1955 F Date Time Provider Department 07/03/23 3:40 PM DIANA SANTOS FAMPWS During your visit today, we recorded the following information about you: Pulse Respiration Blood pressure Weight 80/minute 18/minute 142/90 76.7 kg Diana Santos MD 07/03/2023 5:04 PM Signed Chief Complaint Patient presents with: Follow Up HPI Evelio King is a 68 year old female who presents here today for [facility] Follow up. Has been sick since 06/06/23. Reports symptoms started with a really bad headache. Pt has was seen in [facility] yesterday 07/02/23 for sore throat, cough, fatigue, neck pain, diarrhea, CALDERA, ear pain, and sinus issues for the last 2 weeks. She was seen at an a week ago that dx her with cold virus. She started to feel better until her sx worsened 07/01/23. Denies any fever or chest pain. She has been using Ibuprofen and Cough medications. Was treated with Zpack 06/26/23 and used peroxide in her right hear. No covid or strep testing done when seen in UC last week, was not tested yesterday either. She was given taper dose Prednisone 10 mg to fill IF asthma flares. Pt states she does not agree that she has a head cold like she has been told at both UC visits. She believes she has a sinus infection. Pt reports that her symptoms did improve some with use of the Zpak. Her right sided ear and neck pain improved. She continues to still have aching, fever and chills. She is able to cough up thick white phlegm. Running low grade fever as of this morning. Pt states that she really does not go out into public which is why she does not believe she has Covid. Believes she has strep or a sinus infection at this point. Allergic to cillans Past medical history, appointments, medications, allergies reviewed. Previous Medical History PAST MEDICAL HISTORY Diagnosis Date Pre-diabetes Renal calculi Previous Surgical History PAST SURGICAL HISTORY Procedure Laterality Date APPENDECTOMY BREAST BIOPSY Right DELIVERY ONLY X2 LIPOMA (LARGE) PAST SURGICAL HISTORY OF Right 07/10/2012 vein ablation-right leg TONSILLECTOMY AND ADENOIDECTOMY HX Family History FAMILY HISTORY Problem Relation Age of Onset Carotid Disease Father Colon Cancer Other Patient Allergies ALLERGIES Allergen Reactions Amoxicillin hives Clindamycin Rash Penicillins hives Sulfa (Sulfonamide * Current Medications Current Outpatient Medications on File Prior to Visit Medication Sig acebutolol (SECTRAL) 200 mg capsule Take 1 capsule by mouth twice daily. albuterol HFA (PROAIR HFA) 90 mcg/actuation inhaler Inhale 2 Puffs as instructed every 4 hours as needed. calcium carbonate (CALCIUM 500) 500 mg calcium (1,250 mg) chewable tablet Take 1 tablet by mouth twice daily. Cholecalciferol, Vitamin D3, 2,000 unit cap Take 1 tablet by mouth twice daily. Cinnamon Bark (CINNAMON) 500 mg cap Take 1 capsule by mouth twice daily. Coenzyme Q10 (CO Q-10) 200 mg cap Take 1 capsule by mouth once daily. Flaxseed Oil 1,000 mg cap Take 1 capsule by mouth once daily. fluticasone-vilanterol (BREO ELLIPTA) 200-25 mcg/dose inhaler Inhale 1 Inhalation as instructed once daily. Garlic 1,000 mg cap Take 1 capsule by mouth once daily. loratadine (CLARITIN) 10 mg tablet Take 1 tablet by mouth once daily. Milk Thistle 175 mg tab Take 1 tablet by mouth once daily. Takes just twice a week montelukast (SINGULAIR) 10 mg tablet Take 1 tablet by mouth daily at bedtime. omega-3 fatty acids 1,000 mg cap Take 2 capsules by mouth twice daily. predniSONE (DELTASONE) 10 mg tablet Take 5 tablets by mouth once daily for 1 day, THEN 4 tablets once daily for 1 day, THEN 3 tablets once daily for 1 day, THEN 2 tablets once daily for 1 day, THEN 1 tablet once daily for 1 day. turmeric/turmeric ext/pepr ext (TURMERIC-TURMERIC EXT-PEPPER) 500-3 mg cap Take 1 capsule by mouth twice daily. No current facility-administered medications on file prior to visit. Social History Social History Tobacco Use Smoking status: Never Smokeless tobacco: Never Substance Use Topics Alcohol use: No Comment: Rarely social Drug use: No EXAM: BP 142/90 (BP Site: Left Arm, BP Position: Sitting, BP Cuff Size: Regular Adult) Pulse 80 Resp 18 Wt 76.7 kg (169 lb) BMI 29.94 kg/m? General Appearance: Well appearing, alert, in no acute distress, well-hydrated, well nourished.. Head: Facial tenderness. Ears: External ears normal, canals clear. Neck: Supple, no adenopathy, some tenderness on the right side of neck; thyroid symmetric, normal size, no bruits. Lungs: Lungs clear to auscultation. No wheezing, rhonchi, rales.. Heart: RRR without murmur, gallop, or rubs. No ectopy. Health Maintenance List Hepatitis B Vaccine(1 of 3 - Risk 3-dose series) Never done HbA1C d (more content not included)... Normal [facility] CNOVon 07-02-2023 CNOV Office Visit (UCWSTR ) -------- EVELIO KING ([id number]) 1955 F Date Time Provider Department 07/02/23 12:15 PM [facility]ELS [facility] During your visit today, we recorded the following information about you: Temperature Pulse Respiration Blood pressure 98.8 degrees 75/minute 18/minute 142/84 Weight 77.7 kg Yony Daniels MD 07/02/2023 12:40 PM Signed Patient presents with: Cough: Cough, fatigue, neck pain, diarrhea, CALDERA, sinus issues x 2 weeks HPI: Feeling sick for almost 2 weeks. Initial bad headache and right throat, neck, and ear pain. She thinks she may have had strep throat. Urgent care diagnosed her with a cold virus. She has been improving but worsened again last night. Positive symptoms: Cough, improved Sinus pressure, some sinus drainage, Fatigue, achy, #5 weight loss, Wheezing, temp 99.3 yesterday Resolved right earache, right neck pain, white in the throat, Diarrhea, Headache, Negative symptoms: Chest pain, Fever, OTC: Cough Medicine, Ibuprofen. Took zpak 06/26/23. Has used peroxide in the right ear. She did not have COVID or strep testing at the urgent care last week. ACTIVE PROBLEM LIST Moderate Persistent Asthma Without Complication Mvp (Mitral Valve Prolapse) Kidney Stone Prediabetes MEDICATIONS: Current Outpatient Medications Medication Sig acebutolol (SECTRAL) 200 mg capsule Take 1 capsule by mouth twice daily. albuterol HFA (PROAIR HFA) 90 mcg/actuation inhaler Inhale 2 Puffs as instructed every 4 hours as needed. calcium carbonate (CALCIUM 500) 500 mg calcium (1,250 mg) chewable tablet Take 1 tablet by mouth twice daily. Cholecalciferol, Vitamin D3, 2,000 unit cap Take 1 tablet by mouth twice daily. Cinnamon Bark (CINNAMON) 500 mg cap Take 1 capsule by mouth twice daily. Coenzyme Q10 (CO Q-10) 200 mg cap Take 1 capsule by mouth once daily. Flaxseed Oil 1,000 mg cap Take 1 capsule by mouth once daily. fluticasone-vilanterol (BREO ELLIPTA) 200-25 mcg/dose inhaler Inhale 1 Inhalation as instructed once daily. Garlic 1,000 mg cap Take 1 capsule by mouth once daily. loratadine (CLARITIN) 10 mg tablet Take 1 tablet by mouth once daily. Milk Thistle 175 mg tab Take 1 tablet by mouth once daily. Takes just twice a week montelukast (SINGULAIR) 10 mg tablet Take 1 tablet by mouth daily at bedtime. omega-3 fatty acids 1,000 mg cap Take 2 capsules by mouth twice daily. turmeric/turmeric ext/pepr ext (TURMERIC-TURMERIC EXT-PEPPER) 500-3 mg cap Take 1 capsule by mouth twice daily. No current facility-administered medications for this visit. ALLERGIES: ALLERGIES Allergen Reactions Amoxicillin hives Clindamycin Rash Penicillins hives Sulfa (Sulfonamide * VITALS: BP 142/84 Pulse 75 Temp 37.1 ?C (98.8 ?F) (Tympanic) Resp 18 Wt 77.7 kg (171 lb 6.4 oz) SpO2 99% BMI 30.36 kg/m? PHYSICAL EXAM: GEN: mildly ill appearing. Accompanied by her . HEENT: PERRL, EOMI, conjunctiva clear Ears: left canal clear. Cerumen in the right canal. Visible TMs without erythema, bulge, or effusion Sinuses: non-tender frontal sinus, non-tender maxillary sinuses Throat: moist mucous membranes, mild erythema, no exudate Neck: supple, no thyromegaly, no lymphadenopathy HEART: regular rate and rhythm, no murmurs LUNGS: clear to auscultation, no wheezes or crackles, no increased WOB ASSESSMENT/PLAN: 1. Sore throat - ICD9: 462, ICD10: J02.9 (primary diagnosis) 2. Moderate persistent asthma without complication - ICD9: 493.90, ICD10: J45.40 Reviewed differential: initial illness with virus (including COVID), treated strep throat, likely new viral illness yesterday, secondary sinusitis (unlikely with improving sinus symptoms). Reassured of benign ear, throat, and lung exam. Continue supportive care with rest, cough and cold medicine, and as needed analgesia. Printed - PREDNISONE 10 MG TABLET to fill if asthma flares. Yony Daniels MD Allergies As of Date: 07/02/2023 Noted Allergy Reaction AMOXICILLIN 05/03/2008 Comments: hives CLINDAMYCIN 01/11/2018 2 - Rash PENICILLINS 05/03/2008 Comments: hives SULFA (SULFONAMIDE ANTIBIOTICS) 05/03/2008 Date Reviewed: 07/02/2023 Reviewed by: Merline Sherwood LPN - Fully Assessed Reason for Visit: Cough [28] Cmt: Cough, fatigue, neck pain, diarrhea, CALDERA, sinus issues x 2 weeks Primary Visit Diagnosis:Sore throat [J02.9] Other Visit Diagnosis:Moderate persistent asthma without complication [J45.40] Order(s):predniSONE (DELTASONE) 10 mg tabletTake 5 tablets by mouth once daily for 1 day, THEN 4 tablets once daily for 1 day, THEN 3 tablets once daily for 1 day, THEN 2 tablets once daily for 1 day, THEN 1 tablet once daily for 1 day.Disp: 15 tabletRfl: 0 Prescriptions as of 07/02/2023 - acebutolol (SECTRAL) 200 mg capsule Take 1 capsule by mouth twice daily. - albuterol HFA (PROAIR HFA) 90 mcg/ac (more content not included)... Normal [facility] CNOVon 03-06-2023 CNOV Office Visit (FAMPWS ) -------- EVELIO KING ([id number]) 1955 F Date Time Provider Department 03/06/23 1:40 PM HUONG MAHAN During your visit today, we recorded the following information about you: Pulse Respiration Blood pressure Weight 60/minute 16/minute 120/78 78.2 kg Huong Mahan APRN.[employer] CASTER 03/06/2023 2:30 PM Signed Evelio King is a 68 year old female here for a Medicare Subsequent Annual Wellness Visit Health Risk Assessment In general, health is: Good Concerns with balance: Not at all Concerns with teeth or dentures: Not at all Concerns with sexual function:Not at all [place] anxious, stressed, angry, irritable, lonely, isolated, or had thoughts of hurting themself: Not at all Has little interest or pleasure in doing things: Not at all Bothered by feeling down, depressed, or hopeless: Not at all Needs help with grocery shopping, cooking, housework, bathing, grooming, dressing, eating, sitting or standing, walking, using the toilet, handling finances, taking medications, using the telephone, or driving: No Following safety precautions in the home environment and vehicle: removed throw rugs from floors, installed grab bars in the bathroom, handrails in stairwells, having adequate lighting, wearing seatbelt at all times?: Yes Smokes cigarettes, vapes, or chew tobacco: No Eats healthy foods including fruits, vegetables, whole grains, and fiber-rich foods: More than half the days Number of days per week engages in exercise: 4 days Average alcohol consumption: Never Current Providers Specialists: I have reviewed specialist-related care of the patient in the medical record. Protection Officer: Radha Optometry: Dr. Lizbeth Cerna Pulmonology asthma: Medical/Family history review Reviewed and updated problem list, medical/surgical/family/ social history, medications, and allergies. Opioid use review Patient is not currently using opioids. Depression screening Depression Screening PHQ-2 Score PHQ-9 Score 02/23/2022 0 - Depression screening tool completed and reviewed. Based on score and interview, patient is not at risk for depression. Screening tool discussed with patient, and I recommended no further intervention at this time. Cognitive screening Mini Cog Score: Score: 5 Cognitive screening reviewed and no further action needed (score 3-5) Functional Observation Was the patient's timed Up AND Go test unsteady or ? 12 seconds? No Advance Care Planning End of Life planning discussed, including patient's advanced directive wishes: Yes Measurements BP 120/78 Pulse 60 Resp 16 Wt 172 lb 6.4 oz (78.2kg) Visual acuity (required for Welcome to Medicare): follows with optometry/ophthalmology wearing contacts. Hearing Evaluation: within normal limits Assessment/Plan - Counseled on healthy diet and regular exercise - Fall avoidance - Mammogram recommended and ordered This is a 68 year old female who presents today with: Patient presents with: Medicare Wellness Exam HISTORY OF PRESENT ILLNESS: Evelio King is a 68 year old female. Patient presents with: Medicare Wellness Exam In office for extensive exam. MVP: Taking Acebutolol 200 mg BID. Not following with cardiology. Denies chest pain, dizziness, or edema. Asthma: Following with pulmonology. Taking Breo Ellipta 200/25 mcg daily, Singulair 10 mg daily, Claritin 10 mg daily, and albuterol inhaler as needed. Mammogram: [facility] places order, will have follow up in winter. Colonoscopy: Colonoscopy over 8 years ago. Refers it was normal. Vaccines: Denies wanting any vaccines at this time. PAST MEDICAL HISTORY: PAST MEDICAL HISTORY Diagnosis Date Pre-diabetes Renal calculi PAST SURGICAL HISTORY Procedure Laterality Date APPENDECTOMY BREAST BIOPSY Right DELIVERY ONLY X2 LIPOMA (LARGE) PAST SURGICAL HISTORY OF Right 07/10/2012 vein ablation-right leg TONSILLECTOMY AND ADENOIDECTOMY HX ALLERGIES Amoxicillin, Clindamycin, Penicillins, and Sulfa (Sulfonamide Antibiotics) MEDICATIONS Current Outpatient Medications Medication Sig acebutolol (SECTRAL) 200 mg capsule Take 1 capsule by mouth twice daily. fluticasone-vilanterol (BREO ELLIPTA) 200-25 mcg/dose inhaler Inhale 1 Inhalation as instructed once daily. turmeric/turmeric ext/pepr ext (TURMERIC-TURMERIC EXT-PEPPER) 500-3 mg cap Take 1 capsule by mouth twice daily. Milk Thistle 175 mg tab Take 1 tablet by mouth once daily. Cholecalciferol, Vitamin D3, 2,000 unit cap Take 1 tablet by mouth twice daily. Flaxseed Oil 1,000 mg cap Take 1 capsule by mouth once daily. albuterol HFA (PROAIR HFA) 90 mcg/actuation inhaler Inhale 2 Puffs as instructed every 4 hours as needed. montelukast (SINGULAIR) 10 mg tablet Take 1 tablet by mouth daily at bedtime. loratadine (CLARITIN) 10 mg tablet Take 1 tablet by mouth once daily. shirley (more content not included)... Normal [facility] DIGITAL MAMM SCREENING W/ TO Mckenna 08-25-2022 DIGITAL MAMM SCREENING W/ RIK Patient Name: EVELIO KING STUDY: Digital mammography screening with rik; 08/25/2022 3:21 pm ACCESSION NUMBER(S): [id number] ORDERING CLINICIAN: MARIMAR CELESTIN INDICATION: Screening. COMPARISON: Comparison is made to prior digital mammograms dated 07/23/2021 FINDINGS: CC and MLO 2D digital mammograms and digital breast tomosynthesis images were obtained of the bilateral breasts. 3-D volume images were reconstructed in 4 views at an independent workstation as 1 mm slices through the breasts in both the CC and MLO projections. The breast tissue is almost entirely fatty. No discrete mass or focal asymmetry is identified. No suspicious microcalcifications or foci of architectural distortion are seen. There has been no significant change. This study was interpreted with CAD. IMPRESSION: No mammographic evidence of malignancy. BI-RADS CATEGORY: Category: 1 - Negative. Recommendation: 1 Year Screening. Electronically signed by: JE BUSCH MD [facility] LARGE JOINT/BURSA INJECTION AND/OR ASPIRATION: R greater trochanteric bursaon 07-08-2022 Radiology Study observation (narrative) [facility] LARGE JOINT/BURSA INJECTION AND/OR ASPIRATION: R greater trochanteric bursaon 07-03-2022 Nazario Mayorga MD 07/08/2022 6:49 AM LARGE JOINT/BURSA INJECTION AND/OR ASPIRATION: R greater trochanteric bursa Date/Time: 07/03/2022 3:50 PM Supporting Documentation Indications: pain Procedure Details: Location: hip - R greater trochanteric bursa Local Anesthetic: ethyl chloride (cold spray) Needle size: 22 G Medication Verification: I have personally verified and performed the final check of the medication(s) used in this procedure prior to administration. The following items were included during the verification process for medication(s) administered: drug name, strength, volume, expiration, physical integrity and appearance of the medication(s). Medications administered: 5 mL lidocaine 1% (PF) 1 %; 1 mL triamcinolone 40 MG/ML Patient tolerance: patient tolerated the procedure well with no immediate complications The patient was prepped with Betadine. [facility] Provider Note - ED v3on 07-0 Provider Note - ED v3 Provider Note: Chart Review: ED NOTES ED NOTES: Nontoxic-appearing female presents urgent care drain care. Chief complaint bilateral eye redness drainage. Duration of symptoms 1 day. Associated symptoms ocular pruritus clear drainage and eye redness. Patient states she did use Pataday yesterday. That did help. States was prescribed this by ophthalmology. States she has been sneezing and clear nasal discharge. No known sick contacts. Denies any fever body aches chills nausea vomiting abdominal pain chest pain shortness of breath or change in bowel or bladder habits. Denies any eye trauma flashes of lights floaters visual changes. Does wear contacts has not wore them the last few days. Past medical history prescription medication use allergies reviewed. HISTORY OF PRESENTING ILLNESS EVELIO is a 67 year old Female and was seen by me at 21-Mar-2022 10:14. The historian is the patient. Triage Information: Most recent Vital Sign Value Date PAST MEDICAL HISTORY ALLERGIES/INTOLERANCES: Allergy Allergen: clindamycin Type: Drug Reaction: Unknown Allergen: penicillins Type: Drug Category Reaction: Unknown Allergen: sulfa drugs Type: Drug Category Reaction: Unknown HEALTH HISTORY: No documented data. OUTPATIENT MEDICATIONS: Home Medications Review Status for Reconciliation: Incomplete Med Status: Incomplete Medication History Drug Name: Claritin 10 mg oral tablet Instructions: 1 tab(s) orally once a day Drug Name: Singulair 10 mg oral tablet Instructions: 1 tab(s) orally once a day Drug Name: albuterol 0.63 mg/3 mL (0.021%) inhalation solution Instructions: 3 milliliter(s) inhaled 3 times a day Drug Name: acebutolol 200 mg oral capsule Instructions: 1 cap(s) orally once a day Drug Name: Advair Diskus 250 mcg-50 mcg inhalation powder Instructions: 1 puff(s) inhaled 2 times a day Drug Name: predniSONE 20 mg oral tablet Instructions: 2 tab(s) orally once a day Drug Name: Azithromycin 5 Day Dose Pack 250 mg oral tablet Instructions: Take two tablets on day 1 take one tablet on days 2-5 Drug Name: benzonatate 200 mg oral capsule Instructions: 1 cap(s) orally 3 times a day SIGNIFICANT EVENTS: Past Surgical History Description:Nephrolithot tayo REVIEW OF SYSTEMS CONSTITUTIONAL: Negative for: anorexia, chills, diaphoresis, fever, malaise, weakness and weight loss EYES: POSITIVE for: itching and redness Negative for: lacrimation, lid swelling, pain, photophobia and vision changes ENMTEars: Negative for: discharge, itching, hearing disturbance, hearing loss, pain and tinnitus Nose: Negative for: congestion, discharge, nose bleeds, obstruction and sneezing CARDIOVASCULAR: Negative for: chest pain, palpitations and tachycardia RESPIRATORY: Negative for: cough, dyspnea, hemoptysis, pleuritic chest pain and wheezing GASTROINTESTINAL: Negative for: abdominal pain, constipation, diarrhea, nausea and vomiting; GENITOURINARY: Negative for: dysuria, frequency and hematuria; MUSCULOSKELETAL: Negative for: back pain, joint pain and pain INTEGUMENTARY: Negative for: hives and itching; rash NEUROLOGICAL: Negative for: dizziness, gait abnormality and headache; All other systems reviewed and are negative PHYSICAL EXAM CONSTITUTIONAL: Well appearing, well nourished, awake, alert, oriented to person, place, time/situation and in no apparent distress. HENMT: Airway patent, ears with clear tympanic membranes bilaterally. Nasal mucosa clear. Mouth with normal mucosa. Throat has no vesicles, no oropharyngeal exudates and uvula is midline. Face with no lymph node enlargement. EYES: Bilateral Eyes: conjunctiva erythema (Bilateral clear drainage noted. Visual acuity unchanged. No pain. Limbus clear.Bilateral clear drainage noted. Visual acuity unchanged. No pain. Limbus clear.) CARDIOVASCULAR: Normal rate, regular rhythm. Normal peripheral perfusion RESPIRATORY: Breath sounds clear and equal bilaterally. NEUROLOGICAL: Alert and oriented, no focal deficits, no motor or sensory deficits. SKIN: Skin normal color for race, warm, dry and intact. No evidence of trauma. HEME/LYMPH: Negative cervical adenopathy. DISPOSITION Diagnosis/Annotation: ED Dx Name:[place] eye Code:H10.029 Disposition: discharged Type: home CONSULT Comments/Additional Findings: No eye trauma. No purulent drainage. Bilateral eye redness and pruritus. Pataday did improve symptoms. Suspicious of allergic conjunctivitis. Will continue use Pataday and Zyrtec. We will not wear contacts. Follow-up with ophthalmology on Thursday for reevaluation. Red flags for prompt reevaluation discussed. Will be seen in ED for any new or worsening symptoms. Patient verbalized understanding agrees with plan of care. CRITICAL CARE TIME Is this a critically ill patient: no Electronic Signatures: Tone Hooks (TECHNICAL SOLUTION ARCHITECT-VACUUM CASTER) (Signed 21-Mar-2022 10:51) (more content not included)... Normal [facility] PT Progress Noteon 0 PT Progress Note Therapy Diagnosis Assessed Pain in right knee (719.46) (M25.561) Stiffness of right knee, not elsewhere classified (719.56) (M25.661) Insurance Insurance reviewed Visit number: 9 Authorization not required after evaluation 05/08 Medicare follow guidelines Evaluating PT Dede Welch PT, DPT--transfer care to Mahogany Delgado PT, DPT . Medicare certification period: 09/06/2019, to 12/05/2018. Subjective Patient reports: Patient reported 1/10 pain in knee prior to treatment, she reported throughout the day she experiences sharp pain with ambulation (she stated it feels like something is sticking me ). Precautions: none. 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 Objective Ortho R knee AROM 2-78 deg -->0--117 . Treatment Time in clinic started at 1:15 pm Time in clinic ended at 2:01 pm Total time in clinic is 46 minutes. Total timed code time is 43 minutes. Therapeutic exercise (70887): timed minutes 43, units 3 . Recumbent bike full revolutions x 5' Slant board 1 x 2 Step up and over 2 x 10 blue step Step up lateral x20 blue step SLS 2 x 30 on Airex (P) BOSU lunge 2 x 10 alt LEs (P) Squats (at wall) x10 Standing heel raises 2 x 10 SLE LAQ 2 x 10 0# (X not this date HS Curl 2 x 10 orange Heel slides on wall 3x60 holds R w/ 2# Prone flex stretch 10 x 10 very gentle this date Heel slides 10 x 10 R w/ strap QS with SLR 2 x 10 S/L Hip ABD 2 x10 Bridging x10 x 3 holds w/ ball squeeze Not Performed This date (10/03/19) Tandem Stance 2x 30 ea direction Toe Taps on step alt 2 x10 on airex X HS stretch w/ strap 10x10 holds supine x quad sets 8 x 10 R seated (D/C to HEP). SAQ 2x10x 5 holds black . Manual Therapy (69452): timed minutes . patellar mobilization grade 3 sup/inf 2 x 10 PROM Extension overpressure X PROM flexion supine STM to medial/distal HS/ADD x contract relax EOB flex x 2 mins (x) . Assessment Patient demonstrated good understanding of exercises and progressions. She demonstrated lack of flexion this date. She ambulated around clinic area without use of AD. Plan Planned interventions include: cryotherapy, education/instruction, electrical stimulation, gait training, home program, manual therapy, neuromuscular re-education and therapeutic exercises. Goals: Goals set and discussed today. Patient will demonstrate understanding of HEP for continued management of ROM/strength for return to activity Patient will demonstrate improved R knee AROM 0-90 degrees to allow for improved tolerance to transferring in/out of her car, by week 2 Activity Limitation: Patient will score 60% or greater on LEFS to allow for reutrn to previously active lifestyle, by week 6 Balance: Patient will demonstrate SLS x 10 seconds or greater to allow for ease with negotiating uneven surfaces without a device., by week 6 Gait/Locomotion: Patient will demonstrate independent community mobility without a device for return to previous independence, by week 6 Pain: Patient will have pain at worse 3/10 to allow for sleeping interrupted 1x/ngiht or less, by week 6 Range of Motion/Joint Mobility: Patient will demonstrate R knee AROM 0-115 degrees to allow for increased ability to squat down to retrieve items, by week 6 Strength: Patient will demonstrate improved R knee strength to 5/5 to allow for reciprocal ascend/descend of stairs for laundry, by week 6 Frequency and duration: 3 time(s) a week, for 6 weeks. Potential to achieve rehab goals is excellent motivated Pt has two remaining sessions with HOLD WORKER to finalize and establish HEP and then this will serve as her D/C after 10/07/19 per patient request to make this her last visit. Progress with POC, as tolerated. Monitor home program. Signatures Electronically signed by : Zoraida Velásquez, HOLD WORKER; Oct 05 2019 2:06PM EST (Author) Electronically signed by : Mahogany Delgado, PT; Oct 06 2019 3:55PM EST Normal [facility] PT Progress Noteon 0 PT Progress Note Therapy Diagnosis Assessed Pain in right knee (719.46) (M25.561) Stiffness of right knee, not elsewhere classified (719.56) (M25.661) Insurance Insurance reviewed Visit number: 8 Authorization not required after evaluation 05/08 Medicare follow guidelines Evaluating PT Dedemiguel Welch PT, DPT--transfer care to Mahogany Delgado PT, DPT . Medicare certification period: 09/06/2019, to 12/05/2018. Subjective Patient reports: Patient reported she experienced increased pain the day prior to treatment, she reported the day prior she had company all day and was up and down the entire day. She reported 2/10 pain before treatment. Pt goes back to surgeon in November for final F/U. Pt notes still some difficulty with stairs due to her stairs at home being very steep. Precautions: none. 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 Objective Ortho LEFS: 68/80 R knee AROM 2-78 deg -->0--116 L hip strength 4+/5--> 5/5 L knee strength 5/5-->5/5 R hip strength 4/5-->4+/5 R knee strength 3+/5 in available range-->4+/5 improved gait mechanics without AD, improved peg, min-no instability. Treatment Time in clinic started at 1:15 pm Time in clinic ended at 0158 pm Total time in clinic is 43 minutes. Total timed code time is 40 minutes. Therapeutic exercise (72677): timed minutes 23, units 2 . Recumbent bike full revolutions x 5' Slant board 1 x HSC 2 X 15 Green Step up and over 2 x 10 blue step (P) Step up lateral 2 x 10 blue step Pt re-assessed for PN this date with PT, edu on continued HEP, and POC Not Performed This date (10/03/19) LAQ 2 x 10 0# (X not this date Tandem Stance 2x 30 ea direction Toe Taps on step alt 2 x10 on airex Standing heel raises 2 x 10 on airex SLS 2 x 30 BOSU lunge x15 alt LEs Heel slides on wall 3x60 holds R w/ 2# Prone flex stretch 10 x 10 very gentle this date Heel slides 10 x 10 R w/ strap HS stretch w/ strap 10x10 holds supine x Bridging 2 x 12 x 2 holds w/ ball squeeze x S/L Hip ABD 2 x10 x QS with SLR 2 x 10 quad sets 8 x 10 R seated (D/C to HEP). SAQ 2x10x 5 holds black . Manual Therapy (31310): timed minutes 17, units 1 . patellar mobilization grade 3 sup/inf 2 x 10 PROM Extension overpressure X PROM flexion supine STM to medial/distal HS/ADD x contract relax EOB flex x 2 mins (x) . Assessment Pt was seen/treated by Zoraida Velásquez HOLD WORKER from [phone] and then Mahogany Delgado PT, DPT, Cert DN saw patient from [phone] and was re-assessed for D/C. Pt has demonstrated progress with skilled Physical Therapy with improvements in ROM, strength, and gait mechanics. She is still limited into knee flexion and fatigues with progression of strengthening/balance exercises, but has progressed well so far and understands updated HEP to continue to focus on addressing impairments. Response to treatment: increased pain and improved joint mobility/ROM. Plan Planned interventions include: cryotherapy, education/instruction, electrical stimulation, gait training, home program, manual therapy, neuromuscular re-education and therapeutic exercises. Goals: Goals set and discussed today. Patient will demonstrate understanding of HEP for continued management of ROM/strength for return to activity Patient will demonstrate improved R knee AROM 0-90 degrees to allow for improved tolerance to transferring in/out of her car, by week 2 Activity Limitation: Patient will score 60% or greater on LEFS to allow for reutrn to previously active lifestyle, by week 6 Balance: Patient will demonstrate SLS x 10 seconds or greater to allow for ease with negotiating uneven surfaces without a device., by week 6 Gait/Locomotion: Patient will demonstrate independent community mobility without a device for return to previous independence, by week 6 Pain: Patient will have pain at worse 3/10 to allow for sleeping interrupted 1x/ngiht or less, by week 6 Range of Motion/Joint Mobility: Patient will demonstrate R knee AROM 0-115 degrees to allow for increased ability to squat down to retrieve items, by week 6 Strength: Patient will demonstrate improved R knee strength to 5/5 to allow for reciprocal ascend/descend of stairs for laundry, by week 6 Frequency and duration: 3 time(s) a week, for 6 weeks. Potential to achieve rehab goals is excellent motivated Pt has two remaining sessions with HOLD WORKER to finalize and establish HEP and then this will serve as her D/C after 10/07/19 per patient request to make this her last visit. Progress with POC, as tolerated. Monitor home program. Signatures Electronically signed by : Zoraida Velásquez, HOLD WORKER; Oct 03 2019 1:33PM EST (Author) Electronically signed by : Mahogany Delgado, PT; Oct 03 2019 3:09PM EST (Author) Normal [facility] PT Progress Noteon 0 PT Progress Note Therapy Diagnosis Assessed Pain in right knee (719.46) (M25.561) Stiffness of right knee, not elsewhere classified (719.56) (M25.661) Insurance Insurance reviewed Visit number: 7 Authorization not required after evaluation 02/05 Medicare follow guidelines Evaluating PT Dede Welch PT, DPT--transfer care to Mahogany Delgado PT, DPT . Medicare certification period: 09/06/2019, to 12/05/2018. Subjective Patient reports: Patient reported 0/10 pain before treatment. She reported when she awoke this AM she experienced stiffness. Precautions: none. 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 Objective Ortho AAROM R knee flexion 120 degrees. 09/30/2019 -->107 09/19/19. Treatment Time in clinic started at 01:14 Time in clinic ended at 02:01 Total time in clinic is 47 minutes. Total timed code time is 43 minutes. Therapeutic exercise (80229): timed minutes 43, units 3 . Recumbent bike seat on 13 full revolutions x 5' slant board 1' x 3 HSC 2 X 15 Green LAQ 2 x 10 0# (X not this date Step ups 2 x 10 6 step fwd/lat (I) Tandem Stance 2x 30 ea direction Toe Taps on step alt 2 x10 on airex Standing heel raises 2 x 10 on airex SLS 2 x 30 BOSU lunge x15 alt LEs Heel slides on wall 3x60 holds R w/ 2# Prone flex stretch 10 x 10 very gentle this date heel slides 10 x 10 R w/ strap HS stretch w/ strap 10x10 holds supine x Bridging 2 x 12 x 2 holds w/ ball squeeze x S/L Hip ABD 2 x10 x QS with SLR 2 x 10 quad sets 8 x 10 R seated (D/C to HEP). SAQ 2x10x 5 holds black . Manual Therapy (99373):. patellar mobilization grade 3 sup/inf 2 x 10 PROM Extension overpressure X PROM flexion supine STM to medial/distal HS/ADD x contract relax EOB flex x 2 mins (x) . Assessment Patient progressing with flexion this date after stretching. She was able to progress with Airex with SLS with moderate sway this date. Plan Planned interventions include: cryotherapy, education/instruction, electrical stimulation, gait training, home program, manual therapy, neuromuscular re-education and therapeutic exercises. Goals: Goals set and discussed today. Patient will demonstrate understanding of HEP for continued management of ROM/strength for return to activity Patient will demonstrate improved R knee AROM 0-90 degrees to allow for improved tolerance to transferring in/out of her car, by week 2 Activity Limitation: Patient will score 60% or greater on LEFS to allow for reutrn to previously active lifestyle, by week 6 Balance: Patient will demonstrate SLS x 10 seconds or greater to allow for ease with negotiating uneven surfaces without a device., by week 6 Gait/Locomotion: Patient will demonstrate independent community mobility without a device for return to previous independence, by week 6 Pain: Patient will have pain at worse 3/10 to allow for sleeping interrupted 1x/ngiht or less, by week 6 Range of Motion/Joint Mobility: Patient will demonstrate R knee AROM 0-115 degrees to allow for increased ability to squat down to retrieve items, by week 6 Strength: Patient will demonstrate improved R knee strength to 5/5 to allow for reciprocal ascend/descend of stairs for laundry, by week 6 Frequency and duration: 3 time(s) a week, for 6 weeks. Potential to achieve rehab goals is excellent motivated Will continue with passive ROM next date as pain decreased for improved mobility. Progress with POC, as tolerated. Signatures Electronically signed by : Zoraida Velásquez PTA; Sep 30 2019 2:11PM EST (Author) Electronically signed by : Mahogany Delgado, PT; Sep 30 2019 4:15PM EST [facility] PT Progress Noteon 0 PT Progress Note Therapy Diagnosis Assessed Pain in right knee (719.46) (M25.561) Stiffness of right knee, not elsewhere classified (719.56) (M25.661) Insurance Insurance reviewed Visit number: 7 Authorization not required after evaluation 02/05 Medicare follow guidelines Evaluating PT Dede Welch PT, DPT--transfer care to Mahogany Delgado PT, DPT . Medicare certification period: 09/06/2019, to 12/05/2018. Subjective Patient reports: Patient reports that she has had increased pain since last visit. Has been icing off and on. Notes that where she has a dent in the lower leg has been very sore since last visit and she has swelling along inner perez that she had ultrasound for possible blood clot 3wk post surgery. Notes that MD office informed patient that it was a deep bruise. Current pain 3/10. Patient rates current pain 3/10. Precautions: none. 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 Objective Ortho AAROM R knee flexion 118 degrees. 09/28/2019 -->107 09/19/19. Treatment Time in clinic started at 1:00 pm Time in clinic ended at 1:44 pm Total time in clinic is 44 minutes. Total timed code time is 43 minutes. Therapeutic exercise (60859): timed minutes 42, units 3 . Recumbent bike seat on 13 full revolutions x 5' slant board 1' x 3 Heel slides on wall 3x60 holds R w/ 2# heel slides 10 x 10 R w/ strap HS stretch w/ strap 10x10 holds supine Bridging 2 x 12 x 2 holds w/ ball squeeze S/L Hip ABD 2 x10 QS with SLR 2 x 10 HSC 2 X 15 Green LAQ 2 x 10 0# (X not this date Step ups 2 x 10 6 step fwd/lat Tandem Stance 2x 30 ea direction Toe Taps on step alt 2 x10 on airex Standing heel raises 2 x 10 on airex SLS 2 x 30 Prone flex stretch 10 x 10 very gentle this date quad sets 8 x 10 R seated (D/C to HEP). SAQ 2x10x 5 holds black bolster . Manual Therapy (32952): timed minutes 1 . patellar mobilization grade 3 sup/inf 2 x 10 PROM Extension overpressure X PROM flexion supine STM to medial/distal HS/ADD x contract relax EOB flex x 2 mins (x) . Assessment Informed patient to phone MD regarding current symptoms.Placed weight on foot instead of around ankle this date d/t increased pain in ankle/lower leg. Patient guards during ambulation with mildly antalgic gait with cane. Patient had exacerbation of pain throughout all treatment exercises. Improved flexion measurements this date. Fair patellar mobility this date. Tightness along medial HS with palpation. Response to treatment: increased pain. Plan Planned interventions include: cryotherapy, education/instruction, electrical stimulation, gait training, home program, manual therapy, neuromuscular re-education and therapeutic exercises. Goals: Goals set and discussed today. Patient will demonstrate understanding of HEP for continued management of ROM/strength for return to activity Patient will demonstrate improved R knee AROM 0-90 degrees to allow for improved tolerance to transferring in/out of her car, by week 2 Activity Limitation: Patient will score 60% or greater on LEFS to allow for reutrn to previously active lifestyle, by week 6 Balance: Patient will demonstrate SLS x 10 seconds or greater to allow for ease with negotiating uneven surfaces without a device., by week 6 Gait/Locomotion: Patient will demonstrate independent community mobility without a device for return to previous independence, by week 6 Pain: Patient will have pain at worse 3/10 to allow for sleeping interrupted 1x/ngiht or less, by week 6 Range of Motion/Joint Mobility: Patient will demonstrate R knee AROM 0-115 degrees to allow for increased ability to squat down to retrieve items, by week 6 Strength: Patient will demonstrate improved R knee strength to 5/5 to allow for reciprocal ascend/descend of stairs for laundry, by week 6 Frequency and duration: 3 time(s) a week, for 6 weeks. Potential to achieve rehab goals is excellent motivated Will continue with passive ROM next date as pain decreased for improved mobility. Progress with POC, as tolerated. Signatures Electronically signed by : Mary Huizar PTA; Sep 28 2019 3:36PM EST (Author) [facility] Progress Noteon 0 PT Progress Note Therapy Diagnosis Assessed Pain in right knee (719.46) (M25.561) Stiffness of right knee, not elsewhere classified (719.56) (M25.661) Insurance Insurance reviewed Visit number: 6 Authorization not required after evaluation 02/05 Medicare follow guidelines Evaluating PT Dede Welch PT, DPT--transfer care to Mahogany Delgado PT, DPT . Medicare certification period: 09/06/2019, to 12/05/2018. Subjective Patient reports: Patient reported 2/10 pain before treatment. Precautions: none. 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 Objective Ortho AAROM R knee flexion 111 degrees. -->107 09/19/19. Treatment Time in clinic started at 01:15 am Time in clinic ended at 01:58 Total time in clinic is 43 minutes. Total timed code time is 41 minutes. Therapeutic exercise (25290): timed minutes 33, units 2 . Recumbent bike seat on 13 full revolutions x 5' slant board 1' x 3 Heel slides on wall 3x60 holds R w/ 2# heel slides 10 x 10 R w/ strap HS stretch w/ strap 10x10 holds supine Bridging 2 x 12 x 2 holds w/ ball squeeze S/L Hip ABD 2 x10 QS with SLR 2 x 10 HSC 2 X 15 Green LAQ 2 x 10 0# Step ups 2 x 10 6 step fwd/lat Tandem Stance 2x 30 ea direction Toe Taps on step alt 2 x10 on airex Standing heel raises 2 x 10 on airex SLS 2 x 30 (N) Prone flex stretch 10 x 10 (N) quad sets 8 x 10 R seated (D/C to HEP). SAQ 2x10x 5 holds black bolster . Manual Therapy (04138): timed minutes 8, units 1 . patellar mobilization grade 3 sup/inf PROM Extension overpressure X PROM flexion supine STM to medial/distal HS/ADD x contract relax EOB flex x 2 mins (x) . Assessment Added SLS this date with minimal sway will progress with addition of Airex next session. Added prone flexion stretch with pillow under knee for comfort. She ambulated into and out of clinic with use of S/C. Plan Planned interventions include: cryotherapy, education/instruction, electrical stimulation, gait training, home program, manual therapy, neuromuscular re-education and therapeutic exercises. Goals: Goals set and discussed today. Patient will demonstrate understanding of HEP for continued management of ROM/strength for return to activity Patient will demonstrate improved R knee AROM 0-90 degrees to allow for improved tolerance to transferring in/out of her car, by week 2 Activity Limitation: Patient will score 60% or greater on LEFS to allow for reutrn to previously active lifestyle, by week 6 Balance: Patient will demonstrate SLS x 10 seconds or greater to allow for ease with negotiating uneven surfaces without a device., by week 6 Gait/Locomotion: Patient will demonstrate independent community mobility without a device for return to previous independence, by week 6 Pain: Patient will have pain at worse 3/10 to allow for sleeping interrupted 1x/ngiht or less, by week 6 Range of Motion/Joint Mobility: Patient will demonstrate R knee AROM 0-115 degrees to allow for increased ability to squat down to retrieve items, by week 6 Strength: Patient will demonstrate improved R knee strength to 5/5 to allow for reciprocal ascend/descend of stairs for laundry, by week 6 Frequency and duration: 3 time(s) a week, for 6 weeks. Potential to achieve rehab goals is excellent motivated Continue to progress ROM and strength and progress CKC and balance activities for improved ease with ADL's and IADL's. Progress with POC, as tolerated. Signatures Electronically signed by : Zoraida Velásquez HOLD WORKER; Sep 26 2019 2:05PM EST (Author) Electronically signed by : Mahogany Delgado PT; Sep 27 2019 12:59PM EST [facility] Progress Note Therapy Diagnosis Assessed Pain in right knee (719.46) (M25.561) Stiffness of right knee, not elsewhere classified (719.56) (M25.661) Insurance Insurance reviewed Visit number: 5 Authorization not required after evaluation 02/05 Medicare follow guidelines Evaluating PT Dede Welch PT, DPT--transfer care to Mahogany Delgado PT, DPT . Medicare certification period: 09/06/2019, to 12/05/2018. Subjective Patient reports: Patient reported 3/10 pain in knee prior to treatment. She reported she did not sleep well the night prior to treatment. Patient reported 4/10 pain and stated it feels losers after treatment. Precautions: none. 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 Objective Ortho AAROM R knee flexion 111 degrees. -->107 09/19/19. Treatment Therapeutic exercise (22917): timed minutes 33, units 2 . recumbent bike seat on 13 full revolutions x 5' slant board 1' x 3 Heel slides on wall 3x60 holds R w/ 2# heel slides 10 x 10 R w/ strap HS stretch w/ strap 10x10 holds supine SAQ 2x10x 5 holds black bolster Bridging 2 x 12 x 2 holds w/ ball squeeze (P) S/L Hip ABD 2x10 (N) QS with SLR 2 x 10 HSC 2 X 15 Green LAQ 2 x 10 0# Step ups 2 x 10 6 step fwd/lat Tandem Stance 2x 30 ea direction (N) Toe Taps on step alt x10 on ariex(N) Standing heel raises 2 x 10 (X) quad sets 8 x 10 R seated (D/C to HEP). Manual Therapy (15693): timed minutes 9, units 1 . patellar mobilization grade 3 sup/inf 3' PROM Extension overpressure X PROM flexion supine x 6 mins STM to medial/distal HS/ADD x contract relax EOB flex x 2 mins (x) . Assessment Patient demonstrated antalgic gait with ambulation around the clinic area. She continues with lack of flexion, verbal cues for increased flexion with ambulation. Plan Planned interventions include: cryotherapy, education/instruction, electrical stimulation, gait training, home program, manual therapy, neuromuscular re-education and therapeutic exercises. Goals: Goals set and discussed today. Patient will demonstrate understanding of HEP for continued management of ROM/strength for return to activity Patient will demonstrate improved R knee AROM 0-90 degrees to allow for improved tolerance to transferring in/out of her car, by week 2 Activity Limitation: Patient will score 60% or greater on LEFS to allow for reutrn to previously active lifestyle, by week 6 Balance: Patient will demonstrate SLS x 10 seconds or greater to allow for ease with negotiating uneven surfaces without a device., by week 6 Gait/Locomotion: Patient will demonstrate independent community mobility without a device for return to previous independence, by week 6 Pain: Patient will have pain at worse 3/10 to allow for sleeping interrupted 1x/ngiht or less, by week 6 Range of Motion/Joint Mobility: Patient will demonstrate R knee AROM 0-115 degrees to allow for increased ability to squat down to retrieve items, by week 6 Strength: Patient will demonstrate improved R knee strength to 5/5 to allow for reciprocal ascend/descend of stairs for laundry, by week 6 Frequency and duration: 3 time(s) a week, for 6 weeks. Potential to achieve rehab goals is excellent motivated Continue to progress ROM and strength and progress CKC and balance activities for improved ease with ADL's and IADL's. Progress with POC, as tolerated. Signatures Electronically signed by : Zoraida Velásquez, HOLD WORKER; Sep 23 2019 4:30PM EST (Author) Electronically signed by : Mahogany Delgado, PT; Sep 27 2019 12:59PM EST [facility] Progress Noteon 9 PT Progress Note Therapy Diagnosis Assessed Pain in right knee (719.46) (M25.561) Stiffness of right knee, not elsewhere classified (719.56) (M25.661) Insurance Insurance reviewed Visit number: 5 Authorization not required after evaluation 02/05 Medicare follow guidelines Evaluating PT Dede Welch PT, DPT--transfer care to Mahogany Delgado PT, DPT . Medicare certification period: 09/06/2019, to 12/05/2018. Subjective Patient reports: Pt notes she is continuing to work on her exercises and notes right above the knee and incision it is sore, burning, and swelling. Pt continue to ice as well. Pt still concerned with inflammation in knee. Pt noted significant decrease in pain after session. Patient rates current pain 11/28. Precautions: none. 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 Objective Ortho AAROM R knee flexion 110 degrees.-->107 09/19/19. Treatment Time in clinic started at 0146 pm Time in clinic ended at 0233 Total time in clinic is 47 minutes. Total timed code time is 45 minutes. Therapeutic exercise (29052): timed minutes 30, units 2 . recumbent bike seat on 13 full revolutions x 5' slant board 1' x 3 Heel slides on wall 3x60 holds R w/ 2# heel slides 10 x 10 R w/ strap HS stretch w/ strap 10x10 holds SAQ 2x10x 5 holds (N) black bolster Bridging 2 x 12 x 2 holds w/ ball squeeze (P) S/L Hip ABD 2x10 (N) QS with SLR 1 x 10 AND 1x13 seated (X) HSC2 X 10 Green (X) LAQ 2 x 10 0# (X) Standing heel raises 2 x 10 (X) Step ups 2 x 10 6 step fwd/lat (X) Tandem Stance (A) Toe Taps on step (A) quad sets 8 x 10 R seated (D/C to HEP). Manual Therapy (62573): timed minutes 15, units 1 . patellar mobilization grade 3 sup/inf 3' PROM Extension overpressure 3'' PROM flexion supine x 5 mins STM to medial/distal HS/ADD x 4' (N) contract relax EOB flex x 2 mins (x) . Assessment Pt continues to focus on inflammation and has difficulty tolerating aggressive ROM exercises and PROM. Pt continues to demonstrate improvements in quad activation with exercises but is still demonstrating antalgic gait with decreased stance time RLE. Fatigues quickly with exercises and still with myofascial restriction throughout RLE but understood edu on self-release techniques with rolling pin. Response to treatment: decreased pain and improved joint mobility/ROM. Plan Planned interventions include: cryotherapy, education/instruction, electrical stimulation, gait training, home program, manual therapy, neuromuscular re-education and therapeutic exercises. Goals: Goals set and discussed today. Patient will demonstrate understanding of HEP for continued management of ROM/strength for return to activity Patient will demonstrate improved R knee AROM 0-90 degrees to allow for improved tolerance to transferring in/out of her car, by week 2 Activity Limitation: Patient will score 60% or greater on LEFS to allow for reutrn to previously active lifestyle, by week 6 Balance: Patient will demonstrate SLS x 10 seconds or greater to allow for ease with negotiating uneven surfaces without a device., by week 6 Gait/Locomotion: Patient will demonstrate independent community mobility without a device for return to previous independence, by week 6 Pain: Patient will have pain at worse 3/10 to allow for sleeping interrupted 1x/ngiht or less, by week 6 Range of Motion/Joint Mobility: Patient will demonstrate R knee AROM 0-115 degrees to allow for increased ability to squat down to retrieve items, by week 6 Strength: Patient will demonstrate improved R knee strength to 5/5 to allow for reciprocal ascend/descend of stairs for laundry, by week 6 Frequency and duration: 3 time(s) a week, for 6 weeks. Potential to achieve rehab goals is excellent motivated Continue to progress ROM and strength and progress CKC and balance activities for improved ease with ADL's and IADL's. Progress with POC, as tolerated. Signatures Electronically signed by : Mahogany Delgado, PT; Sep 19 2019 2:37PM EST (Author) [facility] Progress Noteon 9 PT Progress Note Therapy Diagnosis Assessed Pain in right knee (719.46) (M25.561) Stiffness of right knee, not elsewhere classified (719.56) (M25.661) Insurance Insurance reviewed Visit number: 4 Authorization not required after evaluation 01/06 Medicare follow guidelines Evaluating PT Dede Welch PT, DPT--transfer care to Mahogany Delgado PT, DPT . Medicare certification period: 09/06/2019, to 12/05/2018. Subjective Patient reports: Pt. reports that she continues to have a lot of inflammation. Precautions: none. 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 Objective Ortho AAROM R knee flexion 110 degrees. Treatment Time in clinic started at 12:15 pm Time in clinic ended at 12:58 pm Total time in clinic is 43 minutes. Total timed code time is 40 minutes. Therapeutic exercise (67437): timed minutes 25, units 2 . recumbent bike seat on 13 full revolutions x 5' slant board 1' x 3 Heel slides on wall 10x10 holds R heel slides 10 x 10 R w/ strap HS stretch w/ strap 10x10 holds quad sets 8 x 10 R seated QS with SLR 1 x 10 AND 1x13 seated HSC2 X 10 Green LAQ 2 x 10 0# Standing heel raises 2 x 10 Step ups 2 x 10 6 step fwd/lat Bridging 2 x 10. Manual Therapy (03694): timed minutes 15, units 1 . patellar mobilization grade 3 sup/inf x 2 mins PROM Extension overpressure x 12 mins PROM flexion EOB x 3 mins (x) contract relax EOB flex x 2 mins (x) . Assessment Fair tolerance to ther ex. Weakness noted with step ups and SLR. Tightness noted R knee flexion. Palpable tenderness along distal HS. Plan Planned interventions include: cryotherapy, education/instruction, electrical stimulation, gait training, home program, manual therapy, neuromuscular re-education and therapeutic exercises. Goals: Goals set and discussed today. Patient will demonstrate understanding of HEP for continued management of ROM/strength for return to activity Patient will demonstrate improved R knee AROM 0-90 degrees to allow for improved tolerance to transferring in/out of her car, by week 2 Activity Limitation: Patient will score 60% or greater on LEFS to allow for reutrn to previously active lifestyle, by week 6 Balance: Patient will demonstrate SLS x 10 seconds or greater to allow for ease with negotiating uneven surfaces without a device., by week 6 Gait/Locomotion: Patient will demonstrate independent community mobility without a device for return to previous independence, by week 6 Pain: Patient will have pain at worse 3/10 to allow for sleeping interrupted 1x/ngiht or less, by week 6 Range of Motion/Joint Mobility: Patient will demonstrate R knee AROM 0-115 degrees to allow for increased ability to squat down to retrieve items, by week 6 Strength: Patient will demonstrate improved R knee strength to 5/5 to allow for reciprocal ascend/descend of stairs for laundry, by week 6 Frequency and duration: 3 time(s) a week, for 6 weeks. Potential to achieve rehab goals is excellent motivated Progress ROM R knee as tolerated. Progress with POC, as tolerated. Signatures Electronically signed by : Donnell Rowan HOLD WORKER; Sep 15 2019 1:55PM EST (Author) Electronically signed by : Mahogany Delgado PT; Sep 15 2019 5:08PM EST [facility] Progress Note Therapy Diagnosis Assessed Stiffness of right knee, not elsewhere classified (719.56) (M25.661) Pain in right knee (719.46) (M25.561) Insurance Insurance reviewed Visit number: 2 Authorization not required after evaluation 10/08 Medicare follow guidelines Evaluating PT Dede Welch PT, DPT--transfer care to Mahogany Delgado PT, DPT . Medicare certification period: 09/06/2019, to 12/05/2018. Subjective Patient reports: Patient reports that she had an ultrasound yesterday to rule out blood clot in lower leg d/t feeling a lump. Patient reports it is not a clot per MD. Notes that she is having a lot of swelling and was put on prednisone d/t the swelling for 6 days. 2/10 pain currently. Difficulty getting the R LE up into her SUV after she sits. Patient rates current pain /10. Precautions: none. 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 Objective Ortho 103 degrees AAROM . Treatment Time in clinic started at 2:32 pm Time in clinic ended at 3:17 pm Total time in clinic is 45 minutes. Total timed code time is 44 minutes. Therapeutic exercise (34549): timed minutes 44, units . recumbent bike-rocking x 5 mins slant board 1' x 2 heel slides 10 x 10 R quad sets 5 x 10 R QS with SLR 2 x 10 HSC 2 x 10 orange. LAQ 2 x 10 0# (N) Standing heel raises 2 x 10 (N) . Manual Therapy (45065):. manual patellar mobilization grade 3 sup/inf x 10 reps PROM flexion EOB x 3 mins (x) contract relax EOB flex x 2 mins (x) . Assessment Arrived to therapy using standard cane. Patient is wearing compression stockings with moderate visible swelling in the knee and calf. Minimal swelling along ankle with good definition of lateral malleolus. Switched from recumbent bike to Nustep with improved tolerance. Difficulty with completion of exercises d/t pain increase. Patient was able to complete today's treatment with some difficulty. Plan Planned interventions include: cryotherapy, education/instruction, electrical stimulation, gait training, home program, manual therapy, neuromuscular re-education and therapeutic exercises. Goals: Goals set and discussed today. Patient will demonstrate understanding of HEP for continued management of ROM/strength for return to activity Patient will demonstrate improved R knee AROM 0-90 degrees to allow for improved tolerance to transferring in/out of her car, by week 2 Activity Limitation: Patient will score 60% or greater on LEFS to allow for reutrn to previously active lifestyle, by week 6 Balance: Patient will demonstrate SLS x 10 seconds or greater to allow for ease with negotiating uneven surfaces without a device., by week 6 Gait/Locomotion: Patient will demonstrate independent community mobility without a device for return to previous independence, by week 6 Pain: Patient will have pain at worse 3/10 to allow for sleeping interrupted 1x/ngiht or less, by week 6 Range of Motion/Joint Mobility: Patient will demonstrate R knee AROM 0-115 degrees to allow for increased ability to squat down to retrieve items, by week 6 Strength: Patient will demonstrate improved R knee strength to 5/5 to allow for reciprocal ascend/descend of stairs for laundry, by week 6 Frequency and duration: 3 time(s) a week, for 6 weeks. Potential to achieve rehab goals is excellent motivated Plan to continue with ROM and strength progression as pain allows for ease of ADL's such as getting into the car. Progress with POC, as tolerated. Plan of care was developed with input and agreement by the patient. Signatures Electronically signed by : Mary Huizar, HOLD WORKER; Sep 09 2019 3:18PM EST (Author) Electronically signed by : Mahogany Delgado, PT; Sep 14 2019 11:26PM EST [facility] Progress Noteon --201 9 PT Progress Note Therapy Diagnosis Assessed Pain in right knee (719.46) (M25.561) Stiffness of right knee, not elsewhere classified (719.56) (M25.661) Insurance Insurance reviewed Visit number: 3 Authorization not required after evaluation 12/06 Medicare follow guidelines Evaluating PT Dede Welch PT, DPT--transfer care to Mahogany Delgado PT, DPT . Medicare certification period: 09/06/2019, to 12/05/2018. Subjective Patient reports: Pt notes her pain level is only about 2/10 and notes she walked all the way in from the parking lot and wouldn't let her drop her off. Pt notes. Patient rates current pain 2/10. Precautions: none. 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 Objective Ortho Flex: 103 degrees AAROM-->108 on wall Ext: 0 over stretching . Treatment Time in clinic started at 0150 pm Time in clinic ended at 0240 pm Total time in clinic is 50 minutes. Total timed code time is 45 minutes. Therapeutic exercise (09437): timed minutes 25, units 2 . recumbent bike seat on 13 full revolutions x 5' slant board 1' x 3 Heel slides on wall 10x10 holds R heel slides 10 x 10 R w/ strap HS stretch w/ strap 10x10 holds quad sets 8 x 10 R seated QS with SLR 1 x 10 AND 1x13 seated HSC 2x10 orange (X) LAQ 2 x 10 0# (X) Standing heel raises 2 x 10 (X) . Manual Therapy (82830): timed minutes 20, units 1 . patellar mobilization grade 3 sup/inf x 10 PROM Extension overpressure x 10' PROM flexion EOB x 3 mins (x) contract relax EOB flex x 2 mins (x) . Assessment Pt tolerated additional exercises well today, but did have increased c/o pain and soreness. Decreased compensation and improved motor control with seated QS and SLR this date compared to supine. Continued improvements in ROM flex and extension compared to initial evaluation. Still demonstrating antalgic gait with decreased TKE and quad activation, but improving. Response to treatment: increased pain, improved joint mobility/ROM and improved flexibility. Patient was able to complete today's treatment with some difficulty. Plan Planned interventions include: cryotherapy, education/instruction, electrical stimulation, gait training, home program, manual therapy, neuromuscular re-education and therapeutic exercises. Goals: Goals set and discussed today. Patient will demonstrate understanding of HEP for continued management of ROM/strength for return to activity Patient will demonstrate improved R knee AROM 0-90 degrees to allow for improved tolerance to transferring in/out of her car, by week 2 Activity Limitation: Patient will score 60% or greater on LEFS to allow for reutrn to previously active lifestyle, by week 6 Balance: Patient will demonstrate SLS x 10 seconds or greater to allow for ease with negotiating uneven surfaces without a device., by week 6 Gait/Locomotion: Patient will demonstrate independent community mobility without a device for return to previous independence, by week 6 Pain: Patient will have pain at worse 3/10 to allow for sleeping interrupted 1x/ngiht or less, by week 6 Range of Motion/Joint Mobility: Patient will demonstrate R knee AROM 0-115 degrees to allow for increased ability to squat down to retrieve items, by week 6 Strength: Patient will demonstrate improved R knee strength to 5/5 to allow for reciprocal ascend/descend of stairs for laundry, by week 6 Frequency and duration: 3 time(s) a week, for 6 weeks. Potential to achieve rehab goals is excellent motivated Plan to continue with ROM and strength progression as pain allows for ease of ADL's such as getting into the car. Progress with POC, as tolerated. Plan of care was developed with input and agreement by the patient. Signatures Electronically signed by : Mahogany Delgado, PT; Sep 12 2019 2:54PM EST (Author) [facility] Initial Evaluationon 12- PT Initial Evaluation Reason For Visit Initial Evaluation, Post-Op . s/p R TKA on 08/15/19. Referred by: Dr. Nazario Mayorga follow up on 09/08/19 Primary Care Physician: Dr. Santos Subjective Current Episode of Functional Impairment and/or Pain Date of surgery: 08/15/2019 Mechanism of Injury:. EVELIO KING is a 64 year year old female referred to PT for R knee replacement on 08/15/19-was in the hospital overnight. Patient had 2 weeks of [facility] services, felt things went well with [facility], last session on 09/02/2019. She passed out the first day at home and fell off her kitchen bench, only 1 occurrence. Patient is no longer using her walker, is using her cane for all community mobility and household mobility, she does occasionally find herself without her cane when she has furniture nearby. She is able to dress herself independently except for her compression stockings, she has been showering independently in a walk in shower. She stopped taking her narcotic medications 48 hours ago, pain has increased some but she feels Tylenol is managing it fairly. She has not slept well, waking 3-4x/night, is unable to sleep on her back. Pain: Patient rates pain 3/10 . Least severe: 09/30/09. Most Severe: 03/30/10. Patient reports aching, dull pain, sharp pain, stiffness and swelling. Location: R knee, patella. Her pain is constant. Exacerbating Factors: time of day: late afternoon, sitting, standing . sitting with knee bent. Relieving Factors: ice, time of day: morning , over the counter medication. Medical Screening: No signs of domestic/child or elder abuse . Fall risk Initial Fall Risk Screening: EVELIO has not fallen in the last 6 months. Her fall did not result in injury. EVELIO does not have a fear of falling. She does not need assistance with sitting, standing or walking. Does not need assistance walking in her home. She does not need assistance in an unfamiliar setting. The patient is not using an assistive device. Fall Risk Assessment: Patient is identified as a fall risk. Altered in Mental Status: no. Altered Elimination: no. Sensory Deficit: no. Unable or Unwilling to Follow Directions: no. Low: invasive procedure or hospital discharge (within last month). Care Plan: Low Risk: Environmental for all patients and low risk patients: Offer assistance as needed or requested, keep environment free of obstacles, keep floor clean and dry, keep room lighting, wheelchair brakes on, bed/ stretcher locked and in low position if applicable, non-slip footwear if applicable, walker/cane available if needed, side rails up if applicable and pre-emptive toileting. mitral valve prolapse, asthma. Functional Assessment and Medical Management Prior level of function: independent all ADL's/IADL's. Functional limitations: standing 10 mins , sitting 30 mins and stairs step to . Work Status: retired . home care. Current Status: improving. Patient Awareness: Patient is aware of her diagnosis and prognosis. Current Medical Management: previous therapy: [facility] 2 weeks . Patient stated goal(s) for treatment include: relieving pain sleep thru night , walking with a normal gait no device or limp and returning to regular activity levels independence . Living Environment: single story home, stairs with 14 rails, 2 steps into the house, walk-in shower . laundry in basement handrails on stairs to enter the home. Durable medical equipment: single point cane, wheeled walker FWW and built in shower bench. Social Support: lives with spouse. Personal Factors That May Impact Care:. no barriers to learning. Precautions: none. 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 Objective Ortho R knee AROM 2-78 deg R knee AAROM 0-86 deg patellar mobility restricted in inferior and superior direction scabbing noted over scar-no mobility assessed today L hip strength 4+/5 L knee strength 5/5 R hip strength 4/5 R knee strength 3+/5 in available range gait with step through pattern using straight cane, decreased knee extension in stance phase, moderate knee flexion during swing. Assessment EVELIO KING was seen for PT initial evaluation today, she demonstrates impairments in ROM, strength, functional mobility and activity limitations. Patient appears appropriate for continued skilled PT at 3x/week for 6 weeks to improve ability to perform independent ADLs and return to normal mobility. Clinical Presentation: Stable and/or uncomplicated characteristics. Level of Complexity: low Problem List: activity limitations, ADLs/IADLs/self care skills, balance, decreased functional level, decreased knowledge of HEP, fall risk, flexibility, gait/locomotion, pain, range of motion/joint mobility, strength and transfers. Therapy Diagnosis Assessed Stiffness of right knee, not elsewhere classified (719.56) (M25.661) Pain in right knee (719.46) (M25.561) Treatment Time in clinic started at 0110 pm Time in clinic ended at 0212 pm Total time in clinic is 62 minutes. Total timed code time is 38 minutes. Treatment Performed Today:. manual patellar mobilization grade 3 sup/inf x 5 mins PROM flexion EOB x 3 mins contract relax EOB flex x 2 mins TE recumbent bike-rocking x 5 mins slant board 1' x 2 heel slides 10 x 10 R quad sets 5 x 10 R QS with SLR x 10 HSC 2 x 10 orange. Response to treatment: increased pain, improved flexibility and improved knowledge and understanding of condition. Patient was able to complete today's treatment with some difficulty. Evaluation Code: 24906 PT Eval: Low Complexity, 22 min(s). Timed: 11559 Manual Therapy, 10 min(s), 1 unit(s), 86235 Therapeutic Exercises, 28 min(s), 2 unit(s). Resources provided today: education heel slides, QS, QS with SLR, HSC, calf stretch, patellar mobs. Plan of Care Planned interventions include: cryotherapy, education/instruction, electrical stimulation, gait training, home program, manual therapy, neuromuscular re-education and therapeutic exercises. Goals: Goals set and discussed today. Patient will demonstrate understanding of HEP for continued management of ROM/strength for return to activity Patient will demonstrate improved R knee AROM 0-90 degrees to allow for improved tolerance to transferring in/out of her car, by week 2 Activity Limitation: Patient will score 60% or greater on LEFS to allow for reutrn to previously active lifestyle, by week 6 Balance: Patient will demonstrate SLS x 10 seconds or greater to allow for ease with negotiating uneven surfaces without a device., by week 6 Gait/Locomotion: Patient will demonstrate independent community mobility without a device for return to previous independence, by week 6 Pain: Patient will have pain at worse 3/10 to allow for sleeping interrupted 1x/ngiht or less, by week 6 Range of Motion/Joint Mobility: Patient will demonstrate R knee AROM 0-115 degrees to allow for increased ability to squat down to retrieve items, by week 6 Strength: Patient will demonstrate improved R knee strength to 5/5 to allow for reciprocal ascend/descend of stairs for laundry, by week 6 Frequency and duration: 3 time(s) a week, for 6 weeks. Potential to achieve rehab goals is excellent motivated Plan of care was developed with input and agreement by the patient. Insurance Insurance reviewed Visit number: 1 Authorization not required after evaluation 10/08 Medicare follow guidelines Evaluating PT Dede Welch PT, DPT--transfer care to Mahogany Delgado PT, DPT . Medicare certification period: 09/06/2019, to 12/05/2018. Contacts for Physician Signature First attempt date: 09/06/2019. Referring Provider Signature: I am in agreement with the above plan of care. Referring Provider Signature , Date/Time Signatures Electronically signed by : Lalitha Welch PT; Sep 06 2019 2:48PM EST (Author) Normal [facility] MA Mamm Screen w/CAD if perf ormed bilaton 05-26-2019 MA Mamm Screen w/CAD if performed bilat Exam Date/Time: 05/25/2019 11:00 EDT Reason for Exam: SCREENING Report STUDY: Digital mammography screening; 05/25/2019 11:00 am ACCESSION NUMBER(S): [id number] ORDERING CLINICIAN: Marimar Celestin INDICATION: Screening. COMPARISON: Comparison is made to prior digital mammograms dated 03/17/2017 and 10/01/2015 FINDINGS: CC and MLO 2D digital mammographic images of the bilateral breasts were obtained. The breast tissue is almost entirely fatty. No discrete mass or focal asymmetry is identified. No suspicious microcalcifications or foci of architectural distortion are seen. There has been no significant change. This study was interpreted with CAD. IMPRESSION: No mammographic evidence of malignancy. BI-RADS CATEGORY: Category: 1 - Negative. Recommendation: Normal Interval Follow-up, Over Age 40. Recall Interval: 12 Months. Breast Density: Fatty. FINAL REPORT Dictated: 05/26/2019 8:20 am Je Busch MD Signed (Electronic Signature): 05/26/2019 8:20 am Signed by: Je Busch MD Technologist: PJ Assessment: BI-RADS Category 1-Negative Recommendation: Normal interval follow-up Normal [facility] CNCNPATEDon 04-07-2019 CNCNPATED Education (ME2E) -------- EVELIO KING ([id number]) 1955 F Date Time Provider Department 04/07/19 THOMAS SINGH (MARY) ME2E Reason for Visit: Pre-Op Teaching [134] Cmt: total joint class Progress Notes: MARY Enriquez 04/07/2019 4:18 PM Signed TOTAL JOINT COMPLETE CARE PROGRAM ORTHOPAEDIC TOTAL JOINT CLASS Service Date: 04/07/2019 Service Time: 4:18 PM Evelio King is scheduled for knee replacement on TBD. She did attend the pre-op joint replacement class. Issues Reviewed: below Education Topic/Teaching Points: Day of surgery arrival instructions (including phone number to call for arrival time) Pre-op skin wipes Hospital course: -TCI area, operating room, recovery room -Anesthesia: Spinal vs general -Pain control: Nerve block, epidural, oral medications, AND IV medications -DVT prophylaxis ASA, Lovenox, Coumadin Post-op dressings Showering instructions Aquacell dressing to be removed 7 days post op Incision care: [place] vs dissolvable sutures with glue Signs AND symptoms of infection Signs AND symptoms of DVT Home physical therapy Home pain medications: Refill protocol and side effects Pain management: Ice, elevation of extremity and pain meds Care Management Discharge plan Discuss with family/friends about assistance after discharge from the hospital SNF (Assisted Facility) Rehab nurse will contact prior to admission to discuss post-op needs and home therapy vs SNF brand strategy manager/protective services social worker in hospital final arrangements for discharge Physical and occupational therapy while in the hospital Getting your home ready What to bring to the hospital Preparing yourself for surgery: Dentist, stop smoking Diet Exercises: Circulation exercises Adaptive equipment Hip and knee precautions SIGNATURE: MARY Enriquez PATIENT NAME: Evelio King DATE: April 07, 2019 TIME: 4:18 PM PAGER/CONTACT #: [phone] During your visit today, we recorded the following information about you: Allergies As of Date: 04/07/2019 Noted Allergy Reaction AMOXICILLIN 05/03/2008 Comments: hives CLINDAMYCIN 01/11/2018 2 - Rash PENICILLINS 05/03/2008 Comments: hives SULFA (SULFONAMIDE ANTIBIOTICS) 05/03/2008 Date Reviewed: 02/11/2019 Reviewed by: Belgica Martinez (Pa) - Fully Assessed Prescriptions as of 04/07/2019 Sig: ACEBUTOLOL 200 MG CAPSULE Take 1 [...] Take 1 capsule by mouth once * Encounter Status:Closed by THOMAS SINGH on 04/07/19 [facility] PROGRESSon 04-07-2019 PROGRESS HNO ID: [id number] Author: Thomas Singh (Psa) Service: ? Author Type: Patient Magnetic Prospecting Supervisor Type: Progress Notes Filed: 04/07/2019 4:18 PM Note Text: TOTAL JOINT COMPLETE CARE PROGRAM ORTHOPAEDIC TOTAL JOINT CLASS Service Date: 04/07/2019 Service Time: 4:18 PM Evelio King is scheduled for knee replacement on TBD. She did attend the pre-op joint replacement class. Issues Reviewed: below Education Topic/Teaching Points: Day of surgery arrival instructions (including phone number to call for arrival time) Pre-op skin wipes Hospital course: -TCI area, operating room, recovery room -Anesthesia: Spinal vs general -Pain control: Nerve block, epidural, oral medications, AND IV medications -DVT prophylaxis ASA, Lovenox, Coumadin Post-op dressings Showering instructions Aquacell dressing to be removed 7 days post op Incision care: [place] vs dissolvable sutures with glue Signs AND symptoms of infection Signs AND symptoms of DVT Home physical therapy Home pain medications: Refill protocol and side effects Pain management: Ice, elevation of extremity and pain meds Care Management Discharge plan Discuss with family/friends about assistance after discharge from the hospital SNF (Assisted Facility) Rehab nurse will contact prior to admission to discuss post-op needs and home therapy vs SNF brand strategy manager/protective services social worker in hospital final arrangements for discharge Physical and occupational therapy while in the hospital Getting your home ready What to bring to the hospital Preparing yourself for surgery: Dentist, stop smoking Diet Exercises: Circulation exercises Adaptive equipment Hip and knee precautions SIGNATURE: MARY Enriquez PATIENT NAME: Evelio King DATE: April 07, 2019 TIME: 4:18 PM PAGER/CONTACT #: [phone] [facility] Vital Signs Date Time Vital Sign Value Performing Clinician Facility 07-03-2023 15:51-0400 Body weight 76.66 kg Diana Santos MD Work Phone: [facility] 07-03-2023 15:51-0400 Diastolic blood pressure 90 mm[Hg] Diana Santos MD Work Phone: [facility] 07-03-2023 15:51-0400 Heart rate 80 /min Diana Santos MD Work Phone: [facility] 07-03-2023 15:51-0400 Respiratory rate 18 /min Diana Santos MD Work Phone: [facility] 07-03-2023 15:51-0400 Systolic blood pressure 142 mm[Hg] Diana Santos MD Work Phone: [facility] 07-02-2023 11:57-0400 Body temperature 98.8 [degF] Yony Daniels MD Work Phone: [facility] 07-02-2023 11:57-0400 Body weight 77.75 kg Yony Daniels MD Work Phone: [facility] 07-02-2023 11:57-0400 Diastolic blood pressure 84 mm[Hg] Yony Daniels MD Work Phone: [facility] 07-02-2023 11:57-0400 Heart rate 75 /min Yony Daniels MD Work Phone: [facility] 07-02-2023 11:57-0400 Respiratory rate 18 /min Yony Daniels MD Work Phone: [facility] 07-02-2023 11:57-0400 SaO2% (BldA) [Mass fraction] 99 % Yony Daniels MD Work Phone: [facility] 07-02-2023 11:57-0400 Systolic blood pressure 142 mm[Hg] Yony Daniels MD Work Phone: [facility] 03-06-2023 13:30-0400 Body weight 78.2 kg Huong Tannhof TECHNICAL SOLUTION ARCHITECT.VACUUM CASTER Work Phone: [facility] 03-06-2023 13:30-0400 Diastolic blood pressure 78 mm[Hg] Huong Tannhof TECHNICAL SOLUTION ARCHITECT.VACUUM CASTER Work Phone: [facility] 03-06-2023 13:30-0400 Heart rate 60 /min Huong Tannhof TECHNICAL SOLUTION ARCHITECT.VACUUM CASTER Work Phone: [facility] 03-06-2023 13:30-0400 Respiratory rate 16 /min Huong Tannhof TECHNICAL SOLUTION ARCHITECT.VACUUM CASTER Work Phone: [facility] 03-06-2023 13:30-0400 Systolic blood pressure 120 mm[Hg] Huong Tannhof TECHNICAL SOLUTION ARCHITECT.VACUUM CASTER Work Phone: [facility] 07-03-2022 16:06-0400 Body height 161.3 cm Nazario Mayorga MD Work Phone: [employer] 07-03-2022 16:06-0400 Body mass index (BMI) [Ratio] 30.27 kg/m2 Nazario Mayorga MD Work Phone: [facility] 07-03-2022 16:06-0400 Body temperature 97.3 [degF] Nazario Mayorga MD Work Phone: [facility] 07-03-2022 16:06-0400 Body weight 78.74 kg Nazario Mayorga MD Work Phone: [facility] 03-21-2022 12:05-0400 Body height 228.6 cm Diana Santos Other Phone: [facility] 03-21-2022 12:05-0400 Body temperature 98.24 [degF] Diana Antonanish Other Phone: [facility] 03-21-2022 12:05-0400 Diastolic blood pressure 80 mm[Hg] Diana Antonanish Other Phone: [facility] 03-21-2022 12:05-0400 Heart rate 76 /min Diana Antonanish Other Phone: [facility] 03-21-2022 12:05-0400 Respiratory rate 16 /min Diana Waltonanish Other Phone: [facility] 03-21-2022 12:05-0400 SaO2% (BldA) [Mass fraction] 96 % Diana Waltonanish Other Phone: [facility] 03-21-2022 12:05-0400 Systolic blood pressure 138 mm[Hg] Diana Santos Other Phone: [facility] 04-25-2021 11:49-0400 Body height 162.5 cm Diana Santos Other Phone: [facility] 04-25-2021 11:49-0400 Body temperature 98.78 [degF] Diana Santos Other Phone: [facility] 04-25-2021 11:49-0400 Diastolic blood pressure 83 mm[Hg] Diana Santos Other Phone: [facility] 04-25-2021 11:49-0400 Heart rate 83 /min Diana Santos Other Phone: [facility] 04-25-2021 11:49-0400 Respiratory rate 16 /min Diana Santos Other Phone: [facility] 04-25-2021 11:49-0400 SaO2% (BldA) [Mass fraction] 95 % Diana Santos Other Phone: [facility] 04-25-2021 11:49-0400 Systolic blood pressure 113 mm[Hg] Diana Santos Other Phone: [facility] Encounters Encounter Date Encounter Type Care Provider Facility Start: [facility] Start: 07-11-2024 ambulatory GABY Ca [facility] Start: 07-05-2024 End: 07-05-2024 ambulatory GABY GANT [facility] Start: 06-17-2024 End: 06-17-2024 ambulatory GABY GANT [facility] Start: 06-17-2024 ambulatory GABY Ca [facility] Start: 05-05-2024 ambulatory GABY Ca [facility] Start: 05-03-2024 End: 05-03-2024 ambulatory GABYESTHELA DAVIDSONHAM [facility] Start: 04-18-2024 End: 04-18-2024 ambulatory GABY GANT [facility] Start: 04-09-2024 End: 04-10-2024 Emergency department patient visit GABYESTHELA DAVIDSONHAM [facility] Start: 03-22-2024 End: 03-26-2024 ambulatory GABYESTHELA DAVIDSONHAM [facility] Start: 03-22-2024 End: 03-26-2024 Encounter for general adult medical examination without abnormal findings GABY GANT [facility] Start: 03-22-2024 End: 03-22-2024 ambulatory GABY STALIN [facility] Start: 03-22-2024 End: 03-22-2024 Encounter for general adult medical examination without abnormal findings GABY GANT [facility] Start: 09-30-2023 ambulatory Diana holley MD Work Phone: [facility] [place] Start: 08-27-2023 Refill Diana holley MD Work Phone: [facility] [place] Comment on above: Refill Request Start: 07-14-2023 End: 07-18-2023 ambulatory [facility] Start: 07-13-2023 Telephone encounter Diana poe MD Work Phone: [facility] [place] Comment on above: Patient Question Start: 07-10-2023 Telephone encounter Diana poe MD Work Phone: [facility] [place] Comment on above: Cough Start: 07-08-2023 Telephone encounter Diana poe MD Work Phone: [facility] [place] Comment on above: Patient Update Start: 07-03-2023 End: 07-03-2023 ambulatory [facility] Facility:[facility] Start: 07-03-2023 End: 07-03-2023 Patient encounter procedure Diana Santos MD Work Phone: [facility] [place] Comment on above: Other chronic sinusi tis (Primary Dx); Moderate persistent asthma without complication Start: 07-02-2023 End: 07-02-2023 ambulatory [facility] Facility:[facility] Start: 07-02-2023 End: 07-02-2023 Patient encounter procedure Yony Daniels MD Work Phone: [facility] Comment on above: Sore throat (Primary Dx); Moderate persistent asthma without complication Start: 03-06-2023 End: 03-07-2023 ambulatory [facility] Facility:[facility] Start: 03-06-2023 Patient encounter procedure HUONG MAHAN [facility] Start: 03-06-2023 End: 03-06-2023 Patient encounter procedure Huong Mahan APRN.CNP Work Phone: [facility] [place] Comment on above: Medicare annual well ness visit, subsequent (Primary Dx); MVP (mitral valve prolapse); Moderate persistent asthma without complication Start: 02-06-2023 ambulatory Moon Schulz [facility] [place] Start: 09-23-2022 Telephone encounter Diana poe MD Work Phone: [facility] [place] Comment on above: Medication Request Start: 09-04-2022 Telephone encounter Rocco garcia APRN.VACUUM CASTER Work Phone: [facility] [place] Comment on above: Patient Update Start: 08-25-[address] Diana Santos Facility:[id number] Start: 07-03-2022 ambulatory NAZARIO MAYORGA [facility] Start: 07-03-2022 End: 07-03-2022 Office outpatient visit 15 minutes Nazario Mayorga MD Work Phone: [facility] Comment on above: Right hip pain (Prim deuce Dx); Hx of total knee arthroplasty, right; Trochanteric bursitis of right hip; Iliotibial band syndrome of right side Start: 07-03-2022 End: 07-03-2022 Subsequent hospital visit by physician Nazario Mayorga MD Work Phone: [facility] Start: 06-27-2022 Refill Diana holley MD Work Phone: [facility] [place] Comment on above: Refill Request Start: 03-21-2022 End: 03-21-2022 Emergency department patient visit Tone Hooks [facility] 02 Start: 02-07-2022 Telephone encounter Diana poe MD Work Phone: [facility] [place] Comment on above: Orders Start: 02-03-2022 ambulatory Rocco DURÁN RN.VACUUM CASTER Work Phone: [facility] [place] Comment on above: PH[facility] Start: 04-25-2021 End: 04-25-2021 Emergency department patient visit Poly Anders [facility] 03 Start: 10-05-2019 Patient encounter procedure Zoraida Velásquez [facility] Work Phone: Start: 10-03-2019 Patient encounter procedure Zoraida Velásquez [facility] Work Phone: Start: 09-30-2019 Patient encounter procedure Zoraida Velásquez [facility] Work Phone: Start: 09-28-2019 Patient encounter procedure Mary Huizar [facility] Work Phone: Start: 09-26-2019 Patient encounter procedure Zoraiad Velásquez [facility] Work Phone: Start: 09-23-2019 Patient encounter procedure Zoraida Velásquez [facility] [place] Work Phone: Start: 09-19-2019 Patient encounter procedure Mahogany Delgado [facility] Work Phone: Start: 09-15-2019 Patient encounter procedure Donnell Rowan [facility] [place] Work Phone: Start: 09-12-2019 Patient encounter procedure Mahogany Delgado [facility] Work Phone: Start: 09-09-2019 Patient encounter procedure Mary Huizar [facility] Work Phone: Start: 09-06-2019 Patient encounter procedure Mary Huizar [facility] Work Phone: Procedures Date Procedure Procedure Detail Performing Clinician Start: 08-25-2022 Mammography Rocco Guillermo APRN.CNP Work Phone: Start: 07-03-2022 Arthrocentesis aspir&/inj major jt/bursa w/o us Nazario Mayorga MD Work Phone: Start: 08-10-2021 Mammography Diana Santos MD Work Phone: Start: 01-18-2021 Adult depression screening assessment Rocco Guillermo APRN.CNP Work Phone: Start: 06-11-2020 Mammography Rocco Guillermo APRN.CNP Work Phone: History of operative procedure on knee History of right knee joint replacement Diana Santos MD Work Phone: Plan of Treatment Date Care Activity Detail Author Start: 07-03-2024 Annual PCP Team Certified Pediatric Nurse Practitioner any Disease Visit Annual PCP Team Chronic Disease Visit [facility] Start: 03-06-2024 ANNUAL PCP TEAM FUEL TECHNICIAN ANY DISEASE VISIT ANNUAL PCP TEAM CHRONIC DISEASE VISIT [facility] Start: 03-06-2024 COVID-19 VACCINE (#1) COVID-19 VACCI NE (#1) [facility] Comment on above: Postponed from 08/18 (Declined at this time) Start: 03-06-2024 SHINGRIX VACCINE (1 of 2) SHINGRIX VACCINE (1 of 2) [facility] Comment on above: Postponed from 02/15 (Declined at this time) Start: 10-21-2023 Tetanus vaccination [facility] Start: 10-21-2023 Urine microalbumin profile [facility] Start: 09-21-2023 Advance Directive Discussion Advance Directive Discussion [facility] Start: 09-21-2023 Depression Assessment Depression Ass essment [facility] Start: 08-25-2023 Mammography [facility] Start: 08-25-2023 Screening for malign ant neoplasm of breast Mammogram Screening [facility] Start: 07-13-2023 End: 10-12-2023 CBC panel - Blood by Automated count CBC Lab Routine Chronic sinusitis, unspecified location Expected: 07/13/2023, Expires: 10/12/2023 [facility] Work Phone: Comment on above: Expected: 07/13/2023 , Expires: 10/12/2023 Start: 07-13-2023 End: 10-12-2023 Comprehensive metabolic 2000 panel - Serum or Plasma COMP METABOLIC PANEL Lab Routine Chronic sinusitis, unspecified location Expected: 07/13/2023 (Approximate), Expires: 10/12/2023 [facility] Work Phone: Comment on above: Expected: 07/13/2023 (Approximate), Expires: 10/12/2023 Start: 05-22-2023 Influenza vaccination C [facility] Start: 02-24-2023 ANNUAL PCP TEAM FUEL TECHNICIAN ANY DISEASE VISIT ANNUAL PCP TEAM CHRONIC DISEASE VISIT [facility] Start: 02-24-2023 COLORECTAL CANCER SCREENING COLORECTAL CANCER SCREENING [facility] Start: 02-24-2023 COVID-19 VACCINE (#1) COVID-19 VACCI NE (#1) [facility] Comment on above: Postponed from 08/18 (Declined at this time) Start: 02-24-2023 FECAL OCCULT BLOOD FECAL OCCULT BLOO D [facility] Start: 02-24-2023 Screening for malign ant neoplasm of colon [facility] Start: 02-10-2023 Hepatitis B surface antibody level LDL CHOLESTEROL [facility] Start: 09-21-2022 ADVANCE DIRECTIVE DISCUSSION ADVANCE DIRECTIVE DISCUSSION [facility] Start: 09-21-2022 DEPRESSION ASSESSMENT DEPRESSION ASS ESSMENT [facility] Start: 08-13-2022 Hemoglobin A1c measurement HbA1C [facility] Start: 08-13-2022 Hemoglobin A1c/Hemoglobin.total in Blood HBA1C [facility] Start: 08-10-2022 Mammography MAMMOGRAM [facility] Start: 05-22-2022 Influenza vaccination [facility] Start: 02-04-2022 COLORECTAL CANCER SCREENING COLORECTAL CANCER SCREENING [facility] Start: 02-04-2022 FECAL OCCULT BLOOD FECAL OCCULT BLOO D [facility] Start: 02-03-2022 End: 04-05-2022 Comprehensive metabolic 2000 panel - Serum or Plasma COMP METABOLIC PANEL Lab Routine Prediabetes Expected: 02/03/2022, Expires: 04/05/2022 [facility] Work Phone: Comment on above: Expected: 02/03/2022 , Expires: 04/05/2022 Start: 02-03-2022 End: 04-05-2022 Hemoglobin A1c/Hemoglobin.total in Blood HGB A1C Lab Routine Prediabetes Expected: 02/03/2022, Expires: 04/05/2022 [facility] Work Phone: Comment on above: Expected: 02/03/2022 , Expires: 04/05/2022 Start: 02-03-2022 End: 04-05-2022 LIPID PANEL BASIC LIPID PANEL BASIC Lab Routine Screening for cholesterol level Expected: 02/03/2022, Expires: 04/05/2022 [facility] Work Phone: Comment on above: Expected: 02/03/2022 , Expires: 04/05/2022 Start: 01-18-2022 Adult depression screening assessment DEPRESSION SCREENING [facility] Start: 01-18-2022 ANNUAL PCP TEAM FUEL TECHNICIAN ANY DISEASE VISIT ANNUAL PCP TEAM CHRONIC DISEASE VISIT [facility] Start: 09-21-2021 ADVANCE DIRECTIVE DISCUSSION ADVANCE DIRECTIVE DISCUSSION [facility] Start: 09-21-2021 DEPRESSION ASSESSMENT DEPRESSION ASS ESSMENT [facility] Start: 07-27-2021 Hemoglobin A1c/Hemoglobin.total in Blood HBA1C [facility] Start: 06-11-2021 Mammography MAMMOGRAM [facility] Start: 2013 Hepatitis B Vaccine (1 of 3 - Risk 3-dose series) Hepatitis B Vaccine (1 of 3 - Risk 3-dose series) [facility] Start: 2013 RSV Vaccine (1 - 1-d ose 60+ series) RSV Vaccine (1 - 1-dose 60+ series) [facility] Start: 2003 SHINGRIX VACCINE (1 of 2) SHINGRIX VACCINE (1 of 2) [facility] Start: 2003 Zoster vaccine hzv l yessi for subcutaneous use ZOSTER (SHINGLES) VACCINE (1 of 2) [facility] Start: 1998 COLOGUARD (FIT-DNA) COLOGUARD (FIT-D NA) [facility] Start: 1998 Colonoscopy COLONOSCOPY [facility] Start: [address] COLONOGRAPHY [facility] Start: 1998 Screening for malign ant neoplasm of colon [facility] Start: 1998 SIGMOIDOSCOPY SIGMOIDOSCOPY [facility] Start: 1993 Lipid panel LIPID SCREENING [facility] Start: 1993 Screening for malign ant neoplasm of breast MAMMOGRAM SCREENING DISCUSSION [facility] Start: 1974 Screening for malign ant neoplasm of cervix CERVICAL CANCER SCREENING DISCUSSION [facility] Start: 1971 Hepatitis B surface antibody level LDL CHOLESTEROL [facility] Start: 1971 SPIROMETRY SPIROMETRY [facility] Start: 1958 COVID-19 VACCINE (#1) COVID-19 VACCI NE (#1) [facility] Start: 1953 COVID-19 VACCINE (#1) COVID-19 VACCI NE (#1) [facility] Start: 1953 Hepatitis B vaccination HEP B VACCINE (1 of 3 - 3-dose series) [facility] Start: 1955 Hepatitis C screening HEPATITI S C VIRUS SCREENING [facility] Start: 1955 Screening for osteoporosis DEXA SCAN DISCUSSION [facility] End: 10-29-2024 JC SCREENING JC SCREENING Radiology Routine Encounter for screening mammogram for breast cancer 1 Occurrences starting 09/30/2023 until 10/29/2024 [facility] Work Phone: Comment on above: 1 Occurrences starti ng 09/30/2023 until 10/29/2024 XR Knee - right 3 Views XR KNEE RIGHT 3 VIEWS Imaging Routine Hx of total knee arthroplasty, right 07/03/2022 3:56 PM EDT [facility] XR Pelvis and Hip - right Views XR HIP WITH PELVIS RIGHT Imaging Routine Right hip pain 07/03/2022 3:56 PM EDT [facility] Work Phone: [facility] NEGATED: Highlighted row has been ruled out! Planned Goals not documented [facility] Work Phone: Immunizations Immunization Date Immunization Notes Care Provider Jhonny magana 01-18-2021 pneumococcal polysaccharide vaccine, 23 valent Rocco Guillermo TECHNICAL SOLUTION ARCHITECT.[employer]STER Work Phone: [facility] 08-14-2020 influenza, high dose seasonal, preservative-free Diana Santos MD Work Phone: [facility] 08-14-2020 influenza virus vacc ine, unspecified formulation Nazario Mayorga MD Work Phone: [facility] 08-20-2019 influenza, seasonal, injectable, preservative free Rocco Guillermo TECHNICAL SOLUTION ARCHITECT.[employer] CASTER Work Phone: [facility] Work Phone: 07-22-2019 influenza, high dose seasonal, preservative-free Rocco Koko TECHNICAL SOLUTION ARCHITECT.[employer]UM CASTER Work Phone: [facility] 07-22-2018 influenza nasal, unspecified formulation Rocco Koko TECHNICAL SOLUTION ARCHITECT.[employer] CASTER Work Phone: [facility] Work Phone: 07-22-2018 influenza, high dose seasonal, preservative-free Rocco Koko TECHNICAL SOLUTION ARCHITECT.[employer] CASTER Work Phone: [facility] 07-07-2017 pneumococcal conjuga te vaccine, 13 valent Rocco Koko TECHNICAL SOLUTION ARCHITECT.[facility] Work Phone: [facility] Work Phone: 06-28-2014 influenza virus vacc ine, whole virus Rocco Koko TECHNICAL SOLUTION ARCHITECT.[employer]UUM CASTER Work Phone: [facility] Work Phone: 10-21-2013 tetanus toxoid, redu akila diphtheria toxoid, and acellular pertussis vaccine, adsorbed Rocco Koko TECHNICAL SOLUTION ARCHITECT.[employer] CASTER Work Phone: [facility] 06-29-2013 influenza virus vacc ine, whole virus Rocco Koko TECHNICAL SOLUTION ARCHITECT.[employer] CASTER Work Phone: [facility] Work Phone: 01-29-2010 tetanus toxoid, redu akila diphtheria toxoid, and acellular pertussis vaccine, adsorbed Rocco Koko TECHNICAL SOLUTION ARCHITECT.[employer] CASTER Work Phone: [facility] 08-02-2009 novel influenza-H1N1 -09, preservative-free, injectable Rocco Koko TECHNICAL SOLUTION ARCHITECT.[employer] CASTER Work Phone: [facility] Work Phone: 07-04-2009 influenza virus vacc ine, whole virus Rocco Koko TECHNICAL SOLUTION ARCHITECT.[employer]STER Work Phone: [facility] Work Phone: 07-14-2008 influenza virus vacc ine, whole virus Rocco Koko TECHNICAL SOLUTION ARCHITECT.[employer]STER Work Phone: [facility] Work Phone: 07-23-2007 influenza virus vacc ine, whole virus Roccotony Guillermo TECHNICAL SOLUTION ARCHITECT.[facility] Work Phone: [facility] Work Phone: Payers Date Payer Category Payer Unknown ANURADHA LING ME DICARE SUPPLEMENT [id number] 2018-Present [phone] [address] [place] [address] Indemnity [id number] 2018 Unknown [id number] 2018 Unknown 2018 Unknown [id number] 2018 Medicare MEDICARE MEDICAR E A AND B [id number] 2018-Present [phone] [address] [address] [place] [address] Medicare [id number] 2018 Medicare [id number] 2018 Medicare [id number] 1955 Unknown [id number] 1955 Unknown [id number] [id number] 1955 Unknown [id number] [id number] 9 1955 Unknown [id number] [id number] 9 1955 Unknown [id number] [id number] 1953 Unknown [id number] [id number] 1953 Unknown [id number] [id number] 1953 Unknown [id number] [id number] 1953 Unknown [id number] [id number] 1953 Unknown [id number] [id number] 1953 Unknown [id number] [id number] 1953 Unknown [id number] 2.16.840.1.568795.3.579.2.90 1953 Unknown [id number] 2.16.840.1.778325.3.579.2. 1953 Unknown [id number] [id number] 1953 Unknown [id number] [id number] 1955 Unknown [id number] [id number] 1955 Unknown [id number]. Social History Date Type Detail Facility Assertion Unknown if ever smoked [facility] Work Phone: Tobacco smoking consumption unknown [facility] Start: 01-11-2018 End: 03-06-2023 Tobacco smoking status NHIS Never smoked tobacco [facility] Work Phone: Start: 01-18-2021 End: 07-03-2023 Alcohol intake Current non-drinker of alcohol (finding) [facility] Start: 10-17-2016 History SDOH Alcohol Comment Rarely social [facility] Start: 1955 Sex Assigned At Female [facility] Start: 01-11-2018 End: 03-06-2023 Tobacco use and exposure Smokeless tobacco non-user [facility] Start: 02-24-2022 End: 03-03-2023 History SDOH Alcohol Frequency 1 [facility] Start: 02-24-2022 End: 03-03-2023 History SDOH Social Connections Phone 5 [facility] Start: 02-24-2022 End: 03-03-2023 History SDOH Social Connections Get Together 3 [facility] Start: 02-24-2022 End: 03-03-2023 History SDOH Social Connections Yarsanism 98 [facility] Start: 02-24-2022 End: 03-03-2023 History SDOH Stress 2 [facility] Start: 07-03-2022 Alcohol intake Lifetime non-drinker (finding) [facility] Start: 1955 Sex Assigned At Not on file [facility] Start: 03-03-2023 History SDOH Alcohol Std Drinks 0 [facility] Start: 03-03-2023 History SDOH Physical Activity DPW 4 [facility] Start: 03-03-2023 End: 03-06-2023 History of Social function [facility] Start: 03-03-2023 End: 03-06-2023 Social connection and isolation panel [facility] How often do you att end congregational or adventism services? Patient refused [facility] Do you belong to any clubs or organizations such as congregational groups, unions, fraternal or athletic groups, or school groups? No [facility] Are you now , , , , never or living with a partner? [facility] How often to you hav e a drink containing alcohol? Never [facility] How hard is it for y ou to pay for the very basics like food, housing, medical care, and heating Not very hard [facility] Do you feel stress - tense, restless, nervous, or anxious, or unable to sleep at night because your mind is troubled all the time - these days [OSQ] Only a little [facility] (I/We) worried wheth er (my/our) food would run out before (I/we) got money to buy more. Never true [facility] Start: 07-21-2019 Gender identity Identifies as female gender (finding) [facility] Start: 07-21-2019 Sexual orientation Heterosexual (finding) [facility] Medical Equipment Procedure Code Equipment Code Equipment Origin al Text Equipment Identifier Dates Jaida Smith 1x40 Single - [id number] [facility] Start: 08-15-2019 Attune Tibial In sert Fixed Bearing Cruciate Retaining Size 5 6mm Aox [id number] Start: 08-15-2019 Functional Status Date Assessment Result Facility NEGATED: Highlighted row Functional performance Functional status health issues are not documented Disease [facility] Work Phone: Mental Status Date Assessment Result Facility NEGATED: Highlighted row Cognitive function [Interpretation] Cognitive status health issues are not documented [facility] Work Phone: Clinical Notes 02-03-2022 to 07-05-2024 Telephone Encounter - Diana Santos MD - 08/27/2023 4:47 PM ESTTelephone Encounter - Leona Adams - 08/27/2023 3:45 PM ESTTelephone Encounter - Marysol Olmos Ma - 07/14/2023 8:36 AM EDT Note Date & Type Note Facility 07-05-2024 Note Subjective Patient I D: Evelio King is a 69 y.o. female here for Chief Complaint Patient presents with Follow-up ER f/u-Weak After discussing the use of ambient listening and audio recording in generating medical documentation, the patient and Donnell verbally consented to use of this technology for today's visit. History of Present Illness The patient presented to the ER with headache, dizziness, chills, and general malaise. She is accompanied by her . She reports feeling generally well, except for a low-grade fever that woke her up at 4:00 AM on 07/01/2024. She experienced chills and a sensation of heat, which she found unusual. Her lab results showed elevated white blood cells, but these normalized before her discharge. She underwent two CT scans, one of the brain and another of the abdomen. She was given antibiotics during her hospital stay and was kept overnight due to concerns about possible sepsis. She tested negative for COVID-19 and influenza. She was discharged the next afternoon, but her culture results were not available at that time. She has a history of kidney stones and was concerned about a possible recurrence. She provided a urine sample during her ER visit and was reassured that there was no infection. She was informed by a nurse that she had a sinus infection, although this was not documented in her paperwork. She has a family history of sinus infections. She experienced difficulty breathing a few nights prior, but did not associate this with a sinus infection. Currently, she only experiences symptoms when she has a headache, which she believes is due to sinus drainage as it triggers a cough. This has been ongoing for a couple of weeks. She takes Singulair at bedtime and Claritin in the morning, but does not use Flonase. She drinks lemonade regularly. She felt soreness in her neck a few days ago. She recently had an episode of severe shortness of breath, which she found more distressing than her usual asthma attacks. She saw her eye doctor last month. HTN: She has been monitoring her blood pressure at home and continues to take her prescribed medication. Her blood pressure readings are typically in the 130s, but can reach 150 two or three times a week. She checks her blood pressure three or four times daily. She experiences headaches at the base of her skull, which often coincide with elevated blood pressure readings. She recalls one instance when her blood pressure dropped to 86, but she cannot remember the circumstances. She did not bring her blood pressure log to the appointment. FAMILY HISTORY Her father of aneurysm. ALLERGIES She is allergic to PENICILLIN. Past Medical History: Diagnosis Date Asthma Mitral valve prolapse Past Surgical History: Procedure Laterality Date ADENOIDECTOMY APPENDECTOMY SECTION, CLASSIC HAND SURGERY TONSILLECTOMY TOTAL KNEE REPLACEMENT ( ROYER TRIATHALON) Family History Problem Relation Age of Onset Aneurysm Father Social History Tobacco Use Smoking status: Former Types: Cigarettes Smokeless tobacco: Never Substance Use Topics Alcohol use: Never Drug use: Never Review of Systems Vitals: 07/05/24 1447 07/05/24 1505 BP: (!) 172/101 (!) 153/75 BP Location: Right arm Patient Position: Sitting BP Cuff Size: Adult Pulse: 81 Resp: 16 Temp: 98 degrees F (36.7 degrees C) TempSrc: Temporal SpO2: 95% Weight: 78 kg (172 lb) Height: 5' 4 Estimated body mass index is 29.52 kg/m as calculated from the following: Height as of this encounter: 5' 4 . Weight as of this encounter: 78 kg (172 lb). Physical Exam Constitutional: General: She is not in acute distress. Appearance: She is not ill-appearing. HENT: Head: Normocephalic and atraumatic. Right Ear: Tympanic membrane, ear canal and external ear normal. Left Ear: Tympanic membrane, ear canal and external ear normal. Ears: Comments: Mild left sided ear effusion Nose: Congestion present. Mouth/Throat: Mouth: Mucous membranes are moist. Pharynx: Oropharynx is clear. No oropharyngeal exudate or posterior oropharyngeal erythema. Comments: Post nasal drainage Eyes: Extraocular Movements: Extraocular movements intact. Conjunctiva/sclera: Conjunctivae normal. Pupils: Pupils are equal, round, and reactive to light. Cardiovascular: Rate and Rhythm: Normal rate and regular rhythm. Pulses: Normal pulses. Heart sounds: Normal heart sounds. No murmur heard. No gallop. Pulmonary: Effort: Pulmonary effort is normal. Breath sounds: Normal breath sounds. No wheezing, rhonchi or rales. Chest: Chest wall: No tenderness. Abdominal: General: Abdomen is flat. Bowel sounds are normal. There is no distension. Palpations: Abdomen is soft. There is no mass. Tenderness: There is no abdominal tenderness. There is no right CVA tenderness, left CVA tenderness, guarding or rebound. Muscul (more content not included)... [facility] 06-17-2024 Note Telephone Visit Via Phone Call [facility] [address] [facility] [id number] Telephone Visit [facility] 06/17/2024 Gaby Bergman MD Provider Location: [address] [place] [address] Patient Location Director Business Intelligence: None Patient Location: Patient's Home Patient: Evelio King Date of : 1955 (69 y.o. female) PCP: Gaby Bergmna MD I discussed risks, benefits and alternatives of a telephone visit telemedicine consultation with the patient (and any accompanying persons) including the risks that the patient's personal health details and medical records will be discussed over real-time, synchronous, interactive audio technology, the visit will not be recorded without the express consent of both the provider and the patient, and that there are inherent diagnostic limitations compared to [id number] evaluations. We elected to proceed with the telephone visit telemedicine consultation. DANIELITO King is a 69 y.o. female here for routine check and few questions. HTN: She experienced a sudden onset of illness characterized by body aches and a low-grade fever, which lasted for 3 to 4 days. On the fourth day, she developed soft stools. Concurrently, she noticed an increase in her blood pressure, which she believes was triggered by her illness. Her blood pressure reading was 179/87 upon admission to the ER, accompanied by lightheadedness. She underwent a CAT scan due to her father's history of from an aneurysm. Workup was negative in the ER with CT head as well as EKG. Was given clonidine which seems to help with the blood pressure and was discharged and started monitoring blood pressure at home. It is ranging in the 140s to 150s systolic over 80s to 90s at home and blood pressure readings scanned in the chart from last week. Denies any headaches , blurry vision, tingling/numbness in extremities. No chest pressure , SOB , palpitations , dizziness or syncope. Since switching from metoprolol to carvedilol at 3.125 has been monitoring blood pressure at home and reports that it has been doing well with blood pressure ranging in the 130s over 80s consistently. Echo was also reviewed which showed LVEF of 55 to 60% with no concerns and no evidence of mitral valve prolapse wondering if she should establish with cardiology. Asthma: Has been stable with no concerning shortness of breath or wheezing and currently on the Breo with no concerns. The following portions of the patient's history were reviewed and updated as appropriate: allergies, current medications, past family history, past medical history, past social history, past surgical history, and problem list. Review of Systems Patient's Medications New Prescriptions No medications on file Previous Medications BREO ELLIPTA 200-25 MCG/DOSE DSDV Inhale 1 (one) puff daily . CARVEDILOL (COREG) 3.125 MG TABLET Take 1 (one) tablet (3.125 mg total) by mouth 2 (two) times a day . LORATADINE (CLARITIN) 10 MG TABLET Take 1 (one) tablet (10 mg total) by mouth . MECLIZINE (ANTIVERT) 25 MG TABLET Take 1 (one) tablet (25 mg total) by mouth 3 (three) times a day as needed for nausea . MONTELUKAST (SINGULAIR) 10 MG TABLET Take 1 (one) tablet (10 mg total) by mouth nightly . ONDANSETRON (ZOFRAN-ODT) 4 MG DISINTEGRATING TABLET Dissolve 1 (one) tablet (4 mg total) on top of tongue every 8 (eight) hours as needed . Modified Medications No medications on file Discontinued Medications No medications on file Assessment/Plan: Problem List Items Addressed This Visit Cardiovascular and Mediastinum HTN (hypertension) - Primary Other Insomnia Trial of magnesium along with melatonin especially with the mild headaches in the base of the neck. Other Visit Diagnoses Colon cancer screening Relevant Orders Cologuard We had a lengthy conversation regarding her diagnosis with mitral valve prolapse which I believe at this point and based on the echo was not present and I reassured the patient that sometimes there is an overcall on echo readings that could have been the reason for that diagnosis. He is to remind that she should not stress on that diagnosis anymore. She will consider if she needs to establish with cardiology which I expressed to her at this point that would be completely up to her as her blood pressure is controlled and there is no other additional needs to be seen by cardiology unless that is her preference. Insomnia: Recommendation as mentioned above. Hypertension: Relatively controlled with the current regimen of carvedilol 3.125 mg twice daily, will continue to monitor and will let me know when any concerns. I have spent 21 minutes with the patient reviewing the HPI and Plan of Care. My ongoing relationship with Evelio King requires continued responsibility and cognitive effort of magen (more content not included)... [facility] 04-18-2024 Note Subjective Patient I D: Evelio King is a 69 y.o. female here for No chief complaint on file. After discussing the use of ambient listening and audio recording in generating medical documentation, the patient verbally consented to use of this technology for today's visit. History of Present Illness The patient presents for establishment of care. The patient, previously under the care of Dr. Fenton as well as shade classifier for her asthma and for urinary urgency and renal calculi. She resides in [place] and is seeking a new primary care physician. Urinary urgency: She is currently on Gemtesa for urinary urgency, which she reports as effective. She reports a prolapsed bladder, but Dr. Mosher does not believe surgical intervention is necessary at this time. She has experienced approximately 10 to 11 calculi, which were successfully treated with lithotripsy. She has 5 refills for her Breo prescription through 11/2024. She was on Gemtesa for her kidney stones but stopped it because she was having constipation and a runny nose. It did help with her urinary symptoms Allergies: She also receives njyd-tai-mbdzdry Claritin and has 4 refills for her Singulair prescription. She requires a refill of her cardiac medication. She intermittently monitors her blood pressure at home, but has not recently. She reports daytime fatigue due to lack of sleep. HTN: She experienced a sudden onset of illness characterized by body aches and a low-grade fever, which lasted for 3 to 4 days. On the fourth day, she developed soft stools. Concurrently, she noticed an increase in her blood pressure, which she believes was triggered by her illness. Her blood pressure reading was 179/87 upon admission to the ER, accompanied by lightheadedness. She underwent a CAT scan due to her father's history of from an aneurysm. Workup was negative in the ER with CT head as well as EKG. Was given clonidine which seems to help with the blood pressure and was discharged and started monitoring blood pressure at home. It is ranging in the 140s to 150s systolic over 80s to 90s at home and blood pressure readings scanned in the chart from last week. Denies any headaches , blurry vision, tingling/numbness in extremities. No chest pressure , SOB , palpitations , dizziness or syncope. MVP: She has been diagnosed with mitral valve prolapse, confirmed by two ultrasounds, but has not had an ultrasound in the past 15 years. She is considering whether another check-up is necessary. She has been taking acebutolol 200 mg once daily for her mitral valve prolapse for the past 25 years. However, she recently read that long-term use of this medication can cause problems and is wondering if she should switch to a different medication. She increased her acebutolol dosage to twice daily a week ago but did not notice any difference. She experiences chest pain when lying flat on her back. She prefers to manage her condition through exercise and diet rather than medication. She does not add salt to her food and has lost 21 pounds by reducing her portion sizes and eating healthier foods, such as salads. She is concerned about the potential side effects of her medication. FAMILY HISTORY Her father from an aneurysm. Past Medical History: Diagnosis Date Asthma Mitral valve prolapse Past Surgical History: Procedure Laterality Date ADENOIDECTOMY APPENDECTOMY SECTION, CLASSIC HAND SURGERY TONSILLECTOMY TOTAL KNEE REPLACEMENT ( ROYER TRIATHALON) Family History Problem Relation Age of Onset Aneurysm Father Social History Tobacco Use Smoking status: Former Types: Cigarettes Smokeless tobacco: Never Substance Use Topics Alcohol use: Never Drug use: Never Review of Systems Vitals: 04/18/24 1333 BP: (!) 139/93 BP Location: Right arm Patient Position: Sitting BP Cuff Size: X-large Adult Pulse: 78 Resp: 16 Temp: 98.8 degrees F (37.1 degrees C) TempSrc: Temporal SpO2: 97% Weight: 74.4 kg (164 lb) Height: 5' 4 Estimated body mass index is 28.15 kg/m as calculated from the following: Height as of this encounter: 5' 4 . Weight as of this encounter: 74.4 kg (164 lb). Physical Exam Constitutional: General: She is not in acute distress. Appearance: She is not ill-appearing. HENT: Head: Normocephalic and atraumatic. Nose: Nose normal. Mouth/Throat: Mouth: Mucous membranes are moist. Pharynx: Oropharynx is clear. No oropharyngeal exudate or posterior oropharyngeal erythema. Eyes: Extraocular Movements: Extraocular movements intact. Conjunctiva/sclera: Conjunctivae normal. Pupils: Pupils are equal, round, and reactive to light. Cardiovascular: Rate and Rhythm: Normal rate and regular rhythm. Pulses: Normal pulses. Heart sounds: Normal heart sounds. No murmur heard. No gallop. Pulmonary: Effort: Pulmonary effort is normal. Breath sounds: N (more content not included)... [facility] 03-22-2024 Note Subjective Patient I D: Evelio King is a 69 y.o. female here for Chief Complaint Patient presents with Establish Care Difficulty sleeping, After discussing the use of ambient listening and audio recording in generating medical documentation, the patient verbally consented to use of this technology for today's visit. History of Present Illness The patient presents for establishment of care. The patient, previously under the care of Dr. Santos as well as shade classifier for her asthma and for urinary urgency and renal calculi. She resides in [place] and is seeking a new primary care physician. Insomnia: She has been experiencing sleep disturbances for the past year, which she attributes to the stress of caring for her mother. Prior to this, she had no issues with sleep. Her sleep routine involves watching television or using her phone prior to sleep. Her daily caffeine intake includes one cup of coffee in the morning, and she consumes water with lemonade due to her history of renal calculi. She typically eats dinner around 7:00 PM and refrains from drinking soda. Her sleep is limited to watching television or using her phone in bed when she is unwell. She was previously prescribed a medication for her nocturia, which she reports as effective. She engages in brain activity by playing games on her phone. She has expressed concerns about excessive use of melatonin and believes she may have used melatonin in the past. She believes she may be taking magnesium supplements at home. She reports snoring only when feeling unwell or congested. She has lost 15 pounds intentionally over the past 1.5 years by reducing her food intake and increased water intake. She avoids deep-fried foods. Urinary urgency: She is currently on Gemtesa for urinary urgency, which she reports as effective. She reports a prolapsed bladder, but Dr. Mosher does not believe surgical intervention is necessary at this time. She has experienced approximately 10 to 11 calculi, which were successfully treated with lithotripsy. She has 5 refills for her Breo prescription through 11/2024. Allergies: She also receives hwbm-vin-ocrbmgm Claritin and has 4 refills for her Singulair prescription. She requires a refill of her cardiac medication. She intermittently monitors her blood pressure at home, but has not recently. She reports daytime fatigue due to lack of sleep. Past Medical History: Diagnosis Date Asthma Mitral valve prolapse Past Surgical History: Procedure Laterality Date ADENOIDECTOMY APPENDECTOMY SECTION, CLASSIC HAND SURGERY TONSILLECTOMY TOTAL KNEE REPLACEMENT ( ROYER TRIATHALON) Family History Problem Relation Age of Onset Aneurysm Father Social History Tobacco Use Smoking status: Former Types: Cigarettes Smokeless tobacco: Never Substance Use Topics Alcohol use: Never Drug use: Never Review of Systems Vitals: 03/22/24 1037 03/22/24 1046 03/22/24 1129 BP: (!) 155/91 (!) 153/80 (!) 141/71 BP Location: Right arm Right arm Patient Position: Sitting Sitting BP Cuff Size: Adult Adult Pulse: 85 87 Resp: 16 Temp: 97.8 degrees F (36.6 degrees C) TempSrc: Temporal SpO2: 97% Weight: 75.8 kg (167 lb) Height: 5' 4 Estimated body mass index is 28.67 kg/m as calculated from the following: Height as of this encounter: 5' 4 . Weight as of this encounter: 75.8 kg (167 lb). Physical Exam Constitutional: General: She is not in acute distress. Appearance: She is not ill-appearing. HENT: Head: Normocephalic and atraumatic. Nose: Nose normal. Mouth/Throat: Mouth: Mucous membranes are moist. Pharynx: Oropharynx is clear. No oropharyngeal exudate or posterior oropharyngeal erythema. Eyes: Extraocular Movements: Extraocular movements intact. Conjunctiva/sclera: Conjunctivae normal. Pupils: Pupils are equal, round, and reactive to light. Cardiovascular: Rate and Rhythm: Normal rate and regular rhythm. Pulses: Normal pulses. Heart sounds: Normal heart sounds. No murmur heard. No gallop. Pulmonary: Effort: Pulmonary effort is normal. Breath sounds: Normal breath sounds. No wheezing, rhonchi or rales. Chest: Chest wall: No tenderness. Abdominal: General: Abdomen is flat. Bowel sounds are normal. There is no distension. Palpations: Abdomen is soft. There is no mass. Tenderness: There is no abdominal tenderness. There is no right CVA tenderness, left CVA tenderness, guarding or rebound. Musculoskeletal: General: No tenderness. Normal range of motion. Cervical back: Normal range of motion and neck supple. No rigidity. No muscular tenderness. Right lower leg: No edema. Left lower leg: No edema. Lymphadenopathy: Cervical: No cervical adenopathy. Skin: General: Skin is warm. Findings: No erythema or rash. Neurological: General: No focal deficit present. Mental Status: She is alert and oriented to person, (more content not included)... [facility] 09-30-2023 Note Patient Outreach (IN [facility]) EVELIO KING ([id number]) 1955 F Date Time Provider Department 09/30/23 DIANA SANTOS During your visit today, we recorded the following information about you: Allergies As of Date: 09/30/2023 Noted Allergy Reaction AMOXICILLIN 05/03/2008 Comments: hives CLINDAMYCIN 01/11/2018 2 - Rash PENICILLINS 05/03/2008 Comments: hives SULFA (SULFONAMIDE ANTIBIOTICS) 05/03/2008 Date Reviewed: 07/03/2023 Reviewed by: Diana Aquino Ma - Fully Assessed Visit Diagnosis:Encounter for screening mammogram for breast cancer [Z12.31] Order(s):[facility] SCREENING [[id number]] Order #: [id number] FUTURE Prescriptions as of 10/05/2023 - acebutolol (SECTRAL) 200 mg capsule Take 1 capsule by mouth two times a day. - fluticasone-vilanterol (BREO ELLIPTA) 200-25 mcg/dose inhaler Inhale 1 Inhalation as instructed once daily. - turmeric/turmeric ext/pepr ext (TURMERIC-TURMERIC EXT-PEPPER) 500-3 mg cap Take 1 capsule by mouth twice daily. - Milk Thistle 175 mg tab Take 1 tablet by mouth once daily. Takes just twice a week - Cholecalciferol, Vitamin D3, 2,000 unit cap Take 1 tablet by mouth twice daily. - Flaxseed Oil 1,000 mg cap Take 1 capsule by mouth once daily. - albuterol HFA (PROAIR HFA) 90 mcg/actuation inhaler Inhale 2 Puffs as instructed every 4 hours as needed. - montelukast (SINGULAIR) 10 mg tablet Take 1 tablet by mouth daily at bedtime. - loratadine (CLARITIN) 10 mg tablet Take 1 tablet by mouth once daily. - calcium carbonate (CALCIUM 500) 500 mg calcium (1,250 mg) chewable tablet Take 1 tablet by mouth twice daily. - omega-3 fatty acids 1,000 mg cap Take 2 capsules by mouth twice daily. - Cinnamon Bark (CINNAMON) 500 mg cap Take 1 capsule by mouth twice daily. - Garlic 1,000 mg cap Take 1 capsule by mouth once daily. - Coenzyme Q10 (CO Q-10) 200 mg cap Take 1 capsule by mouth once daily. Problem List As Of Date 09/30/2023 Noted Resolved Moderate persistent asthma without complication*10/17/2016 MVP (mitral valve prolapse) [I34.1] 10/17/2016 Kidney stone [N20.0] 10/17/2016 Prediabetes [R73.03] 07/22/2017 Encounter Status:Closed by [employer] [facility]OD[facility] on 10/05/23 [facility] 08-27-2023 Miscellaneous Notes OK to refill as ordered Diana Santos MD Patient has been identified by name and date of : Yes Requested Prescriptions Pending Prescriptions Disp Refills acebutolol (SECTRAL) 200 mg capsule 180 capsule 3 Sig: Take 1 capsule by mouth two times a day. RX INSTRUCTIONS: Patient aware RX will be sent to pharmacy. No need to notify patient. Leona Mehta documented in this encounter [facility] 07-14-2023 Miscellaneous Notes Called number listed below which is for [facility]. . Orders faxed, pt notified. Marysol Olmos Ma OK for CBC and CMP as ordered Diana Santos MD Patient calling said she is not feeling any better, she has one doxycyline left and 3 Prednisone tablets left. Patient said she had to stop taking the cough syrup with codeine was affecting her blood pressure, she is taking delsym. Patient is asking to have lab work done? She wants orders faxed to [facility] phone number is [phone], she did not have the fax number. Please advise documented in this encounter [facility] 07-10-2023 Miscellaneous Notes Pt notified. Marysol Olmos Ma OK for codeine cough syrup as ordered Diana Santos MD Patient calling, states her cough is really bad. She has been taking Tussionex DM but that does not seem to be helping. Asking if there is anything stronger she can take. She has had Tessalon Perles before and they did not help. Please advise. documented in this encounter [facility] 07-09-2023 Miscellaneous Notes Call to pt and notified her of Providers message below, verbalized understanding. Diana Aquino Ma I would suggest that she go ahead and take the prednisone, as this should help her sinuses clear up. Diana Santos MD Patient asking for 's advise. Reports she had head cold and was prescribed Z-kirill by an earlier this month. Then pt was seen in [facility] on 07/02 for sore throat. Was prescribed prednisone to fill if asthma flares. Pt reports she never took the prednisone. Pt then was ordered doxycycline by Dr. Santos on 07/03 for sinusitis. Patient calling today to report that her sinuses are running like crazy and everything is all up in her head'. Denies any heaviness in her chest or asthma flare-up. Reports has taken 9 total doses of her doxycycline and continues as ordered. Pt asking: If she should take the prednisone that was ordered for her on 07/02 or not? Asking if this would help her sinuses? Asking if there is anything else she should take to help all the sinus drainage that she has currently. Thank you. documented in this encounter [facility] 07-03-2023 Note HNO ID: [id number] Author: Diana Santos MD Service: ? Author Type: Physician Type: Progress Notes Filed: 07/03/2023 5:04 PM Note Text: Chief Complaint Patient presents with: Follow Up HPI Evelio King is a 68 year old female who presents here today for [facility] Follow up. Has been sick since 06/06/23. Reports symptoms started with a really bad headache. Pt has [facility]23 for sore throat, cough, fatigue, neck pain, diarrhea, CALDERA, ear pain, and sinus issues for the last 2 weeks. She was seen at an UC a week ago that dx her with cold virus. She started to feel better until her sx worsened 07/01/23. Denies any fever or chest pain. She has been using Ibuprofen and Cough medications. Was treated with Zpack 06/26/23 and used peroxide in her right hear. No covid or strep testing done when seen in UC last week, was not tested yesterday either. She was given taper dose Prednisone 10 mg to fill IF asthma flares. Pt states she does not agree that she has a head cold like she has been told at both UC visits. She believes she has a sinus infection. Pt reports that her symptoms did improve some with use of the Zpak. Her right sided ear and neck pain improved. She continues to still have aching, fever and chills. She is able to cough up thick white phlegm. Running low grade fever as of this morning. Pt states that she really does not go out into public which is why she does not believe she has Covid. Believes she has strep or a sinus infection at this point. Allergic to cillans Past medical history, appointments, medications, allergies reviewed. Previous Medical History PAST MEDICAL HISTORY Diagnosis Date Pre-diabetes Renal calculi Previous Surgical History PAST SURGICAL HISTORY Procedure Laterality Date APPENDECTOMY BREAST BIOPSY Right DELIVERY ONLY X2 LIPOMA (LARGE) PAST SURGICAL HISTORY OF Right 07/10/2012 vein ablation-right leg TONSILLECTOMY AND ADENOIDECTOMY HX Family History FAMILY HISTORY Problem Relation Age of Onset Carotid Disease Father Colon Cancer Other Patient Allergies ALLERGIES Allergen Reactions Amoxicillin hives Clindamycin Rash Penicillins hives Sulfa (Sulfonamide * Current Medications Current Outpatient Medications on File Prior to Visit Medication Sig acebutolol (SECTRAL) 200 mg capsule Take 1 capsule by mouth twice daily. albuterol HFA (PROAIR HFA) 90 mcg/actuation inhaler Inhale 2 Puffs as instructed every 4 hours as needed. calcium carbonate (CALCIUM 500) 500 mg calcium (1,250 mg) chewable tablet Take 1 tablet by mouth twice daily. Cholecalciferol, Vitamin D3, 2,000 unit cap Take 1 tablet by mouth twice daily. Cinnamon Bark (CINNAMON) 500 mg cap Take 1 capsule by mouth twice daily. Coenzyme Q10 (CO Q-10) 200 mg cap Take 1 capsule by mouth once daily. Flaxseed Oil 1,000 mg cap Take 1 capsule by mouth once daily. fluticasone-vilanterol (BREO ELLIPTA) 200-25 mcg/dose inhaler Inhale 1 Inhalation as instructed once daily. Garlic 1,000 mg cap Take 1 capsule by mouth once daily. loratadine (CLARITIN) 10 mg tablet Take 1 tablet by mouth once daily. Milk Thistle 175 mg tab Take 1 tablet by mouth once daily. Takes just twice a week montelukast (SINGULAIR) 10 mg tablet Take 1 tablet by mouth daily at bedtime. omega-3 fatty acids 1,000 mg cap Take 2 capsules by mouth twice daily. predniSONE (DELTASONE) 10 mg tablet Take 5 tablets by mouth once daily for 1 day, THEN 4 tablets once daily for 1 day, THEN 3 tablets once daily for 1 day, THEN 2 tablets once daily for 1 day, THEN 1 tablet once daily for 1 day. turmeric/turmeric ext/pepr ext (TURMERIC-TURMERIC EXT-PEPPER) 500-3 mg cap Take 1 capsule by mouth twice daily. No current facility-administered medications on file prior to visit. Social History Social History Tobacco Use Smoking status: Never Smokeless tobacco: Never Substance Use Topics Alcohol use: No Comment: Rarely social Drug use: No EXAM: BP 142/90 (BP Site: Left Arm, BP Position: Sitting, BP Cuff Size: Regular Adult) Pulse 80 Resp 18 Wt 76.7 kg (169 lb) BMI 29.94 kg/m? General Appearance: Well appearing, alert, in no acute distress, well-hydrated, well nourished.. Head: Facial tenderness. Ears: External ears normal, canals clear. Neck: Supple, no adenopathy, some tenderness on the right side of neck; thyroid symmetric, normal size, no bruits. Lungs: Lungs clear to auscultation. No wheezing, rhonchi, rales.. Heart: RRR without murmur, gallop, or rubs. No ectopy. Health Maintenance List Hepatitis B Vaccine(1 of 3 - Risk 3-dose series) Never done HbA1C due on 08/13/2022 LDL Cholesterol due on 02/10/2023 Colorectal Cancer Screening due on 02/24/2023 Influenza Vaccine(1) due on 05/22/2023 Mammogram Screening due on 08/25/2023 Shingrix Vaccine(1 of 2) due on 03/06/2024 Covid-19 Vaccine(1) due on 03/06/2024 (more content not included)... [facility] 07-03-2023 History of Presen t illness Narrative Chief Complaint Patient presents with: Follow Up HPI Evelio King is a 68 year old female who presents here today for [facility] Follow up. Has been sick since 06/06/23. Reports symptoms started with a really bad headache. Pt has [facility]23 for sore throat, cough, fatigue, neck pain, diarrhea, CALDERA, ear pain, and sinus issues for the last 2 weeks. She was seen at an a week ago that dx her with cold virus. She started to feel better until her sx worsened 07/01/23. Denies any fever or chest pain. She has been using Ibuprofen and Cough medications. Was treated with Zpack 06/26/23 and used peroxide in her right hear. No covid or strep testing done when seen in UC last week, was not tested yesterday either. She was given taper dose Prednisone 10 mg to fill IF asthma flares. Pt states she does not agree that she has a head cold like she has been told at both visits. She believes she has a sinus infection. Pt reports that her symptoms did improve some with use of the Zpak. Her right sided ear and neck pain improved. She continues to still have aching, fever and chills. She is able to cough up thick white phlegm. Running low grade fever as of this morning. Pt states that she really does not go out into public which is why she does not believe she has Covid. Believes she has strep or a sinus infection at this point. Allergic to cillans Past medical history, appointments, medications, allergies reviewed. Previous Medical History PAST MEDICAL HISTORY Diagnosis Date Pre-diabetes Renal calculi Previous Surgical History PAST SURGICAL HISTORY Procedure Laterality Date APPENDECTOMY BREAST BIOPSY Right DELIVERY ONLY X2 LIPOMA (LARGE) PAST SURGICAL HISTORY OF Right 07/10/2012 vein ablation-right leg TONSILLECTOMY AND ADENOIDECTOMY HX Family History FAMILY HISTORY Problem Relation Age of Onset Carotid Disease Father Colon Cancer Other Patient Allergies ALLERGIES Allergen Reactions Amoxicillin hives Clindamycin Rash Penicillins hives Sulfa (Sulfonamide * Current Medications Current Outpatient Medications on File Prior to Visit Medication Sig acebutolol (SECTRAL) 200 mg capsule Take 1 capsule by mouth twice daily. albuterol HFA (PROAIR HFA) 90 mcg/actuation inhaler Inhale 2 Puffs as instructed every 4 hours as needed. calcium carbonate (CALCIUM 500) 500 mg calcium (1,250 mg) chewable tablet Take 1 tablet by mouth twice daily. Cholecalciferol, Vitamin D3, 2,000 unit cap Take 1 tablet by mouth twice daily. Cinnamon Bark (CINNAMON) 500 mg cap Take 1 capsule by mouth twice daily. Coenzyme Q10 (CO Q-10) 200 mg cap Take 1 capsule by mouth once daily. Flaxseed Oil 1,000 mg cap Take 1 capsule by mouth once daily. fluticasone-vilanterol (BREO ELLIPTA) 200-25 mcg/dose inhaler Inhale 1 Inhalation as instructed once daily. Garlic 1,000 mg cap Take 1 capsule by mouth once daily. loratadine (CLARITIN) 10 mg tablet Take 1 tablet by mouth once daily. Milk Thistle 175 mg tab Take 1 tablet by mouth once daily. Takes just twice a week montelukast (SINGULAIR) 10 mg tablet Take 1 tablet by mouth daily at bedtime. omega-3 fatty acids 1,000 mg cap Take 2 capsules by mouth twice daily. predniSONE (DELTASONE) 10 mg tablet Take 5 tablets by mouth once daily for 1 day, THEN 4 tablets once daily for 1 day, THEN 3 tablets once daily for 1 day, THEN 2 tablets once daily for 1 day, THEN 1 tablet once daily for 1 day. turmeric/turmeric ext/pepr ext (TURMERIC-TURMERIC EXT-PEPPER) 500-3 mg cap Take 1 capsule by mouth twice daily. No current facility-administered medications on file prior to visit. Social History Social History Tobacco Use Smoking status: Never Smokeless tobacco: Never Substance Use Topics Alcohol use: No Comment: Rarely social Drug use: No EXAM: BP 142/90 (BP Site: Left Arm, BP Position: Sitting, BP Cuff Size: Regular Adult) Pulse 80 Resp 18 Wt 76.7 kg (169 lb) BMI 29.94 kg/m General Appearance: Well appearing, alert, in no acute distress, well-hydrated, well nourished.. Head: Facial tenderness. Ears: External ears normal, canals clear. Neck: Supple, no adenopathy, some tenderness on the right side of neck; thyroid symmetric, normal size, no bruits. Lungs: Lungs clear to auscultation. No wheezing, rhonchi, rales.. Heart: RRR without murmur, gallop, or rubs. No ectopy. Health Maintenance List Hepatitis B Vaccine(1 of 3 - Risk 3-dose series) Never done HbA1C due on 08/13/2022 LDL Cholesterol due on 02/10/2023 Colorectal Cancer Screening due on 02/24/2023 Influenza Vaccine(1) due on 05/22/2023 Mammogram Screening due on 08/25/2023 Shingrix Vaccine(1 of 2) due on 03/06/2024 Covid-19 Vaccine(1) due on 03/06/2024 DTaP,Tdap,Td Vaccine(3 - Td or Tdap) due on 10/21/2023 Annual PCP Team Chronic Disease Visit due on 03/06/2024 Bone Density Screening Completed Spirometry Completed Advance Directive Discussion Completed Depression Assessment Completed Pneumococcal Vaccine: 65+ Completed Urine Albumin:Creatinine Ratio Discontinued Dilated Retinal Exam Discontinued Diabetic Foot Exam Discontinued Hepatitis C Screening Discontinued Data reviewed Epic ASSESSMENT/PLAN: 1. Other chronic sinusitis - ICD9: 473.8, ICD10: J32.8 (primary diagnosis) - Will begin treatment with Doxycycline 100 mg 1 tab po bid for 10 days 2. Moderate persistent asthma without complication - ICD9: 493.90, ICD10: J45.40 - Stable - Can use Prednisone provided if needed. Update office if not improved. I agree with the Chief Complaint, ROS, and Past Histories independently gathered by the clinical claims support specialist and the remaining scribed note accurately describes my personal service to the patient. Medical Decision Making: Problems: Low: Acute, uncomplicated illness or injury Risk: Moderate: Drug management Medical Decision Making Level: 3 - Low Diana Santos MD The documentation for this note was completed by Diana Aquino Ma acting as scribe for Diana Santos MD. July 03, 2023 3:54 PM. Diana Aquino Ma documented in this encounter [facility] 07-02-2023 Note HNO ID: [id number] Author: Yony Daniels MD Service: ? Author Type: Physician Type: Progress Notes Filed: 07/02/2023 12:40 PM Note Text: Patient presents with: Cough: Cough, fatigue, neck pain, diarrhea, CALDERA, sinus issues x 2 weeks HPI: Feeling sick for almost 2 weeks. Initial bad headache and right throat, neck, and ear pain. She thinks she may have had strep throat. Urgent care diagnosed her with a cold virus. She has been improving but worsened again last night. Positive symptoms: Cough, improved Sinus pressure, some sinus drainage, Fatigue, achy, #5 weight loss, Wheezing, temp 99.3 yesterday Resolved right earache, right neck pain, white in the throat, Diarrhea, Headache, Negative symptoms: Chest pain, Fever, OTC: Cough Medicine, Ibuprofen. Took zpak 06/26/23. Has used peroxide in the right ear. She did not have COVID or strep testing at the urgent care last week. ACTIVE PROBLEM LIST Moderate Persistent Asthma Without Complication Mvp (Mitral Valve Prolapse) Kidney Stone Prediabetes MEDICATIONS: Current Outpatient Medications Medication Sig acebutolol (SECTRAL) 200 mg capsule Take 1 capsule by mouth twice daily. albuterol HFA (PROAIR HFA) 90 mcg/actuation inhaler Inhale 2 Puffs as instructed every 4 hours as needed. calcium carbonate (CALCIUM 500) 500 mg calcium (1,250 mg) chewable tablet Take 1 tablet by mouth twice daily. Cholecalciferol, Vitamin D3, 2,000 unit cap Take 1 tablet by mouth twice daily. Cinnamon Bark (CINNAMON) 500 mg cap Take 1 capsule by mouth twice daily. Coenzyme Q10 (CO Q-10) 200 mg cap Take 1 capsule by mouth once daily. Flaxseed Oil 1,000 mg cap Take 1 capsule by mouth once daily. fluticasone-vilanterol (BREO ELLIPTA) 200-25 mcg/dose inhaler Inhale 1 Inhalation as instructed once daily. Garlic 1,000 mg cap Take 1 capsule by mouth once daily. loratadine (CLARITIN) 10 mg tablet Take 1 tablet by mouth once daily. Milk Thistle 175 mg tab Take 1 tablet by mouth once daily. Takes just twice a week montelukast (SINGULAIR) 10 mg tablet Take 1 tablet by mouth daily at bedtime. omega-3 fatty acids 1,000 mg cap Take 2 capsules by mouth twice daily. turmeric/turmeric ext/pepr ext (TURMERIC-TURMERIC EXT-PEPPER) 500-3 mg cap Take 1 capsule by mouth twice daily. No current facility-administered medications for this visit. ALLERGIES: ALLERGIES Allergen Reactions Amoxicillin hives Clindamycin Rash Penicillins hives Sulfa (Sulfonamide * VITALS: BP 142/84 Pulse 75 Temp 37.1 ?C (98.8 ?F) (Tympanic) Resp 18 Wt 77.7 kg (171 lb 6.4 oz) SpO2 99% BMI 30.36 kg/m? PHYSICAL EXAM: GEN: mildly ill appearing. Accompanied by her . HEENT: PERRL, EOMI, conjunctiva clear Ears: left canal clear. Cerumen in the right canal. Visible TMs without erythema, bulge, or effusion Sinuses: non-tender frontal sinus, non-tender maxillary sinuses Throat: moist mucous membranes, mild erythema, no exudate Neck: supple, no thyromegaly, no lymphadenopathy HEART: regular rate and rhythm, no murmurs LUNGS: clear to auscultation, no wheezes or crackles, no increased WOB ASSESSMENT/PLAN: 1. Sore throat - ICD9: 462, ICD10: J02.9 (primary diagnosis) 2. Moderate persistent asthma without complication - ICD9: 493.90, ICD10: J45.40 Reviewed differential: initial illness with virus (including COVID), treated strep throat, likely new viral illness yesterday, secondary sinusitis (unlikely with improving sinus symptoms). Reassured of benign ear, throat, and lung exam. Continue supportive care with rest, cough and cold medicine, and as needed analgesia. Printed - PREDNISONE 10 MG TABLET to fill if asthma flares. Yony Daniels MD [facility] 07-02-2023 History of Presen t illness Narrative Patient presents with: Cough: Cough, fatigue, neck pain, diarrhea, CALDERA, sinus issues x 2 weeks HPI: Feeling sick for almost 2 weeks. Initial bad headache and right throat, neck, and ear pain. She thinks she may have had strep throat. Urgent care diagnosed her with a cold virus. She has been improving but worsened again last night. Positive symptoms: Cough, improved Sinus pressure, some sinus drainage, Fatigue, achy, #5 weight loss, Wheezing, temp 99.3 yesterday Resolved right earache, right neck pain, white in the throat, Diarrhea, Headache, Negative symptoms: Chest pain, Fever, OTC: Cough Medicine, Ibuprofen. Took zpak 06/26/23. Has used peroxide in the right ear. She did not have COVID or strep testing at the urgent care last week. ACTIVE PROBLEM LIST Moderate Persistent Asthma Without Complication Mvp (Mitral Valve Prolapse) Kidney Stone Prediabetes MEDICATIONS: Current Outpatient Medications Medication Sig acebutolol (SECTRAL) 200 mg capsule Take 1 capsule by mouth twice daily. albuterol HFA (PROAIR HFA) 90 mcg/actuation inhaler Inhale 2 Puffs as instructed every 4 hours as needed. calcium carbonate (CALCIUM 500) 500 mg calcium (1,250 mg) chewable tablet Take 1 tablet by mouth twice daily. Cholecalciferol, Vitamin D3, 2,000 unit cap Take 1 tablet by mouth twice daily. Cinnamon Bark (CINNAMON) 500 mg cap Take 1 capsule by mouth twice daily. Coenzyme Q10 (CO Q-10) 200 mg cap Take 1 capsule by mouth once daily. Flaxseed Oil 1,000 mg cap Take 1 capsule by mouth once daily. fluticasone-vilanterol (BREO ELLIPTA) 200-25 mcg/dose inhaler Inhale 1 Inhalation as instructed once daily. Garlic 1,000 mg cap Take 1 capsule by mouth once daily. loratadine (CLARITIN) 10 mg tablet Take 1 tablet by mouth once daily. Milk Thistle 175 mg tab Take 1 tablet by mouth once daily. Takes just twice a week montelukast (SINGULAIR) 10 mg tablet Take 1 tablet by mouth daily at bedtime. omega-3 fatty acids 1,000 mg cap Take 2 capsules by mouth twice daily. turmeric/turmeric ext/pepr ext (TURMERIC-TURMERIC EXT-PEPPER) 500-3 mg cap Take 1 capsule by mouth twice daily. No current facility-administered medications for this visit. ALLERGIES: ALLERGIES Allergen Reactions Amoxicillin hives Clindamycin Rash Penicillins hives Sulfa (Sulfonamide * VITALS: BP 142/84 Pulse 75 Temp 37.1 C (98.8 F) (Tympanic) Resp 18 Wt 77.7 kg (171 lb 6.4 oz) SpO2 99% BMI 30.36 kg/m PHYSICAL EXAM: GEN: mildly ill appearing. Accompanied by her . HEENT: PERRL, EOMI, conjunctiva clear Ears: left canal clear. Cerumen in the right canal. Visible TMs without erythema, bulge, or effusion Sinuses: non-tender frontal sinus, non-tender maxillary sinuses Throat: moist mucous membranes, mild erythema, no exudate Neck: supple, no thyromegaly, no lymphadenopathy HEART: regular rate and rhythm, no murmurs LUNGS: clear to auscultation, no wheezes or crackles, no increased WOB ASSESSMENT/PLAN: 1. Sore throat - ICD9: 462, ICD10: J02.9 (primary diagnosis) 2. Moderate persistent asthma without complication - ICD9: 493.90, ICD10: J45.40 Reviewed differential: initial illness with virus (including COVID), treated strep throat, likely new viral illness yesterday, secondary sinusitis (unlikely with improving sinus symptoms). Reassured of benign ear, throat, and lung exam. Continue supportive care with rest, cough and cold medicine, and as needed analgesia. Printed - PREDNISONE 10 MG TABLET to fill if asthma flares. Yony Daniels MD documented in this encounter [facility] 03-06-2023 Note HNO ID: [id number] Author: Huong Mahan APRN.VACUUM CASTER Service: ? Author Type: Nurse Practitioner Type: Progress Notes Filed: 03/06/2023 2:30 PM Note Text: Evelio King is a 68 year old female here for a Medicare Subsequent Annual Wellness Visit Health Risk Assessment In general, health is: Good Concerns with balance: Not at all Concerns with teeth or dentures: Not at all Concerns with sexual function:Not at all [place] anxious, stressed, angry, irritable, lonely, isolated, or had thoughts of hurting themself: Not at all Has little interest or pleasure in doing things: Not at all Bothered by feeling down, depressed, or hopeless: Not at all Needs help with grocery shopping, cooking, housework, bathing, grooming, dressing, eating, sitting or standing, walking, using the toilet, handling finances, taking medications, using the telephone, or driving: No Following safety precautions in the home environment and vehicle: removed throw rugs from floors, installed grab bars in the bathroom, handrails in stairwells, having adequate lighting, wearing seatbelt at all times?: Yes Smokes cigarettes, vapes, or chew tobacco: No Eats healthy foods including fruits, vegetables, whole grains, and fiber-rich foods: More than half the days Number of days per week engages in exercise: 4 days Average alcohol consumption: Never Current Providers Specialists: I have reviewed specialist-related care of the patient in the medical record. Protection Officer: Radha Optometry: Dr. Lizbeth Cerna Pulmonology asthma: Medical/Family history review Reviewed and updated problem list, medical/surgical/family/social history, medications, and allergies. Opioid use review Patient is not currently using opioids. Depression screening Depression Screening PHQ-2 Score PHQ-9 Score 02/23/2022 0 - Depression screening tool completed and reviewed. Based on score and interview, patient is not at risk for depression. Screening tool discussed with patient, and I recommended no further intervention at this time. Cognitive screening Mini Cog Score: Score: 5 Cognitive screening reviewed and no further action needed (score 3-5) Functional Observation Was the patient's timed Up AND Go test unsteady or ? 12 seconds? No Advance Care Planning End of Life planning discussed, including patient's advanced directive wishes: Yes Measurements BP 120/78 Pulse 60 Resp 16 Wt 172 lb 6.4 oz (78.2kg) Visual acuity (required for Welcome to Medicare): follows with optometry/ophthalmology wearing contacts. Hearing Evaluation: within normal limits Assessment/Plan - Counseled on healthy diet and regular exercise - Fall avoidance - Mammogram recommended and ordered This is a 68 year old female who presents today with: Patient presents with: Medicare Wellness Exam HISTORY OF PRESENT ILLNESS: Evelio King is a 68 year old female. Patient presents with: Medicare Wellness Exam In office for extensive exam. MVP: Taking Acebutolol 200 mg BID. Not following with cardiology. Denies chest pain, dizziness, or edema. Asthma: Following with pulmonology. Taking Breo Ellipta 200/25 mcg daily, Singulair 10 mg daily, Claritin 10 mg daily, and albuterol inhaler as needed. Mammogram: TELEGRAPHIC [facility] places order, will have follow up in winter. Colonoscopy: Colonoscopy over 8 years ago. Refers it was normal. Vaccines: Denies wanting any vaccines at this time. PAST MEDICAL HISTORY: PAST MEDICAL HISTORY Diagnosis Date Pre-diabetes Renal calculi PAST SURGICAL HISTORY Procedure Laterality Date APPENDECTOMY BREAST BIOPSY Right DELIVERY ONLY X2 LIPOMA (LARGE) PAST SURGICAL HISTORY OF Right 07/10/2012 vein ablation-right leg TONSILLECTOMY AND ADENOIDECTOMY HX ALLERGIES Amoxicillin, Clindamycin, Penicillins, and Sulfa (Sulfonamide Antibiotics) MEDICATIONS Current Outpatient Medications Medication Sig acebutolol (SECTRAL) 200 mg capsule Take 1 capsule by mouth twice daily. fluticasone-vilanterol (BREO ELLIPTA) 200-25 mcg/dose inhaler Inhale 1 Inhalation as instructed once daily. turmeric/turmeric ext/pepr ext (TURMERIC-TURMERIC EXT-PEPPER) 500-3 mg cap Take 1 capsule by mouth twice daily. Milk Thistle 175 mg tab Take 1 tablet by mouth once daily. Cholecalciferol, Vitamin D3, 2,000 unit cap Take 1 tablet by mouth twice daily. Flaxseed Oil 1,000 mg cap Take 1 capsule by mouth once daily. albuterol HFA (PROAIR HFA) 90 mcg/actuation inhaler [...] Take 1 capsule by mouth twice daily. (more content not included)... [facility] 03-06-2023 Instructions Huong Mahan APRN.CNP - 03/06/2023 1:55 PM EDT Continue to take all medication as prescribed. Keep scheduled appointments with specialists. Will be due for labs prior to next visit. Follow up in 1 year or sooner as needed. documented in this encounter [facility] 03-06-2023 History of Presen t illness Narrative Evelio King is a 68 year old female here for a Medicare Subsequent Annual Wellness Visit Health Risk Assessment In general, health is: Good Concerns with balance: Not at all Concerns with teeth or dentures: Not at all Concerns with sexual function:Not at all [place] anxious, stressed, angry, irritable, lonely, isolated, or had thoughts of hurting themself: Not at all Has little interest or pleasure in doing things: Not at all Bothered by feeling down, depressed, or hopeless: Not at all Needs help with grocery shopping, cooking, housework, bathing, grooming, dressing, eating, sitting or standing, walking, using the toilet, handling finances, taking medications, using the telephone, or driving: No Following safety precautions in the home environment and vehicle: removed throw rugs from floors, installed grab bars in the bathroom, handrails in stairwells, having adequate lighting, wearing seatbelt at all times?: Yes Smokes cigarettes, vapes, or chew tobacco: No Eats healthy foods including fruits, vegetables, whole grains, and fiber-rich foods: More than half the days Number of days per week engages in exercise: 4 days Average alcohol consumption: Never Current Providers Specialists: I have reviewed specialist-related care of the patient in the medical record. Protection Officer: Radha Optometry: Dr. Lizbeth Cerna Pulmonology asthma: Medical/Family history review Reviewed and updated problem list, medical/surgical/family/social history, medications, and allergies. Opioid use review Patient is not currently using opioids. Depression screening Depression Screening PHQ-2 Score PHQ-9 Score 02/23/2022 0 - Depression screening tool completed and reviewed. Based on score and interview, patient is not at risk for depression. Screening tool discussed with patient, and I recommended no further intervention at this time. Cognitive screening Mini Cog Score: Score: 5 Cognitive screening reviewed and no further action needed (score 3-5) Functional Observation Was the patient's timed Up & Go test unsteady or ? 12 seconds? No Advance Care Planning End of Life planning discussed, including patient's advanced directive wishes: Yes Measurements BP 120/78 Pulse 60 Resp 16 Wt 172 lb 6.4 oz (78.2kg) Visual acuity (required for Welcome to Medicare): follows with optometry/ophthalmology wearing contacts. Hearing Evaluation: within normal limits Assessment/Plan - Counseled on healthy diet and regular exercise - Fall avoidance - Mammogram recommended and ordered This is a 68 year old female who presents today with: Patient presents with: Medicare Wellness Exam HISTORY OF PRESENT ILLNESS: Evelio King is a 68 year old female. Patient presents with: Medicare Wellness Exam In office for extensive exam. MVP: Taking Acebutolol 200 mg BID. Not following with cardiology. Denies chest pain, dizziness, or edema. Asthma: Following with pulmonology. Taking Breo Ellipta 200/25 mcg daily, Singulair 10 mg daily, Claritin 10 mg daily, and albuterol inhaler as needed. Mammogram: TELEGRAPHIC [facility]WRITER [facility] places order, will have follow up in winter. Colonoscopy: Colonoscopy over 8 years ago. Refers it was normal. Vaccines: Denies wanting any vaccines at this time. PAST MEDICAL HISTORY: PAST MEDICAL HISTORY Diagnosis Date Pre-diabetes Renal calculi PAST SURGICAL HISTORY Procedure Laterality Date APPENDECTOMY BREAST BIOPSY Right DELIVERY ONLY X2 LIPOMA (LARGE) PAST SURGICAL HISTORY OF Right 07/10/2012 vein ablation-right leg TONSILLECTOMY AND ADENOIDECTOMY HX ALLERGIES Amoxicillin, Clindamycin, Penicillins, and Sulfa (Sulfonamide Antibiotics) MEDICATIONS Current Outpatient Medications Medication Sig acebutolol (SECTRAL) 200 mg capsule Take 1 capsule by mouth twice daily. fluticasone-vilanterol (BREO ELLIPTA) 200-25 mcg/dose inhaler Inhale 1 Inhalation as instructed once daily. turmeric/turmeric ext/pepr ext (TURMERIC-TURMERIC EXT-PEPPER) 500-3 mg cap Take 1 capsule by mouth twice daily. Milk Thistle 175 mg tab Take 1 tablet by mouth once daily. Cholecalciferol, Vitamin D3, 2,000 unit cap Take 1 tablet by mouth twice daily. Flaxseed Oil 1,000 mg cap Take 1 capsule by mouth once daily. albuterol HFA (PROAIR HFA) 90 mcg/actuation inhaler [...] Take 1 capsule by mouth once daily. No current facility-administered medications for this visit. FAMILY HISTORY Problem Relation Age of Onset Carotid Disease Father Colon Cancer Other Social History Tobacco Use Smoking status: Never Smokeless tobacco: Never Substance Use Topics Alcohol use: No Comment: Rarely social Drug use: No REVIEW OF SYSTEMS GENERAL: No weight loss, malaise or fevers/chills HEENT: Negative for frequent or significant headaches, No changes in hearing or vision. NECK: Negative for lumps, goiter, pain and significant neck swelling RESPIRATORY: Negative for cough, hemoptysis, wheezing, dyspnea or shortness of breath CARDIOVASCULAR: Negative for chest pain, leg swelling, orthopnea, or palpitations GI: No nausea, vomiting, or diarrhea/constipation. No hematochezia/melena. No heartburn or reflux symptoms. : No history of dysuria, frequency or incontinence MUSCULOSKELETAL: Negative for joint pain or swelling. SKIN: Negative for lesions, rash, and itching ENDOCRINE: Negative for cold or heat intolerance, polyuria, polydipsia and goiter NEURO: No history of headaches, syncope, paralysis, seizures or tremors MOOD: Negative for depression, anxiety, or suicidal ideation. EXAM: There were no vitals taken for this visit. PHYSICAL EXAM: General Appearance: Well appearing, alert, in no acute distress, well-hydrated, well nourished. Skin: Skin color, texture, turgor normal, no suspicious rashes or lesions. Head: Normocephalic, no masses, lesions, tenderness or abnormalities. Eyes: Anicteric sclera. Extraocular movements are intact. Lungs: Lungs clear to auscultation. No wheezing, rhonchi, rales. Heart: RRR without murmur, gallop, or rubs. No ectopy. Extremities: No deformities, edema, skin discoloration, clubbing or cyanosis. Good capillary refill. Peripheral Pulses: Normal, Capillary refill <2secs, strong peripheral pulses, Pulses palpable. Neurologic: Gait normal. Sensation grossly intact.. ASSESSMENT/PLAN: 1. Medicare annual wellness visit, subsequent - ICD9: V70.0, ICD10: Z00.00 (primary diagnosis) - Counseled on healthy diet and regular exercise - Calcium intake with supplements or by diet of 1000 mg/day for under 50, 7081-9050 mg/day for 50+ - Depression screening tool completed and reviewed with patient. Based on score and interview, patient is not at risk for depression and recommended no further intervention at this time. - TELEGRAPHIC TYPEWRITER OPERATOR CHIEF will order mammogram. - Requesting labs be completed next year. - Follow up for annual exam in one year 2. MVP (mitral valve prolapse) - ICD9: 424.0, ICD10: I34.1 - Stable, continue current medication. 3. Moderate persistent asthma without complication - ICD9: 493.90, ICD10: J45.40 - Mild intermittent asthma stable - Continue current medications - Avoidance of triggers recommended - Keep scheduled appointments with specialist. Follow-up in 1 year or sooner as needed. Discussed treatment plan and patient voices understanding. Patient's questions answered appropriately. Medications and potential side effects were discussed and patient voices understanding. Huong Mahan APRN.VACUUM CASTER This note was partially generated using [employer] voice recognition system. Note was reviewed for accuracy. There may be minor misspellings or grammar miscues with [employer] voice recognition. documented in this encounter [facility] 02-06-2023 Note Patient Outreach (JHONNY MPWS) EVELIO KING ([id number]) 1955 F Date Time Provider Department 02/06/23 [place] During your visit today, we recorded the following information about you: Allergies As of Date: 02/06/2023 Noted Allergy Reaction AMOXICILLIN 05/03/2008 Comments: hives CLINDAMYCIN 01/11/2018 2 - Rash PENICILLINS 05/03/2008 Comments: hives SULFA (SULFONAMIDE ANTIBIOTICS) 05/03/2008 Date Reviewed: 02/24/2022 Reviewed by: Judi More MA - Fully Assessed Prescriptions as of 03/09/2023 - acebutolol (SECTRAL) 200 mg capsule Take 1 capsule by mouth twice daily. - fluticasone-vilanterol (BREO ELLIPTA) 200-25 mcg/dose inhaler Inhale 1 Inhalation as instructed once daily. - turmeric/turmeric ext/pepr ext (TURMERIC-TURMERIC EXT-PEPPER) 500-3 mg cap Take 1 capsule by mouth twice daily. - Milk Thistle 175 mg tab Take 1 tablet by mouth once daily. Takes just twice a week - Cholecalciferol, Vitamin D3, 2,000 unit cap Take 1 tablet by mouth twice daily. - Flaxseed Oil 1,000 mg cap Take 1 capsule by mouth once daily. - albuterol HFA (PROAIR HFA) 90 mcg/actuation inhaler Inhale 2 Puffs as instructed every 4 hours as needed. - montelukast (SINGULAIR) 10 mg tablet Take 1 tablet by mouth daily at bedtime. - loratadine (CLARITIN) 10 mg tablet Take 1 tablet by mouth once daily. - calcium carbonate (CALCIUM 500) 500 mg calcium (1,250 mg) chewable tablet Take 1 tablet by mouth twice daily. - omega-3 fatty acids 1,000 mg cap Take 2 capsules by mouth twice daily. - Cinnamon Bark (CINNAMON) 500 mg cap Take 1 capsule by mouth twice daily. - Garlic 1,000 mg cap Take 1 capsule by mouth once daily. - Coenzyme Q10 (CO Q-10) 200 mg cap Take 1 capsule by mouth once daily. Problem List As Of Date 02/06/2023 Noted Resolved Moderate persistent asthma without complication*10/17/2016 MVP (mitral valve prolapse) [I34.1] 10/17/2016 Kidney stone [N20.0] 10/17/2016 Prediabetes [R73.03] 07/22/2017 Encounter Status:Closed by MANUEL VELAZQUEZ on 03/09/23 [facility] 09-23-2022 Miscellaneous Notes The following approved medication requests have been transmitted electronically. Requested Prescriptions Signed Prescriptions Disp Refills azithromycin (ZITHROMAX) 500 mg tablet 1 tablet 2 Sig: Take 1 tablet by mouth one time only for 1 dose. Take 30-60 minutes prior to dental work Authorizing Provider: ROCCO GUILLERMO Ma Let the patient know that I sent. The following approved medication requests have been transmitted electronically. Requested Prescriptions Signed Prescriptions Disp Refills azithromycin (ZITHROMAX) 500 mg tablet 1 tablet 2 Sig: Take 1 tablet by mouth one time only for 1 dose. Take 30-60 minutes prior to dental work Authorizing Provider: ROCCO GUILLERMO APRN.CNP Evelio King is calling Diana Santos MD today Patient has two upcoming dental appointments and needs antibiotic called to pharmacy. Please send to [facility] azithromycin (ZITHROMAX) 500 mg tablet 1 tablet 2 01/18/2021 01/18/2021 Sig: Take 1 tablet by mouth one time only for 1 dose. Take 30-60 minutes prior to dental work Sent to pharmacy as: azithromycin (ZITHROMAX) 500 mg tablet documented in this encounter [facility] 09-04-2022 Miscellaneous Notes Noted. Rocco Guillermo APRN.CNP Patient calls and wanted to let provider know that she did not have bursitis. Patient states that she went to her orthopedic doctor Dr. Nazario Mayorga and he ran xrays on her. Patient states that it had shown that the bands in her hip have stretched. Adry De Jesus RN documented in this encounter [facility] 07-03-2022 History of Presen t illness Narrative Ortho Nurse - Established Patient Intake Room#:1--- Visit today for 3 year visit for Right TKA (08-15-2019). Her knee has been doing well. She does complain today os Right Hip pain. She had seen her family Doctor and was told she had bursitis. She was given prednisone. This helped for a short time. Her pain in her hip is a 5. Date: 07/03/2022 4:11 PM Patient: Evelio King MR#: [id number] : 1955 Age: 67 y.o. Referring Physician: Self, Self Insurance: Payor: MEDICARE / Plan: MEDICARE A AND B / Product Type: *No Product type* / Chief Complaint Patient presents with Right Knee - Post Op Visit Right Hip - Pain Visit Vitals Temp 97.3 F (36.3 C) Ht 1.613 m (5' 3.5 ) Wt 78.7 kg (173 lb 9.6 oz) BMI 30.27 kg/m Pain Presence of Pain: complains of pain/discomfort Pain Location: hip, right Select Pain Scale: DVPRS (Defense and Veterans Pain Rating Scale) (Adult-Cognitively Intact) Pain Location: hip, right Select Pain Scale: DVPRS (Defense and Veterans Pain Rating Scale) (Adult-Cognitively Intact) Recent Labs No results found for: CRP No results found for: SEDRATE Lab Results Component Value Date WBC 8.7 11/13/2019 HGB 12.4 11/13/2019 HCT 36.6 11/13/2019 PLATELET 232 11/13/2019 MCV 92.8 11/13/2019 History Past Medical History: Diagnosis Date Asthma Depression GERD (gastroesophageal reflux disease) Kidney calculi Kidney stone history Migraine Mitral valve prolapse Past Surgical History: Procedure Laterality Date ARTHROPLASTY KNEE TOTAL Right 08/15/2019 Laterality: Right; Surgeon: Nazario Mayorga MD; Location: [facility] OR APPENDECTOMY SECTION times 2 CYSTECTOMY 2 different surgeries on hand and 1 on back OTHER SURGICAL vein ablation to rt leg TONSILLECTOMY Family History: Her family history includes Bleeding or Clotting Problems in her sister. Social History: Her reports that she has never smoked. She has never used smokeless tobacco. She reports that she does not drink alcohol and does not use drugs. Outpatient Medications Prior to Visit Medication Sig Dispense Refill acebutolol 200 MG Cap Take 200 mg by mouth at bedtime. ascorbic acid 500 MG Tab Take 500 mg by mouth daily. Breo Ellipta 200-25 MCG/INH Aerosol Powder, breath activated inhale 1 (ONE) puff daily calcium carbonate 1250 (500 Ca) MG Chew Tab Chew 1,250 mg daily. Cinnamon 500 MG Cap Take 1 capsule by mouth daily. Coenzyme Q-10 200 MG Cap Take 200 mg by mouth daily. Flaxseed, Linseed, (FLAXSEED OIL) 1000 MG Cap Take 1,000 mg by mouth daily. Garlic 1000 MG Cap Take 1 capsule by mouth daily. loratadine 10 MG Tab tablet Take 10 mg by mouth Daily (with dinner). Milk Thistle Extract 175 MG Tab Take 175 mg by mouth daily. montelukast 10 MG Tab tablet Take 10 mg by mouth daily. 11 [place]-3 1000 MG Cap Take 2,000 mg by mouth daily. VENTOLIN HFA 108 (90 Base) MCG/ACT Aero Soln inhaler INHALE 2 PUFFS BY MOUTH UP TO 4 TIMES A DAY NEEDED 6 Vitamin D3 50 MCG (2000 UT) Cap Take 1 tablet by mouth daily. acetaminophen 325 MG tablet Take 2 tablets by mouth every 4 hours as needed for Mild Pain. 50 tablet 1 ADVAIR DISKUS 250-50 MCG/DOSE Aerosol Powder, breath activated inhaler INHALE 1 DOSE BY MOUTH TWICE DAILY. RINSE MOUTH AFTER USE (Patient not taking: Reported on 07/03/2022) 11 aspirin EC [address] Take 1 table twice a day for 30days. This medication is for blood clot prevention. (Patient not taking: Reported on 2020) 60 tablet 0 docusate 100 MG Cap capsule Take 1 capsule by mouth 2 times daily. (Patient not taking: Reported on 2020) 60 capsule 0 ibuprofen 600 MG tablet Take 1 tablet by mouth 3 times daily as needed for Mild Pain (Take with food.) for up to 5 days. 15 tablet 0 meloxicam 7.5 MG Tab Take 1 tablet by mouth daily. Take with food. (Patient not taking: Reported on 2020) 30 tablet 0 meloxicam 7.5 MG tablet Take 1 tablet by mouth daily. 30 tablet 0 METHYLPREDNISOLONE 4 MG Tab Therapy Pack tablet Take 1 tablet by mouth As directed. follow package directions (Patient not taking: Reported on 2020) 21 tablet 0 omeprazole [address] capsule Take 1 capsule by mouth daily. (Patient not taking: Reported on 2020) 30 capsule 0 ondansetron 4 MG Tab Dispersible tablet Take 1 tablet by mouth every 4 hours as needed for Nausea. Place on tongue (Patient not taking: Reported on 2020) 10 tablet 0 oxyCODONE-acetaminophen 5-325 MG per tablet Take 1 tablet by mouth every 4 hours as needed for Moderate Pain or Severe Pain for up to 3 days. 18 tablet 0 therapeutic multivitamin-minerals Tab Take 1 tablet by mouth at bedtime. (Patient not taking: Reported on 2020) 30 tablet 0 No facility-administered medications prior to visit. Allergies: She is allergic to penicillins, clindamycin, and sulfa antibiotics. Associated Order(s): LARGE JOINT/BURSA INJECTION AND/OR ASPIRATION: R greater trochanteric bursa Post-Procedure Diagnose(s): Right hip pain; Hx of total knee arthroplasty, right; Trochanteric bursitis of right hip; Iliotibial band syndrome of right side HPI: Patient is here today for evaluation of her operative knee. She is status post right total knee arthroplasty. She is about a three years out, reports that she is doing well and is pleased with the outcome of the intervention. The knee feels better now than it did before, and she is not having any new symptoms with it. She denies pain upon exam today. She is also here with complaint of right hip pain. She was recently evaluated by PCP, diagnosed with hip bursitis and prescribed prednisone. This helped for a short period of time. This pain wakes her up at night when she turns to the right side. Her pain is a 5/10 upon exam today. PHYSICAL EXAM: The operative lower extremity is soft, nontender, full and supple motion. No pain, no impingement. No instability. She has full return of motion, 0-120 degrees, stable examination to varus and valgus stress with normal balance throughout the arc of motion. Increased tenderness laterally over the greater trochanter and IT band tendon. No trendelenburg gait. Stable pelvis with single leg stance test. The contralateral extremity has full motion, normal stability, no tenderness. Both extremities have normal neurovascular status. DIAGNOSTIC STUDIES/INTERPRETATION: Plain film radiographs reviewed. She has a right total knee arthroplasty in good position and alignment. No evidence of prosthetic implant loosening or migration. No changes in imaging. AP pelvis and hip series demonstrate preserved joint space, no evidence of fracture, subluxation, dislocation, or AVN. IMPRESSION: 1.) Trochanteric bursitis and IT band tendonitis, right side. 2.) Stable status post total knee arthroplasty, three years out, doing well. PLAN: I have reviewed my findings with the patient. We have gone over the diagnosis and the treatment. We discussed the diagnosis of trochanteric bursitis and IT band tendonitis, right side. For today, I recommend a trochanteric injection and formal course of physical therapy. She is in agreement. After explanations of the risks, benefits and alternatives and obtaining verbal consent, an injection in the right trochanter was administered. She tolerated the injection with no complaints. Aftercare instructions were provided with all questions being answered. If her pain persist following PT and trochanteric injection, MRI of the right hip will be ordered to further evaluate the integrity of the abductor muscles. She has no further questions at this time. Next appointment will be left open to her. LARGE JOINT/BURSA INJECTION AND/OR ASPIRATION: R greater trochanteric bursa Date/Time: 07/03/2022 3:50 PM Supporting Documentation Indications: pain Procedure Details: Location: hip - R greater trochanteric bursa Local Anesthetic: ethyl chloride (cold spray) Needle size: 22 G Medication Verification: I have personally verified and performed the final check of the medication(s) used in this procedure prior to administration. The following items were included during the verification process for medication(s) administered: drug name, strength, volume, expiration, physical integrity and appearance of the medication(s). Medications administered: 5 mL lidocaine 1% (PF) 1 %; 1 mL triamcinolone 40 MG/ML Patient tolerance: patient tolerated the procedure well with no immediate complications The patient was prepped with Betadine. PLAN OF CARE FOR THE RIGHT KNEE: I am pleased with the outcome of intervention. She has made an excellent recovery. I expect continued improvement in strength and mobility moving forward. I recommend followup in 2 years for repeat clinical and radiographic examination or sooner if any new symptoms develop. She will call with any questions or concerns in the meantime. I have reviewed the findings of the clinical claims support specialist and agree with their assessment. Ortho Nurse - Established Patient Intake Room#:1--- Visit today for 3 year visit for Right TKA (08-15-2019). Her knee has been doing well. She does complain today os Right Hip pain. She had seen her family Doctor and was told she had bursitis. She was given prednisone. This helped for a short time. Her pain in her hip is a 5. Date: 07/03/2022 4:11 PM Patient: Evelio King MR#: [id number] : 1955 Age: 67 y.o. Referring Physician: Self, Self Insurance: Payor: MEDICARE / Plan: MEDICARE A AND B / Product Type: *No Product type* / Chief Complaint Patient presents with Right Knee - Post Op Visit Right Hip - Pain Visit Vitals Temp 97.3 F (36.3 C) Ht 1.613 m (5' 3.5 ) Wt 78.7 kg (173 lb 9.6 oz) BMI 30.27 kg/m Pain Presence of Pain: complains of pain/discomfort Pain Location: hip, right Select Pain Scale: DVPRS (Defense and Veterans Pain Rating Scale) (Adult-Cognitively Intact) Pain Location: hip, right Select Pain Scale: DVPRS (Defense and Veterans Pain Rating Scale) (Adult-Cognitively Intact) Recent Labs No results found for: CRP No results found for: SEDRATE Lab Results Component Value Date WBC 8.7 11/13/2019 HGB 12.4 11/13/2019 HCT 36.6 11/13/2019 PLATELET 232 11/13/2019 MCV 92.8 11/13/2019 History Past Medical History: Diagnosis Date Asthma Depression GERD (gastroesophageal reflux disease) Kidney calculi Kidney stone history Migraine Mitral valve prolapse Past Surgical History: Procedure Laterality Date ARTHROPLASTY KNEE TOTAL Right 08/15/2019 Laterality: Right; Surgeon: Nazario Mayorga MD; Location: [facility] APPENDECTOMY SECTION times 2 CYSTECTOMY 2 different surgeries on hand and 1 on back OTHER SURGICAL vein ablation to rt leg TONSILLECTOMY Family History: Her family history includes Bleeding or Clotting Problems in her sister. Social History: Her reports that she has never smoked. She has never used smokeless tobacco. She reports that she does not drink alcohol and does not use drugs. Outpatient Medications Prior to Visit Medication Sig Dispense Refill acebutolol 200 MG Cap Take 200 mg by mouth at bedtime. ascorbic acid 500 MG Tab Take 500 mg by mouth daily. Breo Ellipta 200-25 MCG/INH Aerosol Powder, breath activated inhale 1 (ONE) puff daily calcium carbonate 1250 (500 Ca) MG Chew Tab Chew 1,250 mg daily. Cinnamon 500 MG Cap Take 1 capsule by mouth daily. Coenzyme Q-10 200 MG Cap Take 200 mg by mouth daily. Flaxseed, Linseed, (FLAXSEED OIL) 1000 MG Cap Take 1,000 mg by mouth daily. Garlic 1000 MG Cap Take 1 capsule by mouth daily. loratadine 10 MG Tab tablet Take 10 mg by mouth Daily (with dinner). Milk Thistle Extract 175 MG Tab Take 175 mg by mouth daily. montelukast 10 MG Tab tablet Take 10 mg by mouth daily. 11 [place]-3 1000 MG Cap Take 2,000 mg by mouth daily. VENTOLIN HFA 108 (90 Base) MCG/ACT Aero Soln inhaler INHALE 2 PUFFS BY MOUTH UP TO 4 TIMES A DAY NEEDED 6 Vitamin D3 50 MCG (2000 UT) Cap Take 1 tablet by mouth daily. acetaminophen 325 MG tablet Take 2 tablets by mouth every 4 hours as needed for Mild Pain. 50 tablet 1 ADVAIR DISKUS 250-50 MCG/DOSE Aerosol Powder, breath activated inhaler INHALE 1 DOSE BY MOUTH TWICE DAILY. RINSE MOUTH AFTER USE (Patient not taking: Reported on 07/03/2022) 11 aspirin EC [address] Take 1 table twice a day for 30days. This medication is for blood clot prevention. (Patient not taking: Reported on 2020) 60 tablet 0 docusate 100 MG Cap capsule Take 1 capsule by mouth 2 times daily. (Patient not taking: Reported on 2020) 60 capsule 0 ibuprofen 600 MG tablet Take 1 tablet by mouth 3 times daily as needed for Mild Pain (Take with food.) for up to 5 days. 15 tablet 0 meloxicam 7.5 MG Tab Take 1 tablet by mouth daily. Take with food. (Patient not taking: Reported on 2020) 30 tablet 0 meloxicam 7.5 MG tablet Take 1 tablet by mouth daily. 30 tablet 0 METHYLPREDNISOLONE 4 MG Tab Therapy Pack tablet Take 1 tablet by mouth As directed. follow package directions (Patient not taking: Reported on 2020) 21 tablet 0 omeprazole [address] capsule Take 1 capsule by mouth daily. (Patient not taking: Reported on 2020) 30 capsule 0 ondansetron 4 MG Tab Dispersible tablet Take 1 tablet by mouth every 4 hours as needed for Nausea. Place on tongue (Patient not taking: Reported on 2020) 10 tablet 0 oxyCODONE-acetaminophen 5-325 MG per tablet Take 1 tablet by mouth every 4 hours as needed for Moderate Pain or Severe Pain for up to 3 days. 18 tablet 0 therapeutic multivitamin-minerals Tab Take 1 tablet by mouth at bedtime. (Patient not taking: Reported on 2020) 30 tablet 0 No facility-administered medications prior to visit. Allergies: She is allergic to penicillins, clindamycin, and sulfa antibiotics. documented in this encounter [facility] 07-01-2022 Miscellaneous Notes The following approved medication requests have been transmitted electronically. Requested Prescriptions Pending Prescriptions Disp Refills acebutolol (SECTRAL) 200 mg capsule 180 capsule 3 Sig: Take 1 capsule by mouth twice daily. Rocco Guillermo APRN.CNP Prednisone helped with the hip, but now it acting up again. She's seeing her ortho Dr. Mayorga next week and will have them take a look at it. Pharmacy verified in [facility] Patient has been identified by name and date of : Yes Patient aware RX will be sent to pharmacy. No need to notify patient. phones for refill(s): Requested Prescriptions Pending Prescriptions Disp Refills acebutolol (SECTRAL) 200 mg capsule 180 capsule 3 Sig: Take 1 capsule by mouth twice daily. Date of last office visit : 02/24/2022 Date of next office visit : Visit date not found Last 2 Encounter Wt Readings: Date: Wt: 02/24/2022 77.5 kg (170 lb 12.8 oz) 01/18/2021 81.2 kg (179 lb) Please advise. Lizbeth Ortiz Pss documented in this encounter [facility] 02-07-2022 Miscellaneous Notes Patient called back in and actually wants them to go to [facility] lab in [place]. I called and got fax number of [phone] and faxed all active lab orders over to them. This is completed. Patient called back asking that we fax lab orders to [facility] in [place]. She states it's a new facility on [address] and [address] Patient called in to schedule Medicare Wellness. She states she received a letter and she was upset by the wording of it. She told me she was in the office end of December last year and it had not been 13 months yet. Patient was upset about the comment of if she is no longer following Dr. Santos... I did explain that Dr. Santos is still her PCP and there is no problem scheduling appt. She is aware to have labs drawn prior. STAMP Please reach out to patient for overdue appointment for chronic disease management with myself, Dr. Santos, or Huong Mahan. Labs are ordered. If he/she is no longer following with Dr. Santos, please remove name from PCP field. Rocco Guillermo APRN.VACUUM CASTER documented in this encounter [facility] 02-03-2022 History of Presen t illness Narrative POPULATION HEALTH NAVIGATION OUTREACH Action/ Letter mailed to pt home to call and set up appt or update PCP if no longer seeing Dr. Santos for care. Pt identified by name and : NO Outreach Outcome/Action Letter mailed Reason for Outreach Care Gap or Scheduling/Wellness visits Payer: Payor: MEDICARE / Plan: MEDICARE A AND B / Product Type: Medicare / Care Gap Reviewed:: Annual Wellness visit Reminder: Reminder note to check Health Maintenance for items below Health Maintenance items due: COVID-19 VACCINE(1) Never done LDL CHOLESTEROL Never done SPIROMETRY Never done SHINGRIX VACCINE(1 of 2) Never done MAMMOGRAM due on 06/11/2021 HBA1C due on 07/27/2021 ADVANCE DIRECTIVE DISCUSSION Never done ANNUAL PCP TEAM CHRONIC DISEASE VISIT due on 01/18/2022 DEPRESSION SCREENING due on 01/18/2022 COLORECTAL CANCER SCREENING due on 02/04/2022 Marysol Olmos Ma February 03, 2022 11:15 AM STAMP Please reach out to patient for overdue appointment for chronic disease management with myself, Dr. Santos, or Huong Mahan. Labs are ordered. If he/she is no longer following with Dr. Santos, please remove name from PCP field. Rocco Guillermo APRN.SHAMIR documented in this encounter [facility] Evaluation note Diagnosis Prediabetes- Primary Other abnormal glucose Screening for cholesterol level Screening for lipoid disorders [facility] Diagnosis MVP (mitral valve prolapse) Mitral valve disorders [facility] Diagnosis Right hip pain- Primary Pain in joint, pelvic region and thigh Hx of total knee arthroplasty, right Trochanteric bursitis of right hip Enthesopathy of hip region Iliotibial band syndrome of right side Other disorder of muscle, ligament, and fascia [facility] History of right knee joint replacement [facility] Diagnosis Medicare annual wellness visit, subsequent- Primary Routine general medical examination at a health care facility MVP (mitral valve prolapse) Mitral valve disorders Moderate persistent asthma without complication Unspecified asthma [facility] Diagnosis Sore throat- Primary Acute pharyngitis Moderate persistent asthma without complication Unspecified asthma [facility] Diagnosis Other chronic sinusitis- Primary Moderate persistent asthma without complication Unspecified asthma [facility] Diagnosis Other chronic sinusitis- Primary [facility] Diagnosis Chronic sinusitis, unspecified location- Primary [facility] Diagnosis MVP (mitral valve prolapse) Mitral valve disorders [facility] Diagnosis Encounter for screening mammogram for breast cancer [facility] Diagnostic Procedure Only (Routine) - Pending Review Specialty Diagnoses / Procedures Referred By Maria M t Referred To Contact [facility] Diagnoses Encounter for screening mammogram for breast cancer Procedures JC SCREENING SCREENING MAMMOGRAPHY BI 2-VIEW BREAST INC CAD Diana Santos MD [address] [place] [address] [facility] [address] [place] [address] Referral ID Status Reason Start Date Expiration Date Visits Requested Visits Authorized [id number] Pending Review Auto-Generat ed Referral 09/30/2023 10/29/2024 1 1 [facility] Summary Purpose Family History No Family History Records FoundNo Family History Records FoundNo Family History Records FoundNo Family History Records FoundNo Family History Records FoundNo Family History Records FoundNo Family History Records FoundNo Family History Records FoundNo Family History Records FoundNo Family History Records Found Advance Directives No Advanced Directives Records FoundDocuments on File Type Date Recorded Patient Supervisor Whipped Topping Expl anation Advance Directives/Living Will 08/16/2019 4:08 PM Living Will Latest Code Status on File Code Status Date Activated Date Inactivated Comments Full Code 08/15/2019 2:49 PM Hospital Course Note Therapy Diagnosis Assessed P ain in right knee (719.46) (M25.561) Stiffness of right knee, not elsewhere classified (719.56) (M25.661) Insurance Insurance reviewed Visit number: 8 Authorization not required after evaluation 05/08 Medicare follow guidelines Evaluating PT Dede Welch PT, DPT--transfer care to Mahogany Delgado PT, DPT . Medicare certification period: 09/06/2019, to 12/05/2018. Subjective Patient reports: Patient reported she experienced increased pain the day prior to treatment, she reported the day prior she had company all day and was up and down the entire day. She reported 2/10 pain before treatment. Pt goes back to surgeon in November for final F/U. Pt notes still some difficulty with stairs due to her stairs at home being very steep. Precautions: none. 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 Objective Ortho LEFS: 68/80 R knee AROM 2-78 deg -->0--116 L hip strength 4+/5--> 5/5 L knee strength 5/5-->5/5 R hip strength 4/5-->4+/5 R knee strength 3+/5 in available range-->4+/5 (more content not included)... Reason for Referral Specialty Diagnoses / Procedures Referred By Maria M t Referred To Contact Physical Therapy Diagnoses Trochanteric bursitis of right hip Iliotibial band syndrome of right side Nazario Mayorga MD [address] [place] [id number] [facility] [address] [place] [address] Referral ID Status Reason Start Date Expiration Date V isits Requested Visits Authorized [id number] New Request 07/03/2022 07/28/2023 1 1 Scheduling Instructions . Specialty Diagnoses / Procedures Referred By Maria M shook Referred To Contact Diagnoses Hx of total knee arthroplasty, right Procedures XR KNEE RIGHT 3 VIEWS Nazario Mayorga MD [address] [place] [id number] Referral ID Status Reason Start Date Expiration Date V isits Requested Visits Authorized [id number] New Request 06/27/2022 07/22/2023 1 1 Specialty Diagnoses / Procedures Referred By Maria M shook Referred To Contact Diagnoses Right hip pain Procedures XR HIP WITH PELVIS RIGHT Nazario Mayorga MD [address] [place] [id number] Referral ID Status Reason Start Date Expiration Date V isits Requested Visits Authorized [id number] New Request 06/27/2022 07/22/2023 1 1 Additional Source Comments INFORMATION SOURCE (unrecogn ized section and content) DATE CREATED AUTHOR 04/07/2019 [facility] DATE CREATED AUTHOR AUTHOR'S ORGANIZ ATION 05/26/2019 [facility] DATE CREATED AUTHOR AUTHOR'S ORGANIZ ATION 10/06/2019 [facility] DATE CREATED AUTHOR AUTHOR'S ORGANIZ ATION 07/13/2022 [facility] DATE CREATED AUTHOR AUTHOR'S ORGANIZ ATION 11/18/2022 [facility] DATE CREATED AUTHOR AUTHOR'S ORGANIZ ATION 10/05/2023 [facility] DATE CREATED AUTHOR AUTHOR'S ORGANIZ ATION 03/26/2024 [facility] DATE CREATED AUTHOR AUTHOR'S ORGANIZ ATION 05/05/2024 [facility] DATE CREATED AUTHOR AUTHOR'S ORGANIZ ATION 05/05/2024 [facility] DATE CREATED AUTHOR AUTHOR'S ORGANIZ ATION 07/24/2024 [facility] <item><item> Privacy Markings (unrecogniz ed section and content) Section Author: Selam Singh PROHIBITION ON REDISCLOSURE OF CONFIDENTIAL INFORMATION This notice accompanies a disclosure of information concerning a client made to you with the consent of such client. Section Author: Selam Singh PROHIBITION ON REDISCLOSURE OF CONFIDENTIAL INFORMATION This notice accompanies a disclosure of information concerning a client made to you with the consent of such client. Source Comments (unrecognize d section and content) In the event this informatio n is protected by the Federal Confidentiality of Alcohol and Drug Abuse Patient Records regulations: The Federal rules restrict any use of the information to criminally investigate or prosecute any alcohol or drug abuse patient.[facility] the event this information is protected by the Federal Confidentiality of Alcohol and Drug Abuse Patient Records regulations: The Federal rules restrict any use of the information to criminally investigate or prosecute any alcohol or drug abuse patient.[facility] the event this information is protected by the Federal Confidentiality of Alcohol and Drug Abuse Patient Records regulations: The Federal rules restrict any use of the information to criminally investigate or prosecute any alcohol or drug abuse patient.[facility] the event this information is protected by the Federal Confidentiality of Alcohol and Drug Abuse Patient Records regulations: The Federal rules restrict any use of the information to criminally investigate or prosecute any alcohol or drug abuse patient.[facility] the event this information is protected by the Federal Confidentiality of Alcohol and Drug Abuse Patient Records regulations: The Federal rules restrict any use of the information to criminally investigate or prosecute any alcohol or drug abuse patient.[facility] the event this information is protected by the Federal Confidentiality of Alcohol and Drug Abuse Patient Records regulations: The Federal rules restrict any use of the information to criminally investigate or prosecute any alcohol or drug abuse patient.[facility] the event this information is protected by the Federal Confidentiality of Alcohol and Drug Abuse Patient Records regulations: The Federal rules restrict any use of the information to criminally investigate or prosecute any alcohol or drug abuse patient.[facility] CampusIn the event this information is protected by the Federal Confidentiality of Alcohol and Drug Abuse Patient Records regulations: The Federal rules restrict any use of the information to criminally investigate or prosecute any alcohol or drug abuse patient.[facility] CampusIn the event this information is protected by the Federal Confidentiality of Alcohol and Drug Abuse Patient Records regulations: The Federal rules restrict any use of the information to criminally investigate or prosecute any alcohol or drug abuse patient.[facility] CampusIn the event this information is protected by the Federal Confidentiality of Alcohol and Drug Abuse Patient Records regulations: The Federal rules restrict any use of the information to criminally investigate or prosecute any alcohol or drug abuse patient.[facility] CampusIn the event this information is protected by the Federal Confidentiality of Alcohol and Drug Abuse Patient Records regulations: The Federal rules restrict any use of the information to criminally investigate or prosecute any alcohol or drug abuse patient.[facility] CampusIn the event this information is protected by the Federal Confidentiality of Alcohol and Drug Abuse Patient Records regulations: The Federal rules restrict any use of the information to criminally investigate or prosecute any alcohol or drug abuse patient.[facility] CampusIn the event this information is protected by the Federal Confidentiality of Alcohol and Drug Abuse Patient Records regulations: The Federal rules restrict any use of the information to criminally investigate or prosecute any alcohol or drug abuse patient.[facility] CampusIn the event this information is protected by the Federal Confidentiality of Alcohol and Drug Abuse Patient Records regulations: The Federal rules restrict any use of the information to criminally investigate or prosecute any alcohol or drug abuse patient.[facility] Reason for Visit (unrecogniz ed section and content) Reason Onset Date Comments [facility] Outreach 02/03/2022 Reason Comments Orders Reason Onset Date Comments Refill Request 06/27/2022 Specialty Diagnoses / Procedures Referred By Maria M t Referred To Contact Diagnoses Hx of total knee arthroplasty, right Procedures XR KNEE RIGHT 3 VIEWS Nazario Mayorga MD [address] [place] [address] Referral ID Status Reason Start Date Expiration Date V isits Requested Visits Authorized [id number] New Request 06/27/2022 07/22/2023 1 1 Reason Comments Post Op Visit Pain Reason Comments Patient Update Reason Comments Medication Request Reason Comments Medicare Wellness Exam Reason Comments Cough Cough, fatigue, neck pain, diarrhea, CALDERA, sinus issues x 2 weeks Reason Comments Follow Up Reason Comments Cough Reason Comments Patient Question Reason Comments Refill Request Care Teams (unrecognized sec tion and content) Supplemental Manager Relationship Specialty Start Date End Date Diana Santos MD [address] [place] [address] PCP - General Family Practice 10/17/16 Supplemental Manager Relationship Specialty Start Date End Date Diana Santos MD [address] [place] [address] PCP - General Family Practice 10/17/16 Supplemental Manager Relationship Specialty Start Date End Date Diana Santos MD [address] [place] [address] PCP - General Family Medicine 10/17/16 Supplemental Manager Relationship Specialty Start Date End Date Diana Santos MD [address] [place] [address] PCP - General Family Medicine 06/24/19 Supplemental Manager Relationship Specialty Start Date End Date Diana Santos MD [address] [place] [address] PCP - General Family Medicine 06/24/19 Supplemental Manager Relationship Specialty Start Date End Date Diana Santos MD [address] [place] [address] PCP - General Family Medicine 10/17/16 Supplemental Manager Relationship Specialty Start Date End Date Diana Santos MD [address] [place] [address] PCP - General Family Medicine 10/17/16 Supplemental Manager Relationship Specialty Start Date End Date Diana Santos MD [address] [place] [address] PCP - General Family Medicine 10/17/16 Supplemental Manager Relationship Specialty Start Date End Date Diana Santos MD [address] [place] [address] PCP - General Family Medicine 10/17/16 Supplemental Manager Relationship Specialty Start Date End Date Diana Santos MD [address] [facility], [place] [id number] PCP - [facility] 10/17/16 Supplemental Manager Relationship Specialty Start Date End Date Diana Santos MD [address] [facility], [place] [address] PCP - [facility] 10/17/16 Supplemental Manager Relationship Specialty Start Date End Date Diana Santos MD [address] [place] [address] PCP - [facility] 10/17/16 Supplemental Manager Relationship Specialty Start Date End Date Diana Santos MD [address] [place] [address] PCP - [facility] 10/17/16 Supplemental Manager Relationship Specialty Start Date End Date Diana Santos MD [address] [facility], [place] [address] PCP - [facility] 10/17/16 FOR RECORDS PERTAINING TO PATIENTS WHO ARE OR HAVE BEEN ENROLLED IN A CHEMICAL DEPENDENCY/SUBSTANCEABUSE PROGRAM, SOME INFORMATION MAY BE OMITTED. This clinical summary was aggregated from multiple sources. Caution should be exercised in using it in the provision of clinical care. This summary normalizes information from multiple sources, and as a consequence, information in this document may materially change the coding, format and clinical context of patient data. In addition, data may be omitted in some cases. CLINICAL DECISIONS SHOULD BE BASED ON THE PRIMARY CLINICAL RECORDS. [employer] [facility]. provides no warranty or guarantee of the accuracy or completeness of information in this document.
== END 2024-07-28 15:04 | disposition home or self-care (01) ==
PROVIDERS: Emergency Provider Emergency Medicine; PCP Family Medicine; Visit Provider Emergency Medicine
DX: J02.9 Acute pharyngitis, unspecified (principal); N20.0 Calculus of kidney; Z11.52 Encounter for screening for COVID-19; M79.10 Myalgia, unspecified site; R00.0 Tachycardia, unspecified; R50.9 Fever, unspecified; Z79.899 Other long term (current) drug therapy; Z87.891 Personal history of nicotine dependence
CPT/HCPCS: 71045; 80048; 80076; 81001; 85025; 87631; 93005; 99284